=== PATIENT | female | born 1940 | race Caucasian/White ===

== ENCOUNTER 2023-06-25 13:30 | Inpatient (IN) | payer MEDICARE, OTHER, SELFPAY ==
[2023-06-25] VITALS (10 sets, daily range): BP systolic 109–207; BP diastolic 57–98
[2023-06-25 10:05] LABS: Glucose - Point of Care 98 mg/dl (70-99)
--- NOTE | 2023-06-25 10:08 | ED.CVA ---
History of Present Illness
General
Chief Complaint: CVA/TIA Symptoms
Source: patient and ambulance crew
Exam Limitations: dementia
Time Seen by Provider: 06/25/23 10:04
Nursing documentation reviewed up to this point in time: agreed with
Onset of Stroke Symptoms
Onset of symptoms known: No
Time pt last seen normal is known: Yes
Date last time pt seen normal: 06/24/23
Time last time pt seen normal: 20:00
Travel History
Have you had any contact with someone who has COVID-19?: No
Do you have any symptoms of coronavirus? Fever > 100 degrees, chills, cough, shortness of breath, sore throat, loss of taste or smell, muscle aches, or headache?: No
History of Present Illness
History of Present Illness:
83-year-old female presents emergency department due to difficulty speaking, and being unwilling to walk.
Past History
Past History
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
Negative Asthma or NIDDM
ED Past Surgical History: Appendectomy, and Other (Hernia repair)
Social History
Tobacco: Non-smoker
Alcohol: None
Drug: None
Personal:
Living: assisted living ([facility])
Employment: Not employed
Family History
Family History: Other and Unable to obtain
Review of Systems
Review of Systems
Allergies reviewed?: Yes
All Other Systems: Not applicable
Neurological: Reports other (nonsensical speech)
Phy Exam
Physical Exam
Physical Exam:
Physical Exam
General: no apparent distress, not acutely ill
Neck: supple. no meningeal signs. normal posterior pharynx
Heart: s1/s2 regular rate and rhythm, no murmur. equal radial
pulses.
HEENT: Pupils equal round reactive to light, EOMI
Lungs: no acute respiratory distress. clear bilaterally
Abdomen: normal bowel sounds. not tender. no CVAT
Neuro: alert but not oriented. no focal neurological deficits cranial nerves II through XII intact, no dysarthria, unclear if dementia versus aphasia
Skin: no rash
Psychiatric: well kept. interactive and cooperative
Extremities: no edema. no calf tenderness. negative homans. good distal pulses
Course
Orders/Labs/Results
Orders:
Orders
06/25/23 10:04
CT Head W/o Iv Contrast Urgent
Comment:
Reason For Exam: expressive aphasia
Cardiac Monitoring- Treatment ONCE
IV Insert/Care/Rem.- Treatment PRN
06/25/23 10:05
Electrocardiogram (*1) Stat
Reason for Study: Other
Other Reason for Exam: neuro symptoms
EKG- Treatment ONCE
06/25/23 10:26
Ondansetron Injectable [Zofran] 4 mg .ROUTE .STK-MED ONE
06/25/23 10:27
Ondansetron Injectable [Zofran] 4 mg IV NOW STA
06/25/23 10:34
Cardiovascular Evaluation Urgent
Complete Blood Count/With Diff Urgent
Comprehensive Metabolic Panel Urgent
Erythrocyte Sed Rate Urgent
Comment: ADD
Ferritin Urgent
Comment: ADD
Folate Urgent
Comment: ADD
Glycohemoglobin (HgbA1c) Urgent
TSH Reflex To Free T4 Urgent
Comment: ADD
Urinalysis Reflex To Culture Urgent
Date Specimen was Collected: 06/25/23
Time Specimen was Collected: 10:24
Vitamin B12 Urgent
Comment: ADD
06/25/23 10:57
Acetaminophen [Tylenol] 650 mg PO NOW STA
06/25/23 11:39
Ketorolac [Toradol] 15 mg IV NOW STA
Prochlorperazine [Compazine] 10 mg IV NOW STA
Rizatriptan Orally Disintegrat [[employer] (Orally Disintegrating)] 10 mg PO NOW STA
06/25/23 11:40
EEG Routine Routine
Reason for Exam: change in mental status, aphasia
06/25/23 13:11
HydrALAZINE [Apresoline] 10 mg IV NOW STA
06/25/23 13:14
Add On- LAB Routine
Tests Added?: folate, ferritin, TSH reflex, B12, hbA1c, lipid panel, ESR
06/25/23 13:17
Admit/Transfer Patient As Directed
Co-Sign Provider:
Level of Care: Inpatient admission
Assign to:: Telemetry
Physician / Group: Kezia Zelaya
Diagnosis: Expressive Aphasia, uncontrolled hypertension
Reason for Telemetry: Arrhythmia
Date to Stop Telemetry: 06/28/23
Time to Stop Telemetry: 11:00
Reason for Hospitalization: BP management, Neurology consult
Expected length of stay greater than two midnights?: Yes
ELOS- Estimated Length of Stay in days: 3
I certify the patient meets the requirements for IP care: Yes
06/25/23 13:22
Code Status As Directed
Resuscitation Status: Do not resuscitate
Reached after discussion with pt or family/Healthcare POA: Yes
06/25/23 13:23
DNR Bracelet Application ONCE
06/25/23 13:32
Arterial Blood Gas Urgent
%Oxygen/Room Air: 92% - RA
06/28/23 11:00
DC Protocol for Telemetry ONCE
Abnormal Lab Results
06/25/23
10:34
RBC 3.89 L 10^6/uL
(4.20-5.40)
MCH 31.6 H pg
(27.0-31.0)
MCHC 32.8 L g/dL
(33.0-37.0)
ESR 30 H mm/hour
(0-20)
Carbon Dioxide 34 H mmol/L
(22-30)
Total Protein 6.1 L g/dl
(6.3-8.2)
06/25/23 10:34
06/25/23 10:34
Vital Signs
Initial and Last Documented VS:
Initial Vital Signs
Temp Pulse Resp BP Pulse Ox
98.7 F 52 16 162/98 95
06/25/23 10:00 06/25/23 10:00 06/25/23 10:00 06/25/23 10:00 06/25/23 10:00
Last Documented Vital Signs
Temp Pulse Resp BP Pulse Ox
98.7 F 61 12 207/89 92
06/25/23 10:00 06/25/23 13:19 06/25/23 12:45 06/25/23 13:19 06/25/23 12:30
MDM/Problems Addressed
Differential Diagnosis Includes:
Intracranial hemorrhage, CVA, migraine
MDM/Problems Addressed:
83-year-old female with altered mental status, headache, unclear etiology. Possibly CVA versus migraine.
Chronic conditions affecting care: HTN and Neurological disorder (TGA, TIA)
Acute Exacerbation and/or Progression of Chronic Illness: HTN and Neurological disorder (TGA, TIA)
*Radiology
Radiology exam reviewed: radiology read reviewed (CT head no acute findings)
*Pulse Oximetry
Patient hypoxic: no
*EKG
Interpreted by ED Provider?: Yes
EKG Intrepretation Date: 06/25/23
EKG Intrepretation Time: 10:32
Interpretation: abnormal
Comparison EKG: no changes
Heart Rate: 55
Rate: bradycardiac
Rhythm: sinus
[place]: normal axis
Interval: normal interval
QRS Pattern: normal QRS
Ischemia: no ischemia
*Zipper Machine Operator Interpretation
Rate: bradycardiac
Interpretation: abnormal
Heart Rate: 55
Rhythm: sinus
*Critical Care Note
Total Time (30-74mins, 75-104mins- exclusive of procedures): Not Applicable
Data Reviewed
Review of Other/Old Records Reveals: Discharge Summary (Prior to discharge on 03/17/2022 for toxic metabolic encephalopathy)
Patient Management
Social determinants of health affecting care: Living situation
Discussion with other providers: Hospitalist and Hand Stapler (Neurology, Dr. Garcia)
Escalation/DeEscalation of care consider admission/obs:
Admit indicated
ED Attending Note
-
Portions of this chart may have been created with voice recognition software.� Occasional wrong word or��sound alike� substitutions may have occurred due to the inherent limitations of voice recognition software.
Discharge Plan
Departure
Patient Disposition: Admit
Date of Disposition: 06/25/23
Time of Disposition: 11:25
Admit to: Telemetry
Presentation/result/management discussed w/ accepting MD/DO: Hospitalist
Patient with high blood pressure during this ER visit?: Yes
Condition: Good
Discharge Problem:
Altered mental status
Interventions
Interventions:
*Risk Screen - Suicide Last Done: 06/25/23 10:00
*General Assessment Last Done: 06/25/23 10:00
*Neglect/Abuse Screening Last Done: 06/25/23 10:00
ED- Fall Risk Assessment Last Done: 06/25/23 10:23
*ED COVID-19 Vaccine History Last Done: 06/25/23 10:20
ED- Pulmonary Assessment Last Done: 06/25/23 10:20
ED- Neurological Assessment Last Done: 06/25/23 10:30
ED- Cardiac Assessment Last Done: 06/25/23 10:20
ED Swallowing Screen Last Done: 06/25/23 10:55
[2023-06-25] MEDS: ZOFRAN 4 MG IV (10:29)
[2023-06-25 10:49] LABS: Urine Albumin Negative (Neg - Trace); Urine Bilirubin Negative (Negative); Urine Character Clear (Clear); Urine Color Yellow; Urine Glucose Negative (Negative); Urine Ketone Negative (Negative); Urine Leukocyte Negative (Negative); Urine Nitrite Negative (Negative); Urine Occult Blood Negative (Negative); Urine Urobilinogen Negative (Neg - 1+)
[2023-06-25 10:52] LABS: % Basophils 1.3 % (0-2); % Eosinophils 2.4 % (0-6); % Immature Granulocytes 0.4 % (0-0.5); % Lymphocytes 21.8 % (20.5-51.1); % Monocytes 8.8 % (1.7-9.3); % Neutrophils 65.3 % (42.2-75.2); Absolute Basophils 0.1 10^3/uL (0-0.2); Absolute Eosinophils 0.1 10^3/uL (0-0.7); Absolute Lymphocytes 1.2 10^3/uL (1.2-3.4); Absolute Monocytes 0.5 10^3/uL (0.1-0.6); Absolute Neutrophils 3.5 10^3/uL (1.4-6.5); Hematocrit 37.5 % (37.0-47.0); Hemoglobin 12.3 g/dL (12.0-16.0); Mean Corp Hgb Conc. 32.8 g/dL (33.0-37.0); Mean Corpuscular Hgb 31.6 pg (27.0-31.0); Mean Corpuscular Volume 96.4 fL (81.0-99.0); Mean Platelet Volume 10.4 fL (7.4-10.4); Nucleated Red Blood Cells % 0 %; Platelet Count 167 10^3/uL (130-400); Red Blood Cell Count 3.89 10^6/uL (4.20-5.40); Red Cell Dist. Width 12.6 % (11.5-14.5); White Blood Cell Count 5.4 10^3/uL (4.8-10.8)
--- NOTE | 2023-06-25 11:00 | CON.NEURO4 ---
Addendum entered and electronically signed by Wagner Garcia MD 06/25/23 13:55:
I saw and evaluated the patient I reviewed the note by Belle Quinn agree with the findings the following comments:
83-year-old woman with a past medical history of macular degeneration and blindness, repeated episodes of aphasia and confusion with complete resolution each time presenting the hospital with symptoms of headache speech difficulty and confusion.
Last known normal to be last night no recent illnesses or changes in medications.
Patient had been seen by my fellow neurologist Dr. Ho as well as Dr. Jimenez in the past she has had episodes of confusion and aphasia and actually has received alteplase 2 times without any imaging evidence for stroke on brain MRI.
Currently the patient does endorse significant headache along with feeling of nausea.
Blood pressure elevated in the ED to the 180s and low 200s systolic.
I had seen the patient as an outpatient and had thought that her episodes may have represented confusion in part due to mild cognitive impairment in addition to blindness and Garett Bonnet syndrome. I felt they were unlikely to be seizure or TIA,
some possibility for a confusional migraine.
Neurologic examination shows in a patient who is awake and alert and obey some simple commands and consistently has nonfluent speech, resting gaze is midline no gaze preference seen smile symmetric and symmetric motor function bilaterally.
Assessment: Doubt that this is TIA/stroke or seizure. 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 Concern for baseline mild cognitive impairment versus mild dementia.
Recommendations
-Trial migraine cocktail with rizatriptan and IV prochlorperazine and IV Toradol
-Would aim for systolic blood pressure less than 180
-Neurologic checks
-Check EEG
-Continue her home gabapentin
-Would follow her mental status, if still persistently abnormal tomorrow then check brain MRI without contrast
-Continue aspirin alone
Will follow
Original Note:
Documented by User: Belle Swenson NP 06/25/23 13:14
Consultation - Neurology 4
-
CONSULTING PHYSICIAN: Shivani Garcia MD
REFERRING PHYSICIAN: ER/Dr. Walters
DICTATED BY: CYRIL Barreto
DATE/TIME OF REQUEST: 06/25/23
DATE/TIME OF CONSULTATION: 06/25/23
Reason for Consultation: Aphasia
History of Present Illness:
This is an 83-year-old right-handed female who has presented to the hospital from [facility] with report of aphasia, delirium, headache, and being unwilling to walk. Patient has been evaluated by our Neurology service several times in the past for
similar symptoms.
From previous evaluation by Dr. Valenzuela on 11/24/20:
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 Her
daughter states that she has received alteplase in the past (x2) with imaging showing no evidence of stroke. She is also had EEGs without any evidence of seizure. She has seen Dr. Sun (who she saw only once in our office), Dr. Jimenez, [facility] and [facility] without a clear etiology found for her symptoms. She was seen previously by me in the hospital on 12/29/2018 when she presented with headache with aphasia and confusion. At that time her family refused any imaging,
alteplase and EEG, saying that they felt her symptoms were related to UTI. At that time they stated that she had 'several different (similar) events in the past at least half of which is been associated with UTIs.'
She presents today for evaluation for confusion that began on associated with visual and auditory hallucinations. She resides with her daughter. She is generally able to carry out her activities of daily living with the assistance of a
nurse that helps her each morning. She needs assistance at times with taking her pills and with preparing food. Her daughter states that since last she has needed much more assistance with her ADLs and she has both visual and auditory
hallucinations. She has had visual hallucinations in the past per eCW with use of Seroquel and her daughter reports that she had visual hallucinations with a trial of Vimpat started by [facility]. She believes that she has never had
hallucinations outside the context of medication side effect or possible UTI. She is having a well-formed visual hallucinations consisting of 'seeing colorful wallpaper like she had at home.' She is also seen 'moms, a road with a levi and thought
she was in a children[facility] hospital.' Her auditory hallucinations have consisted of 'hearing someone sleeping in the room next to her and hearing someone screaming for her son-in-law.' In the past similar episodes have improved with antibiotics but
she was put on antibiotics by her primary care physician for this event with little improvement. She generally has these a few times a year. Her family has been attempt to manage these events at home during COVID to avoid bringing her to the
hospital She's had no clear focal neurological deficits are clear convulsive seizures with this current event.'
Patient is currently unable to provide answers to many questions so most of this information is obtained from her daughter at bedside. Her daughter reports that yesterday (06/24/23) she had breakfast with the patient and then the patient headed to
her exercise class in her usual state. This morning (06/25/23), DC staff noted that the patient seemed delirious with nonsensical speech, and was refusing to stand up to walk. They sent her to the ER for evaluation. CT head was obtained on arrival
and is negative for any acute abnormalities. Blood pressure was 162/98 on arrival but is now 199/84. Patient is reporting a 10/10 headache, she is unable to describe it or provide a location of the headache. She reports photophobia and nausea, she
has not vomited and denies phonophobia. 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 She denies any dizziness, swallowing difficulty, numbness, weakness, chest pain, palpitations, and shortness of breath. NIHSS is a 6 for incorrect orientation questions,
baseline bilateral hemianopia, and mild aphasia. She is not a candidate for TNK/IAT due to unclear diagnosis, no evidence of LVO, and unclear onset of symptoms. She is taking aspirin 81mg daily and has not missed any doses. Her daughter reports that
two years ago she moved to [facility] for increased assistance due to her blindness, but cognitively she is intact at baseline. Her last episode similar to this was 1-2 years ago.
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
HTN, HLD, [place], pneumonia, recurrent UTI, UTI associated encephalopathy, anxiety, depression, GERD, left ICA stenosis, JOSETTE, hypothyroidism, iron deficiency anemia, osteoporosis, pulmonary nodule, hallucinations in the past on Seroquel and lacosamide,
insomnia, Tracy-Agrawal tear.
Surgical History: Appendectomy, hernia repair, tonsillectomy, x3, right cataract removal
Family History: Father- dementia.
Social History: Denies tobacco, alcohol, and illicit drug use. . Moved to [facility] in 2021. 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
Allergies: Iodine, amlodipine.
Home Medications: See below.
Review of Symptoms:
Patient denies any fever, chest pain, shortness of breath, GI or symptoms.
�Per the HPI.�All systems are reviewed negative except above.
Physical Exam:
The patient is afebrile, abdomen is nondistended, breathing is unlabored, skin is warm and dry, no edema.
NIH Stroke Scale:
I performed the NIH stroke scale on the patient on 06/25/23 at 1100. The patient scored 6 points on the NIH stroke scale assessment, which were assigned as follows: See below.
Neurologic Examination:
The patient is awake, alert and oriented to name, place, not time/situation. She is moaning in pain, reports headache. She is able to follow all commands. She can answer some questions appropriately. There is mild expressive aphasia. No dysarthria.
On cranial nerve assessment, pupils are 3 mm bilateral, oval and minimally reactive to light and accommodation. Visual stern are absent at baseline. JJ EOMS. Facial sensations are intact and bilaterally symmetrical, there is no facial asymmetry.
Hearing is intact bilaterally to normal conversation volume. Tongue palate and uvula are midline. Sternocleidomastoid strengths are full bilaterally. Motor strengths are 5/5 bilateral upper and lower extremities on medical research [place] scale.
There is no drift or involuntary movement noted. Deep tendon reflexes are 1+ bilateral upper and lower extremities and Babinski is absent bilaterally. JJ DBS. Coordination is intact by finger to nose bilaterally.
Lab Results: See below.
Neuro Imaging:
1. CT Head 06/25/23: No acute intracranial abnormalities. Findings again seen compatible with diffuse cortical atrophy with nonspecific white matter changes as described above.
2. MRI brain 11/25/20: There is no acute intracranial process. There is moderate diffuse volume loss and chronic small vessel disease. 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 Chronic sinus disease.
Differentials for the patient's presentation include:
1. Complicated migraine causing aphasia.
2. Left hemisphere stroke possible but less likely given history of similar events with negative MRI brain imaging.
3. Hypertensive urgency.
4. Metabolic disturbance possibly causing encephalopathy but no clear clinical signs of infection.
Patient has the following risk factors for their symptoms: Hx similar events, blindness, headache, HTN, HLD
IV Tenecteplase/IAT candidacy: She is not a candidate for TNK/IAT due to unclear diagnosis, no evidence of LVO, and unclear onset of symptoms.
Recommendations:
-Provide rizatriptan 10mg, prochlorperazine 10mg IV, and Toradol 15mg IV x1 now for headache.
-Routine EEG ordered/pending.
-Continue aspirin 81mg daily.
-Goal normotension.
-Checking blood work for metabolic abnormalities, lipid panel, and hbA1c.
-NIHSS and neurological checks per unit guidelines.
-Provide patient's family with a stroke education packet.
-If no improvement in symptoms, will obtain MRI brain noncontrast.
-DVT prophylaxis.
-Will follow.
Discussed patient care with: Dr. Garcia, the patient
Vital Signs and Labs
-
Vital Signs and Labs:
Vital Signs
Temp Pulse Resp BP Pulse Ox
98.7 F 53 17 185/82 95
06/25/23 10:00 06/25/23 11:00 06/25/23 11:00 06/25/23 11:00 06/25/23 11:00
Lab Results
06/25/23 10:34
06/25/23 10:34
Sodium 136 mmol/L (135-145) 06/25/23 10:34
Potassium 3.9 mmol/L (3.5-5.1) 06/25/23 10:34
BUN 14 mg/dl (7-17) 06/25/23 10:34
Glucose 98 mg/dl (70-99) 06/25/23 10:34
Calcium 9.3 mg/dl (8.4-10.2) 06/25/23 10:34
Medications
-
Home Medications
�Medication �Instructions �Recorded
pantoprazole 40 mg tablet,delayed 40 mg PO DAILY Gastrointestinal 12/03/11
release issue
ramipril 5 mg capsule 5 mg PO BID Blood pressure 12/03/11
metoprolol succinate 25 mg 25 mg PO BID Blood pressure 04/26/17
tablet,extended release 24 hr
rosuvastatin 10 mg tablet 10 mg PO HS High cholesterol 05/25/18
fluoxetine 10 mg capsule 10 mg PO DAILY Depression 11/24/20
hydrochlorothiazide 25 mg tablet 25 mg PO DAILY Blood pressure 11/24/20
cholecalciferol (vitamin D3) 125 125 mcg PO DAILY Supplement 12/16/21
mcg (5,000 unit) tablet (Vitamin
D3)
cyanocobalamin (vitamin B-12) 1,000 mcg PO MOWEFR@0800 Supplement 12/16/21
1,000 mcg tablet (Vitamin B-12)
fluoxetine 20 mg capsule 20 mg PO DAILY Depression 12/16/21
acetaminophen 325 mg tablet 650 mg PO Q6H PRN mild pain 02/10/22
aspirin 81 mg chewable tablet 81 mg PO DAILY Blood clot 02/10/22
prevention/tx
calcium carbonate (Oyster Shell 500 mg PO DAILY Supplement 02/10/22
Calcium)
Culturelle 1 cap PO DAILY 06/25/23
ascorbic acid (vitamin C) 1,000 mg 1,000 mg PO DAILY 06/25/23
tablet
cephalexin 250 mg capsule 250 mg PO DAILY@0900 06/25/23
cranberry extract 500 mg capsule 500 mg PO DAILY 06/25/23
(Cranberry Concentrate)
gabapentin 300 mg capsule 300 mg PO TID@0900,1300,1700 06/25/23
hydrocortisone 1 % topical cream 1 applic topical TID PRN crease of 06/25/23
neck rash
NIH Stroke Score
Subsequent NIH Scale
Date of Subsequent NIH Scale: 06/25/23
Time of Subsequent NIH Scale: 11:00
NIH Stroke Score
Level of Consciousness: 0 - Alert
LOC Questions: 2-Neither correct
LOC Commands: 0-Performs both correctly
Best Horizontal Gaze: 0-Normal
Visual Stern: 3=Bilateral hemianopia (blind at baseline)
Facial Palsy: 0=Normal, symmetrical
Motor - Right Arm: 0=No drift 10 seconds
Motor - Left Arm: 0=No drift 10 seconds
Motor - Right Le-No drift 5 seconds
Motor - Left Le-No drift 5 seconds
Limb Ataxia: 0-Absent
Sensation: 0-Normal
Best Language: 1-Mild aphasia
Dysarthria: 0-Normal
Extinction and Inattention: 0-No abnormality
Total Score:: 6

Documented by User: Wagner Garcia MD 06/25/23 13:19
NIH Stroke Score
NIH Stroke Score
Total Score:: 6
[2023-06-25] MEDS: TYLENOL 650 MG PO (11:02)
[2023-06-25 11:03] LABS: ALT (SGPT) 14 U/L (0-35); AST (SGOT) 26 U/L (14-36); Albumin 3.5 g/dl (3.5-5.0); Alkaline Phosphatase 66 U/L (38-126); Blood Urea Nitrogen 14 mg/dl (7-17); Calcium 9.3 mg/dl (8.4-10.2); Carbon Dioxide 34 mmol/L (22-30); Chloride 101 mmol/L (98-107); Glucose 98 mg/dl (70-99); Potassium 3.9 mmol/L (3.5-5.1); Sodium 136 mmol/L (135-145); Total Bilirubin 0.7 mg/dl (0.2-1.3); Total Protein 6.1 g/dl (6.3-8.2); eGFR 55.55
[2023-06-25] MEDS: TORADOL 15 MG IV (11:58)
[2023-06-25] MEDS: TORADOL IV (11:59)
[2023-06-25] MEDS: MAXALT MLT (ORALLY DISINTEGRATING) 10 MG PO (12:00)
[2023-06-25] MEDS: COMPAZINE 10 MG IV (12:01)
--- NOTE | 2023-06-25 13:07 | HPS.HSE ---
Addendum entered and electronically signed by Dom Zelaya MD 06/25/23 13:43:
83-year-old female with a past medical history of legal blindness, Garett Bonnet syndrome, JOSETTE, HTN, Aguilar's esophagus, anxiety, and obesity presents with confusion, aphasia, headache, and fatigue. Patient resides at [facility] living.
Appreciate neurology input, patient has been evaluated by neurology on several occasions for similar symptoms, MRI is usually negative. Her blood pressure is extremely elevated in the ER, systolic blood pressure 190�200. Differential diagnosis
include hypertensive encephalopathy, complicated migraine, or dementia.
Currently, her headache is improved since receiving Maxalt, Toradol, and Compazine.
Current blood pressure is 207/89. Give hydralazine 10 mg IV stat.
Increase home ramipril to 10 mg twice a day, start hydralazine 25 mg 3 times a day, decrease metoprolol succinate from 25 mg twice a day to 12.5 mg twice a day secondary to bradycardia. Continue IV hydralazine as needed. Monitor mental status.
I have personally seen and examined the patient, and agree with the plan of care as documented by Tameka Dueñas PA-C.
Advance care planning discussed, patient is a DNR.
All other issues as outlined by the advanced care practitioner.
Total time spent to see the patient on the floor, examine the patient, review data and lab results, discuss treatment plan with patient, nursing staff around 75 minutes.
Original Note:
Family Physician
-
Family Physician: Jasmyn Corona
Chief Complaint
-
Change in Mental Status
History of Present Illness
Patient is an 83 y/o female with a past medical history of hypertension, hyperlipidemia, paroxysmal atrial fibrillation, Garett Bonnet syndrome, obstructive sleep apnea, Aguilar's esophagus, anxiety, and frequent urinary tract infections who
presents with her daughter and friend from [facility] for decreased speech, headache, and fatigue since this morning. Patient is a poor historian due to change in mental status. Patient is unable to answer questions related to name, time, and
location. Patient is sometimes able to answer yes or no questions during the history. At the beginning of the history, she spoke few complete sentences but was unable to do so later on. Her daughter states that her mother was found to be combative
with staff this morning and unable to speak full sentences. She reports decreased speech and garbled speech. She states that her mother normally talks frequently and without difficulty at baseline. She is unsure of her mother's last known normal.
Patient admits to current headache. There are no reports of focal weakness.
Medical History
Past Medical History
Past Medical History: Reports Other
Additional Past Medical History:
Paroxysmal Atrial Fibrillation
Essential Hypertension
Hyperlipidemia
Recurrent UTIs
Aguilar's Esophagus
Hallucinations secondary Garett Bonnet Syndrome
Anxiety/Depression
Past Surgical History: Reports Other
Additional Past Surgical History:
Appendectomy
Hernia Repair
Section
Social History
Tobacco: Non-smoker
Alcohol: None
Personal:
Living: Assisted Living (Lives at [facility])
Employment: Not Employed
Family History
Family History: Not pertinent
Allergies / Home Medications
Allergies reflects when Allergies were last updated in [facility].
Home Medications with original date entered in [facility]
Allergy/Medication List:
Allergies
Allergy/AdvReac Type Severity Reaction Status Date / Time
iodine Allergy Unknown Confusion,confusion/'like Verified 06/25/23 10:49
I had a
tia'
amlodipine besylate Allergy Rash Verified 06/25/23 10:49
[From [facility]]
Home Medications
pantoprazole 40 mg tablet,delayed release 40 mg PO DAILY Gastrointestinal issue 12/03/11
ramipril 5 mg capsule 5 mg PO BID Blood pressure 12/03/11
metoprolol succinate 25 mg tablet,extended release 24 hr 25 mg PO BID Blood pressure 04/26/17
rosuvastatin 10 mg tablet 10 mg PO HS High cholesterol 05/25/18
fluoxetine 10 mg capsule 10 mg PO DAILY Depression 11/24/20
hydrochlorothiazide 25 mg tablet 25 mg PO DAILY Blood pressure 11/24/20
cholecalciferol (vitamin D3) 125 mcg (5,000 unit) tablet (Vitamin D3) 125 mcg PO DAILY Supplement 12/16/21
cyanocobalamin (vitamin B-12) 1,000 mcg tablet (Vitamin B-12) 1,000 mcg PO MOWEFR@0800 Supplement 12/16/21
fluoxetine 20 mg capsule 20 mg PO DAILY Depression 12/16/21
acetaminophen 325 mg tablet 650 mg PO Q6H PRN mild pain 02/10/22
aspirin 81 mg chewable tablet 81 mg PO DAILY Blood clot prevention/tx 02/10/22
calcium carbonate (Oyster Shell Calcium) 500 mg PO DAILY Supplement 02/10/22
Culturelle 1 cap PO DAILY 06/25/23
ascorbic acid (vitamin C) 1,000 mg tablet 1,000 mg PO DAILY 06/25/23
cephalexin 250 mg capsule 250 mg PO DAILY@0900 06/25/23
cranberry extract 500 mg capsule (Cranberry Concentrate) 500 mg PO DAILY 06/25/23
gabapentin 300 mg capsule 300 mg PO TID@0900,1300,1700 06/25/23
hydrocortisone 1 % topical cream 1 applic topical TID PRN crease of neck rash 06/25/23
Review of Systems
-
Unable to obtain full review of systems at this time due to: Other (Speech Difficulty and Change in Mental Status)
Physical Exam
Vital Signs
Vital Signs
Temp Pulse Resp BP Pulse Ox
98.7 F 57 12 199/84 92
06/25/23 10:00 06/25/23 12:45 06/25/23 12:45 06/25/23 12:00 06/25/23 12:30
Physical Exam
General: Well Nourished, No Apparent Distress and Comfortable
HEENT: NormoCephalic, Anicteric and Moist mucous membranes
Respiratory: Clear and Non Labored Respirations
Cardiac: S1/S2 and Regular Rhythm
GI: Soft and Non Tender
Rectal: Deferred by Provider
Musculoskeletal: No Clubbing, No Cyanosis and No Edema
Skin: Warm and Dry
Neuro: Other (Patient follows commands and moves all four extremities appropriately. Speech is garbled, only occasionally answering with one word)
Laboratory Results
-
06/25/23 10:34
06/25/23 10:34
Laboratory Results
Total Bilirubin 0.7 mg/dl (0.2-1.3) 06/25/23 10:34
AST 26 U/L (14-36) 06/25/23 10:34
ALT 14 U/L (0-35) 06/25/23 10:34
Alkaline Phosphatase 66 U/L (38-126) 06/25/23 10:34
Data Reviewed
-
Diagnostic Radiology: Report Reviewed by me
Lab Data: Labs Reviewed by me
Old Records: Reviewed
Impression/Plan
-
Acute Change in Mental Status, differential includes: Hypertensive Encephalopathy, Hypercapnia, Migraine and Dementia
-Consult Neurology
-Treat hypertension
-Check ABG
-Hold on MRI pending eval tomorrow
Essential Hypertension, currently uncontrolled with possible hypertensive encephalopathy
-Hold HCTZ
-Continue Toprol at lower dose due to bradycardia
-Increase ramipril 10mg BID
-Add hydralazine 25mg TID with hold parameters
Paroxysmal Atrial Fibrillation
-Appears to have been a single episode during prior admission
-Monitor on Telemetry
-Patient is not on anticoagulation as outpatient
Hyperlipidemia
-Continue Rosuvastatin
Recurrent UTIs
-Continue cephalexin
GERD / Aguilar's Esophagus / Hx GI Bleed
-Continue Protonix
Hallucinations secondary Garett Bonnet Syndrome
-Continue gabapentin
Anxiety/Depression
-Continue fluoxetine
Obstructive Sleep Apnea
-Per daughter patient used to use CPAP at night, but has not in quite sometime. Patient has also gained weight recently due to inactivity with her worsening vision
-Consider sleep study as outpatient
DVT proph: SCDs
Code Status: DNR confirmed with daughter at the bedside at the time of admission
[2023-06-25] MEDS: APRESOLINE 10 MG IV (13:19)
[2023-06-25 13:40] LABS: HCO3 29.2 mmol/L (21-28); PCO2 45 mmHg (32-35); PO2 69 mmHg (83-108); pH 7.42 (7.35-7.45)
[2023-06-25 13:42] LABS: Erythrocyte Sed Rate 30 mm/hour (0-20)
--- NOTE | 2023-06-25 13:43 | W.PN.UPDATE ---
Update Note
Progress Note Update
For billing purposes
[2023-06-25 13:50] LABS: HDL Cholesterol 61 mg/dl; LDL Cholesterol, Calculated 69 mg/dl; Total Cholesterol 149 mg/dl (50-199); Triglyceride 98 mg/dl (10-149); Very Low Density Lipoprotein 19 mg/dl (0-30)
[2023-06-25 13:59] LABS: Glycohemoglobin (HgbA1c) 5.6 % (4.0-5.6)
[2023-06-25 14:59] LABS: TSH Reflex To Free T4 0.58 uIU/ml (0.47-4.68)
[2023-06-25 15:03] LABS: Ferritin 75.4 ng/ml (11.1-264.0)
[2023-06-25 15:34] LABS: Folate 15.3 ng/ml (2.76-20); Vitamin B12 872 pg/ml (239-931)
--- NOTE | 2023-06-25 15:39 | EEG.RPT ---
Electroencephalogram Report
Recording
Date of EE06/25/23
Length of EEG recordin minutes
Done with Video Recording: Yes
Patient Status: Inpatient
Recording Conditions: Awake and Drowsy
Hyperventilation Performed: No
Photic Stimulation Performed: Yes
Hand Dominance: Unknown
Report
LESS THAN 1 HOUR REPORT
LESS THAN 1 HOUR EEG INTERPRETATION:
Mildly abnormal EEG for age mild diffuse bihemispheric slowing and rare triphasic waves.
CLINICAL CORRELATION:
This study was suggestive of mild diffuse cortical dysfunction without focal abnormality. No seizures were recorded.
Clinical correlation is advised.
METHODS:
A 21 channel digitized electroencephalogram (EEG) was performed in the Clinical Neurophysiology Laboratory. The 10/20 international system of electrode placement was used with ECG and lateral/vertical eye movements recorded. Study lasted 25 minutes.
QUALITY OF STUDY:
Poor/Fair, significant motion and muscle artifact
ELECTROENCEPHALOGRAPHER IMPRESSION(S):
Background
Mixed medium amplitude predominantly theta and delta frequency background
No normal alpha rhythm posterior dominant rhythm seen
There were no significant asymmetries of background activity noted.
Sleep
Drowsiness present
Photic Stimulation
Failed to activate the record
ECG
Normal sinus rhythm
Abnormalities
Rare frontally predominant triphasic waves seen, no seizures or epileptiform discharges seen
--- NOTE | 2023-06-25 16:00 | PTCARENOTE ---
Addendum entered by Susan Davis RN 06/25/23 16:14:
06/24- Notified Neurology and Hospitalist of difference between NIH scores d/t Patient's Blindness and Cognitive deficits at this time. Current NIH score=18; ER score was 6. D/C NIH as per Neurology.
Original Note:
06/24- Patient transferred and oriented to unit without issue. AAOX1; Confused, agitated, speaking incomprehensible sounds to self, uncooperative and cannot follow directions to complete NIH assessment. Patient is also legally blind and cannot see
to assess visual finn or aphagia/dysarthria. BL hand offline cutter are weak but equal. Patient has aversion to physical touch, just yells 'ouch!' at slightest touch on arm. Telemetry #28- currently NSR.
--- NOTE | 2023-06-25 16:30 | PTCARENOTE ---
06/24- With patient's daughter in room, patient was better able to follow commands to complete Swallow Screening successfully. Changed NPO to 2GM Sodium Diet as ordered as per Swallow Screen Diet orders. Patient is now able to answer basic YES/NO
questions appropriately and knows person, time and place. Patient still has severe expressive aphagia and can be agitated at times but understands YES/NO questions.
[2023-06-25] MEDS: APRESOLINE 25 MG PO ×2 (16:50→21:07)
[2023-06-25] MEDS: NEURONTIN 300 MG PO (16:50)
[2023-06-25] MEDS: ALTACE 10 MG PO (21:06)
[2023-06-25] MEDS: TOPROL XL 12.5 MG PO (21:07)
[2023-06-25] MEDS: CRESTOR 10 MG PO (21:07)
[2023-06-26] VITALS (8 sets, daily range): BP systolic 94–141; BP diastolic 44–72; PULSE 63; BMI 42.4
[2023-06-26] MEDS: PROZAC 20 MG PO (07:33)
[2023-06-26] MEDS: TOPROL XL 12.5 MG PO ×2 (07:33→20:04)
[2023-06-26] MEDS: PROTONIX 40 MG PO (07:34)
[2023-06-26] MEDS: ALTACE 10 MG PO (07:34)
[2023-06-26] MEDS: LOW STRENGTH ASPIRIN 81 MG PO (07:34)
[2023-06-26] MEDS: OSCAL CAL 500 500 MG PO (07:34)
[2023-06-26] MEDS: VITAMIN C 1000 MG PO (07:35)
[2023-06-26] MEDS: APRESOLINE 25 MG PO (07:35)
[2023-06-26] MEDS: PROZAC 10 MG PO (07:35)
[2023-06-26] MEDS: VITAMIN D3 (cholecalciferol) 125 MCG PO (07:35)
[2023-06-26] MEDS: TYLENOL 1000 MG PO ×2 (07:42→20:11)
--- NOTE | 2023-06-26 07:54 | W.PN.HOSP.TC ---
Today's Communication/Plan
-
Decrease hydralazine to 10 mg 3 times daily with hold parameters
Monitor overnight per neurology
Assessment / Plan
Assessment / Plan
HPI: 83-year-old female with a past medical history of legal blindness, Garett Bonnet syndrome, JOSETTE, HTN, Aguilar's esophagus, anxiety, and obesity presents with confusion, aphasia, headache, and fatigue. Patient resides at [facility] assisted
living. Appreciate neurology input, patient has been evaluated by neurology on several occasions for similar symptoms, MRI is usually negative. Her blood pressure is extremely elevated in the ER, systolic blood pressure 190�200. Differential
diagnosis include hypertensive encephalopathy, complicated migraine, or dementia.
#Hypertensive encephalopathy
Aphasia resolved with treatment of hypertension
Appreciate neurology input, EEG negative, no MRI needed
Continue aspirin 81 mg daily, minimize sedating medications
Monitor today, probable discharge tomorrow
#Labile hypertension
Blood pressure upon admission was 207/89, blood pressure today 94/44
Continue ramipril 10 mg twice a day, decrease hydralazine to 10 mg 3 times a day, hold for SBP less than 150
Continue metoprolol at reduced dose secondary to bradycardia
#Legally blind
Needs help with activities of daily living
From [facility] assisted living
In the process of being transitioned to long-term care
#Migraine headache
Continue Maxalt as needed, Compazine as needed
#Paroxysmal Atrial Fibrillation
-Appears to have been a single episode during prior admission
-Continue metoprolol at reduced dose secondary to bradycardia
-Patient is not on anticoagulation as outpatient
Hyperlipidemia
-Continue Rosuvastatin
Recurrent UTIs
-Continue cephalexin
GERD / Aguilar's Esophagus / Hx GI Bleed
-Continue Protonix
Hallucinations secondary Garett Bonnet Syndrome
-Continue gabapentin
Anxiety/Depression
-Continue fluoxetine
Obstructive Sleep Apnea
-Per daughter patient used to use CPAP at night, but has not in quite sometime. Patient has also gained weight recently due to inactivity with her worsening vision
-Consider sleep study as outpatient
DVT proph: lovenox
Code Status: DNR confirmed with daughter at the bedside at the time of admission
Total time spent to see the patient on the floor, examine the patient, review data and lab results, discuss treatment plan with patient, nursing staff around 50 minutes.
Physical Exam
General: Obese, no acute distress
HEENT: Legally blind, normocephalic, Atraumatic, EOMI, MMM
Respiratory: Clear to Auscultation bilaterally
Cardiac: Normal S1/S2, Regular Rate and Rhythm
GI: Soft, Nontender, Nondistended, Normal Bowel Sounds
Extremities: No Clubbing, Cyanosis, or Edema
Neuro: Nonfocal/Grossly Intact
Psych: Calm, Cooperative
Derm: No Visible lesions
Anticipated Discharge: Within 24 hours
Subjective/Interval History
-
Date of Service: June 26, 2023
Aphasia resolved. Patient complains of headache. No fever, no vomiting.
Objective Data
-
Labs:
Laboratory Results
06/26/23
07:24
WBC Pending
Hgb Pending
Hct Pending
Plt Count Pending
Sodium Pending
Potassium Pending
Chloride Pending
Carbon Dioxide Pending
BUN Pending
Creatinine Pending
Glucose Pending
Calcium Pending
Vital Signs:
Vital Signs
Temp Pulse Resp BP Pulse Ox
98.4 F 78 20 141/66 93
06/26/23 03:49 06/26/23 03:49 06/26/23 03:49 06/26/23 03:49 06/26/23 03:49
I&O
06/25/23 06/26/23 06/27/23
06:59 06:59 06:59
Intake Total 60 / 60
Balance 60 / 60
[2023-06-26 08:08] LABS: Hematocrit 37.1 % (37.0-47.0); Hemoglobin 12.2 g/dL (12.0-16.0); Mean Corp Hgb Conc. 32.9 g/dL (33.0-37.0); Mean Corpuscular Hgb 31.2 pg (27.0-31.0); Mean Corpuscular Volume 94.9 fL (81.0-99.0); Mean Platelet Volume 10.3 fL (7.4-10.4); Platelet Count 166 10^3/uL (130-400); Red Blood Cell Count 3.91 10^6/uL (4.20-5.40); Red Cell Dist. Width 13.2 % (11.5-14.5); White Blood Cell Count 6.5 10^3/uL (4.8-10.8)
--- NOTE | 2023-06-26 08:13 | W.PN.NEURO.1 ---
Today's Communication / Plan
-
-Continue aspirin 81 mg daily
-Neurologic checks
-Follow BP's goal normotension
-Minimize sedating medications that are new
-Home gabapentin
-Holding off MRI brain given vast improvement
-PRN Rizatriptan for headache can receive 2 doses today but no further doses (maximum 2 days per week in general)
Will follow
Neuro Assessment/Plan
Assessment
Assessment: Doubt that this is TIA/stroke or seizure. 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 Concern for baseline mild cognitive impairment versus mild dementia.
Has had multiple similar episodes which make me think this is a more benign disorder like confusional migraine.
Subjective/Objective
Subjective Data
Date of Service: June 26, 2023
No acute events, much better speech, minor headache currently, took some Tylenol
Objective Data
Vital Signs
Temp Pulse Resp BP Pulse Ox
98.4 F 78 20 141/66 93
06/26/23 03:49 06/26/23 03:49 06/26/23 03:49 06/26/23 03:49 06/26/23 03:49
Sodium 136 mmol/L (135-145) 06/25/23 10:34
Potassium 3.9 mmol/L (3.5-5.1) 06/25/23 10:34
BUN 14 mg/dl (7-17) 06/25/23 10:34
Glucose 98 mg/dl (70-99) 06/25/23 10:34
Calcium 9.3 mg/dl (8.4-10.2) 06/25/23 10:34
LDL Cholesterol, Calc 69 mg/dl 06/25/23 10:34
Vitamin B12 872 pg/ml (239-931) 06/25/23 10:34
Patient Allergies
iodine Allergy (Unknown, Verified 06/25/23 10:49)
Confusion,confusion/'like I had a tia'
amlodipine besylate [From [facility]] Allergy (Verified 06/25/23 10:49)
Rash
Review of Systems
-
History Source: Patient
All other systems: Reviewed and negative
Constitutional: No Symptoms
EENT: No Symptoms Reported
Respiratory: No Symptoms
Cardiac: No Symptoms
Abdomen/GI: No Symptoms
Genitourinary: No Symptoms
Musculoskeletal: No Symptoms
Skin: No Symptoms
Neuro: Speech Problem
Endocrine: No Symptoms
Hematologic / Lymphatic: No Symptoms
Allergy / Immunology: No Symptoms
Physical Exam
-
General: Well Developed and Well Nourished
Eyes: No Ptosis
HEENT: Normocephalic
Neck: No Bruits Bilaterally
Respiratory: Clear to Auscultation
Cardiac: Regular Rhythm
GI: Normal Bowel Sounds
Skin: Unremarkable
Extremities: No Clubbing
Psych: Unremarkable
Extended Neurological Exam
Mood & Affect: Mood Unremarkable and Affect Unremarkable
Attention Span & Concentration: Awake, Alert, Interactive and No Difficulty with 2 Step Request
Memory: Reduced
Speech: Quality Unremarkable and Quantity Unremarkable; Negative Expressive Aphasia, Receptive Aphasia or Dysarthric
Cranial Nerve II: Left Eye: No Vision
Cranial Nerve II: Right Eye: No Vision
Cranial Nerves III, IV, : Extraocular Movement: Extraocular Movement Full in all Directions
Cranial Nerve VII: Facial Symmetry: Normal Facial Symmetry
Muscle Strength, Overall: Full Throughout
Pronator Drift: No Drift in Upper Extremities
Coordination: [id number] Testing Unremarkable
Data Reviewed
-
CT Head: Report Reviewed and Image Reviewed
EEG: Report Reviewed
Labs: Report Reviewed
[2023-06-26 08:39] LABS: Blood Urea Nitrogen 15 mg/dl (7-17); Calcium 9.2 mg/dl (8.4-10.2); Carbon Dioxide 28 mmol/L (22-30); Chloride 104 mmol/L (98-107); Estimated Creatinine Clearance 38 ml/min; Glucose 100 mg/dl (70-99); HDL Cholesterol 56 mg/dl; LDL Cholesterol, Calculated 57 mg/dl; Magnesium 1.6 mg/dl (1.6-2.3); Potassium 3.5 mmol/L (3.5-5.1); Sodium 135 mmol/L (135-145); Total Cholesterol 129 mg/dl (50-199); Triglyceride 83 mg/dl (10-149); Very Low Density Lipoprotein 16 mg/dl (0-30); eGFR 49.55
[2023-06-26] MEDS: NEURONTIN 300 MG PO ×3 (08:55→16:55)
[2023-06-26] MEDS: KEFLEX 250 MG PO (08:55)
[2023-06-26 09:10] LABS: TSH Reflex To Free T4 0.69 uIU/ml (0.47-4.68)
--- NOTE | 2023-06-26 09:38 | PTOTSP ---
ST Evaluation
Mild/functional oral dysphagia; limited dentition, dentures not at bedside.
Pt received awake/alert oriented to self/ and name of hospital. Reoriented to time/date and situation. HOB raised upright for PO trials of regular solids/thin liquids. Wears dentures normally but they are not currently at the bedside. She was
able to chew despite missing most of her dentition.
Demo adequate oral access/containment, mildly prolonged mastication and bolus was orally cleared. Thin liquids by straw sip swallow appears prompt. No overt s/sx of aspiration observed.
Recommend
1. Continue Regular Solids/Thin liquids
2. Standard aspiration precautions and meal set up assist 2' visual impairment
3. Meds oral per pt preference and RN discretion
4. No further tx indicated
--- NOTE | 2023-06-26 09:42 | CM ---
Patient seen bedside. IA completed.
Patient Lives in personal Care at [facility].
Patient ambulates with a rollator.
Patient requires assist for adls.
Patients daughter Robyn in the room with her, Judy is the primary contact, Robyn is the second contact.
Another sister Lillie Valladares can be contacted- P# [phone] (primary and secondary contact will be away starting Wednesday).
Per Robyn patient has been in the [facility] in the past.
Patient has had [facility] in the past.
Patient is moving into [facility] within the next month, so if skilled rehab is require they would prefer [facility].
Pharmacy: [facility].
Plan: await PT/OT re d/c plans, home with rehab vs skilled rehab.
[2023-06-26] MEDS: COMPAZINE 10 MG IV (10:34)
[2023-06-26] MEDS: MAXALT MLT (ORALLY DISINTEGRATING) 10 MG PO (10:34)
[2023-06-26] MEDS: APRESOLINE 10 MG PO (16:54)
[2023-06-26] MEDS: ALTACE PO (20:04)
[2023-06-26] MEDS: CRESTOR 10 MG PO (21:44)
[2023-06-26] MEDS: APRESOLINE PO (21:50)
[2023-06-27 03:28] VITALS: BP 96/50
[2023-06-27 05:09] VITALS: BMI 43.1
[2023-06-27 07:35] VITALS: BP 124/70
--- NOTE | 2023-06-27 08:13 | W.PN.HOSP.TC ---
Today's Communication/Plan
-
Discharge tomorrow blood pressure stable
Assessment / Plan
Assessment / Plan
HPI: 83-year-old female with a past medical history of legal blindness, Garett Bonnet syndrome, JOSETTE, HTN, Aguilar's esophagus, anxiety, and obesity presents with confusion, aphasia, headache, and fatigue. Patient resides at [facility] assisted
living. Appreciate neurology input, patient has been evaluated by neurology on several occasions for similar symptoms, MRI is usually negative. Her blood pressure is extremely elevated in the ER, systolic blood pressure 190�200. Differential
diagnosis include hypertensive encephalopathy, complicated migraine, or dementia.
#Hypertensive encephalopathy
Aphasia resolved with treatment of hypertension
Appreciate neurology input, EEG negative, no MRI needed
Continue aspirin 81 mg daily, minimize sedating medications
Monitor today, probable discharge tomorrow
#Labile hypertension
Blood pressure upon admission was 207/89, blood pressure today 112/64
Discussed with neurology, safest option is to change her ramipril from 5 mg twice a day what she was taking at home to ramipril 6.25 mg twice a day
Continue metoprolol at reduced dose secondary to bradycardia
#Legally blind
Needs help with activities of daily living
From [facility] assisted living
In the process of being transitioned to long-term care
#Migraine headache
Continue Maxalt as needed, Compazine as needed
#Paroxysmal Atrial Fibrillation
-Appears to have been a single episode during prior admission
-Continue metoprolol at reduced dose secondary to bradycardia
-Patient is not on anticoagulation as outpatient
Hyperlipidemia
-Continue Rosuvastatin
Recurrent UTIs
-Continue cephalexin
GERD / Aguilar's Esophagus / Hx GI Bleed
-Continue Protonix
Hallucinations secondary Garett Bonnet Syndrome
-Continue gabapentin
Anxiety/Depression
-Continue fluoxetine
Obstructive Sleep Apnea
-Per daughter patient used to use CPAP at night, but has not in quite sometime. Patient has also gained weight recently due to inactivity with her worsening vision
-Consider sleep study as outpatient
DVT proph: lovenox
Code Status: DNR confirmed with daughter at the bedside at the time of admission
Total time spent to see the patient on the floor, examine the patient, review data and lab results, discuss treatment plan with patient, nursing staff around 35 minutes.
Physical Exam
General: Obese, no acute distress
HEENT: Legally blind, normocephalic, Atraumatic, EOMI, MMM
Respiratory: Clear to Auscultation bilaterally
Cardiac: Normal S1/S2, Regular Rate and Rhythm
GI: Soft, Nontender, Nondistended, Normal Bowel Sounds
Extremities: No Clubbing, Cyanosis, or Edema
Neuro: Nonfocal/Grossly Intact
Psych: Calm, Cooperative
Derm: No Visible lesions
Anticipated Discharge: Within 24 hours
Subjective/Interval History
-
Date of Service: June 27, 2023
Aphasia resolved. Patient denies headache. She is back to baseline mentation. No fever, no vomiting. No chest pain, no shortness of breath.
Objective Data
-
Vital Signs:
Vital Signs
Temp Pulse Resp BP Pulse Ox
98.7 F 73 18 96/50 94
06/27/23 03:28 06/27/23 03:28 06/27/23 03:28 06/27/23 03:28 06/27/23 03:28
I&O
06/26/23 06/27/23 06/28/23
06:59 06:59 06:59
Intake Total 60 / 60 960 / 960
Balance 60 / 60 960 / 960
--- NOTE | 2023-06-27 08:30 | W.PN.NEURO.1 ---
Today's Communication / Plan
-
-Titrating BP medications
-Keep home dosing of Gabapentin
-Aspirin 81 mg daily
-Not seeing need for brain MRI
-Possibly home today or tomorrow
-Headache improved, has a PRN Rizatriptan if needed, otherwise PRN tylenol
Will sign off call with questions and concerns
Neuro Assessment/Plan
Assessment
Assessment: Doubt that this is TIA/stroke or seizure. 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 Concern for baseline mild cognitive impairment versus mild dementia. Chronic vision loss
may predispose to confusion.
Has had multiple similar episodes
EEG negative during the confusion making seizure very unlikely
Possibly a migraine headache with confusion/aphasia triggering high blood pressure
Could also have been a hypertensive encephalopathy, difficult to tell which
No UTI
Improved mental status
Is on Gabapentin which may help reduce frequency of migraine headaches
Subjective/Objective
Subjective Data
Date of Service: June 27, 2023
No acute events, denies headache, got up with assistance to use the bathroom without any lightheadedness or dizziness
Objective Data
Vital Signs
Temp Pulse Resp BP Pulse Ox
98.7 F 73 18 96/50 94
06/27/23 03:28 06/27/23 03:28 06/27/23 03:28 06/27/23 03:28 06/27/23 03:28
Lab Results
06/26/23 07:24
06/26/23 07:24
Sodium 135 mmol/L (135-145) 06/26/23 07:24
Potassium 3.5 mmol/L (3.5-5.1) 06/26/23 07:24
BUN 15 mg/dl (7-17) 06/26/23 07:24
Glucose 100 mg/dl (70-99) H 06/26/23 07:24
Calcium 9.2 mg/dl (8.4-10.2) 06/26/23 07:24
LDL Cholesterol, Calc 57 mg/dl 06/26/23 07:24
Vitamin B12 872 pg/ml (239-931) 06/25/23 10:34
Patient Allergies
iodine Allergy (Unknown, Verified 06/25/23 10:49)
Confusion,confusion/'like I had a tia'
amlodipine besylate [From [facility]] Allergy (Verified 06/25/23 10:49)
Rash
Review of Systems
-
History Source: Patient
All other systems: Reviewed and negative
Constitutional: No Symptoms
EENT: No Symptoms Reported
Respiratory: No Symptoms
Abdomen/GI: No Symptoms
Genitourinary: No Symptoms
Musculoskeletal: No Symptoms
Skin: No Symptoms
Neuro: See existing Neuro Note; Negative Headache
Endocrine: No Symptoms
Hematologic / Lymphatic: No Symptoms
Allergy / Immunology: No Symptoms
Physical Exam
-
General: Well Nourished and Appears Stated Age
Eyes: No Ptosis
HEENT: Normocephalic and Atraumatic
Neck: Full Range of Motion
Respiratory: Clear to Auscultation and No Dyspnea
Cardiac: No Murmur
GI: Soft and Non-tender
Skin: Unremarkable
Extremities: No Edema
Psych: Negative Agitated
Extended Neurological Exam
Attention Span & Concentration: Awake, Alert, Interactive and No Difficulty with 2 Step Request
Memory: Reduced
Tremor: Hand Tremor Absent
Involuntary Movement: None
Speech: Negative Expressive Aphasia or Receptive Aphasia
Cranial Nerve II: Left Eye: No Vision
Cranial Nerve II: Right Eye: No Vision
Cranial Nerves III, IV, : Extraocular Movement: Extraocular Movement Full in all Directions
Cranial Nerve VII: Facial Symmetry: Normal Facial Symmetry
Muscle Strength, Overall: Full Throughout
Pronator Drift: No Drift in Upper Extremities
Deep Tendon Reflexes: Absent Throughout
Vibration Sensation: Unremarkable
Touch Sensation: Unremarkable
Data Reviewed
-
CT Head: Report Reviewed and Image Reviewed
EEG: Report Reviewed
Labs: Report Reviewed
[2023-06-27] MEDS: PROZAC 20 MG PO (08:44)
[2023-06-27] MEDS: KEFLEX 250 MG PO (08:44)
[2023-06-27] MEDS: PROZAC 10 MG PO (08:44)
[2023-06-27] MEDS: APRESOLINE PO (08:45)
[2023-06-27] MEDS: TOPROL XL 12.5 MG PO ×2 (08:45→20:05)
[2023-06-27] MEDS: VITAMIN D3 (cholecalciferol) 125 MCG PO (08:45)
[2023-06-27] MEDS: PROTONIX 40 MG PO (08:45)
[2023-06-27] MEDS: ALTACE 10 MG PO (08:45)
[2023-06-27] MEDS: OSCAL CAL 500 500 MG PO (08:46)
[2023-06-27] MEDS: VITAMIN C 1000 MG PO (08:46)
[2023-06-27] MEDS: LOW STRENGTH ASPIRIN 81 MG PO (08:46)
[2023-06-27] MEDS: NEURONTIN 300 MG PO ×3 (08:46→16:44)
--- NOTE | 2023-06-27 09:59 | CM ---
Spoke with daughter Robyn.
PT recommending home with therapy.
Patient had [facility] in the past, will send referral.
Per daughter possible d/c tomorrow.
Daughter Lillie Valladares can be contacted- P# [phone] (primary and secondary contact will be away starting Wednesday).
Plan: back to Naomy CASTELLANOS with [facility] when medically stable.
[facility]
Fax# [phone]
[2023-06-27 11:37] VITALS: BP 112/64
[2023-06-27 15:37] VITALS: BP 132/64
[2023-06-27 19:03] VITALS: BP 137/60
[2023-06-27] MEDS: ALTACE 5 MG PO (20:04)
[2023-06-27] MEDS: ALTACE 1.25 MG PO (20:05)
[2023-06-27] MEDS: CRESTOR 10 MG PO (20:07)
[2023-06-27 23:23] VITALS: BP 129/76
[2023-06-28] VITALS (8 sets, daily range): BP systolic 98–148; BP diastolic 58–83; PULSE 68–74; O2SAT 93–94
--- NOTE | 2023-06-28 05:49 | W.PN.HOSP.TC ---
Today's Communication/Plan
-
blood pressure control
start ceftriaxone and hold cephalexin
follow urine culture
start bedtime Trazodone
cont PT/OT
Assessment / Plan
Assessment / Plan
HPI: 83-year-old female with a past medical history of legal blindness, Garett Bonnet syndrome, JOSETTE, HTN, Aguilar's esophagus, anxiety, and obesity presents with confusion, aphasia, headache, and fatigue. Patient resides at [facility] assisted
living. Appreciate neurology input, patient has been evaluated by neurology on several occasions for similar symptoms, MRI is usually negative. Her blood pressure is extremely elevated in the ER, systolic blood pressure 190�200. Differential
diagnosis include hypertensive encephalopathy, complicated migraine, or dementia.
#Hypertensive encephalopathy
Aphasia resolved with treatment of hypertension
Appreciate neurology input, EEG negative, no MRI needed
Continue aspirin 81 mg daily, minimize sedating medications
#Increased Confusion over past 24h 06/27
#Hx recurrent UTI on prophylactic Cephalexin
Daughter Lillie raises concern possible UTI
Urinalysis notes pyuria Leukocyte esterase positive +2 but Nitrite Neg
For now will hold home prophylactic cephalexin and start empiric Ceftriaxone
follow Urine Cx
#Increased confusion possibly d/t poor sleep Hospital associated delirium
Trazodone bedtime started
#Labile hypertension
Blood pressure upon admission was 207/89, blood pressure today 112/64
Per prior Hospitalist Discussion with neurology, safest option was to change her home ramipril from 5 mg twice a day to 6.25 mg twice a day
Continue metoprolol at reduced dose secondary to bradycardia
#Legally blind
Needs help with activities of daily living
From [facility] assisted living
In the process of being transitioned to long-term care
#Migraine headache
Continue Maxalt as needed, Compazine as needed
#Paroxysmal Atrial Fibrillation
-Appears to have been a single episode during prior admission
-Continue metoprolol at reduced dose secondary to bradycardia
-Patient is not on anticoagulation as outpatient
Hyperlipidemia
-Continue Rosuvastatin
GERD / Aguilar's Esophagus / Hx GI Bleed
-Continue Protonix
Hallucinations secondary Garett Bonnet Syndrome
-Continue gabapentin
Anxiety/Depression
-Continue fluoxetine
Obstructive Sleep Apnea
-Per daughter patient used to use CPAP at night, but has not in quite sometime. Patient has also gained weight recently due to inactivity with her worsening vision
-nocturnal oxygenation study 06/27-06/28, follow up results
-outpatient sleep study
DVT proph: lovenox
Code Status: DNR
PT/OT appreciated updated recommendations for SNF rehab d/t increased confusion (previous recommendation for Home Health)
discussed with patient and her daughter Lillie at bedside.
Total time spent to see the patient on the floor, examine the patient, review data and lab results, discuss treatment plan with patient, nursing staff around 50 minutes.
Physical Exam
General: Obese, no acute distress
HEENT: Legally blind, normocephalic, Atraumatic, EOMI, MMM
Respiratory: Clear to Auscultation bilaterally
Cardiac: Normal S1/S2, Regular Rate and Rhythm
GI: Soft, Nontender, Nondistended, Normal Bowel Sounds
Extremities: No Clubbing, Cyanosis, or Edema
Neuro: Lethargic but arousable oriented x3
Psych: Calm, Cooperative
Derm: No Visible lesions
Anticipated Discharge: 24 - 48 hours
Subjective/Interval History
-
Date of Service: June 28, 2023
no acute distress resting comfortably in bed. Lethargic but arousable oriented x 3. Daughter Lillie present during evaluation reports patient not at baseline more confused over night poor sleep with associate more frequent hallucinations.
Patient herself denies any acute issues at this time.
Objective Data
-
Vital Signs:
Vital Signs
Temp Pulse Resp BP Pulse Ox
97.7 F 72 16 105/70 93
06/28/23 03:18 06/28/23 03:18 06/28/23 03:18 06/28/23 03:18 06/28/23 03:18
I&O
06/26/23 06/27/23 06/28/23
06:59 06:59 06:59
Intake Total 60 / 60 960 / 960 1260 / 1260
Balance 60 / 60 960 / 960 1260 / 1260
[2023-06-28] MEDS: LOW STRENGTH ASPIRIN 81 MG PO (08:57)
[2023-06-28] MEDS: ALTACE 1.25 MG PO ×2 (08:57→20:21)
[2023-06-28] MEDS: ALTACE 5 MG PO ×2 (08:57→20:20)
[2023-06-28] MEDS: TOPROL XL 12.5 MG PO ×2 (08:58→20:22)
[2023-06-28] MEDS: PROZAC 10 MG PO (08:58)
[2023-06-28] MEDS: OSCAL CAL 500 500 MG PO (08:58)
[2023-06-28] MEDS: NEURONTIN 300 MG PO ×3 (08:58→16:56)
[2023-06-28] MEDS: VITAMIN B-12 1000 MCG PO (08:58)
[2023-06-28] MEDS: PROZAC 20 MG PO (08:59)
[2023-06-28] MEDS: VITAMIN C 1000 MG PO (08:59)
[2023-06-28] MEDS: VITAMIN D3 (cholecalciferol) 125 MCG PO (08:59)
[2023-06-28] MEDS: PROTONIX 40 MG PO (08:59)
[2023-06-28] MEDS: KEFLEX 250 MG PO (09:00)
--- NOTE | 2023-06-28 10:28 | CM ---
Patient seen bedside with daughter, Lillie. Patients nurse in room as well, discussed patient not for discharge today. Per daughter, patient is not at her baseline. CM will continue to follow for discharge planning needs.
Daughter Lillie Valladares can be contacted- P# [phone] (primary and secondary contact will be away starting Wednesday).
Plan: back to Naomy CASTELLANOS with [facility] when medically stable, will need Naomy report and fax when d/c.
[facility]
Fax#
[2023-06-28 16:53] LABS: Urine Albumin Trace (Neg - Trace); Urine Bilirubin Negative (Negative); Urine Character Clear (Clear); Urine Color Yellow; Urine Glucose Negative (Negative); Urine Ketone Trace (Negative); Urine Leukocyte 2+ (Negative); Urine Nitrite Negative (Negative); Urine Occult Blood Negative (Negative); Urine Urobilinogen Negative (Neg - 1+)
[2023-06-28 17:16] LABS: Urine Red Blood Cell None Seen /HPF (0-2); Urine White Cell >100 /HPF (0-5)
--- NOTE | 2023-06-28 18:00 | PTCARENOTE ---
Patient confused and hallucinating through the day, stating she 'sees children in her room'. Daughter at bedside. Bed and chair alarm in place for patient safety. MD notified of findings.
[2023-06-28] MEDS: STERILE WATER FOR INJECTION 10 ML IV (20:21)
[2023-06-28] MEDS: ROCEPHIN 1000 MG IV (20:21)
[2023-06-28] MEDS: CRESTOR 10 MG PO (21:30)
[2023-06-28] MEDS: DESYREL 25 MG PO (21:30)
[2023-06-29 03:00] VITALS: BP 96/62
[2023-06-29 06:00] VITALS: BMI 42.3
[2023-06-29 07:00] VITALS: BP 101/65
[2023-06-29 07:25] LABS: Hematocrit 35.4 % (37.0-47.0); Hemoglobin 11.7 g/dL (12.0-16.0); Mean Corp Hgb Conc. 33.1 g/dL (33.0-37.0); Mean Corpuscular Hgb 31.4 pg (27.0-31.0); Mean Corpuscular Volume 94.9 fL (81.0-99.0); Mean Platelet Volume 10.9 fL (7.4-10.4); Platelet Count 152 10^3/uL (130-400); Red Blood Cell Count 3.73 10^6/uL (4.20-5.40); Red Cell Dist. Width 13.1 % (11.5-14.5); White Blood Cell Count 5.6 10^3/uL (4.8-10.8)
--- NOTE | 2023-06-29 07:31 | W.PN.HOSP.TC ---
Today's Communication/Plan
-
blood pressure control
cont abx pending ID eval
Psych eval
Thiamine supplementation started as per Neuro
bedtime trazodone discontinued d/t concern oversedation
cont PT/OT
Assessment / Plan
Assessment / Plan
HPI: 83-year-old female with a past medical history of legal blindness, Garett Bonnet syndrome, JOSETTE, HTN, Aguilar's esophagus, anxiety, and obesity presents with confusion, aphasia, headache, and fatigue. Patient resides at [facility] assisted
living. Appreciate neurology input, patient has been evaluated by neurology on several occasions for similar symptoms, MRI is usually negative. Her blood pressure is extremely elevated in the ER, systolic blood pressure 190�200. Differential
diagnosis include hypertensive encephalopathy, complicated migraine, or dementia.
#Hypertensive encephalopathy
Aphasia resolved with treatment of hypertension
Appreciate neurology input, EEG negative, no MRI needed
Continue aspirin 81 mg daily, minimize sedating medications
#Increased Confusion over past 24h 06/27
#Hx recurrent UTI on prophylactic Cephalexin
Daughter Lillie raised concern possible UTI
Urinalysis noted pyuria Leukocyte esterase positive +2 but Nitrite Neg
For now will hold home prophylactic cephalexin and start empiric Ceftriaxone
follow Urine Cx returned no significant growth/contaminated
ID eval requested
#Increased confusion possibly d/t poor sleep Hospital associated delirium
Trazodone bedtime started later discontinued d/t concern oversedation
Psych eval requested
discussed with Neuro, started on daily Thiamine supplementation
#Labile hypertension
Blood pressure upon admission was 207/89, blood pressure today 112/64
Per prior Hospitalist Discussion with neurology, safest option was to change her home ramipril from 5 mg twice a day to 6.25 mg twice a day
Continue metoprolol at reduced dose secondary to bradycardia
#Legally blind
Needs help with activities of daily living
From [facility] assisted living
In the process of being transitioned to long-term care
#Migraine headache
Continue Maxalt as needed, Compazine as needed
#Paroxysmal Atrial Fibrillation
-Appears to have been a single episode during prior admission
-Continue metoprolol at reduced dose secondary to bradycardia
-Patient is not on anticoagulation as outpatient
Hyperlipidemia
-Continue Rosuvastatin
GERD / Aguilar's Esophagus / Hx GI Bleed
-Continue Protonix
Hallucinations secondary Garett Bonnet Syndrome
-Continue gabapentin
Anxiety/Depression
-Continue fluoxetine
Obstructive Sleep Apnea
-Per daughter patient used to use CPAP at night, but has not in quite sometime. Patient has also gained weight recently due to inactivity with her worsening vision
-nocturnal oxygenation study 06/27-06/28, follow up results
-outpatient sleep study
DVT proph: lovenox
Code Status: DNR
PT/OT appreciated updated recommendations for SNF rehab d/t increased confusion (previous recommendation for Home Health)
discussed with patient and her daughter Lillie at bedside.
Total time spent to see the patient on the floor, examine the patient, review data and lab results, discuss treatment plan with patient, nursing staff around 55 minutes.
Physical Exam
General: Obese, no acute distress
HEENT: Legally blind, normocephalic, Atraumatic, EOMI, MMM
Respiratory: Clear to Auscultation bilaterally
Cardiac: Normal S1/S2, Regular Rate and Rhythm
GI: Soft, Nontender, Nondistended, Normal Bowel Sounds
Extremities: No Clubbing, Cyanosis, or Edema
Neuro: Lethargic but arousable oriented x3
Psych: Calm, Cooperative, often tangential speech
Derm: No Visible lesions
Anticipated Discharge: 24 - 48 hours
Subjective/Interval History
-
Date of Service: June 29, 2023
following start of Trazadone las night Patient noted oversedated in morning as per daughter Lillie at bedside. Patient improved as day progressed but continued to exhibit confusion memory issues unable to remember her Daughter's name. Tangential
speech. Denies dysuria fever chills.
Objective Data
-
Labs:
Laboratory Results
06/29/23
06:45
WBC 5.6
Hgb 11.7 L
Hct 35.4 L
Plt Count 152
Sodium Pending
Potassium Pending
Chloride Pending
Carbon Dioxide Pending
BUN Pending
Creatinine Pending
Glucose Pending
Calcium Pending
Vital Signs:
Vital Signs
Temp Pulse Resp BP Pulse Ox
98.3 F 73 20 96/62 94
06/29/23 03:00 06/29/23 03:00 06/29/23 03:00 06/29/23 03:00 06/29/23 03:00
I&O
06/28/23 06/29/23 06/30/23
06:59 06:59 06:59
Intake Total 1260 / 1260 1440 / 1440
Balance 1260 / 1260 1440 / 1440
[2023-06-29] MEDS: VITAMIN C 1000 MG PO (08:15)
[2023-06-29] MEDS: VITAMIN D3 (cholecalciferol) 125 MCG PO (08:18)
[2023-06-29] MEDS: LOW STRENGTH ASPIRIN 81 MG PO (08:20)
[2023-06-29] MEDS: NEURONTIN 300 MG PO ×3 (08:20→16:23)
[2023-06-29] MEDS: PROZAC 20 MG PO (08:20)
[2023-06-29] MEDS: PROTONIX 40 MG PO (08:20)
[2023-06-29] MEDS: OSCAL CAL 500 500 MG PO (08:20)
[2023-06-29] MEDS: PROZAC 10 MG PO (08:20)
[2023-06-29] MEDS: TOPROL XL 12.5 MG PO ×2 (08:27→20:31)
[2023-06-29] MEDS: ALTACE PO ×2 (08:28→08:29)
[2023-06-29 10:23] LABS: Blood Urea Nitrogen 20 mg/dl (7-17); Calcium 9.2 mg/dl (8.4-10.2); Carbon Dioxide 29 mmol/L (22-30); Chloride 104 mmol/L (98-107); Estimated Creatinine Clearance 47 ml/min; Glucose 101 mg/dl (70-99); Magnesium 1.8 mg/dl (1.6-2.3); Phosphorus 3.2 mg/dl (2.5-4.5); Potassium 4.1 mmol/L (3.5-5.1); Sodium 135 mmol/L (135-145); eGFR > 60.00
[2023-06-29 11:00] VITALS: BP 121/81
[2023-06-29 15:00] VITALS: BP 117/70
--- NOTE | 2023-06-29 15:24 | CS.PSYCHR ---
Consult Summary - Psychiatry
-
Pt is 83 yo female, legally blind, with hx of macular degeneration, Garett Bonnet syndrome, JOSETTE, HTN, Aguilar's esophagus, anxiety, and obesity, who presented to ED 06/25/23 with confusion, aphasia, headache, and fatigue, very elevated BP. Dtr
present, reports pt had severe aphasia, could not speak coherent words despite trying to talk. Pt was eval'd by Neurology, ruled-out for stroke, impression of either confusional migraine, hypertensive encephalopathy, or metabolic encephalopathy,
concern for mild cognitive impairment versus mild dementia. Neurology has now signed off. Psychiatry asked to see pt for increased confusion over the past 1 to 2 days with increased visual hallucinations. Pt's dtr reports she is usually oriented,
takes part in activities despite blindness and need for assist. Speech has returned/aphasia has resolved, but pt remains disoriented per dtr, though better than yesterday. Pt tried Trazodone last night, but it was too strong/kept pt sedated until
noontime today per dtr. Pt denies feeling depressed or anxious. She is conversant, talking more about the past, still not clear on which facility she is in. There is no agitation or overt psychosis at present. Dtr reports pt has episodes like
this 3 or 4 times a year, usually with no clear etiology, treated as presumptive stroke a couple times before. Dtr notes pt appears to be improving this afternoon.
PMH- as above; hx of similar episodes, though not as disoriented, noted to have been treated with alteplase 2 times without any imaging evidence for stroke on brain MRI. Hx of confusion associated with UTI
Psych Hx: hx of anxiety/worry, takes Prozac 30 mg QD. Hx of visual hallucinations due to blindness (Garett Bonnet Synd)
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 Grew up and went to school in [place]. Has 2 other dtrs- both out of the country
presently- a source of worry for the pt.
MSE: obese female sitting up in chair, in no acute distress. Pt alert, calm, cooperative, answering questions with coherent speech. Pt disoriented to place. Thought clear, some rambling about her past. No signs of psychosis. Affect pleasant,
mood stable.
Imp: Delirium, etiology unclear, appears to be improving. No agitation. Insomnia noted
Rec: Could try prn antihistamine for insomnia, since Trazodone was felt to be too strong/lasted too long. Melatonin is another safer alternative
Would hold off any other psychotropic medications. Antipsychotics are not generally recommended for pt's syndrome of visual hallucinations
Psychiatry will follow
--- NOTE | 2023-06-29 16:06 | CON.ID ---
Consultation
-
Date/Time Consultation Requested: 06/29/2023 1229
Date/Time Consultation Performed: 06/29/2023 1445
Requesting Provider: Dr. Mary
Performing Provider: Dr. Jaramillo
Reason for Consultation: Encephalopathy
Chief Complaint / Past History
History of Present Illness
Ting Zarate is an 83-year-old female being evaluated at the request of Dr. Mary in regards to encephalopathy. History is obtained from chart review, along with patient interview. Additionally, history was obtained from patient's daughter who was
at the bedside.
The patient initially presented to the emergency room on 06/24 secondary to difficulty speaking, along with overall decreased ambulation. She was noted at that time to be markedly confused, and speaking 'gibberish'. She also complained of Jhonatan
and headache at the time. Workup in the ER did not reveal an infectious etiology, but she was found to be hypertensive.
Since admission, she has become less confused, but her daughter reports that she is having visual hallucinations (even though she suffers from blindness). She has not had any fevers. She denies any cough or congestion. She denies any abdominal
pain, nausea or vomiting. She denies any dysuria.
Per the patient's daughter, she has had prior episodes of confusion, at which time she has been previously diagnosed with a urinary tract infection.
Past History
Additional Past Medical History:
CVA
GERD
Dyslipidemia
CAD; Hx IA
Anxiety/depression
Hx UTI
Garett Bonnet syndrome
Aguilar's esophagus
Blindness
Additional Past Surgical History:
Appendectomy
Hernia repair
Allergy History:
iodine Allergy (Unknown, Verified 06/25/23 10:49)
Confusion,confusion/'like I had a tia'
amlodipine besylate [From [facility]] Allergy (Verified 06/25/23 10:49)
Rash
Medications Reviewed: Yes
Current Antibiotics:
Ceftriaxone
Social History
Tobacco: Non-Smoker
Alcohol: None
Drug: None
Personal:
Living: Assisted Living
Employment: Retired
Family History
Family History: Not Pertinent
Review of Systems
Vital Signs
Temp Pulse Resp BP Pulse Ox
98.1 F 77 20 121/81 94
06/29/23 11:00 06/29/23 11:00 06/29/23 11:00 06/29/23 11:00 06/29/23 11:00
Physical Exam
Physical Exam
Constitutional: No Acute Distress, Comfortable, Chronically Ill and Non-toxic
Head: Normocephalic
Eyes: No Conjunctival Hemorrhage and Sclera Anicteric
Oral: No Thrush and No Ulcers
Cardiovascular: S1/S2; Negative S3/S4 or Murmur
Pulmonary: Non Labored; Negative Wheezes or Rales
Gastrointestinal: Soft, Non Tender, Non Distended and Normal Bowel Sounds
Genito-Urinary: Negative Gaytan or CVA Tenderness
Extremities: Negative Edema, Cyanosis or Erythema
Musculoskeletal: Negative Joint Swelling or Joint Effusion
Skin: Warm and Dry; Negative Rash or Jaundice
Neurological: Awake, Alert and Oriented (intermittant; to person, place and year)
Psychological: Confused
Lab / Diagnostic Study Results
06/29/23 06:45
06/29/23 09:54
Abs Immat Gran (auto) 0.0 10^3/uL (0-0.05) 06/25/23 10:34
Absolute Neuts (auto) 3.5 10^3/uL (1.4-6.5) 06/25/23 10:34
Absolute Lymphs (auto) 1.2 10^3/uL (1.2-3.4) 06/25/23 10:34
Absolute Monos (auto) 0.5 10^3/uL (0.1-0.6) 06/25/23 10:34
Absolute Basos (auto) 0.1 10^3/uL (0-0.2) 06/25/23 10:34
Immature Gran % 0.4 % (0-0.5) 06/25/23 10:34
Neutrophils % 65.3 % (42.2-75.2) 06/25/23 10:34
Lymphocytes % 21.8 % (20.5-51.1) 06/25/23 10:34
Monocytes % 8.8 % (1.7-9.3) 06/25/23 10:34
Eosinophils % 2.4 % (0-6) 06/25/23 10:34
Basophils % 1.3 % (0-2) 06/25/23 10:34
ESR 30 mm/hour (0-20) H 06/25/23 10:34
Ur Squamous Epith Cells 11-15 /LPF (Few) 06/28/23 16:41
Microbiology Results
Micro:
06/28/23 16:41 Urine Culture - Final
Urine
06/25/23 18:33 MRSA Screen - Final
Nose No Methicillin Resistant Staphylococcus aureus isolated.
Assessment / Plan
Encephalopathy
- doubt infectious process at present given lack of signs/symptoms.
COHEN
Hx CVA
GERD
Dyslipidemia
CAD; Hx IA
Anxiety/depression
Hx UTI
Garett Bonnet syndrome
Aguilar's esophagus
Blindness
Recommendations:
Most recent UA reviewed, and although white cells noted, patient also with significant squamous cells indicating contamination.
Otherwise, no signs or symptoms of a urinary tract infection. Would discontinue further antibiotic therapy.
Monitor mental status.
Follow white count and temperature curve
[2023-06-29] MEDS: THIAMINE INJECTION 100 MG IV (16:23)
[2023-06-29 19:58] VITALS: BP 122/71
[2023-06-29] MEDS: ALTACE 5 MG PO (20:30)
[2023-06-29] MEDS: ALTACE 1.25 MG PO (20:31)
[2023-06-29] MEDS: CRESTOR 10 MG PO (21:21)
[2023-06-29 23:30] VITALS: BP 123/63
--- NOTE | 2023-06-30 07:02 | W.PN.HOSP.TC ---
Today's Communication/Plan
-
cont monitoring
likely discharge tomorrow [facility] Vs SNF rehab
Assessment / Plan
Assessment / Plan
HPI: 83-year-old female with a past medical history of legal blindness, Garett Bonnet syndrome, JOSETTE, HTN, Aguilar's esophagus, anxiety, and obesity presents with confusion, aphasia, headache, and fatigue. Patient resides at [facility] assisted
living. Appreciate neurology input, patient has been evaluated by neurology on several occasions for similar symptoms, MRI is usually negative. Her blood pressure is extremely elevated in the ER, systolic blood pressure 190�200. Differential
diagnosis include hypertensive encephalopathy, complicated migraine, or dementia.
#Hypertensive encephalopathy
Aphasia resolved with treatment of hypertension
Appreciate neurology input, EEG negative, no MRI needed
Continue aspirin 81 mg daily, minimize sedating medications
#Increased Confusion over past 24h 06/27
#Hx recurrent UTI on prophylactic Cephalexin
Daughter Lillie raised concern possible UTI
Urinalysis noted pyuria Leukocyte esterase positive +2 but Nitrite Neg
For now will hold home prophylactic cephalexin and start empiric Ceftriaxone
follow Urine Cx returned no significant growth/contaminated
ID eval appreciated UTI unlikely, ceftriaxone discontinued
home prophylactic cephalexin resumed.
#Increased confusion possibly d/t poor sleep Hospital associated delirium
Trazodone bedtime started later discontinued d/t concern oversedation
Psych eval appreciated
discussed with Neuro, started on daily Thiamine supplementation
Patient since improved, baseline as per daughter Lillie
#Labile hypertension
Blood pressure upon admission was 207/89, blood pressure today 112/64
Per prior Hospitalist Discussion with neurology, safest option was to change her home ramipril from 5 mg twice a day to 6.25 mg twice a day
Continue metoprolol at reduced dose secondary to bradycardia
#Legally blind
Needs help with activities of daily living
From [facility] assisted living
In the process of being transitioned to long-term care
#Migraine headache
Continue Maxalt as needed, Compazine as needed
#Paroxysmal Atrial Fibrillation
-Appears to have been a single episode during prior admission
-Continue metoprolol at reduced dose secondary to bradycardia
-Patient is not on anticoagulation as outpatient
Hyperlipidemia
-Continue Rosuvastatin
GERD / Aguilar's Esophagus / Hx GI Bleed
-Continue Protonix
Hallucinations secondary Garett Bonnet Syndrome
-Continue gabapentin
Anxiety/Depression
-Continue fluoxetine
Obstructive Sleep Apnea
-Per daughter patient used to use CPAP at night, but has not in quite sometime. Patient has also gained weight recently due to inactivity with her worsening vision
-nocturnal oxygenation study 06/27-06/28 notes desaturation qualifies for bedtime oxygen supplementation
-outpatient sleep study recommended
-2L at bedtime ordered
DVT proph: lovenox
Code Status: DNR
PT/OT appreciated updated recommendations for SNF rehab d/t increased confusion (previous recommendation for Home Health). Patient as since improved recc's equivocal at this time home health vs SNF rehab
discussed with patient and her daughter Lillie at bedside.
Total time spent to see the patient on the floor, examine the patient, review data and lab results, discuss treatment plan with patient, nursing staff around 55 minutes.
Physical Exam
General: Obese, no acute distress
HEENT: Legally blind, normocephalic, Atraumatic, EOMI, MMM
Respiratory: Clear to Auscultation bilaterally
Cardiac: Normal S1/S2, Regular Rate and Rhythm
GI: Soft, Nontender, Nondistended, Normal Bowel Sounds
Extremities: No Clubbing, Cyanosis, or Edema
Neuro: Lethargic but arousable oriented x3
Psych: Calm, Cooperative, often tangential speech
Derm: No Visible lesions
Anticipated Discharge: Within 24 hours
Subjective/Interval History
-
Date of Service: June 30, 2023
mental status improved. Back to baseline as per daughter Lillie present during evaluation. AOx3 speech fluent coherent much less tangential compared to yesterday. Reports overall feeling well.
Objective Data
-
Labs:
Laboratory Results
06/30/23
06:28
WBC Pending
Hgb Pending
Hct Pending
Plt Count Pending
Sodium Pending
Potassium Pending
Chloride Pending
Carbon Dioxide Pending
BUN Pending
Creatinine Pending
Glucose Pending
Calcium Pending
Vital Signs:
Vital Signs
Temp Pulse Resp BP Pulse Ox
98.3 F 66 20 123/63 95
06/29/23 23:30 06/29/23 23:30 06/29/23 23:30 06/29/23 23:30 06/29/23 23:30
I&O
06/29/23 06/30/23 07/01/23
06:59 06:59 06:59
Intake Total 1440 / 1440 780 / 780
Output Total 100 / 100
Balance 1440 / 1440 680 / 680
[2023-06-30 07:41] LABS: Hematocrit 35.6 % (37.0-47.0); Hemoglobin 11.9 g/dL (12.0-16.0); Mean Corp Hgb Conc. 33.4 g/dL (33.0-37.0); Mean Corpuscular Hgb 31.5 pg (27.0-31.0); Mean Corpuscular Volume 94.2 fL (81.0-99.0); Mean Platelet Volume 11.1 fL (7.4-10.4); Platelet Count 150 10^3/uL (130-400); Red Blood Cell Count 3.78 10^6/uL (4.20-5.40); Red Cell Dist. Width 13.1 % (11.5-14.5); White Blood Cell Count 4.7 10^3/uL (4.8-10.8)
[2023-06-30 07:45] LABS: Blood Urea Nitrogen 19 mg/dl (7-17); Calcium 9.2 mg/dl (8.4-10.2); Carbon Dioxide 28 mmol/L (22-30); Chloride 106 mmol/L (98-107); Estimated Creatinine Clearance 47 ml/min; Glucose 98 mg/dl (70-99); Magnesium 1.8 mg/dl (1.6-2.3); Phosphorus 3.6 mg/dl (2.5-4.5); Potassium 3.9 mmol/L (3.5-5.1); Sodium 139 mmol/L (135-145); eGFR > 60.00
[2023-06-30 08:04] VITALS: BP 155/77
[2023-06-30] MEDS: NEURONTIN 300 MG PO ×3 (08:29→16:57)
[2023-06-30] MEDS: TOPROL XL 12.5 MG PO ×2 (08:29→20:07)
[2023-06-30] MEDS: ALTACE 1.25 MG PO ×2 (08:30→20:07)
[2023-06-30] MEDS: PROZAC 20 MG PO (08:30)
[2023-06-30] MEDS: VITAMIN D3 (cholecalciferol) 125 MCG PO (08:30)
[2023-06-30] MEDS: PROTONIX 40 MG PO (08:30)
[2023-06-30] MEDS: VITAMIN C 1000 MG PO (08:30)
[2023-06-30] MEDS: LOW STRENGTH ASPIRIN 81 MG PO (08:30)
[2023-06-30] MEDS: OSCAL CAL 500 500 MG PO (08:31)
[2023-06-30] MEDS: THIAMINE INJECTION 100 MG IV (08:31)
[2023-06-30] MEDS: ALTACE 5 MG PO ×2 (08:31→20:06)
[2023-06-30] MEDS: VITAMIN B-12 1000 MCG PO (08:31)
[2023-06-30] MEDS: PROZAC 10 MG PO (08:31)
[2023-06-30] MEDS: KEFLEX 250 MG PO (09:30)
--- NOTE | 2023-06-30 11:07 | W.PN.ID1 ---
Date of Service
Date of Service: June 30, 2023
Today's Communication
Observe occ abx.
Assessment / Plan
Encephalopathy
- doubt infectious process at present given lack of signs/symptoms.
COHEN
Hx CVA
GERD
Dyslipidemia
CAD; Hx [place]
Anxiety/depression
Hx UTI
Garett Bonnet syndrome
Aguilar's esophagus
Blindness
Recommendations:
Most recent UA reviewed, and although white cells noted, patient also with significant squamous cells indicating contamination.
Otherwise, no signs or symptoms of a urinary tract infection. Observe off of antibiotic therapy.
Monitor mental status.
Follow white count and temperature curve.
����������������������������������������������������������
Chief Complaint
-: Other (Encephalipathy)
Subjective / Review of Systems
Review of Systems: No Fever, No Chills and No Dysuria
Vital Signs / Physical Exam
Vital Signs
Vital Signs
Temp Pulse Resp BP Pulse Ox
98.1 F 68 16 155/77 96
06/30/23 08:04 06/30/23 08:04 06/30/23 08:04 06/30/23 08:04 06/30/23 08:04
Physical Exam
Constitutional: No Acute Distress, Comfortable, Chronically Ill and Non-toxic
Cardiovascular: S1/S2; Negative S3/S4
Pulmonary: Non Labored
Gastrointestinal: Soft, Non Distended and Normal Bowel Sounds
Neurological: Awake
Psychological: Confused (intermittant)
Objective Data
Lab Data
Lab Results
06/30/23 06:28
06/30/23 06:28
ESR 30 mm/hour (0-20) H 06/25/23 10:34
Estimated Creat Clear 47 ml/min 06/30/23 06:28
Total Bilirubin 0.7 mg/dl (0.2-1.3) 06/25/23 10:34
AST 26 U/L (14-36) 06/25/23 10:34
ALT 14 U/L (0-35) 06/25/23 10:34
Alkaline Phosphatase 66 U/L (38-126) 06/25/23 10:34
Most recent labs reviewed.
Micro Results:
06/28/23 16:41 Urine Culture - Final
Urine
06/25/23 18:33 MRSA Screen - Final
Nose No Methicillin Resistant Staphylococcus aureus isolated.
Care Review
Plan reviewed with: Physician (Hospitalist)
[2023-06-30 11:50] VITALS: BP 130/68; PULSE 62; O2SAT 98
--- NOTE | 2023-06-30 12:08 | W.PN.UPDATE ---
Update Note
Progress Note Update
patient seen chart reviewed. spoke to d and nursing. the patient was sleeping when i first visited the bedside and d filled me in on her concerns. markie reports delirium . mother has hx of visual hallucinations. she has been almost completely blind for
some time secondary to macular degen. patient is otherwise quite pleasant and markie reports this delirium is completely out of character for her. told patient i would return later in the morning when patient is awake which i did. the patient was much
improved according to markie on awakening. she was completely appropriate when i spoke with her. she had eaten breakfast and remembered exactly what she ate. she was o x3. told me who was president and informed me of the man she hopes will not be
president who is running against him. patient taking prozac at this point. has an order for benadryl q hs which i am going to stop as that to could contribute to a delirium. if sleep meds needed consider melatonin. do not feel she needs any other
psychotropics at present.
[2023-06-30 12:10] VITALS: BP 130/68; PULSE 62; O2SAT 98
--- NOTE | 2023-06-30 14:32 | CM ---
Addendum entered by Libia Mendoza 06/30/23 15:39:
CM left voicemail for nurse Anastasia at [facility] requesting return call in regards to nocturnal oxygen.
Plan; return to [facility] with VN (clinicals faxed to nurse at [facility] for review) vs [facility] SNF (awaiting to hear from [facility] if they can accept patient for SNF)
Addendum entered by Libia Mendoza 06/30/23 15:02:
Patient seen asleep bedside, CM spoke with patients daughter Lillie. Lillie would prefer patient to return to [facility] and reports her mother is back to her baseline. Lillie reports if patient is unable to return she would prefer patient
discharge to [facility] SNF. CM discussed updated information sent to patients nurse at [facility] to review. Patients daughter requesting update when decision is made regarding if patient can return back to [facility].
Original Note:
CM spoke with Demario in admissions at [facility], will review clinicals to determine if they can accept patient for SNF. Per updated PT notes, now recommending return to [facility] with home health. CM spoke with patients nurse at [facility],
Anastasia. Anastasia requested PT/OT faxed to [phone] to review to ensure they can accept patient back. CM will fax clinicals to Anastasia. CM will continue to follow for discharge planning needs.
Plan; return to [facility] with VN (clinicals faxed to nurse at [facility] for review) vs [facility] SNF (awaiting to hear from [facility] if they can accept patient for SNF)
[2023-06-30 16:55] VITALS: BP 133/58
[2023-06-30] MEDS: CRESTOR 10 MG PO (20:06)
[2023-06-30 23:27] VITALS: BP 138/76
--- NOTE | 2023-07-01 06:50 | W.PN.HOSP.TC ---
Today's Communication/Plan
-
medically stable for discharge pending placement
Assessment / Plan
Assessment / Plan
HPI: 83-year-old female with a past medical history of legal blindness, Garett Bonnet syndrome, JOSETTE, HTN, Aguilar's esophagus, anxiety, and obesity presents with confusion, aphasia, headache, and fatigue. Patient resides at [facility] assisted
living. Appreciate neurology input, patient has been evaluated by neurology on several occasions for similar symptoms, MRI is usually negative. Her blood pressure is extremely elevated in the ER, systolic blood pressure 190�200. Differential
diagnosis include hypertensive encephalopathy, complicated migraine, or dementia.
#Hypertensive encephalopathy
Aphasia resolved with treatment of hypertension
Appreciate neurology input, EEG negative, no MRI needed
Continue aspirin 81 mg daily, minimize sedating medications
#Increased Confusion over past 24h 06/27
#Hx recurrent UTI on prophylactic Cephalexin
Daughter Lillie raised concern possible UTI
Urinalysis noted pyuria Leukocyte esterase positive +2 but Nitrite Neg
For now will hold home prophylactic cephalexin and start empiric Ceftriaxone
follow Urine Cx returned no significant growth/contaminated
ID eval appreciated UTI unlikely, ceftriaxone discontinued
home prophylactic cephalexin resumed, cont
#Increased confusion possibly d/t poor sleep Hospital associated delirium
Trazodone bedtime started later discontinued d/t concern oversedation
Psych eval appreciated
discussed with Neuro, started on daily IV Thiamine supplementation x3 days since completed
multivitamin supplementation started
Patient since improved, baseline as per daughter Lillie
#Labile hypertension
Blood pressure upon admission was 207/89, blood pressure today 112/64
Per prior Hospitalist Discussion with neurology, safest option was to change her home ramipril from 5 mg twice a day to 6.25 mg twice a day
Continue metoprolol at reduced dose secondary to bradycardia
#Legally blind
Needs help with activities of daily living
From [facility] assisted living
In the process of being transitioned to long-term care
#Migraine headache
Continue Maxalt as needed, Compazine as needed
#Paroxysmal Atrial Fibrillation
-Appears to have been a single episode during prior admission
-Continue metoprolol at reduced dose secondary to bradycardia
-Patient is not on anticoagulation as outpatient
Hyperlipidemia
-Continue Rosuvastatin
GERD / Aguilar's Esophagus / Hx GI Bleed
-Continue Protonix
Hallucinations secondary Garett Bonnet Syndrome
-Continue gabapentin
Anxiety/Depression
-Continue fluoxetine
Obstructive Sleep Apnea
-Per daughter patient used to use CPAP at night, but has not in quite sometime. Patient has also gained weight recently due to inactivity with her worsening vision
-nocturnal oxygenation study 06/27-06/28 notes desaturation qualifies for bedtime oxygen supplementation
-outpatient sleep study recommended
-2L at bedtime ordered
DVT proph: lovenox
Code Status: DNR
PT/OT appreciated updated recommendations for SNF rehab d/t increased confusion (previous recommendation for Home Health). Patient has since improved recc's equivocal at this time home health vs SNF rehab
discussed with patient and her daughter Lillie at bedside.
Total time spent to see the patient on the floor, examine the patient, review data and lab results, discuss treatment plan with patient, nursing staff around 50 minutes.
Physical Exam
General: Obese, no acute distress
HEENT: Legally blind, normocephalic, Atraumatic, EOMI, MMM
Respiratory: Clear to Auscultation bilaterally
Cardiac: Normal S1/S2, Regular Rate and Rhythm
GI: Soft, Nontender, Nondistended, Normal Bowel Sounds
Extremities: No Clubbing, Cyanosis, or Edema
Neuro:AOx3
Psych: Calm, Cooperative
Derm: No Visible lesions
Anticipated Discharge: Within 24 hours
Subjective/Interval History
-
Date of Service: July 01, 2023
no acute distress. Baseline mental status.
Objective Data
-
Vital Signs:
Vital Signs
Temp Pulse Resp BP Pulse Ox
98.3 F 54 20 138/76 96
06/30/23 23:27 06/30/23 23:27 06/30/23 23:27 06/30/23 23:27 06/30/23 23:27
I&O
06/29/23 06/30/23 07/01/23
06:59 06:59 06:59
Intake Total 1440 / 1440 780 / 780 120 / 120
Output Total 100 / 100
Balance 1440 / 1440 680 / 680 120 / 120
[2023-07-01 07:30] VITALS: BP 133/61
[2023-07-01] MEDS: THIAMINE INJECTION 100 MG IV (08:14)
[2023-07-01] MEDS: NEURONTIN 300 MG PO ×3 (08:14→17:32)
[2023-07-01] MEDS: TOPROL XL PO (08:15)
[2023-07-01] MEDS: VITAMIN C 1000 MG PO (08:15)
[2023-07-01] MEDS: KEFLEX 250 MG PO (08:15)
[2023-07-01] MEDS: PROTONIX 40 MG PO (08:15)
[2023-07-01] MEDS: ALTACE 5 MG PO ×2 (08:15→20:17)
[2023-07-01] MEDS: PROZAC 10 MG PO (08:16)
[2023-07-01] MEDS: LOW STRENGTH ASPIRIN 81 MG PO (08:16)
[2023-07-01] MEDS: OSCAL CAL 500 500 MG PO (08:16)
[2023-07-01] MEDS: ALTACE 1.25 MG PO ×2 (08:16→20:17)
[2023-07-01] MEDS: VITAMIN D3 (cholecalciferol) 125 MCG PO (08:16)
[2023-07-01] MEDS: PROZAC 20 MG PO (08:16)
--- NOTE | 2023-07-01 10:50 | CM ---
Call to Anastasia @ [facility] to discuss patient return. Anastasia is concerned about oxygenation over night, as they do not have an RN available in the event Ting should become short of breath, and would be sent to the ER for evaluation. Anastasia
advised that they have escalated the concern to their corporate office for guidance.
[facility] would be the back up plan if Ting is not able to return to [facility].
*Case discussed with Alka Navarrete who will continue with the discharge planning.
--- NOTE | 2023-07-01 13:23 | CM ---
Call received fromAnastasia at [facility] who advised that they are unable to accept Mrs. Zarate back to their facility. [facility] is reviewing their census to determine if/when they will have a female bed available. VM left for Demario at
[facility] requesting a call back. Will contact Ting's daughter to make her aware of currently situation.
--- NOTE | 2023-07-01 13:30 | W.PN.UPDATE ---
Update Note
Progress Note Update
patient seen chart reviewed. spoke with d at bedside as well. mrs matias continues to improve. she looked physically better today with hair neatly done and makeup. she spoke to me quite appropriately and with sarcastic humor. i told her she
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 she is hoping for dc today. at this point do not feel she needs psychiatric intervention. she does have
occasional visual hallucinations which she knows are likely secondary to visual disturbance. psych signing off
--- NOTE | 2023-07-01 14:39 | CM ---
I met with Ting and her daughter Lillie (visiting at bedside) to discuss discharge plans. At this time there is no female bed available at [facility]. Demario in admissions at [facility] will call me after their census meeting is
completed this afternoon if a female bed does become available. Unfortunately she does not anticipate a female bed being available for several days. Plan to return to pt's room to discuss alternate SNF options.
[2023-07-01 15:00] VITALS: BP 124/71
--- NOTE | 2023-07-01 15:47 | W.PN.ID1 ---
Date of Service
Date of Service: July 01, 2023
Today's Communication
Sign off.
Assessment / Plan
Encephalopathy
- doubt infectious process at present given lack of signs/symptoms.
COHEN
Hx CVA
GERD
Dyslipidemia
CAD; Hx [place]
Anxiety/depression
Hx UTI
Garett Bonnet syndrome
Aguilar's esophagus
Blindness
Recommendations:
Most recent UA reviewed, and although white cells noted, patient also with significant squamous cells indicating contamination.
Otherwise, no signs or symptoms of a urinary tract infection. Continue off antibiotic therapy.
No infectious process noted at the present time.
Little more to offer from a Infectious Diseases standpoint.
Will see again at your request.
����������������������������������������������������������
Chief Complaint
-: Other (Encephalipathy)
Subjective / Review of Systems
Review of Systems: No Fever
Vital Signs / Physical Exam
Vital Signs
Vital Signs
Temp Pulse Resp BP Pulse Ox
98.9 F 54 16 124/71 97
07/01/23 15:00 07/01/23 15:00 07/01/23 15:00 07/01/23 15:00 07/01/23 15:00
Physical Exam
Constitutional: No Acute Distress, Comfortable, Chronically Ill and Non-toxic
Cardiovascular: S1/S2; Negative S3/S4 or Murmur
Pulmonary: Non Labored
Psychological: Calm
Objective Data
Lab Data
Lab Results
06/30/23 06:28
06/30/23 06:28
ESR 30 mm/hour (0-20) H 06/25/23 10:34
Estimated Creat Clear 47 ml/min 06/30/23 06:28
Total Bilirubin 0.7 mg/dl (0.2-1.3) 06/25/23 10:34
AST 26 U/L (14-36) 06/25/23 10:34
ALT 14 U/L (0-35) 06/25/23 10:34
Alkaline Phosphatase 66 U/L (38-126) 06/25/23 10:34
Most recent labs reviewed.
Micro Results:
06/28/23 16:41 Urine Culture - Final
Urine
06/25/23 18:33 MRSA Screen - Final
Nose No Methicillin Resistant Staphylococcus aureus isolated.
[2023-07-01 16:36] VITALS: BP 150/66; PULSE 59; O2SAT 99
--- NOTE | 2023-07-01 18:28 | PTCARENOTE ---
Pt mentation noted to be much improved from the past 3 days. Pt is AOOx3, answering questions appropriately. No hallucinations noted today. Plan of care ongoing.
[2023-07-01] MEDS: CRESTOR 10 MG PO (20:17)
[2023-07-01] MEDS: TOPROL XL 12.5 MG PO (20:17)
[2023-07-01 23:39] VITALS: BP 165/99
--- NOTE | 2023-07-02 06:59 | W.PN.HOSP.TC ---
Today's Communication/Plan
-
discharge
Assessment / Plan
Assessment / Plan
HPI: 83-year-old female with a past medical history of legal blindness, Garett Bonnet syndrome, JOSETTE, HTN, Aguilar's esophagus, anxiety, and obesity presents with confusion, aphasia, headache, and fatigue. Patient resides at [facility] assisted
living. Appreciate neurology input, patient has been evaluated by neurology on several occasions for similar symptoms, MRI is usually negative. Her blood pressure is extremely elevated in the ER, systolic blood pressure 190�200. Differential
diagnosis include hypertensive encephalopathy, complicated migraine, or dementia.
#Hypertensive encephalopathy
Aphasia resolved with treatment of hypertension
Appreciate neurology input, EEG negative, no MRI needed
Continue aspirin 81 mg daily, minimize sedating medications
#Increased Confusion over past 24h 06/27
#Hx recurrent UTI on prophylactic Cephalexin
Daughter Lillie raised concern possible UTI
Urinalysis noted pyuria Leukocyte esterase positive +2 but Nitrite Neg
For now will hold home prophylactic cephalexin and start empiric Ceftriaxone
follow Urine Cx returned no significant growth/contaminated
ID eval appreciated UTI unlikely, ceftriaxone discontinued
home prophylactic cephalexin resumed, cont
#Increased confusion possibly d/t poor sleep Hospital associated delirium
Trazodone bedtime started later discontinued d/t concern oversedation
Psych eval appreciated
discussed with Neuro, started on daily IV Thiamine supplementation x3 days since completed
multivitamin supplementation started
Patient since improved, baseline as per daughter Lillie
#Labile hypertension
Blood pressure upon admission was 207/89, blood pressure today 112/64
Per prior Hospitalist Discussion with neurology, safest option was to change her home ramipril from 5 mg twice a day to 6.25 mg twice a day
Continue metoprolol at reduced dose secondary to bradycardia
#Legally blind
Needs help with activities of daily living
From [facility] assisted living
In the process of being transitioned to long-term care [facility]
#Migraine headache
Continue Maxalt as needed, Compazine as needed
#Paroxysmal Atrial Fibrillation
-Appears to have been a single episode during prior admission
-Continue metoprolol at reduced dose secondary to bradycardia
-Patient is not on anticoagulation as outpatient
Hyperlipidemia
-Continue Rosuvastatin
GERD / Aguilar's Esophagus / Hx GI Bleed
-Continue Protonix
Hallucinations secondary Garett Bonnet Syndrome
-Continue gabapentin
Anxiety/Depression
-Continue fluoxetine
Obstructive Sleep Apnea
-Per daughter patient used to use CPAP at night, but has not in quite sometime. Patient has also gained weight recently due to inactivity with her worsening vision
-nocturnal oxygenation study 06/27-06/28 notes desaturation qualifies for bedtime oxygen supplementation
-outpatient sleep study recommended
-2L at bedtime recommended
DVT proph: lovenox
Code Status: DNR
PT/OT appreciated updated recommendations for SNF rehab d/t increased confusion (previous recommendation for Home Health). Patient has since improved recc's remain equivocal at this time home health vs SNF rehab
Medically stable for discharge SNF rehab with outpatient follow up recommendations.
discussed with patient and her daughter Lillie
Total Time Preparing Discharge ___50____ minutes including examination of the patient, summary of the hospital stay, instructions for continuing care to all relevant caregivers; and preparation of discharge records, prescriptions, and referral
forms if necessary.
Physical Exam
General: Obese, no acute distress
HEENT: Legally blind, normocephalic, Atraumatic, EOMI, MMM
Respiratory: Clear to Auscultation bilaterally
Cardiac: Normal S1/S2, Regular Rate and Rhythm
GI: Soft, Nontender, Nondistended, Normal Bowel Sounds
Extremities: No Clubbing, Cyanosis, or Edema
Neuro:AOx3
Psych: Calm, Cooperative
Derm: No Visible lesions
Anticipated Discharge: Today
Subjective/Interval History
-
Date of Service: July 02, 2023
Seen and examined at bedside in no acute distress sitting up comfortably in chair. Reports overall feeling well. Denies new acute issues at this time. Looking forward to discharge to SNF rehab today.
Objective Data
-
Vital Signs:
Vital Signs
Temp Pulse Resp BP Pulse Ox
97.6 F 65 20 165/99 99
07/01/23 23:39 07/01/23 23:39 07/01/23 23:39 07/01/23 23:39 07/01/23 23:39
I&O
06/30/23 07/01/23 07/02/23
06:59 06:59 06:59
Intake Total 780 / 780 120 / 120 1480 / 1480
Output Total 100 / 100
Balance 680 / 680 120 / 120 1480 / 1480
[2023-07-02 07:30] VITALS: BP 160/67
[2023-07-02] MEDS: PROZAC 20 MG PO (08:15)
[2023-07-02] MEDS: TOPROL XL 12.5 MG PO (08:16)
[2023-07-02] MEDS: VITAMIN C 1000 MG PO (08:16)
[2023-07-02] MEDS: PROZAC 10 MG PO (08:16)
[2023-07-02] MEDS: VITAMIN B-12 1000 MCG PO (08:16)
[2023-07-02] MEDS: NEURONTIN 300 MG PO ×2 (08:16→13:11)
[2023-07-02] MEDS: ALTACE 1.25 MG PO (08:16)
[2023-07-02] MEDS: VITAMIN D3 (cholecalciferol) 125 MCG PO (08:16)
[2023-07-02] MEDS: OSCAL CAL 500 500 MG PO (08:16)
[2023-07-02] MEDS: PROTONIX 40 MG PO (08:16)
[2023-07-02] MEDS: KEFLEX 250 MG PO (08:16)
[2023-07-02] MEDS: THERAGRAN 1 TABLET PO (08:16)
[2023-07-02] MEDS: LOW STRENGTH ASPIRIN 81 MG PO (08:17)
[2023-07-02] MEDS: ALTACE 5 MG PO (08:17)
[2023-07-02 11:15] VITALS: BP 121/61
--- NOTE | 2023-07-02 11:16 | CM ---
Addendum entered by Libia Mendoza 07/02/23 12:04:
3:00 p.m. poultry picker time, [facility] and daughter made aware. Patient seen bedside with Hospitalist, discussed transport time with patient. CM will email IMM to patients daughter to [email or web address]
Plan; [facility] SNF, 3:00 p.m. ambulance transport
[facility]
Report: [phone]

Original Note:
Patient seen with daughter, Lillie. Demario from admissions at [facility] requested to FaceTime with patient and family, call conducted in room. Per daughter, her sister is POA but is out of the country, Demario requesting a letter or email sent
to Lillie stating she will be person to contact while daughter is out of country, email provided to daughter. Patient will be accepted for SNF with transition to LTC at [facility]. Per Hospitalist, patient clear for discharge. Patient will
require ambulance transport. Daughter will go to [facility] to sign paperwork before patient discharges to facility. CM will continue to follow for discharge planning needs.
Plan; [facility] SNF, awaiting ambulance transportation time.
[facility]
Report: [phone]
[2023-07-02 11:35] VITALS: BP 121/61; PULSE 55; O2SAT 97
[2023-07-02 11:39] VITALS: BP 121/61; PULSE 53; O2SAT 97
--- NOTE | 2023-07-02 13:15 | W.DCSUMMARY ---
Discharge Summary
Discharge Data
Date of Admission: 06/25/23
Date of Discharge: 07/02/23
-
Pending Results: No
Discharge Plan
-
Patient Disposition: [facility]
Discharge Diagnosis/Procedures: Legally Blind, Garett Bonnet Syndrome, Obstructive Sleep Apnea, Nocturnal Hypoxia 2L bedtime recommended, Hypertension, Aguilar's esophagus, anxiety/depression, obesity, Hypertensive Encephalopathy, Migraine,
Paroxysmal Atrial Fibrillation, Hyperlipidemia, GERD, possible mild cognitive impairment vs mild dementia
Condition: Fair
Diet: Low Cholesterol and 2 Gram Sodium
Activity: With assistance, As tolerated and With Walker
Driving Restrictions: No driving
Bathing Restrictions: None
Other Services: PT and OT
Activity Restrictions/Additional Instructions:
Please follow up with primary care provider in 1 week of discharge and Neurology in 1 month of discharge.
Metoprolol dose has been reduced to 12.5 mg twice a day due to bradycardia.
Hydrochlorothiazide has been discontinued in favor of increased Ramipril for better blood pressure control.
Please take medications as prescribed/recommended and follow up with primary care provider and/or other healthcare provider involved in your care for refills and/or further adjustment to your medication regimen as necessary.
Referrals:
Wagner Garcia MD [Active] - in one month
Jasmyn Corona MD [Family Provider] - in one week
Prescriptions:
New
metoprolol succinate 25 mg Tablet Extended Release 24 Hr
12.5 mg PO BID 30 Days Qty: 30 0RF
multivitamin with folic acid [Tab-A-Jesu] 400 mcg Tablet
1 tab PO DAILY 30 Days Qty: 30 0RF
ramipril 1.25 mg Capsule
1.25 mg PO BID 30 Days Qty: 60 0RF
Rx Instructions:
together with 5mg for total 6.25 mg BID
Continued
pantoprazole 40 MG tablet,delayed release (DR/EC)
40 mg PO DAILY
ramipril 5 MG capsule
5 mg PO BID
rosuvastatin 10 MG tablet
10 mg PO HS
fluoxetine 10 MG capsule
10 mg PO DAILY
Rx Instructions:
06/25/2023, take with 20 mg for a total of 30 mg.
cyanocobalamin (vitamin B-12) [Vitamin B-12] 1,000 mcg Tablet
1,000 mcg PO MOWEFR@0800
fluoxetine 20 mg capsule
20 mg PO DAILY
Rx Instructions:
06/25/2023, take with 10 mg for a total of 30 mg.
cholecalciferol (vitamin D3) [Vitamin D3] 125 mcg (5,000 unit) Tablet
125 mcg PO DAILY
acetaminophen 325 mg Tablet
650 mg PO Q6H PRN (Reason: mild pain)
calcium carbonate [Oyster Shell Calcium] 500 mg calcium (1,250 mg) Tablet
500 mg PO DAILY
aspirin 81 mg Tablet,Chewable
81 mg PO DAILY
ascorbic acid (vitamin C) 1,000 mg Tablet
1,000 mg PO DAILY
cephalexin 250 mg Capsule
250 mg PO DAILY@0900
gabapentin 300 mg Capsule
300 mg PO TID@0900,1300,1700
cranberry extract [Cranberry Concentrate] 500 mg Capsule
500 mg PO DAILY
Culturelle
1 cap PO DAILY
Discontinued
metoprolol succinate 25 MG tablet extended release 24 hr
25 mg PO BID
hydrochlorothiazide 25 MG tablet
25 mg PO DAILY
hydrocortisone 1 % Cream
1 applic TOPICAL TID PRN (Reason: crease of neck rash)
Discharge Orders:
Discharge Patient (As Directed); Ordered 07/02/23
Ordered By: Kevin Mary
Discharge Date and Time
Print Language: PALAUAN
[2023-07-02 15:02] VITALS: BP 98/72
== END 2023-07-02 15:31 | DRG 78 ==
LOC: 4 WEST ACU 13:30
PROVIDERS: Physician Assistant Medical; ADMITTING PHYSICIAN Family Medicine; ATTENDING PHYSICIAN Internal Medicine; CONSULT PHYSICIAN Psychiatry & Neurology Psychiatry; CONSULT PHYSICIAN Student in an Organized Health Care Education/Training Program; EMERGENCY PHYSICIAN Emergency Medicine; FAMILY PHYSICIAN Internal Medicine; OTHER PHYSICIAN Internal Medicine Infectious Disease
DX: I67.4 Hypertensive encephalopathy (principal); R47.01 Aphasia; Z68.41 Body mass index [BMI] 40.0-44.9, adult; E78.00 Pure hypercholesterolemia, unspecified; I48.0 Paroxysmal atrial fibrillation; I10 Essential (primary) hypertension; K21.9 Gastro-esophageal reflux disease without esophagitis; K22.70 Barrett's esophagus without dysplasia; H54.8 Legal blindness, as defined in USA; F32.A Depression, unspecified; G47.00 Insomnia, unspecified; E66.9 Obesity, unspecified; F03.A0 Unspecified dementia, mild, without behavioral disturbance, psychotic disturbance, mood disturbance, and anxiety; F41.9 Anxiety disorder, unspecified; G47.33 Obstructive sleep apnea (adult) (pediatric); G43.109 Migraine with aura, not intractable, without status migrainosus; H53.16 Psychophysical visual disturbances; H35.30 Unspecified macular degeneration; I25.10 Atherosclerotic heart disease of native coronary artery without angina pectoris; Z66 Do not resuscitate; I25.2 Old myocardial infarction; Z87.440 Personal history of urinary (tract) infections; Z79.82 Long term (current) use of aspirin; Z86.73 Personal history of transient ischemic attack (TIA), and cerebral infarction without residual deficits; Z91.041 Radiographic dye allergy status; Z88.8 Allergy status to other drugs, medicaments and biological substances
CPT/HCPCS: 70450; 80048; 80053; 80061; 81003; 81015; 82607; 82728; 82746; 82805; 82962; 83036; 83735; 84100; 84443; 85025; 85027; 85652; 87070; 87086; 92610; 93005; 95816; 96374; 97162; 97166; 97530; 97535; 99285

== ENCOUNTER → 2023-07-07 08:35 | Outpatient (REF) | payer MEDICARE, OTHER, SELFPAY ==
[2023-07-07 09:05] LABS: % Basophils 1.4 % (0-2); % Eosinophils 5.6 % (0-6); % Immature Granulocytes 0.4 % (0-0.5); % Lymphocytes 31.6 % (20.5-51.1); % Monocytes 9.5 % (1.7-9.3); % Neutrophils 51.5 % (42.2-75.2); Absolute Basophils 0.1 10^3/uL (0-0.2); Absolute Eosinophils 0.3 10^3/uL (0-0.7); Absolute Lymphocytes 1.6 10^3/uL (1.2-3.4); Absolute Monocytes 0.5 10^3/uL (0.1-0.6); Absolute Neutrophils 2.6 10^3/uL (1.4-6.5); Hematocrit 32.8 % (37.0-47.0); Hemoglobin 10.9 g/dL (12.0-16.0); Mean Corp Hgb Conc. 33.2 g/dL (33.0-37.0); Mean Corpuscular Hgb 31.9 pg (27.0-31.0); Mean Corpuscular Volume 95.9 fL (81.0-99.0); Mean Platelet Volume 10.9 fL (7.4-10.4); Nucleated Red Blood Cells % 0 %; Platelet Count 155 10^3/uL (130-400); Red Blood Cell Count 3.42 10^6/uL (4.20-5.40); Red Cell Dist. Width 12.6 % (11.5-14.5)
[2023-07-07 09:41] LABS: ALT (SGPT) 12 U/L (0-35); AST (SGOT) 24 U/L (14-36); Albumin 2.9 g/dl (3.5-5.0); Alkaline Phosphatase 56 U/L (38-126); Blood Urea Nitrogen 13 mg/dl (7-17); Calcium 9.1 mg/dl (8.4-10.2); Carbon Dioxide 30 mmol/L (22-30); Chloride 104 mmol/L (98-107); Glucose 87 mg/dl (70-99); HDL Cholesterol 46 mg/dl; LDL Cholesterol, Calculated 55 mg/dl; Magnesium 1.6 mg/dl (1.6-2.3); Potassium 3.9 mmol/L (3.5-5.1); Sodium 138 mmol/L (135-145); Total Bilirubin 0.5 mg/dl (0.2-1.3); Total Cholesterol 119 mg/dl (50-199); Total Protein 5.2 g/dl (6.3-8.2); Triglyceride 94 mg/dl (10-149); Very Low Density Lipoprotein 18 mg/dl (0-30); eGFR > 60.00
== END ==
LOC: OLABN 08:35
PROVIDERS: ATTENDING PHYSICIAN Student in an Organized Health Care Education/Training Program
DX: I10 Essential (primary) hypertension (principal); E78.5 Hyperlipidemia, unspecified; N17.9 Acute kidney failure, unspecified
CPT/HCPCS: 36415; 80053; 80061; 83735; 85025

== ENCOUNTER 2023-07-19 09:12 | Inpatient (IN) | payer MEDICARE, OTHER, SELFPAY ==
[2023-07-18 20:50] VITALS: BP 190/59
[2023-07-18 20:53] LABS: % Basophils 0.2 % (0-2); % Eosinophils 0.1 % (0-6); % Immature Granulocytes 0.4 % (0-0.5); % Lymphocytes 17.8 % (20.5-51.1); % Monocytes 9.2 % (1.7-9.3); % Neutrophils 72.3 % (42.2-75.2); Absolute Lymphocytes 1.5 10^3/uL (1.2-3.4); Absolute Monocytes 0.8 10^3/uL (0.1-0.6); Absolute Neutrophils 6.1 10^3/uL (1.4-6.5); Hematocrit 37.5 % (37.0-47.0); Hemoglobin 13.3 g/dL (12.0-16.0); Mean Corp Hgb Conc. 35.5 g/dL (33.0-37.0); Mean Corpuscular Hgb 31.7 pg (27.0-31.0); Mean Corpuscular Volume 89.5 fL (81.0-99.0); Nucleated Red Blood Cells % 0 %; Platelet Count 180 10^3/uL (130-400); Red Blood Cell Count 4.19 10^6/uL (4.20-5.40); Red Cell Dist. Width 12.7 % (11.5-14.5); White Blood Cell Count 8.5 10^3/uL (4.8-10.8)
[2023-07-18 20:56] LABS: Urine Albumin 3+ (Neg - Trace); Urine Bilirubin Negative (Negative); Urine Character Clear (Clear); Urine Color Yellow; Urine Glucose Negative (Negative); Urine Ketone 2+ (Negative); Urine Leukocyte Negative (Negative); Urine Nitrite Negative (Negative); Urine Occult Blood 1+ (Negative); Urine Specific Gravity 1.015 (<1.030); Urine Urobilinogen Negative (Neg - 1+)
--- NOTE | 2023-07-18 20:57 | ED.GENMED ---
History of Present Illness
General
Chief Complaint: Change in Mental Status
Source: family
Exam Limitations: clinical condition
Time Seen by Provider: 07/18/23 20:46
Travel History
Have you had any contact with someone who has COVID-19?: Unable to Answer
Do you have any symptoms of coronavirus? Fever > 100 degrees, chills, cough, shortness of breath, sore throat, loss of taste or smell, muscle aches, or headache?: Unable to Answer
History of Present Illness
History of Present Illness:
See MDM
Past History
Past History
ED Past Medical History: CVA, GERD, HTN, Hypercholesterolemia, VT, Psychiatric (Anxiety, Depression) and Other (Recurrent UTI, PNA, possible hemiplegia Migraines, Garett Bonnet Syndrome, TGA, Sleep apnea, Barrets esophagus, GI bleeding, BLind);
Negative Asthma or NIDDM
ED Past Surgical History: Appendectomy, and Other (Hernia repair)
Social History
Tobacco: Non-smoker
Alcohol: None
Drug: None
Personal:
Living: assisted living ([facility])
Employment: Not employed
Family History
Family History: Other and Unable to obtain
Phy Exam
Physical Exam
Physical Exam:
See MDM
Course
Orders/Labs/Results
Orders:
Orders
07/18/23 20:20
Electrocardiogram (*1) Urgent
Reason for Study: Other
Other Reason for Exam: Possible Sepsis
Cardiac Monitoring- Treatment ONCE
EKG- Treatment ONCE
IV Insert/Care/Rem.- Treatment PRN
Straight cath- Treatment ONCE
O2 Therapy [RESP] Urgent
Titrate/Wean O2 to maintain O2 sat greater than (%): 93
Special Instructions: TO MAINTAIN CONTINUOUS O2 SATS > OR = 93%
Pulse Ox/cont/shift [RESP] Urgent
Quantity: 1
Special Instructions: CONTINUOUS
07/18/23 20:25
COVID-19 Antigen Urgent
Source: Nasal Swab
Influenza A+B Rapid Molecular Urgent
LEIGH ANN Source: Nasal Swab
Specimen Description:
07/18/23 20:36
Complete Blood Count/With Diff Urgent
Comprehensive Metabolic Panel Urgent
Lactic Acid Q4H
Comment: ON ICE, CANCEL 2ND ORDER IF FIRST LACTIC ACID LEVEL <2
Blood Culture Q30M
LEIGH ANN Source: Blood/Venous
Specimen Description:
Comment: FROM 2 SEPARATE SITES
07/18/23 20:45
Urinalysis Reflex To Culture Urgent
Date Specimen was Collected: 07/18/23
Time Specimen was Collected: 20:20
Urine Microscopic Reflex Cult Urgent
07/18/23 20:55
0.9% Sodium Chloride 1000 ml [Nss] 1,000 ml IV BOLUS
Acetaminophen 1000MG/100Ml [Ofirmev] 1,000 mg in 100 ml IV ONCE
Acetaminophen IV Indication:: Targeted Temp Management
CR Chest Portable - 1 View Urgent
Comment:
Reason For Exam: Cough, fever
Reason Study Needs to be Portable: Unable to Transport
07/18/23 20:56
Ondansetron Injectable [Zofran] 4 mg IV NOW STA
07/18/23 21:00
Blood Culture Q30M
LEIGH ANN Source: Blood/Venous
Specimen Description:
Comment: FROM 2 SEPARATE SITES
07/18/23 21:03
0.9% Sodium Chloride 1000 ml [Nss] 1,000 ml IV BOLUS
07/18/23 21:59
Lorazepam [Ativan] 1 mg IV NOW STA
Piperacillin/Tazo 3.375 Gram [Zosyn] 3.375 gram in 50 ml IV NOW
Vancomycin [Vancocin] 2,000 mg 0.9% Sodium Chloride 500 ml [Nss] 500 ml IV NOW
07/19/23 00:30
Lactic Acid Q4H
Comment: ON ICE, CANCEL 2ND ORDER IF FIRST LACTIC ACID LEVEL <2
Abnormal Lab Results
07/18/23 07/18/23
20:36 20:45
RBC 4.19 L 10^6/uL
(4.20-5.40)
MCH 31.7 H pg
(27.0-31.0)
Absolute Monos (auto) 0.8 H 10^3/uL
(0.1-0.6)
Lymphocytes % 17.8 L %
(20.5-51.1)
Sodium 133 L mmol/L
(135-145)
Chloride 94 L mmol/L
(98-107)
Glucose 125 H mg/dl
(70-99)
AST 41 H U/L
(14-36)
Urine Ketones 2+ A
(Negative)
Ur Occult Blood Reflex 1+ A
(Negative)
Urine RBC 3-6 A /HPF
(0-2)
Urine Albumin (Reflex) 3+ A
(Neg - Trace)
07/18/23 20:36
07/18/23 20:36
Vital Signs
Initial and Last Documented VS:
Initial Vital Signs
Temp
100.7 F H
07/18/23 20:20
Last Documented Vital Signs
Temp Pulse Resp BP Pulse Ox
100.7 F H 80 20 190/59 94
07/18/23 20:20 07/18/23 21:35 07/18/23 21:35 07/18/23 20:50 07/18/23 21:35
MDM/Problems Addressed
Differential Diagnosis Includes:
HPI and MDM Narrative:
83-year-old female presenting with fever and altered mental status. Daughter at bedside states that this is not her normal behavior. Patient is intermittently yelling and coughing and appears confused. Daughter states she gets like this when she
has a urinary tract infection. Given the fever, will start Tylenol.
Patient was vomiting per family. Will give Zofran. Will obtain urinalysis and chest x-ray. Daughter states that there was a positive COVID exposure recently. Will obtain COVID test
Physical exam
General: Confused, combative
HEENT: protecting airway
Neck: No meningismus, supple
CV: No evidence of cyanosis. Regular rate and rhythm
Resp: No accessory muscle use. Lungs clear
Abd: Non-distended
Extremities: No deformities
Neuro: Awake and alert but disoriented
Psych: Agitated
Skin: Warm
Problems Addressed including Acute and Chronic Conditions affecting care:
1. Fever
Acuity: acute
Prognosis: stable
Details: Likely in setting of COVID versus pneumonia versus UTI. Patient given Tylenol
Updates
COVID testing negative. Urinalysis negative. Questionable right-sided pneumonia. Given the fever, cough and altered mental status, will start vancomycin and Zosyn. Will admit for further workup and monitoring
Differential Diagnosis (but not limited to): COVID, pneumonia, UTI
Testing considered: CT abdomen/pelvis but no abdominal tenderness noted
Drug therapy (if applicable): OTC meds, please see d/c instruction regarding Rx drugs
Amount and/or Complexity of Data Reviewed
Clinical info obtained from: Daughter
External data reviewed: Prior history of UTI
Labs I independently reviewed (but not limited to): Lactic acid normal
Radiology: X-ray independently reviewed: Chest x-ray with questionable right-sided pneumonia
Pulse Ox: not hypoxic
EKG independently reviewed: sinus rhythm, normal axis, no STEMI
Customs Collector: Sinus rhythm
Critical Care: N/A
Risk of Complication:
Social Determinants of health: Good social support
Discussed with other providers: Hospitalist
Escalation of Care includes Admit/Obs: Given the cough, fever and altered mental status, will admit for IV antibiotics
Occasional wrong word or 'sound a like' substitutions may have occurred due to the inherent limitations of voice recognition software. Read the chart carefully and recognize, using context, where substitutions have occurred.
*Critical Care Note
Total Time (30-74mins, 75-104mins- exclusive of procedures): Not Applicable
ED Attending Note
-
Portions of this chart may have been created with voice recognition software.� Occasional wrong word or��sound alike� substitutions may have occurred due to the inherent limitations of voice recognition software.
Discharge Plan
Departure
Patient Disposition: Admit
Date of Disposition: 07/18/23
Time of Disposition: 22:15
Admit to: Telemetry
Presentation/result/management discussed w/ accepting MD/DO: Hospitalist
Discharge Problem:
PNA (pneumonia), Altered mental status
Prescriptions:
No Action
pantoprazole 40 MG tablet,delayed release (DR/EC)
40 mg PO DAILY
ramipril 5 MG capsule
5 mg PO BID
Rx Instructions:
give with 1.25mg to equal 6.25mg BID
rosuvastatin 10 MG tablet
10 mg PO HS
fluoxetine 10 MG capsule
10 mg PO DAILY
Rx Instructions:
take with 20 mg for a total of 30 mg.
cyanocobalamin (vitamin B-12) [Vitamin B-12] 1,000 mcg Tablet
1,000 mcg PO MOWEFR
fluoxetine 20 mg capsule
20 mg PO DAILY
Rx Instructions:
take with 10 mg for a total of 30 mg.
cholecalciferol (vitamin D3) [Vitamin D3] 125 mcg (5,000 unit) Tablet
125 mcg PO DAILY
acetaminophen 325 mg Tablet
650 mg PO Q4H PRN (Reason: mild pain/fever>100.4)
aspirin 81 mg Tablet,Chewable
81 mg PO DAILY
ascorbic acid (vitamin C) 1,000 mg Tablet
1,000 mg PO DAILY
gabapentin 300 mg Capsule
300 mg PO TID
cranberry extract [Cranberry Concentrate] 500 mg Capsule
500 mg PO DAILY
metoprolol succinate 25 mg Tablet Extended Release 24 Hr
12.5 mg PO BID 30 Days Qty: 30 0RF
ramipril 1.25 mg Capsule
1.25 mg PO BID 30 Days Qty: 60 0RF
Rx Instructions:
together with 5mg for total 6.25 mg BID
multivitamin Tablet
1 tab PO DAILY
cephalexin 250 mg Capsule
250 mg PO DAILY
Rx Instructions:
first dose 07/03/23
calcium carbonate 500 mg calcium (1,250 mg) Tablet,Chewable
500 mg PO DAILY
dextromethorphan-guaifenesin 5-100 mg/5 mL Liquid
10 ml PO Q4H
Rx Instructions:
for 7 days starting 07/15/23
Chloraseptic (benzocaine) Lozenge
1 alisa PO Q4H
Rx Instructions:
for 7 days start 07/15/23
Culturelle
1 cap PO DAILY
Referrals:
UNKNOWN - PT DOES,NOT KNOW [Family Provider] -
Interventions
Interventions:
*Risk Screen - Suicide Last Done: 07/18/23 20:15
*General Assessment Last Done: 07/18/23 20:15
*Neglect/Abuse Screening Last Done: 07/18/23 20:15
ED- Fall Risk Assessment Last Done: 07/18/23 21:19
*ED COVID-19 Vaccine History Last Done: 07/18/23 20:15
ED- Pulmonary Assessment Last Done: 07/18/23 21:19
ED- Neurological Assessment Last Done: 07/18/23 21:19
ED- Cardiac Assessment Last Done: 07/18/23 21:19
Discharge Date and Time
Print Language: WELSH
[2023-07-18 21:03] LABS: ALT (SGPT) 18 U/L (0-35); AST (SGOT) 41 U/L (14-36); Albumin 4.1 g/dl (3.5-5.0); Alkaline Phosphatase 60 U/L (38-126); Blood Urea Nitrogen 12 mg/dl (7-17); Calcium 9.9 mg/dl (8.4-10.2); Carbon Dioxide 30 mmol/L (22-30); Chloride 94 mmol/L (98-107); Glucose 125 mg/dl (70-99); Potassium 3.6 mmol/L (3.5-5.1); Sodium 133 mmol/L (135-145); eGFR > 60.00
[2023-07-18] MEDS: NSS 1000 IV ×2 (21:03→21:07)
[2023-07-18] MEDS: ZOFRAN 4 MG IV (21:04)
[2023-07-18] MEDS: OFIRMEV 100 IV (21:07)
[2023-07-18 21:08] LABS: COVID-19 Antigen Negative (Negative)
[2023-07-18 21:10] LABS: Urine Squamous Cell 16-20 /LPF (Few)
[2023-07-18 21:11] LABS: Urine White Cell 0-2 /HPF (0-5)
[2023-07-18 21:14] LABS: Lactic Acid 1.7 mmol/L (0.7-2.0)
--- NOTE | 2023-07-18 21:20 | EDRN ---
Pt arrived incontinent of urine. Pt repeats 'Gurpreet Valeriano!' and 'Please!' When asked what pt needs, she does not reply and continues with same phrases. Pt unable to answer questions appropriately. Unable to provide HPI or pertinent negatives.
Perineal care provided. Pt with hacking non productive cough. Unable to obtain accurate BP because pt has multiple hacking coughing episodes whenever attempt made to obtain repeat.
[2023-07-18] MEDS: ATIVAN 1 MG IV (22:22)
[2023-07-18] MEDS: ZOSYN 50 IV (22:23)
[2023-07-18 22:34] VITALS: BP 185/86
--- NOTE | 2023-07-18 22:36 | EDRN ---
Called pharmacy for vancomycin 2g IV
--- NOTE | 2023-07-18 22:55 | HPS.HSE ---
Family Physician
-
Family Physician: NOT KNOW UNKNOWN - PT DOES
Chief Complaint
-
URI symptoms, weakness, malaise, AMS
History of Present Illness
The patient is an 83 yo woman with PMH significant for legal blindness, Garett Bonnet syndrome, JOSETTE, HTN, Aguilar's esophagus, anxiety, obesity, Nocturnal Hypoxia 2L bedtime, Paroxysmal Atrial Fibrillation, Hyperlipidemia, GERD, possible mild
cognitive impairment vs mild dementia, admitted here 06/24 to 07/01 due to hypertensive encephalopathy, seen by Neurology and Psychiatry at that time and given Thiamine IV x 3 doses, discharged to [facility], seen by Neurology on several
occasions for symptoms of AMS- MRI consistently negative, who presents to the ED from [facility] due to URI symptoms, malaise, weakness, poor appetite, decreased oral intake, and increased confusion. She is somnolent during this history and
information is taken from ED provider and transfer notes from [facility].
COVID negative, UA negative.
ED txt:
Vancomycin, Zosyn, IVF 1 liter, Ofirmev 1 gram IV, Ativan 1 mg IV
Medical History
Past Medical History
Past Medical History: Reports CVA, GERD, HTN, Hypercholesterolemia and Other
Additional Past Medical History:
Blindness
Paroxysmal Atrial Fibrillation
Essential Hypertension
Hyperlipidemia
Recurrent UTIs
Aguilar's Esophagus
Hallucinations secondary Garett Bonnet Syndrome
Anxiety/Depression
Recurrent UTI, PNA, possible hemiplegia Migraines
Past Surgical History: Reports Other
Additional Past Surgical History:
Appendectomy
Hernia Repair
Section
Social History
Tobacco: Non-smoker
Alcohol: None
Personal:
Living: Assisted Living (Lives at [facility])
Employment: Not Employed
Family History
Family History: Not pertinent
Allergies / Home Medications
Allergies reflects when Allergies were last updated in [facility].
Home Medications with original date entered in [facility]
Allergy/Medication List:
Allergies
Allergy/AdvReac Type Severity Reaction Status Date / Time
iodine Allergy Unknown Confusion,confusion/'like Verified 07/18/23 20:16
I had a
tia'
amlodipine besylate Allergy Rash Verified 07/18/23 20:16
[From [facility]]
Home Medications
pantoprazole 40 mg tablet,delayed release 40 mg PO DAILY Gastrointestinal issue 12/03/11
ramipril 5 mg capsule 5 mg PO BID Blood pressure 12/03/11
rosuvastatin 10 mg tablet 10 mg PO HS High cholesterol 05/25/18
fluoxetine 10 mg capsule 10 mg PO DAILY Depression 11/24/20
cholecalciferol (vitamin D3) 125 mcg (5,000 unit) tablet (Vitamin D3) 125 mcg PO DAILY Supplement 12/16/21
cyanocobalamin (vitamin B-12) 1,000 mcg tablet (Vitamin B-12) 1,000 mcg PO MOWEFR Supplement 12/16/21
fluoxetine 20 mg capsule 20 mg PO DAILY Depression 12/16/21
acetaminophen 325 mg tablet 650 mg PO Q4H PRN mild pain/fever>100.4 02/10/22
aspirin 81 mg chewable tablet 81 mg PO DAILY Blood clot prevention/tx 02/10/22
ascorbic acid (vitamin C) 1,000 mg tablet 1,000 mg PO DAILY Supplement 06/25/23
cranberry extract 500 mg capsule (Cranberry Concentrate) 500 mg PO DAILY Supplement 06/25/23
gabapentin 300 mg capsule 300 mg PO TID NERVE PAIN 06/25/23
metoprolol succinate 25 mg tablet,extended release 24 hr 12.5 mg (1/2 x 25 mg) PO BID 30 days #30 tabs 07/02/23
ramipril 1.25 mg capsule 1.25 mg PO BID 30 days #60 caps 07/02/23
Culturelle 1 cap PO DAILY 07/18/23
benzocaine-menthol lozenges 1 alisa PO Q4H 07/18/23
calcium carbonate 500 mg PO DAILY 07/18/23
cephalexin 250 mg capsule 250 mg PO DAILY 07/18/23
dextromethorphan-guaifenesin 5 mg-100 mg/5 mL oral liquid 10 ml PO Q4H 07/18/23
multivitamin 1 tab PO DAILY 07/18/23
Review of Systems
-
A 12 point ROS was completed and negative except as noted: Yes
Physical Exam
Vital Signs
Vital Signs
Temp Pulse Resp BP Pulse Ox
100.7 F H 74 24 185/86 95
07/18/23 20:20 07/18/23 22:34 07/18/23 22:34 07/18/23 22:34 07/18/23 22:34
Physical Exam
General: Appears Chronically Ill and Other (somnolent )
HEENT: NormoCephalic, Anicteric and Moist mucous membranes
Respiratory: Rales
Cardiac: S1/S2 and Regular Rhythm
GI: Soft, Non Tender, Non Distended and Normal Bowel Sounds
Musculoskeletal: No Clubbing, No Cyanosis and No Edema
Skin: Warm and Dry
Neuro: Other (altered, somnolent, responds to voice command then falls back to sleep)
Psych: Calm
Laboratory Results
-
07/18/23 20:36
07/18/23 20:36
Laboratory Results
Lactic Acid 1.7 mmol/L (0.7-2.0) 07/18/23 20:36
Total Bilirubin 1.0 mg/dl (0.2-1.3) 07/18/23 20:36
AST 41 U/L (14-36) H 07/18/23 20:36
ALT 18 U/L (0-35) 07/18/23 20:36
Alkaline Phosphatase 60 U/L (38-126) 07/18/23 20:36
Data Reviewed
-
Diagnostic Radiology: Report Reviewed by me (CXR chronic lung changes, moderately large hiatal hernia, retrocardiac. Increased stranding in the left base may represent early pneumonia.)
Impression/Plan
-
IMPRESSION:
The patient is an 83 yo woman with PMH significant for legal blindness, Garett Bonnet syndrome, JOSETTE, HTN, Aguilar's esophagus, anxiety, obesity, Nocturnal Hypoxia 2L bedtime, Paroxysmal Atrial Fibrillation, Hyperlipidemia, GERD, possible mild
cognitive impairment vs mild dementia, admitted here 06/24 to 07/01 due to hypertensive encephalopathy, seen by Neurology and Psychiatry at that time and given Thiamine IV x 3 doses, discharged to [facility], seen by Neurology on several
occasions for symptoms of AMS- MRI consistently negative, who presents to the ED from [facility] due to URI symptoms, malaise, weakness, poor appetite, decreased oral intake, and increased confusion. She is somnolent during this history and
information is taken from ED provider and transfer notes from [facility].
COVID negative, Flu negative, UA negative.
ED txt:
Vancomycin, Zosyn, IVF 1 liter, Ofirmev 1 gram IV, Ativan 1 mg IV
# Concern for developing Left base pneumonia, possible healthcare associated pneumonia due to recent hospitalization associated with Toxic metabolic encephalopathy, most likely due to acute infection
-continue IV Vancomycin, IV Zosyn
-blood and sputum cultures , JOE
-pulse oximetry monitoring, O2 per NC and wean per protocol
-continue home O2 at 2L
-supportive care
#Hypertension BP 185/86 , 165/83
-Continue metoprolol with hold parameters
-Continue Ramipril 5 mg BID
-echo 09/30/21 - EF 55%, normal LV systolic fxn
#Legally blind
-Needs help with activities of daily living
-From [facility] since most recent admission
#Migraine headache, history of
#Paroxysmal Atrial Fibrillation, currently in NSR
-tele monitoring
-Continue metoprolol , monitor on tele for bradycardia
-Patient is not on anticoagulation as outpatient
#Hyperlipidemia
-Continue Rosuvastatin
#GERD / Aguilar's Esophagus / Hx GI Bleed
-Continue Protonix
#History of Hallucinations secondary Garett Bonnet Syndrome
-Continue gabapentin
#Anxiety/Depression
-Continue fluoxetine
#Obstructive Sleep Apnea
-nocturnal oxygenation study 06/27-06/28 notes desaturation qualifies for bedtime oxygen supplementation
-outpatient sleep study recommended per previous admission
-Continue O2 2L and monitor pulse oximetry
DVT proph: Lovenox
Code Status: DNR confirmed - I spoke with patient's daughter as well and confirmed DNR status with family discussion
[2023-07-18] MEDS: VANCOCIN 540 MG IV (23:01)
[2023-07-18 23:06] VITALS: BP 165/83
[2023-07-19] VITALS (8 sets, daily range): BP systolic 108–165; BP diastolic 63–95; PULSE 63; O2SAT 99
--- NOTE | 2023-07-19 01:50 | PTCARENOTE ---
Pt arrived from ED via stretcher, Pt transferred to bed. Pt confused, mumbling to herself at times, cursing and does not answers questions appropriately. nsr on tele monitor. pox 98% on 3L. rectal temp 101.2, house MANAGEMENT SUPERVISOR made aware, IV ofirmev ordered.
purewick in place. ivf infusing.
[2023-07-19] MEDS: OFIRMEV 100 IV (03:47)
[2023-07-19] MEDS: NSS 1000 IV ×2 (03:51→15:08)
[2023-07-19] MEDS: ZOSYN 50 IV ×4 (04:46→22:14)
[2023-07-19 06:18] LABS: % Basophils 0.1 % (0-2); % Immature Granulocytes 0.1 % (0-0.5); % Lymphocytes 19.1 % (20.5-51.1); % Monocytes 9.2 % (1.7-9.3); % Neutrophils 71.5 % (42.2-75.2); Absolute Lymphocytes 1.3 10^3/uL (1.2-3.4); Absolute Monocytes 0.6 10^3/uL (0.1-0.6); Absolute Neutrophils 4.8 10^3/uL (1.4-6.5); Hematocrit 32.2 % (37.0-47.0); Hemoglobin 10.8 g/dL (12.0-16.0); Mean Corp Hgb Conc. 33.5 g/dL (33.0-37.0); Mean Corpuscular Hgb 31.1 pg (27.0-31.0); Mean Corpuscular Volume 92.8 fL (81.0-99.0); Mean Platelet Volume 10.3 fL (7.4-10.4); Nucleated Red Blood Cells % 0 %; Platelet Count 145 10^3/uL (130-400); Red Blood Cell Count 3.47 10^6/uL (4.20-5.40); Red Cell Dist. Width 12.7 % (11.5-14.5); White Blood Cell Count 6.8 10^3/uL (4.8-10.8)
[2023-07-19 07:01] LABS: Blood Urea Nitrogen 10 mg/dl (7-17); Calcium 8.4 mg/dl (8.4-10.2); Carbon Dioxide 26 mmol/L (22-30); Chloride 100 mmol/L (98-107); Estimated Creatinine Clearance 52 ml/min; Glucose 107 mg/dl (70-99); Potassium 3.1 mmol/L (3.5-5.1); Sodium 134 mmol/L (135-145); eGFR > 60.00
--- NOTE | 2023-07-19 08:37 | PHA.VAN.IN ---
Assessment
- Assessment
Renal Function: Appears similar to baseline
Concomitant Antimicrobials: piperacillin/tazobactam
AUC Dosing Plan
- Dosing Variables
Dosing Weight (kg): 94
Dosing CrCl (ml/min): 52
Vd coefficient (L/kg): 0.6
- Empiric Dosing
Initial / Loading Dose: 2000mg - 07/17 23:01
Maintenance Regimen: Vanc 1250mg Q24H starting 07/19 06
Estimated AUC (mcg*h/mL): 483
Estimated Peak (mcg*h/mL): 32.6
Estimated Trough (mcg/ml): 11.2
Estimated Half Life (H): 14.6
- Monitoring
No levels ordered at this time: consider levels in next few days
Pharmacokinetics Vancomycin I
- -
Patient Age: 83
Patient Sex: Female
Vancomycin Day #: 1
Indication: Pulmonary/Respiratory
Requesting Provider: Dr. Martinez
Pertinent Antimicrobial Allergies:
no pertinent antibiotic allergies
Height / Weight:
Height 4 ft 11 in
Actual Weight 93.894 kg
Pertinent Past Medical History: BMI ~42
- Vital Signs / Lab Results
Temp Pulse Resp BP Pulse Ox
101.2 F H 73 18 140/77 95
07/19/23 01:59 07/19/23 03:10 07/19/23 03:10 07/19/23 03:10 07/19/23 05:47
Lab Results - Hematology
07/18/23 07/19/23
20:36 05:19
WBC 8.5 6.8
Lab Results - Chemistry
07/18/23 07/19/23
20:36 05:19
BUN 12 10
Creatinine 0.7 0.8
Estimated Creat Clear 52
Albumin 4.1
07/18/23 07/19/23
20:36 00:30
Lactic Acid 1.7 Cancelled
Lab Results - Urine
07/18/23
20:45
Urine Nitrite (Reflex) Negative
Leukocyte Esterase Rfl Negative
Urine WBC (Reflex) 0-2
Ur Squamous Epith Cells 16-20
Microbiology Results
07/18/23 20:25 Influenza Types A & B (KIESHA) - Final
Nasal Swab Negative for Influenza A & B, NAAT
Negative results must be combined with clinical observations
and patient history.
Nucleic Acid Amplification test (NAAT)performed on the
[employer] platform.
--- NOTE | 2023-07-19 08:44 | W.PN.HOSP.TC ---
Today's Communication/Plan
-
Continue antibiotics, follow cultures
Spoke with patient's daughter today, inside patient's room
Assessment / Plan
Assessment / Plan
Physical Exam
General: Appears Chronically Ill and Other (somnolent )
HEENT: NormoCephalic, Anicteric and Moist mucous membranes
Respiratory: Rales
Cardiac: S1/S2 and Regular Rhythm
GI: Soft, Non Tender, Non Distended and Normal Bowel Sounds
Musculoskeletal: No Clubbing, No Cyanosis and No Edema
Skin: Warm and Dry
Neuro: AAOx3. somnolent, responds to voice command then falls back to sleep)
Psych: Calm

Assessment/Plan
IMPRESSION:
The patient is an 83 yo woman with PMH significant for legal blindness, Garett Bonnet syndrome, JOSETTE, HTN, Aguilar's esophagus, anxiety, obesity, Nocturnal Hypoxia 2L bedtime, Paroxysmal Atrial Fibrillation, Hyperlipidemia, GERD, possible mild
cognitive impairment vs mild dementia, admitted here 06/24 to 07/01 due to hypertensive encephalopathy, seen by Neurology and Psychiatry at that time and given Thiamine IV x 3 doses, discharged to [facility], seen by Neurology on several
occasions for symptoms of AMS- MRI consistently negative, who presents to the ED from [facility] due to URI symptoms, malaise, weakness, poor appetite, decreased oral intake, and increased confusion. She is somnolent during this history and
information is taken from ED provider and transfer notes from [facility].
COVID negative, Flu negative, UA negative.
ED treatment:
Vancomycin, Zosyn, IVF 1 liter, Ofirmev 1 gram IV, Ativan 1 mg IV
# Concern for developing Left base pneumonia, possible healthcare associated pneumonia due to recent hospitalization associated with Toxic metabolic encephalopathy, most likely due to acute infection
-continue IV Vancomycin, IV Zosyn
-blood and sputum cultures, JOE
-pulse oximetry monitoring, O2 per NC and wean per protocol
-continue home O2 at 2L (per patient's daughter, patient only wears oxygen at nighttime outpatient)
-supportive care
#Hypertension BP 185/86 , 165/83
-Continue metoprolol with hold parameters
-Continue Ramipril 5 mg BID
-echo 09/30/21 - EF 55%, normal LV systolic fxn
#Legally blind
-Needs help with activities of daily living
-From [facility] since most recent admission
#Migraine headache, history of
#Paroxysmal Atrial Fibrillation, currently in NSR
-tele monitoring
-Continue metoprolol , monitor on tele for bradycardia
-Patient is not on anticoagulation as outpatient
#Hyperlipidemia
-Continue Rosuvastatin
#GERD / Aguilar's Esophagus / Hx GI Bleed
-Continue Protonix
#History of Hallucinations secondary Garett Bonnet Syndrome
-Continue gabapentin
#Anxiety/Depression
-Continue fluoxetine
#Obstructive Sleep Apnea
-nocturnal oxygenation study 06/27-06/28 notes desaturation qualifies for bedtime oxygen supplementation
-outpatient sleep study recommended per previous admission
-Continue O2 2L and monitor pulse oximetry
DVT proph: Lovenox
Code Status: DNR confirmed - Dr. Martinez spoke with patient's daughter as well and confirmed DNR status with family discussion
Anticipated Discharge: > 48 hours
Subjective/Interval History
-
Date of Service: July 19, 2023
Patient was seen and examined. She was somewhat aphasic, patient's daughter was present in the room and mentioned patient has the aphasia at times.
Objective Data
-
Labs:
Laboratory Results
07/18/23 07/19/23
20:36 05:19
WBC 8.5 6.8
Hgb 13.3 10.8 L
Hct 37.5 32.2 L
Plt Count 180 145
Sodium 133 L 134 L
Potassium 3.6 3.1 L
Chloride 94 L 100
Carbon Dioxide 30 26
BUN 12 10
Creatinine 0.7 0.8
Glucose 125 H 107 H
Calcium 9.9 8.4 D
Total Bilirubin 1.0
AST 41 H
ALT 18
Alkaline Phosphatase 60
Vital Signs:
Vital Signs
Temp Pulse Resp BP Pulse Ox
101.2 F H 73 18 140/77 95
07/19/23 01:59 07/19/23 03:10 07/19/23 03:10 07/19/23 03:10 07/19/23 05:47
I&O
07/18/23 07/19/23 07/20/23
06:59 06:59 06:59
Output Total 400 / 400
Balance -400 / -400
[2023-07-19] MEDS: ALTACE 1.25 MG PO ×2 (09:50→22:13)
[2023-07-19] MEDS: NEURONTIN 300 MG PO ×3 (09:50→22:14)
[2023-07-19] MEDS: ALTACE 5 MG PO ×2 (09:50→22:12)
[2023-07-19] MEDS: LOW STRENGTH ASPIRIN 81 MG PO (09:50)
[2023-07-19] MEDS: PROTONIX 40 MG PO (09:51)
[2023-07-19] MEDS: PROZAC 10 MG PO (09:51)
[2023-07-19] MEDS: PROZAC 20 MG PO (09:51)
[2023-07-19] MEDS: TOPROL XL 12.5 MG PO ×2 (09:51→22:13)
[2023-07-19] MEDS: THERAGRAN 1 TABLET PO (09:51)
[2023-07-19] MEDS: KCL 40 MEQ PO (12:05)
--- NOTE | 2023-07-19 16:19 | CM ---
Patient seen bedside.
Spoke with daughter Judy via phone.
Patient is blind.
Per daughter patient is usually A+O x 3.
Patient is able to ambulate with a walker, chaitanya needs to be guided. Per daughter skilled facility has been putting her in a WC and pushing her which they are not happy with.
PT saw patient today and recommended skilled rehab.
Plan: back to [facility], will need skilled rehab.
PCP; Dr Carranza
Pharmacy: need to verify ([facility] said [facility] but not coming up)
Plan: Back to [facility] when stable.
[2023-07-19] MEDS: LOVENOX 40 MG SC (18:26)
[2023-07-19] MEDS: CRESTOR 10 MG PO (22:46)
[2023-07-20] VITALS (8 sets, daily range): BP systolic 137–174; BP diastolic 74–92; BMI 41.8
[2023-07-20] MEDS: ZOSYN 50 IV ×3 (03:58→16:24)
[2023-07-20] MEDS: NSS 1000 IV (04:36)
[2023-07-20] MEDS: VANCOCIN 275 MG IV (05:41)
[2023-07-20 06:36] LABS: % Eosinophils 4.6 % (0-6); % Immature Granulocytes 0.2 % (0-0.5); % Lymphocytes 33.1 % (20.5-51.1); % Monocytes 9.4 % (1.7-9.3); % Neutrophils 51.7 % (42.2-75.2); Absolute Basophils 0.1 10^3/uL (0-0.2); Absolute Eosinophils 0.2 10^3/uL (0-0.7); Absolute Lymphocytes 1.6 10^3/uL (1.2-3.4); Absolute Monocytes 0.5 10^3/uL (0.1-0.6); Absolute Neutrophils 2.5 10^3/uL (1.4-6.5); Hemoglobin 11.3 g/dL (12.0-16.0); Mean Corp Hgb Conc. 33.2 g/dL (33.0-37.0); Mean Corpuscular Hgb 31.3 pg (27.0-31.0); Mean Corpuscular Volume 94.2 fL (81.0-99.0); Mean Platelet Volume 10.3 fL (7.4-10.4); Nucleated Red Blood Cells % 0 %; Platelet Count 144 10^3/uL (130-400); Red Blood Cell Count 3.61 10^6/uL (4.20-5.40); White Blood Cell Count 4.8 10^3/uL (4.8-10.8)
[2023-07-20 07:16] LABS: ALT (SGPT) 15 U/L (0-35); AST (SGOT) 38 U/L (14-36); Albumin 2.8 g/dl (3.5-5.0); Alkaline Phosphatase 46 U/L (38-126); Blood Urea Nitrogen 10 mg/dl (7-17); Calcium 8.1 mg/dl (8.4-10.2); Carbon Dioxide 26 mmol/L (22-30); Chloride 107 mmol/L (98-107); Estimated Creatinine Clearance 47 ml/min; Glucose 84 mg/dl (70-99); Magnesium 1.5 mg/dl (1.6-2.3); Potassium 3.5 mmol/L (3.5-5.1); Sodium 138 mmol/L (135-145); Total Bilirubin 0.8 mg/dl (0.2-1.3); Total Protein 5.2 g/dl (6.3-8.2); eGFR > 60.00
[2023-07-20] MEDS: ALTACE 5 MG PO ×2 (09:49→19:55)
[2023-07-20] MEDS: LOW STRENGTH ASPIRIN 81 MG PO (09:49)
[2023-07-20] MEDS: PROTONIX 40 MG PO (09:49)
[2023-07-20] MEDS: PROZAC 10 MG PO (09:50)
[2023-07-20] MEDS: ALTACE 1.25 MG PO ×2 (09:50→19:56)
[2023-07-20] MEDS: PROZAC 20 MG PO (09:50)
[2023-07-20] MEDS: TOPROL XL 12.5 MG PO ×2 (09:50→19:56)
[2023-07-20] MEDS: NEURONTIN 300 MG PO ×3 (09:50→22:23)
[2023-07-20] MEDS: THERAGRAN 1 TABLET PO (09:51)
--- NOTE | 2023-07-20 13:12 | W.PN.HOSP.TC ---
Today's Communication/Plan
-
Doing better
Change to oral antibiotics
Appreciate cardiology -- no med changes needed at this time
Discharge planning
Assessment / Plan
Assessment / Plan
Physical Exam
General: Appears Chronically Ill and Other (somnolent )
HEENT: NormoCephalic, Anicteric and Moist mucous membranes
Respiratory: Rales
Cardiac: S1/S2 and Regular Rhythm
GI: Soft, Non Tender, Non Distended and Normal Bowel Sounds
Musculoskeletal: No Clubbing, No Cyanosis and No Edema
Skin: Warm and Dry
Neuro: AAOx3. somnolent, responds to voice command then falls back to sleep)
Psych: Calm

Assessment/Plan
IMPRESSION:
The patient is an 83 yo woman with PMH significant for legal blindness, Garett Bonnet syndrome, JOSETTE, HTN, Aguilar's esophagus, anxiety, obesity, Nocturnal Hypoxia 2L bedtime, Paroxysmal Atrial Fibrillation, Hyperlipidemia, GERD, possible mild
cognitive impairment vs mild dementia, admitted here 06/24 to 07/01 due to hypertensive encephalopathy, seen by Neurology and Psychiatry at that time and given Thiamine IV x 3 doses, discharged to [facility], seen by Neurology on several
occasions for symptoms of AMS- MRI consistently negative, who presents to the ED from [facility] due to URI symptoms, malaise, weakness, poor appetite, decreased oral intake, and increased confusion. She is somnolent during this history and
information is taken from ED provider and transfer notes from [facility].
COVID negative, Flu negative, UA negative.
ED treatment:
Vancomycin, Zosyn, IVF 1 liter, Ofirmev 1 gram IV, Ativan 1 mg IV
# Concern for developing Left base pneumonia, possible healthcare associated pneumonia due to recent hospitalization associated with Toxic metabolic encephalopathy, most likely due to acute infection
-Stopped IV Vancomycin as MRSA negative
-Stopped IV Zosyn
-Changed to PO Augmentin
-Doxycycline 100 mg PO BID
-blood and sputum cultures, JOE
-pulse oximetry monitoring, O2 per NC and wean per protocol
-continue home O2 at 2L (per patient's daughter, patient only wears oxygen at nighttime outpatient)
-supportive care
#Hypertension BP 185/86 , 165/83
-Continue metoprolol with hold parameters
-Continue Ramipril 5 mg BID
-echo 09/30/21 - EF 55%, normal LV systolic fxn
#Legally blind
-Needs help with activities of daily living
-From [facility] since most recent admission
#Migraine headache, history of
#Paroxysmal Atrial Fibrillation, currently in NSR
#Short runs of AT/SVT on telemetry
-tele monitoring
-Continue metoprolol , monitor on tele for bradycardia
-Patient is not on anticoagulation as outpatient
-Consulted cardiology, recommendations appreciated
#Hypomagnesemia
-Replaced on July 20, 2023
-Monitor levels
#Hyperlipidemia
-Continue Rosuvastatin
#GERD / Aguilar's Esophagus / Hx GI Bleed
-Continue Protonix
#History of Hallucinations secondary Garett Bonnet Syndrome
-Continue gabapentin
#Anxiety/Depression
-Continue fluoxetine
#Obstructive Sleep Apnea
-nocturnal oxygenation study 06/27-06/28 notes desaturation qualifies for bedtime oxygen supplementation
-outpatient sleep study recommended per previous admission
-Continue O2 2L and monitor pulse oximetry
Speech recommendations: Ting Zarate in - had no difficulty swallowing. Continue regular, thin textures, reflux precautions (given hiatal hernia, Aguilar's), assist as needed given she is legally blind. If concerned for silent aspiration (given
possible dementia), could consider video swallow study but low suspicion for this at this time.
DVT proph: Lovenox
Code Status: DNR confirmed - Dr. Martinez spoke with patient's daughter as well and confirmed DNR status with family discussion
Anticipated Discharge: 24 - 48 hours
Subjective/Interval History
-
Date of Service: July 20, 2023
Objective Data
-
Labs:
Laboratory Results
07/20/23
05:50
WBC 4.8
Hgb 11.3 L
Hct 34.0 L
Plt Count 144
Sodium 138
Potassium 3.5
Chloride 107
Carbon Dioxide 26
BUN 10
Creatinine 0.9
Glucose 84
Calcium 8.1 L
Total Bilirubin 0.8
AST 38 H
ALT 15
Alkaline Phosphatase 46
Vital Signs:
Vital Signs
Temp Pulse Resp BP Pulse Ox
97.7 F 57 16 137/86 97
07/20/23 11:00 07/20/23 11:00 07/20/23 11:00 07/20/23 11:00 07/20/23 11:00
I&O
07/19/23 07/20/23 07/21/23
06:59 06:59 06:59
Intake Total 450 / 450
Output Total 400 / 400 625 / 625
Balance -400 / -400 -175 / -175
--- NOTE | 2023-07-20 13:21 | PTOTSP ---
Dysphagia Evaluation
Oral and pharyngeal stages of swallowing suspected to be WFL. No overt s/s of aspiration observed. Patient has risk factors for top-down aspiration (mild CI vs mild dementia) and bottom-up aspiration (moderate large hiatal hernia, Aguilar's
esophagus).
Recommend:
1. Regular, Thin Liquids
2. Assist with meals given patient is legally blind
3. Medications - as best tolerated
4. General aspiration and reflux precautions (i.e., upright after meals for at least 30 minutes)
No further dysphagia therapy warranted. If concerned for silent aspiration (given PNA), consider video swallow study. Low suspicion at this time. Patient denied repeated PNAs and this matches with chart review (03/14/2021; 03/14/2022).
--- NOTE | 2023-07-20 13:34 | CON.CAR ---
Addendum entered and electronically signed by Caleb Christensen MD 07/20/23 16:23:
I saw and examined the patient.
The SUPERVISOR ENGINE ASSEMBLY's note was reviewed and I agree with the note.
Comment: Tele shows short runs of AT/SVT (3-5 seconds, not that fast). No associated symptoms. I do not favor altering meds or pursuing cardiac workup at this time.
Original Note:
Consultation
Consultation Request
Date/Time Consultation Requested: 07/20/2023 13:20
Date/Time Consultation Performed: 07/20/2023 13:35
Requesting Provider: Dr. Zepeda
Performing Provider: CYRIL Mann for Dr. Christensen
Reason for Consultation: Tachycardia on telemetry
Medical History
-
Chief Complaint: Change in mental status
History of Present Illness:
Ting Zarate is an 83-year-old male (known to Dr. Larry, last seen in the outpatient setting in 2014), with GERD, hypertension, dyslipidemia, subclinical hypothyroidism, anxiety, Garett Boni syndrome and multiple admissions with change in mental
status (MRI consistently negative), presented to [facility] with change in mental status. She was found to have upper respiratory symptoms in addition to malaise and decreased oral intake. She was diagnosed with HAP. She has been started
on antibiotics. The hospitalist consulted cardiology for concerns for atrial fibrillation on telemetry.
Past Medical History
Past Medical History: GERD, HTN, Hypercholesterolemia, Hypothyroidism (Subclinical) and Psychiatric (Anxiety)
Past Surgical History: Appendectomy, and Tonsilectomy
Social History
Tobacco: Non-Smoker
Drug: None
Living: Snf
Employment: Retired
Family History
Family History: Reviewed & Not Pertinent
Allergies / Home Medications
Allergy/AdvReac Type Severity Reaction Status Date / Time
iodine Allergy Unknown Confusion,confusion/'like Verified 07/18/23 20:16
I had a
tia'
amlodipine besylate Allergy Rash Verified 07/18/23 20:16
[From [facility]]
�Medication �Instructions �Recorded �Confirmed �Type
pantoprazole 40 mg tablet,delayed 40 mg PO DAILY Gastrointestinal 12/03/11 07/18/23 History
release issue
ramipril 5 mg capsule 5 mg PO BID Blood pressure 12/03/11 07/18/23 History
rosuvastatin 10 mg tablet 10 mg PO HS High cholesterol 05/25/18 07/18/23 History
fluoxetine 10 mg capsule 10 mg PO DAILY Depression 11/24/20 07/18/23 History
cholecalciferol (vitamin D3) 125 125 mcg PO DAILY Supplement 12/16/21 07/18/23 History
mcg (5,000 unit) tablet (Vitamin
D3)
cyanocobalamin (vitamin B-12) 1,000 mcg PO MOWEFR Supplement 12/16/21 07/18/23 History
1,000 mcg tablet (Vitamin B-12)
fluoxetine 20 mg capsule 20 mg PO DAILY Depression 12/16/21 07/18/23 History
acetaminophen 325 mg tablet 650 mg PO Q4H PRN mild 02/10/22 07/18/23 History
pain/fever>100.4
aspirin 81 mg chewable tablet 81 mg PO DAILY Blood clot 02/10/22 07/18/23 History
prevention/tx
ascorbic acid (vitamin C) 1,000 mg 1,000 mg PO DAILY Supplement 06/25/23 07/18/23 History
tablet
cranberry extract 500 mg capsule 500 mg PO DAILY Supplement 06/25/23 07/18/23 History
(Cranberry Concentrate)
gabapentin 300 mg capsule 300 mg PO TID NERVE PAIN 06/25/23 07/18/23 History
metoprolol succinate 25 mg 12.5 mg (1/2 x 25 mg) PO BID 30 07/02/23 07/18/23 Rx
tablet,extended release 24 hr days #30 tabs
ramipril 1.25 mg capsule 1.25 mg PO BID 30 days #60 caps 07/02/23 07/18/23 Rx
Culturelle 1 cap PO DAILY Supplement 07/18/23 07/18/23 History
benzocaine-menthol lozenges 1 alisa PO Q4H Sore throat 07/18/23 07/18/23 History
calcium carbonate 500 mg PO DAILY Supplement 07/18/23 07/18/23 History
cephalexin 250 mg capsule 250 mg PO DAILY Infection 07/18/23 07/18/23 History
dextromethorphan-guaifenesin 5 10 ml PO Q4H Cough 07/18/23 07/18/23 History
mg-100 mg/5 mL oral liquid
multivitamin 1 tab PO DAILY Supplement 07/18/23 07/18/23 History
Review of Systems
-
History Source: Patient
All other systems: Negative unless noted
Respiratory: Cough
Cardiac: No Symptoms
: No Symptoms
Physical Exam
Vital Signs
Temp Pulse Resp BP Pulse Ox
97.7 F 57 16 137/86 97
07/20/23 11:00 07/20/23 11:00 07/20/23 11:00 07/20/23 11:00 07/20/23 11:00
Lab Results
07/20/23 05:50
07/20/23 05:50
Physical Exam
General: Well Developed, Well Nourished, No Apparent Distress and Comfortable
HEENT: Normocephalic, Anicteric and Moist Mucous Membranes
Respiratory: Other (Coarse)
Cardiac: S1/S2
Breast: Deferred by me
GI: Soft, Non Tender, Non Distended and Normal Bowel Sounds
Rectal: Deferred by Provider
Genito-urinary: No Costovertebral Tender
Musculoskeletal: No Clubbing, No Cyanosis and No Edema
Skin: Warm and Dry
Neuro: AO x 3
Hematologic/Lymphatic: No Lymphadenopathy
Psych: Calm
Impression / Plan
-
Pneumonia, HAP, antibiotics per primary service
SVT, uncertain mechanism
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
-This is not paroxysmal atrial fibrillation nor atrial flutter, oral anticoagulation is not recommended
-She is having no symptoms of palpitations, continue current beta-kiki dose given acute illness
Atherosclerosis of aorta, on aspirin and rosuvastatin
Garett Boni syndrome
Legally blind
JOSETTE, she did not tolerate CPAP
Data Reviewed
-
EKG: Report Reviewed by me (Sinus rhythm with sinus arrhythmia, rate 82)
Radiology: Report Reviewed by me (CXR: Chronic lung changes, moderately large hiatal hernia, retrocardiac. Increased stranding in the left base may represent early pneumonia.)
Medical Tests (Nuc Med, Echo etc): Report Reviewed by me (Echo 03/2022: Aortic sclerosis without stenosis)
Labs: Labs Reviewed by me
Old Records: Reviewed (Outpatient PCP note)
--- NOTE | 2023-07-20 15:06 | CM ---
Pharmacy verified- [facility] [address].
PT recommening skilled rehab.
Plan: [facility] skilled rehab when stable, no auth needed.
[2023-07-20] MEDS: MAGNESIUM SULFATE 50 IV (17:36)
[2023-07-20] MEDS: LOVENOX 40 MG SC (17:37)
[2023-07-20] MEDS: AUGMENTIN 875 MG/125 MG 1 TABLET PO (19:54)
[2023-07-20] MEDS: CRESTOR 10 MG PO (19:56)
[2023-07-20] MEDS: VIBRAMYCIN 100 MG PO (19:56)
[2023-07-20] MEDS: TYLENOL 650 MG PO (19:57)
[2023-07-21] VITALS (8 sets, daily range): BP systolic 119–174; BP diastolic 67–97
[2023-07-21 08:03] LABS: % Basophils 1.2 % (0-2); % Eosinophils 6.7 % (0-6); % Immature Granulocytes 0.4 % (0-0.5); % Lymphocytes 24.1 % (20.5-51.1); % Monocytes 6.9 % (1.7-9.3); % Neutrophils 60.7 % (42.2-75.2); Absolute Basophils 0.1 10^3/uL (0-0.2); Absolute Eosinophils 0.3 10^3/uL (0-0.7); Absolute Lymphocytes 1.2 10^3/uL (1.2-3.4); Absolute Monocytes 0.3 10^3/uL (0.1-0.6); Absolute Neutrophils 2.9 10^3/uL (1.4-6.5); Hematocrit 32.9 % (37.0-47.0); Hemoglobin 11.1 g/dL (12.0-16.0); Mean Corp Hgb Conc. 33.7 g/dL (33.0-37.0); Mean Corpuscular Hgb 31.4 pg (27.0-31.0); Mean Corpuscular Volume 93.2 fL (81.0-99.0); Mean Platelet Volume 10.3 fL (7.4-10.4); Nucleated Red Blood Cells % 0 %; Platelet Count 139 10^3/uL (130-400); Red Blood Cell Count 3.53 10^6/uL (4.20-5.40); Red Cell Dist. Width 13.1 % (11.5-14.5); White Blood Cell Count 4.8 10^3/uL (4.8-10.8)
--- NOTE | 2023-07-21 08:38 | W.PN.CD ---
Addendum entered and electronically signed by Zak Lopez MD 07/21/23 09:41:
I saw and examined the patient.
The THREAD WEAVER's note was reviewed and I agree with the note.
Comment: 83F with short PAT in setting of illness.
- continue BB
- No further cardiac workup anticipated and I will sign off
- Follow up with us prn (as she has been doing)
Original Note:
Today's Communication / Plan
-
-continue BB and monitor tele
-electrolytes replaced, monitor
-treat underlying acute illness per internal medicine
Impression / Plan
-
Assessment/Plan: 83-year-old male (known to Dr. Larry, last seen in the outpatient setting in 2014) with GERD, hypertension, dyslipidemia, subclinical hypothyroidism, anxiety, Garett Boni syndrome, and multiple admissions with change in mental
status (MRI consistently negative), presented to [facility] with change in mental status. She was found to have upper respiratory symptoms in addition to malaise and decreased oral intake. She was diagnosed with HAP. She has been started
on antibiotics. Cardiology consulted for arrhythmia on monitor.
Pneumonia, HAP, antibiotics per primary service
Arrhythmia:
-tele has revealed short runs AT/SVT (3-5 seconds, not that fast). Not symptomatic. Occasional PVC's. This is all in setting of acute illness as above. Mag and k+ low and have been replaced.
-continue BB and monitor telemetry
Atherosclerosis of aorta, on aspirin and rosuvastatin
Garett Boni syndrome
Legally blind
JOSETTE, she did not tolerate CPAP
Physical Exam
Vital Signs/Labs
Vital Signs
Temp Pulse Resp BP Pulse Ox
97.4 F 57 18 165/80 97
07/21/23 03:23 07/21/23 04:49 07/21/23 03:23 07/21/23 04:49 07/21/23 03:23
07/21/23 07:19
Magnesium 1.5 mg/dl (1.6-2.3) L 07/20/23 05:50
Physical Exam
Constitutional: No acute distress
EENT: Anicteric
Cardiovascular: Rhythm & rate is regular
Respiratory: Respiratory effort normal, Wheeze Present and Other (on O2 by NC, coarse lung sounds)
Neuro/Psych: Alert and Oriented
Other: Skin (warm and dry)
Data Reviewed
-
Date of Service: July 21, 2023
EKG: Tracing Personally Visualized and interpreted (NSR) and Other (tele SR, short SVT, occ PVC's)
Labs: Labs Reviewed by me
[2023-07-21 08:52] LABS: ALT (SGPT) 12 U/L (0-35); AST (SGOT) 30 U/L (14-36); Albumin 2.8 g/dl (3.5-5.0); Alkaline Phosphatase 52 U/L (38-126); Blood Urea Nitrogen 9 mg/dl (7-17); Calcium 8.3 mg/dl (8.4-10.2); Carbon Dioxide 26 mmol/L (22-30); Chloride 107 mmol/L (98-107); Estimated Creatinine Clearance 52 ml/min; Glucose 91 mg/dl (70-99); Magnesium 1.9 mg/dl (1.6-2.3); Potassium 3.1 mmol/L (3.5-5.1); Sodium 140 mmol/L (135-145); Total Bilirubin 0.5 mg/dl (0.2-1.3); Total Protein 5.2 g/dl (6.3-8.2); eGFR > 60.00
[2023-07-21] MEDS: NEURONTIN 300 MG PO ×3 (09:27→21:19)
[2023-07-21] MEDS: AUGMENTIN 875 MG/125 MG 1 TABLET PO ×2 (09:27→21:21)
[2023-07-21] MEDS: VIBRAMYCIN 100 MG PO ×2 (09:27→21:19)
[2023-07-21] MEDS: PROTONIX 40 MG PO (09:27)
[2023-07-21] MEDS: ALTACE 5 MG PO ×2 (09:27→21:19)
[2023-07-21] MEDS: LOW STRENGTH ASPIRIN 81 MG PO (09:28)
[2023-07-21] MEDS: PROZAC 20 MG PO (09:28)
[2023-07-21] MEDS: TOPROL XL 12.5 MG PO ×2 (09:28→21:22)
[2023-07-21] MEDS: ALTACE 1.25 MG PO ×2 (09:28→21:20)
[2023-07-21] MEDS: THERAGRAN 1 TABLET PO (09:28)
[2023-07-21] MEDS: PROZAC 10 MG PO (09:28)
--- NOTE | 2023-07-21 14:05 | CM ---
Addendum entered by Talia Grande 07/21/23 15:10:
Plan: will return to [facility] bed when medically stable
Report #[phone]

Addendum entered by Talia Grande 07/21/23 14:32:
Per Attending discharge cancelled
Original Note:
Notified daughter, Judy, via phone #[phone] to discuss discharge plan; return to [facility]
Daughter requested to speak with Attending; family does not think mother is medically stable to return to facility
Attending notified via [place] Text
--- NOTE | 2023-07-21 14:32 | W.PN.HOSP.TC ---
Today's Communication/Plan
-
Diarrhea -- stool studies
Continue antibiotics
PT/OT
Assessment / Plan
Assessment / Plan
Physical Exam
General: Not in acute distress
HEENT: Normocephalic, Moist mucous membranes
Respiratory: Decreased breath sounds bilaterally
Cardiac: S1/S2 and Regular Rhythm
GI: Soft, Non Tender, Non Distended and Normal Bowel Sounds
Musculoskeletal: No Clubbing, No Cyanosis and No Edema
Skin: Warm and Dry
Neuro: AAOx3. Able to articulate her speech clearly.
Psych: Calm

Assessment/Plan
IMPRESSION:
The patient is an 83 yo woman with PMH significant for legal blindness, Garett Bonnet syndrome, JOSETTE, HTN, Aguilar's esophagus, anxiety, obesity, Nocturnal Hypoxia 2L bedtime, Paroxysmal Atrial Fibrillation, Hyperlipidemia, GERD, possible mild
cognitive impairment vs mild dementia, admitted here 06/24 to 07/01 due to hypertensive encephalopathy, seen by Neurology and Psychiatry at that time and given Thiamine IV x 3 doses, discharged to [facility], seen by Neurology on several
occasions for symptoms of AMS- MRI consistently negative, who presents to the ED from [facility] due to URI symptoms, malaise, weakness, poor appetite, decreased oral intake, and increased confusion. She is somnolent during this history and
information is taken from ED provider and transfer notes from [facility].
COVID negative, Flu negative, UA negative.
ED treatment:
Vancomycin, Zosyn, IVF 1 liter, Ofirmev 1 gram IV, Ativan 1 mg IV
# Concern for developing Left base pneumonia, possible healthcare associated pneumonia due to recent hospitalization associated with Toxic metabolic encephalopathy, most likely due to acute infection
-Stopped IV Vancomycin as MRSA negative
-Stopped IV Zosyn
-Continue PO Augmentin
-Doxycycline 100 mg PO BID
-blood and sputum cultures, JOE
-pulse oximetry monitoring, O2 per NC and wean per protocol
-continue home O2 at 2L (per patient's daughter, patient only wears oxygen at nighttime outpatient)
-supportive care
#Diarrhea
-Possibly antibiotics side effect
-Stool studies ordered -- follow-up on results
#Hypertension BP 185/86 , 165/83
-Continue metoprolol with hold parameters
-Continue Ramipril 5 mg BID
-echo 09/30/21 - EF 55%, normal LV systolic fxn
#Legally blind
-Needs help with activities of daily living
-From [facility] since most recent admission
#Migraine headache, history of
#Paroxysmal Atrial Fibrillation, currently in NSR
#Short runs of AT/SVT on telemetry
-tele monitoring
-Continue metoprolol , monitor on tele for bradycardia
-Patient is not on anticoagulation as outpatient
-Consulted cardiology, recommendations appreciated
#Hypomagnesemia
-Replaced on July 20, 2023
-Monitor levels
#Hypokalemia
-Replaced on July 21, 2023
-Check AM labs
#Hyperlipidemia
-Continue Rosuvastatin
#GERD / Aguilar's Esophagus / Hx GI Bleed
-Continue Protonix
#History of Hallucinations secondary Garett Bonnet Syndrome
-Continue gabapentin
#Anxiety/Depression
-Continue fluoxetine
#Obstructive Sleep Apnea
-nocturnal oxygenation study 06/27-06/28 notes desaturation qualifies for bedtime oxygen supplementation
-outpatient sleep study recommended per previous admission
-Continue O2 2L and monitor pulse oximetry
DVT prophylaxis: Lovenox
Code Status: DNR confirmed - Dr. Martinez spoke with patient's daughter as well and confirmed DNR status with family discussion
On July 21, 2023, I spoke with patient's daughter Judy (over the phone) and patient's other daughter, inside patient's room. Judy mentioned that at baseline, patient is able to ambulate with a rollator and can talk clearly. Judy requested
holding off on discharge until patient's functioning and diarrhea improved.
Total time spent today on caring for the patient, including reviewing patient's chart, seeing and examining patient, speaking with patient's daughters, documentation was 60 minutes.
Anticipated Discharge: > 48 hours
Subjective/Interval History
-
Date of Service: July 21, 2023
Patient was seen and examined. She was reported to have diarrhea, and per her daughter Judy, patient has not returned to her baseline level of functioning.
Objective Data
-
Labs:
Laboratory Results
07/21/23
07:19
WBC 4.8
Hgb 11.1 L
Hct 32.9 L
Plt Count 139
Sodium 140
Potassium 3.1 L
Chloride 107
Carbon Dioxide 26
BUN 9
Creatinine 0.8
Glucose 91
Calcium 8.3 L
Total Bilirubin 0.5
AST 30
ALT 12
Alkaline Phosphatase 52
Vital Signs:
Vital Signs
Temp Pulse Resp BP Pulse Ox
98.7 F 74 20 119/67 100
07/21/23 11:20 07/21/23 11:20 07/21/23 11:20 07/21/23 11:20 07/21/23 11:20
I&O
07/20/23 07/21/23 07/22/23
06:59 06:59 06:59
Intake Total 450 / 450 1909 / 1909
Output Total 625 / 625 550 / 550
Balance -175 / -175 1360 / 1360
[2023-07-21] MEDS: KCL 40 MEQ PO (15:13)
[2023-07-21] MEDS: VISBIOME 1 CAP PO (15:13)
[2023-07-21] MEDS: LOVENOX 40 MG SC (16:55)
[2023-07-21] MEDS: CRESTOR 10 MG PO (21:19)
[2023-07-21] MEDS: TYLENOL 650 MG PO (21:23)
[2023-07-21] MEDS: VITAMIN B-12 1000 MCG PO (21:26)
[2023-07-22] VITALS (8 sets, daily range): BP systolic 117–179; BP diastolic 79–96; BMI 41.9
--- NOTE | 2023-07-22 01:13 | W.PN.UPDATE ---
Update Note
Progress Note Update
Patient`s hr 120s- 130s. EKG with a-fib with RVR. BP 174/91, temp 98.0, SPo2 96% on 2 L of O2. Patient denies chest pain or SOB. One time order of IV Lopressor 5mg, and stat lab CBC, BMP and mag ordered.
K level is 3.3 repleted as needed.
[2023-07-22] MEDS: LOPRESSOR 5 MG IV (01:21)
[2023-07-22 01:38] LABS: % Basophils 0.9 % (0-2); % Eosinophils 4.7 % (0-6); % Immature Granulocytes 0.2 % (0-0.5); % Monocytes 7.2 % (1.7-9.3); Absolute Basophils 0.1 10^3/uL (0-0.2); Absolute Eosinophils 0.3 10^3/uL (0-0.7); Absolute Monocytes 0.4 10^3/uL (0.1-0.6); Hematocrit 35.1 % (37.0-47.0); Hemoglobin 12.4 g/dL (12.0-16.0); Mean Corp Hgb Conc. 35.3 g/dL (33.0-37.0); Mean Corpuscular Hgb 31.5 pg (27.0-31.0); Mean Corpuscular Volume 89.1 fL (81.0-99.0); Mean Platelet Volume 9.8 fL (7.4-10.4); Nucleated Red Blood Cells % 0 %; Platelet Count 146 10^3/uL (130-400); Red Blood Cell Count 3.94 10^6/uL (4.20-5.40); Red Cell Dist. Width 12.8 % (11.5-14.5); White Blood Cell Count 5.7 10^3/uL (4.8-10.8)
--- NOTE | 2023-07-22 01:58 | PTCARENOTE ---
Patient converted from NSR to afib on telemetry, HR sustaining 120s-140s. BP 174/91, 98.0 temp, pulse ox 96 on 2L and 22 RR. Patient is asymptomatic. EKG showing afib with RVR. SHEARER HELPER made aware, 5mg of IV lopressor ordered and given. Stat CBC, BMP
and mag ordered. Patient now back in NSR in the 60s. Plan of care ongoing.
[2023-07-22 02:33] LABS: Blood Urea Nitrogen 5 mg/dl (7-17); Calcium 8.9 mg/dl (8.4-10.2); Carbon Dioxide 26 mmol/L (22-30); Chloride 106 mmol/L (98-107); Estimated Creatinine Clearance 60 ml/min; Glucose 100 mg/dl (70-99); Magnesium 1.7 mg/dl (1.6-2.3); Potassium 3.3 mmol/L (3.5-5.1); Sodium 140 mmol/L (135-145); eGFR > 60.00
[2023-07-22] MEDS: KCL 40 MEQ PO (02:57)
[2023-07-22 08:02] LABS: % Basophils 1.3 % (0-2); % Eosinophils 3.9 % (0-6); % Immature Granulocytes 0.2 % (0-0.5); % Lymphocytes 24.7 % (20.5-51.1); % Monocytes 7.4 % (1.7-9.3); % Neutrophils 62.5 % (42.2-75.2); Absolute Basophils 0.1 10^3/uL (0-0.2); Absolute Eosinophils 0.2 10^3/uL (0-0.7); Absolute Lymphocytes 1.1 10^3/uL (1.2-3.4); Absolute Monocytes 0.3 10^3/uL (0.1-0.6); Absolute Neutrophils 2.9 10^3/uL (1.4-6.5); Hematocrit 35.6 % (37.0-47.0); Hemoglobin 11.9 g/dL (12.0-16.0); Mean Corp Hgb Conc. 33.4 g/dL (33.0-37.0); Mean Corpuscular Hgb 30.7 pg (27.0-31.0); Mean Corpuscular Volume 91.8 fL (81.0-99.0); Mean Platelet Volume 10.3 fL (7.4-10.4); Nucleated Red Blood Cells % 0 %; Platelet Count 161 10^3/uL (130-400); Red Blood Cell Count 3.88 10^6/uL (4.20-5.40); White Blood Cell Count 4.6 10^3/uL (4.8-10.8)
[2023-07-22 08:24] LABS: ALT (SGPT) 13 U/L (0-35); AST (SGOT) 30 U/L (14-36); Albumin 3.2 g/dl (3.5-5.0); Alkaline Phosphatase 58 U/L (38-126); Blood Urea Nitrogen 5 mg/dl (7-17); Calcium 8.9 mg/dl (8.4-10.2); Carbon Dioxide 30 mmol/L (22-30); Chloride 103 mmol/L (98-107); Estimated Creatinine Clearance 60 ml/min; Glucose 97 mg/dl (70-99); Magnesium 1.7 mg/dl (1.6-2.3); Potassium 3.6 mmol/L (3.5-5.1); Sodium 139 mmol/L (135-145); Total Bilirubin 0.7 mg/dl (0.2-1.3); Total Protein 5.6 g/dl (6.3-8.2); eGFR > 60.00
[2023-07-22] MEDS: PROTONIX 40 MG PO (09:34)
[2023-07-22] MEDS: ALTACE 5 MG PO ×2 (09:34→20:18)
[2023-07-22] MEDS: NEURONTIN 300 MG PO ×3 (09:34→22:34)
[2023-07-22] MEDS: ALTACE 1.25 MG PO ×2 (09:34→20:18)
[2023-07-22] MEDS: VIBRAMYCIN 100 MG PO ×2 (09:35→20:18)
[2023-07-22] MEDS: TOPROL XL 12.5 MG PO (09:35)
[2023-07-22] MEDS: THERAGRAN 1 TABLET PO (09:35)
[2023-07-22] MEDS: PROZAC 10 MG PO (09:36)
[2023-07-22] MEDS: TUMS 1 TABLET PO (09:36)
[2023-07-22] MEDS: LOW STRENGTH ASPIRIN 81 MG PO (09:36)
[2023-07-22] MEDS: VISBIOME 1 CAP PO (09:37)
[2023-07-22] MEDS: VITAMIN D3 (cholecalciferol) 125 MCG PO (09:37)
[2023-07-22] MEDS: AUGMENTIN 875 MG/125 MG 1 TABLET PO (09:37)
[2023-07-22] MEDS: PROZAC 20 MG PO (09:38)
--- NOTE | 2023-07-22 10:58 | CM ---
Patient seen bedside with daughter Judy.
Per daughter patient is hallucinating today.
Patient having a conversation with with someone next to her bed( no one there).
Stool CX (P).
Plan: back to [facility] when stable. CM will follow for d/c date and update [facility] accordingly.
Report #[id number]
--- NOTE | 2023-07-22 11:23 | W.PN.CD ---
Addendum entered and electronically signed by Zak Lopez MD 07/22/23 13:34:
I saw and examined the patient.
The REGULATORY AND COMPLIANCE TECHNICIAN's note was reviewed and I agree with the note.
Comment: 83F with change in MS. Now seen to have paroxysmal AF.
- substitute apixaban for ASA
- update echo
Original Note:
Today's Communication / Plan
-
-increase BB
-check TSH and echo
-stop ASA, start Eliquis
-follow telemetry
Impression / Plan
-
Assessment/Plan: 83-year-old male (known to Dr. Larry, last seen in the outpatient setting in 2014) with GERD, hypertension, dyslipidemia, subclinical hypothyroidism, anxiety, Garett Boni syndrome, and multiple admissions with change in mental
status (MRI consistently negative), presented to [facility] with change in mental status. She was found to have upper respiratory symptoms in addition to malaise and decreased oral intake. She was diagnosed with HAP. She has been started
on antibiotics. Cardiology consulted for arrhythmia on monitor.
Pneumonia, HAP, antibiotics per primary service
Atrial fibrillation, paroxysmal:
-earlier this admit, patient had short runs AT/SVT, however, overnight she had an episode of AFIB with RVR (about 1 hour). No symptoms. Given IV metoprolol. Back in SR.
-will increase metoprolol. Monitor telemetry.
-[id number] score is 4 for age, female, and HTN- stop aspirin, start Eliquis. Patient/family denies falls or significant bleeding issues. Of note, patient is blind, but uses walker and lives in [place] [facility] [place] and has help/monitoring during
ambulation.
-check TSH, check echo
Atherosclerosis of aorta, on aspirin and rosuvastatin as OP
Garett Boni syndrome
Legally blind
JOSETTE, she did not tolerate CPAP
Physical Exam
Vital Signs/Labs
Vital Signs
Temp Pulse Resp BP Pulse Ox
99.2 F 66 16 157/96 100
07/22/23 11:15 07/22/23 11:15 07/22/23 11:15 07/22/23 11:15 07/22/23 11:15
07/22/23 07:12
07/22/23 07:12
Magnesium 1.7 mg/dl (1.6-2.3) 07/22/23 07:12
Physical Exam
Constitutional: No acute distress
EENT: Anicteric
Cardiovascular: Rhythm & rate is regular
Respiratory: Respiratory effort normal and Lungs clear to auscul.
GI: Soft, Non tender and Normal bowel sounds
Neuro/Psych: Alert
Other: Skin (warm and dry)
Data Reviewed
-
Date of Service: July 22, 2023
EKG: Tracing Personally Visualized and interpreted (AFIB with RVR) and Other (tele with SR. Brief AFIB with RVR noted. )
Labs: Labs Reviewed by me
--- NOTE | 2023-07-22 11:44 | CON.NEURO4 ---
Consultation - Neurology 4
-
CONSULTING PHYSICIAN: Shivani Garcia
REFERRING PHYSICIAN: Hospitalist
DICTATED BY: Shivani Garcia
DATE/TIME OF REQUEST: 07/22/23
DATE/TIME OF CONSULTATION: 07/22/23
Reason for Consultation: Confusion, hallucinations
History of Present Illness:
Patient is an 83 year old woman with history of blindness, hypertension, atrial fibrillation presenting to hospital with symptoms of generalized weakness poor intake decreased p.o. intake and confusion along with hallucinations. She was started
on IV antibiotics and then transition to p.o. antibiotics and has had chest x-ray evidence concerning for possible pneumonia. Her daughter relates that she has had an increase in visual hallucinations which are pleasant to the patient she has not
had any agitation or violence and climbing out of bed. It is very common for the patient to develop delirium and hallucinations with infections. Patient has developed some new diarrhea after starting antibiotics.
Patient at this time denies any pain does relate some degree of cough and that she is seeing children around the room. She has had numerous MRI brain scans in the past.
Past Medical History: Migraine headaches, blindness associated with Garett Bonnet syndrome, JOSETTE, hypertension, Atrial fibrillation, hyperlipidemia
Surgical History: Appendectomy, hernia repair, C section
Family History: Non-contributory
Social History: Lives at assisted living [facility], has supportive daughters, no tobacco or alcohol
Review of Symptoms:
Patient denies any fever, headache, chest pain, shortness of breath, GI or symptoms.
Physical Exam:
Elderly woman no acute distress no signs of head or neck trauma oropharynx is clear eyes are clear neck with no masses no meningismus heart rate regular breathing unlabored abdomen is obese soft nontender no lower extremity edema
Neurologic Examination:
Patient is awake and alert she does answer simple questions and obeys simple commands consistently her spontaneous speech is fluent. She does show active responding to internal stimuli appearing to be visual hallucinations. On cranial nerve
assessment, pupils are unreactive, greater than 20/200 bilaterally, no vision of movement or light. Extraocular movements are intact. Facial sensations are intact and bilaterally symmetrical, there is no facial asymmetry. Hearing is intact
bilaterally to normal conversation volume. Tongue palate and uvula are midline. Sternocleidomastoid strengths are full bilaterally. Motor strengths are 5/5 bilateral upper and lower extremities on medical research [place] scale. There is no drift
or involuntary movement noted. Deep tendon reflexes are 2+ bilateral upper and lower extremities and Babinski is absent bilaterally.
Impressions
1. Delirium/Toxic metabolic encephalopathy in addition to Garett' Bonnet syndrome (tendency towards visual hallucinations due to the effects of chronic blindness) most likely due to underlying metabolic abnormality, suspected infection
2. Suspected pneumonia based on presentation, cough, chest X-ray
3.
4.
Recommendations:
For now would monitor
1. For now would be conservative about treatments for hallucinations and focus on treating infection and metabolic derangements. Set expectation with the patient and her family that it will probably take a few days for delirium and hallucinations
to resolve but expect improvement on the whole with treatment of an underlying suspected infection.
2. Has had numerous similar episodes in the past with negative brain MRI and EEG studies which I do not feel are necessary at this point
3. If patient develops disturbing hallucinations or agitation would start 12.5 qhs mg Seroquel
Discussed patient care with: Patient and her daughter, hospitalist
--- NOTE | 2023-07-22 12:38 | PTCARENOTE ---
C.diff toxin negative, antigen positive. Active diarrhea. Contact precautions, private room pending.
[2023-07-22 13:45] LABS: TSH Reflex To Free T4 0.61 uIU/ml (0.47-4.68)
--- NOTE | 2023-07-22 14:46 | W.PN.HOSP.TC ---
Today's Communication/Plan
-
Toprol XL increased due to A-Fib with RVR
Can do 12.5 QHS mg Seroquel if patient develops disturbing hallucinations or agitation
Appreciate ID, cardio and neurology
Assessment / Plan
Assessment / Plan
Physical Exam
General: Not in acute distress
HEENT: Normocephalic, Moist mucous membranes
Respiratory: Decreased breath sounds bilaterally
Cardiac: S1/S2 and Regular Rhythm
GI: Soft, Non Tender, Non Distended and Normal Bowel Sounds
Musculoskeletal: No Clubbing, No Cyanosis and No Edema
Skin: Warm and Dry
Neuro: AAOx3. Able to articulate her speech clearly.
Psych: Calm

Assessment/Plan
IMPRESSION:
The patient is an 83 yo woman with PMH significant for legal blindness, Garett Bonnet syndrome, JOSETTE, HTN, Aguilar's esophagus, anxiety, obesity, Nocturnal Hypoxia 2L bedtime, Paroxysmal Atrial Fibrillation, Hyperlipidemia, GERD, possible mild
cognitive impairment vs mild dementia, admitted here 06/24 to 07/01 due to hypertensive encephalopathy, seen by Neurology and Psychiatry at that time and given Thiamine IV x 3 doses, discharged to [facility], seen by Neurology on several
occasions for symptoms of AMS- MRI consistently negative, who presents to the ED from [facility] due to URI symptoms, malaise, weakness, poor appetite, decreased oral intake, and increased confusion. She is somnolent during this history and
information is taken from ED provider and transfer notes from [facility].
COVID negative, Flu negative, UA negative.
ED treatment:
Vancomycin, Zosyn, IVF 1 liter, Ofirmev 1 gram IV, Ativan 1 mg IV
#Suspected Pneumonia
-Stopped IV Vancomycin as MRSA negative
-Stopped IV Zosyn
-Continue PO Augmentin
-Doxycycline 100 mg PO BID
-Consulted ID, recommendations appreciated
-blood and sputum cultures, JOE
-pulse oximetry monitoring, O2 per NC and wean per protocol
-continue home O2 at 2L (per patient's daughter, patient only wears oxygen at nighttime outpatient)
-supportive care
#Hallucinations, Delirium
#Garett' Bonnet syndrome
-Suspected secondary to pneumonia however patient's family mentioned it's worse than before
-Continue antibiotics for now -- consulted ID for additional recommendations on antibiotics
-Consulted neurology, recommendations appreciated
-Patient is noted to have had numerous similar episodes in the past with negative brain MRI and EEG studies which neurology does not feel are necessary at this point
-Can start 12.5 qhs mg Seroquel if patient develops disturbing hallucinations or agitation
#Diarrhea
-Possibly antibiotics side effect
-C. diff antigen positive but toxin negative
-Stool studies ordered -- follow-up on remaining results
#Hypertension
-Toprol XL dose was increased to 25 mg BID on July 22, 2023 (due to A-Fib with RVR)
-Continue Ramipril 6.25 mg BID
-echo 09/30/21 - EF 55%, normal LV systolic fxn
#Legally blind
-Needs help with activities of daily living
-From [facility] since most recent admission
#Migraine headache, history of
#Paroxysmal Atrial Fibrillation
#Short runs of AT/SVT on telemetry
#A-Fib with RVR on July 21, 2023 to July 22, 2023
-tele monitoring
-Consulted cardiology, recommendations appreciated
-Toprol XL dose was increased to 25 mg BID on July 22, 2023
-Patient is not on anticoagulation as outpatient
-Consulted cardiology, recommendations appreciated
-Echo
-TSH
#Hypomagnesemia - RESOLVED
-Replaced on July 20, 2023
-Monitor levels
#Hypokalemia - RESOLVED
-Replaced on July 21, 2023
-Check AM labs
#Hyperlipidemia
-Continue Rosuvastatin
#GERD / Aguilar's Esophagus / Hx GI Bleed
-Continue Protonix
#History of Hallucinations secondary Garett Bonnet Syndrome
-Continue gabapentin
#Anxiety/Depression
-Continue fluoxetine
#Obstructive Sleep Apnea
-nocturnal oxygenation study 06/27-06/28 notes desaturation qualifies for bedtime oxygen supplementation
-outpatient sleep study recommended per previous admission
-Continue O2 2L and monitor pulse oximetry
DVT prophylaxis: Lovenox
Code Status: DNR confirmed - Dr. Martinez spoke with patient's daughter as well and confirmed DNR status with family discussion
On July 21, 2023, I spoke with patient's daughter Judy (over the phone) and patient's other daughter, inside patient's room. Judy mentioned that at baseline, patient is able to ambulate with a rollator and can talk clearly. Judy requested
holding off on discharge until patient's functioning and diarrhea improved.
On July 22, 2023, I spoke with patient's daughter Judy (over the phone) and also spoke with patient's daughter Robyn in person. All questions and concerns were answered to satisfaction.
Total time spent today on caring for the patient, including reviewing patient's chart, seeing and examining patient, speaking with patient's daughters, documentation was 55 minutes.
Anticipated Discharge: > 48 hours
Subjective/Interval History
-
Date of Service: July 22, 2023
Patient was seen and examined. Her daughter Robyn was at bedside and she mentioned that patient has been having more hallucinations. Patient is still having loose stools.
Objective Data
-
Labs:
Laboratory Results
07/22/23
07:12
WBC 4.6 L
Hgb 11.9 L
Hct 35.6 L
Plt Count 161
Sodium 139
Potassium 3.6
Chloride 103
Carbon Dioxide 30
BUN 5 L
Creatinine 0.7
Glucose 97
Calcium 8.9
Total Bilirubin 0.7
AST 30
ALT 13
Alkaline Phosphatase 58
Vital Signs:
Vital Signs
Temp Pulse Resp BP Pulse Ox
98.1 F 70 20 170/86 97
07/22/23 14:33 07/22/23 14:33 07/22/23 14:33 07/22/23 14:33 07/22/23 14:33
I&O
07/21/23 07/22/23 07/23/23
06:59 06:59 06:59
Intake Total 0 / 1910 660 / 660 480 / 480
Output Total 550 / 550 150 / 150
Balance 1360 / 1360 510 / 510 480 / 480
--- NOTE | 2023-07-22 15:06 | CON.ID ---
Consultation
-
Date/Time Consultation Requested: 07/22/2023 1153
Date/Time Consultation Performed: 07/22/2023 1500
Requesting Provider: Dr. Zepeda
Performing Provider: Dr. Jaramillo
Reason for Consultation: Pneumonia
Chief Complaint / Past History
History of Present Illness
Ting Zarate is an 83-year-old female being evaluated at the request of Dr. Zepeda in regards to encephalopathy and pneumonia. History is obtained from chart review, along with patient interview.
The patient is known to the Infectious Diseases service, having been seen during her last admission (06/25/2023 - 07/02/2023). During that admission she was evaluated for encephalopathy. No infectious etiology was found, and she was taken off of
antibiotics.
She presents back to the hospital on 07/18/2023 secondary to generalized malaise, weakness and decreased appetite. She was found to be febrile in the emergency room, and she was started on empiric antibiotics (Zosyn), with a switch to Augmentin and
doxycycline 3 days ago.
Patient's daughters were present has had some cough although sputum has been noted to be white when infrequently produced. Patient currently denies any shortness of breath. She denies any fevers since admission. She denies any dysuria.
Past History
Additional Past Medical History:
CVA
GERD
Dyslipidemia
CAD; Hx [place]
Anxiety/depression
Hx UTI
Garett Bonnet syndrome
Aguilar's esophagus
Blindness
Additional Past Surgical History:
Appendectomy
Hernia repair
Allergy History:
amlodipine besylate [From [facility]] Allergy (Verified 07/20/23 16:35)
Rash/CONFUSION
iodine Allergy (Verified 07/20/23 16:35)
Confusion,confusion/'like I had a tia'
Medications Reviewed: Yes
Current Antibiotics:
Augmentin 875 mg p.o. twice daily (day #3)
Doxycycline 100 mg p.o. twice daily (day #3)
Social History
Tobacco: Non-Smoker
Alcohol: None
Drug: None
Personal:
Living: Assisted Living
Employment: Retired
Family History
Family History: Not Pertinent
Review of Systems
Vital Signs
Temp Pulse Resp BP Pulse Ox
98.1 F 70 20 170/86 97
07/22/23 14:33 07/22/23 14:33 07/22/23 14:33 07/22/23 14:33 07/22/23 14:33
Physical Exam
Physical Exam
Constitutional: No Acute Distress, Comfortable, Chronically Ill and Non-toxic
Head: Normocephalic
Oral: No Thrush and No Ulcers
Cardiovascular: S1/S2; Negative S3/S4
Pulmonary: Non Labored; Negative Wheezes or Rales
Gastrointestinal: Soft, Non Tender and Non Distended
Genito-Urinary: Negative Gaytan
Extremities: Edema; Negative Cyanosis, Erythema or Splinter Hemorrhage
Musculoskeletal: Negative Joint Swelling or Joint Effusion
Skin: Warm and Dry; Negative Rash or Jaundice
Neurological: Awake, Alert and Oriented
Lab / Diagnostic Study Results
07/22/23 07:12
07/22/23 07:12
Abs Immat Gran (auto) 0.0 10^3/uL (0-0.05) 07/22/23 07:12
Absolute Neuts (auto) 2.9 10^3/uL (1.4-6.5) 07/22/23 07:12
Absolute Lymphs (auto) 1.1 10^3/uL (1.2-3.4) L 07/22/23 07:12
Absolute Monos (auto) 0.3 10^3/uL (0.1-0.6) 07/22/23 07:12
Absolute Basos (auto) 0.1 10^3/uL (0-0.2) 07/22/23 07:12
Immature Gran % 0.2 % (0-0.5) 07/22/23 07:12
Neutrophils % 62.5 % (42.2-75.2) 07/22/23 07:12
Lymphocytes % 24.7 % (20.5-51.1) 07/22/23 07:12
Monocytes % 7.4 % (1.7-9.3) 07/22/23 07:12
Eosinophils % 3.9 % (0-6) 07/22/23 07:12
Basophils % 1.3 % (0-2) 07/22/23 07:12
Lactic Acid Cancelled 07/19/23 00:30
Ur Squamous Epith Cells 16-20 /LPF (Few) 07/18/23 20:45
Microbiology Results
Micro:
07/22/23 02:06 Stool Leukocytes - Final
Feces/Stool
07/22/23 02:06 C. difficile GDH Antigen & Toxins - Final
Feces/Stool C. difficile antigen positive, toxin negative.
Clostridium difficile present, but toxin not detected.
Patient may be a carrier, colonized with nontoxinogenic
strain or the level of toxin in sample is below detection
limits. This information should be used in conjunction with
the patient's clinical history.
07/22/23 02:06 Salmonella/Shigella Culture - Pending
Feces/Stool Campylobacter Culture - Pending
Shiga Toxin Test - Pending
07/18/23 21:00 Blood Culture - Preliminary
Blood/Venous No Growth in 72 hours- Final report to follow
07/18/23 20:36 Blood Culture - Preliminary
Blood/Venous No Growth in 72 hours- Final report to follow
07/19/23 02:22 MRSA Screen - Final
Nose No Methicillin Resistant Staphylococcus aureus isolated.
07/20/23 06:37 Legionella Urinary Antigen - Final
Urine Negative for Legionella pneumophila Serogroup 1 antigen.
A negative result does not rule out the possiblity of
Legionella infection due to other serogroups or species of
Legionella. Clinical correlation is recommended.
07/18/23 20:25 Influenza Types A & B (KIESHA) - Final
Nasal Swab Negative for Influenza A & B, NAAT
Negative results must be combined with clinical observations
and patient history.
Nucleic Acid Amplification test (NAAT)performed on the
[employer] platform.
Imaging:
07/22/2023 CXR (portable): Somewhat low lung volumes are noted. No focal parenchymal opacifications noted. No pleural effusion or pneumothorax. No findings to suggest pneumonia.
Assessment / Plan
Fever; resolved
Encephalopathy; etiology unclear
Hx CVA
GERD
Dyslipidemia
CAD; Hx [place]
Anxiety/depression
Hx UTI
Hx Garett Bonnet syndrome
Aguilar's esophagus
Blindness
Recommendations:
I suspect diarrhea is secondary to Augmentin.
Transition to cefdinir for an additional 2 days of therapy. Continue with doxycycline.
Monitor white count and temperature curve.
--- NOTE | 2023-07-22 16:43 | PTCARENOTE ---
Pt transferred to this afternoon and placed on contact precaution per infection control. pt is c. diff toxin (-) but antigen (+). nurse TT to clarify order. pt is legally blind and COUNCIL. daughters at bedside state this is not at all their mothers
normal mentation and that she is seeing, birds, kittens and small children within the room. she also thinks that her wallet and talon pieces are hidden in the ceiling tiles. is aware of hallucinations. pt went down for echo this afternoon.
currently waiting on impression. amoxicillin d/c and cefdinir orderd to start tonight
[2023-07-22] MEDS: OMNICEF 300 MG PO (20:18)
[2023-07-22] MEDS: ELIQUIS 5 MG PO (20:18)
[2023-07-22] MEDS: TOPROL XL 25 MG PO (20:19)
[2023-07-22] MEDS: CRESTOR 10 MG PO (22:34)
[2023-07-23] VITALS (12 sets, daily range): BP systolic 145–191; BP diastolic 76–97
[2023-07-23 06:51] LABS: % Basophils 1.1 % (0-2); % Eosinophils 3.3 % (0-6); % Immature Granulocytes 0.4 % (0-0.5); % Lymphocytes 25.1 % (20.5-51.1); % Neutrophils 62.1 % (42.2-75.2); Absolute Basophils 0.1 10^3/uL (0-0.2); Absolute Eosinophils 0.2 10^3/uL (0-0.7); Absolute Lymphocytes 1.4 10^3/uL (1.2-3.4); Absolute Monocytes 0.4 10^3/uL (0.1-0.6); Absolute Neutrophils 3.4 10^3/uL (1.4-6.5); Hematocrit 34.4 % (37.0-47.0); Hemoglobin 11.8 g/dL (12.0-16.0); Mean Corp Hgb Conc. 34.3 g/dL (33.0-37.0); Mean Corpuscular Volume 90.3 fL (81.0-99.0); Mean Platelet Volume 10.1 fL (7.4-10.4); Nucleated Red Blood Cells % 0 %; Platelet Count 156 10^3/uL (130-400); Red Blood Cell Count 3.81 10^6/uL (4.20-5.40); White Blood Cell Count 5.5 10^3/uL (4.8-10.8)
[2023-07-23 07:15] LABS: ALT (SGPT) 15 U/L (0-35); AST (SGOT) 32 U/L (14-36); Albumin 3.2 g/dl (3.5-5.0); Alkaline Phosphatase 52 U/L (38-126); Blood Urea Nitrogen 6 mg/dl (7-17); Calcium 9.2 mg/dl (8.4-10.2); Carbon Dioxide 31 mmol/L (22-30); Chloride 103 mmol/L (98-107); Estimated Creatinine Clearance 70 ml/min; Glucose 97 mg/dl (70-99); Magnesium 1.6 mg/dl (1.6-2.3); Potassium 3.8 mmol/L (3.5-5.1); Sodium 140 mmol/L (135-145); Total Bilirubin 0.6 mg/dl (0.2-1.3); Total Protein 5.8 g/dl (6.3-8.2); eGFR > 60.00
[2023-07-23] MEDS: PROZAC 10 MG PO (09:03)
[2023-07-23] MEDS: PROTONIX 40 MG PO (09:03)
[2023-07-23] MEDS: ALTACE 1.25 MG PO ×2 (09:03→11:47)
[2023-07-23] MEDS: NEURONTIN 300 MG PO ×3 (09:03→21:18)
[2023-07-23] MEDS: ELIQUIS 5 MG PO ×2 (09:04→21:18)
[2023-07-23] MEDS: PROZAC 20 MG PO (09:04)
[2023-07-23] MEDS: VITAMIN D3 (cholecalciferol) 125 MCG PO (09:04)
[2023-07-23] MEDS: VISBIOME 1 CAP PO (09:04)
[2023-07-23] MEDS: THERAGRAN 1 TABLET PO (09:04)
[2023-07-23] MEDS: TOPROL XL 25 MG PO ×2 (09:04→21:18)
[2023-07-23] MEDS: OMNICEF 300 MG PO ×2 (09:04→21:17)
[2023-07-23] MEDS: VIBRAMYCIN 100 MG PO ×2 (09:04→21:17)
[2023-07-23] MEDS: TUMS 1 TABLET PO (09:04)
[2023-07-23] MEDS: ALTACE 5 MG PO ×2 (09:05→21:17)
--- NOTE | 2023-07-23 09:29 | W.PN.CD ---
Addendum entered and electronically signed by Zak Lopez MD 07/23/23 16:33:
I saw and examined the patient.
The TAR BOILER's note was reviewed and I agree with the note.
Comment: 83F with new AF
- BB/AC
- Echo OK
- f/u with us as below
- I will sign off
- Med changes: Stop ASA and start Eliquis
Original Note:
Today's Communication / Plan
-
continue Eliquis and Toprol.
follow up cardiology OV with CYRIL Purcell 08/12/23 2:20p [place] office.
Impression / Plan
-
Assessment/Plan: 83-year-old male (known to Dr. Larry, last seen in the outpatient setting in 2014) with GERD, hypertension, dyslipidemia, subclinical hypothyroidism, anxiety, Garett Boni syndrome, and multiple admissions with change in mental
status (MRI consistently negative), presented to [facility] with change in mental status. She was found to have upper respiratory symptoms in addition to malaise and decreased oral intake. She was diagnosed with HAP. She has been started
on antibiotics. Cardiology consulted for arrhythmia on monitor.
Pneumonia, HAP, antibiotics per primary service.
-patient's daughter is at the bedside and states every time she has an infection, she has aphasia and hallucinations.
Atrial fibrillation, paroxysmal:
-earlier this admit, patient had short runs AT/SVT, then had an episode of AFIB with RVR (about 1 hour). No symptoms. Given IV metoprolol. Back in SR.
-will increase metoprolol. Monitor telemetry.
-[id number] score is 4 for age, female, and HTN. now on Eliquis and ASA stopped.
-Patient/family denies falls or significant bleeding issues. Of note, patient is blind, but uses walker and lives in a care home and has help/monitoring during ambulation.
-TSH normal.
-echo with EF 60% and no valve disease.
Atherosclerosis of aorta - stable.
-on rosuvastatin, now Eliquis.
HTN - stable on ramipril, toprol.
-monitor.
Garett Boni syndrome
Legally blind
JOSETTE, she did not tolerate CPAP
Physical Exam
Vital Signs/Labs
Vital Signs
Temp Pulse Resp BP Pulse Ox
97.6 F 121 20 176/90 93
07/23/23 07:25 07/23/23 09:03 07/23/23 07:25 07/23/23 09:27 07/23/23 07:25
07/22/23 07/23/23 07/24/23
06:59 06:59 06:59
Actual Weight 94.035 kg
07/23/23 06:31
07/23/23 06:31
Magnesium 1.6 mg/dl (1.6-2.3) 07/23/23 06:31
Physical Exam
Constitutional: No acute distress
EENT: Anicteric and Moist mucous membranes
Cardiovascular: Rhythm & rate is regular
Respiratory: Respiratory effort normal and Rhonchi Present (diffuse)
GI: Soft, Non tender and Normal bowel sounds
Neuro/Psych: Alert and Oriented
Other: Skin (warm, dry)
Data Reviewed
-
Date of Service: July 23, 2023
Medical Decision Making: Reviewed Test Results
EKG: Tracing Personally Visualized and interpreted
Echo: Report Reviewed by me
Labs: Labs Reviewed by me
--- NOTE | 2023-07-23 11:16 | W.PN.ID1 ---
Date of Service
Date of Service: July 23, 2023
Today's Communication
Continue with cefdinir and doxycycline through 07/24/2023 then discontinue antibiotics.
Assessment / Plan
Fever; resolved
Encephalopathy
- recurrent
- etiology unclear
Hx CVA
GERD
Dyslipidemia
CAD; Hx VT
Anxiety/depression
Hx UTI
Hx Garett Bonnet syndrome
Aguilar's esophagus
Blindness
Recommendations:
Continue cefdinir for one additional day of therapy. Continue with doxycycline.
Monitor white count and temperature curve.
Chief Complaint
-: Other (Encephalopathy)
Subjective / Review of Systems
Review of Systems: No Fever and No Chills
Vital Signs / Physical Exam
Vital Signs
Vital Signs
Temp Pulse Resp BP Pulse Ox
97.6 F 60 20 176/90 93
07/23/23 07:25 07/23/23 09:27 07/23/23 07:25 07/23/23 09:27 07/23/23 07:25
Physical Exam
Constitutional: No Acute Distress, Comfortable, Chronically Ill, Non-toxic and Obese
Cardiovascular: S1/S2; Negative S3/S4
Pulmonary: Clear and Non Labored; Negative Wheezes or Rales
Gastrointestinal: Soft, Non Tender and Non Distended
Skin: Negative Rash or Jaundice
Psychological: Calm
Objective Data
Lab Data
Lab Results
07/23/23 06:31
07/23/23 06:31
Estimated Creat Clear 70 ml/min 07/23/23 06:31
Lactic Acid Cancelled 07/19/23 00:30
Total Bilirubin 0.6 mg/dl (0.2-1.3) 07/23/23 06:31
AST 32 U/L (14-36) 05/24/24 06:31
ALT 15 U/L (0-35) 07/23/23 06:31
Alkaline Phosphatase 52 U/L (38-126) 07/23/23 06:31
Most recent labs reviewed.
Micro Results:
07/22/23 02:06 Salmonella/Shigella Culture - Preliminary
Feces/Stool Culture in Progress
Campylobacter Culture - Preliminary
Culture in Progress
Shiga Toxin Test - Pending
07/18/23 21:00 Blood Culture - Preliminary
Blood/Venous No Growth in 4 days- Final report to follow
07/18/23 20:36 Blood Culture - Preliminary
Blood/Venous No Growth in 4 days- Final report to follow
07/22/23 02:06 Stool Leukocytes - Final
Feces/Stool
07/22/23 02:06 C. difficile GDH Antigen & Toxins - Final
Feces/Stool C. difficile antigen positive, toxin negative.
Clostridium difficile present, but toxin not detected.
Patient may be a carrier, colonized with nontoxinogenic
strain or the level of toxin in sample is below detection
limits. This information should be used in conjunction with
the patient's clinical history.
07/19/23 02:22 MRSA Screen - Final
Nose No Methicillin Resistant Staphylococcus aureus isolated.
07/20/23 06:37 Legionella Urinary Antigen - Final
Urine Negative for Legionella pneumophila Serogroup 1 antigen.
A negative result does not rule out the possiblity of
Legionella infection due to other serogroups or species of
Legionella. Clinical correlation is recommended.
07/18/23 20:25 Influenza Types A & B (KIESHA) - Final
Nasal Swab Negative for Influenza A & B, NAAT
Negative results must be combined with clinical observations
and patient history.
Nucleic Acid Amplification test (NAAT)performed on the
[employer] platform.
Imaging:
07/22/2023 CXR (portable): Somewhat low lung volumes are noted. No focal parenchymal opacifications noted. No pleural effusion or pneumothorax. No findings to suggest pneumonia.
--- NOTE | 2023-07-23 12:47 | W.PN.HOSP.TC ---
Today's Communication/Plan
-
Continue antibiotics
Increased Ramipril to help with blood pressure
Assessment / Plan
Assessment / Plan
Physical Exam
General: Not in acute distress
HEENT: Normocephalic, Moist mucous membranes
Respiratory: Decreased breath sounds bilaterally
Cardiac: S1/S2 and Regular Rhythm
GI: Soft, Non Tender, Non Distended and Normal Bowel Sounds
Musculoskeletal: No Clubbing, No Cyanosis and No Edema
Skin: Warm and Dry
Neuro: Sleeping.
Psych: Calm

Assessment/Plan
IMPRESSION:
The patient is an 83 yo woman with PMH significant for legal blindness, Garett Bonnet syndrome, JOSETTE, HTN, Aguilar's esophagus, anxiety, obesity, Nocturnal Hypoxia 2L bedtime, Paroxysmal Atrial Fibrillation, Hyperlipidemia, GERD, possible mild
cognitive impairment vs mild dementia, admitted here 06/24 to 07/01 due to hypertensive encephalopathy, seen by Neurology and Psychiatry at that time and given Thiamine IV x 3 doses, discharged to [facility], seen by Neurology on several
occasions for symptoms of AMS- MRI consistently negative, who presents to the ED from [facility][1] due to URI symptoms, malaise, weakness, poor appetite, decreased oral intake, and increased confusion. She is somnolent during this history and
information is taken from ED provider and transfer notes from [facility].
COVID negative, Flu negative, UA negative.
ED treatment:
Vancomycin, Zosyn, IVF 1 liter, Ofirmev 1 gram IV, Ativan 1 mg IV
#Suspected Pneumonia
-Stopped IV Vancomycin as MRSA negative
-Stopped IV Zosyn
-Continue with cefdinir and doxycycline through 07/24/2023 then discontinue antibiotics.
-Consulted ID, recommendations appreciated
-blood and sputum cultures, JOE
-pulse oximetry monitoring, O2 per NC and wean per protocol
-continue home O2 at 2L (per patient's daughter, patient only wears oxygen at nighttime outpatient)
-supportive care
#Hallucinations, Delirium
#Garett' Bonnet syndrome
-Suspected secondary to pneumonia however patient's family mentioned it's worse than before
-Continue antibiotics for now -- consulted ID for additional recommendations on antibiotics
-Consulted neurology, recommendations appreciated
-Patient is noted to have had numerous similar episodes in the past with negative brain MRI and EEG studies which neurology does not feel are necessary at this point
-Can start 12.5 qhs mg Seroquel if patient develops disturbing hallucinations or agitation
#Diarrhea
-Possibly antibiotics side effect
-C. diff antigen positive but toxin negative
-Stool studies ordered -- follow-up on remaining results
#Hypertension
-Toprol XL dose was increased to 25 mg BID on July 22, 2023 (due to A-Fib with RVR)
-Ramipril dose increased (on July 23, 2023) from 6.25 mg BID to 7.5 mg BID to help control blood pressure better
-echo 09/30/21 - EF 55%, normal LV systolic fxn
#Legally blind
-Needs help with activities of daily living
-From [facility] since most recent admission
#Migraine headache, history of
#Paroxysmal Atrial Fibrillation
#Short runs of AT/SVT on telemetry
#A-Fib with RVR on July 21, 2023 to July 22, 2023
-tele monitoring
-Consulted cardiology, recommendations appreciated
-Toprol XL dose was increased to 25 mg BID on July 22, 2023
-Continue Eliquis
-Stop Aspirin
-Consulted cardiology, recommendations appreciated
-Echo okay
-TSH
#Hypomagnesemia - RESOLVED
-Replaced on July 20, 2023
-Monitor levels
#Hypokalemia - RESOLVED
-Replaced on July 21, 2023
-Check AM labs
#Hyperlipidemia
-Continue Rosuvastatin
#GERD / Aguilar's Esophagus / Hx GI Bleed
-Continue Protonix
#History of Hallucinations secondary Garett Bonnet Syndrome
-Continue gabapentin
#Anxiety/Depression
-Continue fluoxetine
#Obstructive Sleep Apnea
-nocturnal oxygenation study 06/27-06/28 notes desaturation qualifies for bedtime oxygen supplementation
-outpatient sleep study recommended per previous admission
-Continue O2 2L and monitor pulse oximetry
DVT prophylaxis: Lovenox
Code Status: DNR confirmed - Dr. Martinez spoke with patient's daughter as well and confirmed DNR status with family discussion
On July 21, 2023, I spoke with patient's daughter Judy (over the phone) and patient's other daughter, inside patient's room. Judy mentioned that at baseline, patient is able to ambulate with a rollator and can talk clearly. Judy requested
holding off on discharge until patient's functioning and diarrhea improved.
On July 22, 2023, I spoke with patient's daughter Judy (over the phone) and also spoke with patient's daughter Robyn in person. All questions and concerns were answered to satisfaction.
Anticipated Discharge: 24 - 48 hours
Subjective/Interval History
-
Date of Service: July 23, 2023
Patient was seen and examined. She was sleepy at the time she was seen.
Objective Data
-
Labs:
Laboratory Results
07/23/23
06:31
WBC 5.5
Hgb 11.8 L
Hct 34.4 L
Plt Count 156
Sodium 140
Potassium 3.8
Chloride 103
Carbon Dioxide 31 H
BUN 6 L
Creatinine 0.6
Glucose 97
Calcium 9.2
Total Bilirubin 0.6
AST 32
ALT 15
Alkaline Phosphatase 52
Vital Signs:
Vital Signs
Temp Pulse Resp BP Pulse Ox
97.7 F 62 18 145/82 95
07/23/23 11:15 07/23/23 12:15 07/23/23 11:15 07/23/23 12:15 07/23/23 11:15
I&O
07/22/23 07/23/23 07/24/23
06:59 06:59 06:59
Intake Total 660 / 660 960 / 960
Output Total 150 / 150
Balance 510 / 510 960 / 960
--- NOTE | 2023-07-23 13:15 | PTCARENOTE ---
Pt. has difference in bp in R arm vs. L arm. BP in L manually is 185/92 HR 62 and BP in R is 145/82 HR 62. Pt asymptomatic. No c/o of CP, Back pain or SOB. Other VSS. MD made aware. Q4 neurovascular checks ordered for all extremities. All patients
extremities WNL. also ordered for every blood pressure check to do manuals in both arms to compare and will notify MD of next pressure checks. Will pass along to nightshift RN.
--- NOTE | 2023-07-23 14:54 | CM ---
Reviewed the chart notes. CM continues to be available to patient/family and is monitoring medical plan for needs at discharge.
Plan: Discharge back to [facility] for rehab.
Call report to: [phone]
Fax report to: [phone]
[2023-07-23 17:52] LABS: COVID-19 Antigen Negative (Negative)
[2023-07-23] MEDS: ALTACE 2.5 MG PO (21:16)
[2023-07-23] MEDS: CRESTOR 10 MG PO (21:18)
[2023-07-23] MEDS: VITAMIN B-12 1000 MCG PO (21:23)
[2023-07-24] VITALS (9 sets, daily range): BP systolic 111–173; BP diastolic 72–98; PULSE 61; O2SAT 98
[2023-07-24 06:46] LABS: % Eosinophils 5.1 % (0-6); % Immature Granulocytes 0.3 % (0-0.5); % Lymphocytes 25.3 % (20.5-51.1); % Monocytes 8.5 % (1.7-9.3); % Neutrophils 59.8 % (42.2-75.2); Absolute Basophils 0.1 10^3/uL (0-0.2); Absolute Eosinophils 0.3 10^3/uL (0-0.7); Absolute Lymphocytes 1.5 10^3/uL (1.2-3.4); Absolute Monocytes 0.5 10^3/uL (0.1-0.6); Absolute Neutrophils 3.5 10^3/uL (1.4-6.5); Hematocrit 37.7 % (37.0-47.0); Hemoglobin 12.4 g/dL (12.0-16.0); Mean Corp Hgb Conc. 32.9 g/dL (33.0-37.0); Mean Corpuscular Hgb 31.2 pg (27.0-31.0); Mean Corpuscular Volume 94.7 fL (81.0-99.0); Mean Platelet Volume 10.4 fL (7.4-10.4); Nucleated Red Blood Cells % 0 %; Platelet Count 176 10^3/uL (130-400); Red Blood Cell Count 3.98 10^6/uL (4.20-5.40); Red Cell Dist. Width 12.9 % (11.5-14.5); White Blood Cell Count 5.9 10^3/uL (4.8-10.8)
[2023-07-24 07:00] LABS: ALT (SGPT) 15 U/L (0-35); AST (SGOT) 35 U/L (14-36); Albumin 3.2 g/dl (3.5-5.0); Alkaline Phosphatase 56 U/L (38-126); Blood Urea Nitrogen 7 mg/dl (7-17); Calcium 9.5 mg/dl (8.4-10.2); Carbon Dioxide 32 mmol/L (22-30); Chloride 99 mmol/L (98-107); Estimated Creatinine Clearance 60 ml/min; Glucose 103 mg/dl (70-99); Potassium 3.5 mmol/L (3.5-5.1); Sodium 138 mmol/L (135-145); Total Bilirubin 0.6 mg/dl (0.2-1.3); Total Protein 5.8 g/dl (6.3-8.2); eGFR > 60.00
[2023-07-24] MEDS: TUMS 1 TABLET PO (09:23)
[2023-07-24] MEDS: THERAGRAN 1 TABLET PO (09:23)
[2023-07-24] MEDS: ELIQUIS 5 MG PO ×2 (09:23→21:23)
[2023-07-24] MEDS: VIBRAMYCIN 100 MG PO ×2 (09:24→21:24)
[2023-07-24] MEDS: TYLENOL 650 MG PO ×2 (09:24→21:32)
[2023-07-24] MEDS: PROZAC 20 MG PO (09:24)
[2023-07-24] MEDS: ALTACE 5 MG PO ×2 (09:24→21:24)
[2023-07-24] MEDS: PROTONIX 40 MG PO (09:24)
[2023-07-24] MEDS: ALTACE 2.5 MG PO ×2 (09:24→21:25)
[2023-07-24] MEDS: NEURONTIN 300 MG PO ×3 (09:24→21:24)
[2023-07-24] MEDS: VISBIOME 1 CAP PO (09:24)
[2023-07-24] MEDS: OMNICEF 300 MG PO ×2 (09:25→21:24)
[2023-07-24] MEDS: TOPROL XL 25 MG PO ×2 (09:25→21:25)
[2023-07-24] MEDS: VITAMIN D3 (cholecalciferol) 125 MCG PO (09:25)
[2023-07-24] MEDS: PROZAC 10 MG PO (09:25)
--- NOTE | 2023-07-24 11:00 | CM ---
attending aked me to call daughter flash about her mother going to acute rehab.i did reach out to flash to explain that patient does not have a qualifying dx for acute rehab.daughter okay with explanation.daughter is asking if therapy can see
patient again to make sure she is able to walk.plan is to dc back to [facility] for [facility].
--- NOTE | 2023-07-24 11:27 | RESPNOTE ---
attempted home 02 assessment as order. with my conversation with daughters at bedside and nurse, pt. is not going to be discharged till Wednesday.
recommended to Dr. Zepeda to do home02 assessment on Wednesday or Wednesday closer to her discharge day.
physician agreed for Wednesday. asked for new home 02 assessment order for Wednesday07/26/23
--- NOTE | 2023-07-24 12:06 | W.PN.HOSP.TC ---
Today's Communication/Plan
-
PT/OT
Morning labs
Spoke with patient's daughters today
Last day of antibiotics today
Assessment / Plan
Assessment / Plan
Physical Exam
General: Not in acute distress
HEENT: Normocephalic, Moist mucous membranes
Respiratory: Decreased breath sounds bilaterally
Cardiac: S1/S2 and Regular Rhythm
GI: Soft, Non Tender, Non Distended and Normal Bowel Sounds
Musculoskeletal: No Clubbing, No Cyanosis and No Edema
Skin: Warm and Dry
Neuro: Drowsy, able to answer questions.
Psych: Calm

Assessment/Plan
IMPRESSION:
The patient is an 83 yo woman with PMH significant for legal blindness, Garett Bonnet syndrome, JOSETTE, HTN, Aguilar's esophagus, anxiety, obesity, Nocturnal Hypoxia 2L bedtime, Paroxysmal Atrial Fibrillation, Hyperlipidemia, GERD, possible mild
cognitive impairment vs mild dementia, admitted here 06/24 to 07/01 due to hypertensive encephalopathy, seen by Neurology and Psychiatry at that time and given Thiamine IV x 3 doses, discharged to [facility], seen by Neurology on several
occasions for symptoms of AMS- MRI consistently negative, who presents to the ED from [facility] due to URI symptoms, malaise, weakness, poor appetite, decreased oral intake, and increased confusion. She is somnolent during this history and
information is taken from ED provider and transfer notes from [facility].
COVID negative, Flu negative, UA negative.
ED treatment:
Vancomycin, Zosyn, IVF 1 liter, Ofirmev 1 gram IV, Ativan 1 mg IV
#Suspected Pneumonia
-Stopped IV Vancomycin as MRSA negative
-Stopped IV Zosyn
-Continue with cefdinir and doxycycline through 07/24/2023 then discontinue antibiotics.
-Consulted ID, recommendations appreciated
-blood and sputum cultures, JOE
-pulse oximetry monitoring, O2 per NC and wean per protocol
-continue home O2 at 2L (per patient's daughter, patient only wears oxygen at nighttime outpatient)
-supportive care
#Hallucinations, Delirium
#Garett' Bonnet syndrome
-Suspected secondary to pneumonia however patient's family mentioned it's worse than before
-Continue antibiotics for now -- consulted ID for additional recommendations on antibiotics
-Consulted neurology, recommendations appreciated
-Patient is noted to have had numerous similar episodes in the past with negative brain MRI and EEG studies which neurology does not feel are necessary at this point
-Thiamine ordered
-Can start 12.5 qhs mg Seroquel if patient develops disturbing hallucinations or agitation
#Diarrhea
-Possibly antibiotics side effect
-C. diff antigen positive but toxin negative
-Stool studies ordered -- follow-up on remaining results
#Hypertension
-Toprol XL dose was increased to 25 mg BID on July 22, 2023 (due to A-Fib with RVR)
-Ramipril dose increased (on July 23, 2023) from 6.25 mg BID to 7.5 mg BID to help control blood pressure better
-echo 09/30/21 - EF 55%, normal LV systolic fxn
#Legally blind
-Needs help with activities of daily living
-From [facility] since most recent admission
#Migraine headache, history of
#Paroxysmal Atrial Fibrillation
#Short runs of AT/SVT on telemetry
#A-Fib with RVR on July 21, 2023 to July 22, 2023
-tele monitoring
-Consulted cardiology, recommendations appreciated
-Toprol XL dose was increased to 25 mg BID on July 22, 2023
-Continue Eliquis
-Stop Aspirin
-Consulted cardiology, recommendations appreciated
-Echo okay
-TSH
#Hypomagnesemia - RESOLVED
-Replaced on July 20, 2023
-Monitor levels
#Hypokalemia - RESOLVED
-Replaced on July 21, 2023
-Check AM labs
#Hyperlipidemia
-Continue Rosuvastatin
#GERD / Aguilar's Esophagus / Hx GI Bleed
-Continue Protonix
#History of Hallucinations secondary Garett Bonnet Syndrome
-Continue gabapentin
#Anxiety/Depression
-Continue fluoxetine
#Obstructive Sleep Apnea
-nocturnal oxygenation study 06/27-06/28 notes desaturation qualifies for bedtime oxygen supplementation
-outpatient sleep study recommended per previous admission
-Continue O2 2L and monitor pulse oximetry
DVT prophylaxis: Lovenox
Code Status: DNR confirmed - Dr. Martinez spoke with patient's daughter as well and confirmed DNR status with family discussion
On July 21, 2023, I spoke with patient's daughter Judy (over the phone) and patient's other daughter, inside patient's room. Judy mentioned that at baseline, patient is able to ambulate with a rollator and can talk clearly. Judy requested
holding off on discharge until patient's functioning and diarrhea improved.
On July 22, 2023, I spoke with patient's daughter Judy (over the phone) and also spoke with patient's daughter Robyn in person. All questions and concerns were answered to satisfaction.
On July 24, 2023, I spoke with patient's daughter Judy (over the phone) and patient's other daughter Lillie, in person. Judy would like patient to get more physical activity here before considering discharge. All questions and concerns were
answered to satisfaction.
Anticipated Discharge: > 48 hours
Subjective/Interval History
-
Date of Service: July 24, 2023
Patient was seen and examined. She was still drowsy and confused and below baseline, but no hallucinations, as per patient's family.
Objective Data
-
Labs:
Laboratory Results
07/24/23
06:07
WBC 5.9
Hgb 12.4
Hct 37.7
Plt Count 176
Sodium 138
Potassium 3.5
Chloride 99
Carbon Dioxide 32 H
BUN 7
Creatinine 0.7
Glucose 103 H
Calcium 9.5
Total Bilirubin 0.6
AST 35
ALT 15
Alkaline Phosphatase 56
Vital Signs:
Vital Signs
Temp Pulse Resp BP Pulse Ox
98.8 F 62 20 148/76 99
07/24/23 07:20 07/24/23 07:20 07/24/23 07:20 07/24/23 09:34 07/24/23 11:38
I&O
07/23/23 07/24/23 07/25/23
06:59 06:59 06:59
Intake Total 960 / 960 140 / 140
Balance 960 / 960 140 / 140
[2023-07-24 14:01] LABS: B.E. 6.6 mmol/L; HCO3 31.3 mmol/L (21-28); O2 Saturation % 99.1 % (94-98); PCO2 44 mmHg (32-35); PO2 124 mmHg (83-108); pH 7.46 (7.35-7.45)
[2023-07-24] MEDS: VITAMIN B1 100 MG PO (15:31)
[2023-07-24] MEDS: CRESTOR 10 MG PO (21:24)
[2023-07-25 07:34] LABS: % Basophils 1.4 % (0-2); % Immature Granulocytes 0.2 % (0-0.5); % Lymphocytes 29.4 % (20.5-51.1); % Monocytes 9.3 % (1.7-9.3); % Neutrophils 53.7 % (42.2-75.2); Absolute Basophils 0.1 10^3/uL (0-0.2); Absolute Eosinophils 0.3 10^3/uL (0-0.7); Absolute Lymphocytes 1.5 10^3/uL (1.2-3.4); Absolute Monocytes 0.5 10^3/uL (0.1-0.6); Absolute Neutrophils 2.7 10^3/uL (1.4-6.5); Hematocrit 36.8 % (37.0-47.0); Hemoglobin 12.2 g/dL (12.0-16.0); Mean Corp Hgb Conc. 33.2 g/dL (33.0-37.0); Mean Corpuscular Hgb 31.4 pg (27.0-31.0); Mean Corpuscular Volume 94.6 fL (81.0-99.0); Mean Platelet Volume 10.3 fL (7.4-10.4); Nucleated Red Blood Cells % 0 %; Platelet Count 187 10^3/uL (130-400); Red Blood Cell Count 3.89 10^6/uL (4.20-5.40); Red Cell Dist. Width 13.2 % (11.5-14.5)
[2023-07-25 07:35] VITALS: BP 126/93
[2023-07-25 07:44] LABS: INR 1.35; PT 16.5 Sec (11.4-14.6)
[2023-07-25 07:45] LABS: APTT 28.9 Sec (23.4-35.0)
[2023-07-25 07:51] LABS: Ammonia < 9 umol/L (9-30)
[2023-07-25 08:02] LABS: Magnesium 1.4 mg/dl (1.6-2.3); Phosphorus 3.9 mg/dl (2.5-4.5)
[2023-07-25] MEDS: MAGNESIUM SULFATE 50 IV (08:48)
[2023-07-25] MEDS: ALTACE 2.5 MG PO (08:49)
[2023-07-25] MEDS: PROZAC 10 MG PO (08:49)
[2023-07-25] MEDS: TUMS 1 TABLET PO (08:49)
[2023-07-25] MEDS: ALTACE 5 MG PO (08:49)
[2023-07-25] MEDS: VISBIOME 1 CAP PO (08:50)
[2023-07-25] MEDS: PROTONIX 40 MG PO (08:50)
[2023-07-25] MEDS: ELIQUIS 5 MG PO (08:50)
[2023-07-25] MEDS: VITAMIN B1 100 MG PO (08:50)
[2023-07-25] MEDS: THERAGRAN 1 TABLET PO (08:50)
[2023-07-25] MEDS: VITAMIN D3 (cholecalciferol) 125 MCG PO (08:50)
[2023-07-25] MEDS: PROZAC 20 MG PO (08:50)
[2023-07-25] MEDS: NEURONTIN PO (08:50)
[2023-07-25] MEDS: TOPROL XL 25 MG PO (08:50)
[2023-07-25] MEDS: NEURONTIN 200 MG PO ×2 (08:51→15:08)
[2023-07-25 08:52] LABS: Vitamin B12 > 1000 pg/ml (239-931)
[2023-07-25 15:03] VITALS: BP 146/65
[2023-07-25 15:04] VITALS: BP 150/65; BP 150/80
[2023-07-25 15:07] VITALS: BP 124/90
--- NOTE | 2023-07-25 15:07 | W.PN.HOSP.TC ---
Today's Communication/Plan
-
Discharge today
Assessment / Plan
Assessment / Plan
Physical Exam
General: Not in acute distress
HEENT: Normocephalic, Moist mucous membranes
Respiratory: Decreased breath sounds bilaterally. ON ROOM AIR SATURATING OXYGEN WELL.
Cardiac: S1/S2 and Regular Rhythm
GI: Soft, Non Tender, Non Distended and Normal Bowel Sounds
Musculoskeletal: No Clubbing, No Cyanosis and No Edema
Skin: Warm and Dry
Neuro: Drowsy, able to answer questions.
Psych: Calm

Assessment/Plan
IMPRESSION:
The patient is an 83 yo woman with PMH significant for legal blindness, Garett Bonnet syndrome, JOSETTE, HTN, Aguilar's esophagus, anxiety, obesity, Nocturnal Hypoxia 2L bedtime, Paroxysmal Atrial Fibrillation, Hyperlipidemia, GERD, possible mild
cognitive impairment vs mild dementia, admitted here 06/24 to 07/01 due to hypertensive encephalopathy, seen by Neurology and Psychiatry at that time and given Thiamine IV x 3 doses, discharged to [facility], seen by Neurology on several
occasions for symptoms of AMS- MRI consistently negative, who presents to the ED from [facility] due to URI symptoms, malaise, weakness, poor appetite, decreased oral intake, and increased confusion. She is somnolent during this history and
information is taken from ED provider and transfer notes from [facility].
COVID negative, Flu negative, UA negative.
ED treatment:
Vancomycin, Zosyn, IVF 1 liter, Ofirmev 1 gram IV, Ativan 1 mg IV
#Suspected Pneumonia
-Stopped IV Vancomycin as MRSA negative
-Stopped IV Zosyn
-Continue with cefdinir and doxycycline through 07/24/2023 then discontinue antibiotics.
-Consulted ID, recommendations appreciated
-blood and sputum cultures, JOE
-pulse oximetry monitoring, O2 per NC and wean per protocol
-continue home O2 at 2L (per patient's daughter, patient only wears oxygen at nighttime outpatient)
-supportive care
#Hallucinations, Delirium
#Garett' Bonnet syndrome
-Suspected secondary to pneumonia however patient's family mentioned it's worse than before
-Completed course of antibiotics.
-Consulted neurology, recommendations appreciated
-Patient is noted to have had numerous similar episodes in the past with negative brain MRI and EEG studies which neurology does not feel are necessary at this point
-Thiamine ordered
-Can start 12.5 qhs mg Seroquel if patient develops disturbing hallucinations or agitation
#Diarrhea
-Possibly antibiotics side effect
-C. diff antigen positive but toxin negative
-Stool studies ordered -- follow-up on remaining results
#Hypertension
-Toprol XL dose was increased to 25 mg BID on July 22, 2023 (due to A-Fib with RVR)
-Ramipril dose increased (on July 23, 2023) from 6.25 mg BID to 7.5 mg BID to help control blood pressure better
-echo 09/30/21 - EF 55%, normal LV systolic fxn
#Legally blind
-Needs help with activities of daily living
-From [facility] since most recent admission
#Migraine headache, history of
#Paroxysmal Atrial Fibrillation
#Short runs of AT/SVT on telemetry
#A-Fib with RVR on July 21, 2023 to July 22, 2023
-tele monitoring
-Consulted cardiology, recommendations appreciated
-Toprol XL dose was increased to 25 mg BID on July 22, 2023
-Continue Eliquis
-Stop Aspirin
-Consulted cardiology, recommendations appreciated
-Echo okay
-TSH
#Hypomagnesemia
-Replaced on July 20, 2023
-Monitor levels
-Magnesium supplementation on discharge
#Hypokalemia - RESOLVED
-Replaced on July 21, 2023
-Check CBC, BMP and Magnesium in 2 to 3 days
#Hyperlipidemia
-Continue Rosuvastatin
#GERD / Aguilar's Esophagus / Hx GI Bleed
-Continue Protonix
#History of Hallucinations secondary Garett Bonnet Syndrome
-Continue gabapentin
#Anxiety/Depression
-Continue fluoxetine
#Obstructive Sleep Apnea
-nocturnal oxygenation study 06/27-06/28 notes desaturation qualifies for bedtime oxygen supplementation
-outpatient sleep study recommended per previous admission
-Continue O2 2L and monitor pulse oximetry
DVT prophylaxis: Lovenox
Code Status: DNR confirmed - Dr. Martinez spoke with patient's daughter as well and confirmed DNR status with family discussion
On July 21, 2023, I spoke with patient's daughter Judy (over the phone) and patient's other daughter, inside patient's room. Judy mentioned that at baseline, patient is able to ambulate with a rollator and can talk clearly. Judy requested
holding off on discharge until patient's functioning and diarrhea improved.
On July 22, 2023, I spoke with patient's daughter Judy (over the phone) and also spoke with patient's daughter Robyn in person. All questions and concerns were answered to satisfaction.
On July 24, 2023, I spoke with patient's daughter Judy (over the phone) and patient's other daughter Lillie, in person. Judy would like patient to get more physical activity here before considering discharge. All questions and concerns were
answered to satisfaction.
Per case management, patient's daughter Judy is okay with discharge today, July 25, 2023.
More than 30 minutes spent in discharge including
Final examination of the patient
Summarizing hospital stay
Instructions for continuing care to all relevant caregivers
Preparation of discharge records, prescriptions, and referral forms
Total time spent (in minutes): 37
Anticipated Discharge: Today
Subjective/Interval History
-
Date of Service: July 25, 2023
Patient was seen and examined. No new symptoms or complaints reported overnight.
Objective Data
-
Labs:
Laboratory Results
07/25/23
07:18
WBC 5.0
Hgb 12.2
Hct 36.8 L
Plt Count 187
PT 16.5 H
INR 1.35
APTT 28.9
Vital Signs:
Vital Signs
Temp Pulse Resp BP Pulse Ox
97.7 F 60 14 126/93 96
07/25/23 07:35 07/25/23 08:50 07/25/23 07:35 07/25/23 08:50 07/25/23 10:38
I&O
07/24/23 07/25/23 07/26/23
06:59 06:59 06:59
Intake Total 140 / 140 1080 / 1080
Balance 140 / 140 1080 / 1080
--- NOTE | 2023-07-25 15:17 | CM ---
met with patient at bedside and spoke with daughter flash.explained that silvino called to confirm bed available today at [facility].daughter asking about patient having pt today .i explained that patient had pt yesterday and therapist not
available to eval patient again today.flash was comfotable with patient being discharged.TT sent to attending re above.patient is stable for dc tody.
phone number to call report is [phone] and fax number is [phone].
--- NOTE | 2023-07-25 15:36 | W.DS.TRANS ---
DC Summary - Throw Out Clerk
-
Discharge Instructions:
Discharge Diagnosis/Procedures #Suspected Pneumonia
#Hallucinations, Delirium
#Garett' Bonnet syndrome
#Diarrhea
#Hypertension
#Legally blind
#Migraine headache
#Paroxysmal Atrial Fibrillation
#Short runs of AT/SVT on telemetry
#A-Fib with RVR on July 21, 2023 to July 22, 2023
#Hypomagnesemia
#Hypokalemia - RESOLVED
#Hyperlipidemia
#GERD / Aguilar's Esophagus / History of
Gastrointestinal Bleeding
#History of Hallucinations secondary Garett
Bonnet Syndrome
#Anxiety/Depression
#Obstructive Sleep Apnea
Diet Low Sodium,Other diet,Low Fat,Low Cholesterol
Additional Diets Liquids should be thin (thin liquids)
Activity With assistance
Blood Work CBC, BMP and Magnesium need to be checked in 2
to 3 days
Other Services PT,OT
Instructions:
Stand-Alone Forms:
Changes to Home Medications: Yes
Discharge Medications:
DC Medications w/original date entered in [facility]
pantoprazole 40 mg tablet,delayed release 40 mg PO DAILY Gastrointestinal issue 12/03/11
ramipril 5 mg capsule 5 mg PO BID Blood pressure 12/03/11
rosuvastatin 10 mg tablet 10 mg PO HS High cholesterol 05/25/18
fluoxetine 10 mg capsule 10 mg PO DAILY Depression 11/24/20
cholecalciferol (vitamin D3) 125 mcg (5,000 unit) tablet (Vitamin D3) 125 mcg PO DAILY Supplement 12/16/21
cyanocobalamin (vitamin B-12) 1,000 mcg tablet (Vitamin B-12) 1,000 mcg PO MOWEFR Supplement 12/16/21
fluoxetine 20 mg capsule 20 mg PO DAILY Depression 12/16/21
acetaminophen 325 mg tablet 650 mg PO Q4H PRN mild pain/fever>100.4 02/10/22
ascorbic acid (vitamin C) 1,000 mg tablet 1,000 mg PO DAILY Supplement 06/25/23
cranberry extract 500 mg capsule (Cranberry Concentrate) 500 mg PO DAILY Supplement 06/25/23
gabapentin 300 mg capsule 300 mg PO TID NERVE PAIN 06/25/23
Culturelle 1 cap PO DAILY Supplement 07/18/23
benzocaine-menthol lozenges 1 alisa PO Q4H Sore throat 07/18/23
calcium carbonate 500 mg PO DAILY Supplement 07/18/23
dextromethorphan-guaifenesin 5 mg-100 mg/5 mL oral liquid 10 ml PO Q4H Cough 07/18/23
multivitamin 1 tab PO DAILY Supplement 07/18/23
apixaban 5 mg tablet (Eliquis) 5 mg PO BID #60 tabs 07/25/23
magnesium oxide 400 mg (241.3 mg magnesium) tablet 400 mg PO DAILY #30 tabs 07/25/23
metoprolol succinate 25 mg tablet,extended release 24 hr 25 mg PO BID #60 tabs 07/25/23
ramipril 2.5 mg capsule 2.5 mg PO BID #60 caps 07/25/23
thiamine HCl (vitamin B1) 100 mg tablet 100 mg PO DAILY #14 tabs 07/25/23
Home Medication Changes
Total Ramipril dose increased from 6.25 mg BID to 7.5 mg BID
Eliquis 5 mg BID is new medication.
Aspirin stopped.
Metoprolol Succinate increased from 12.5 mg BID to 25 mg BID.
Thiamine is a new medication.
Magnesium oxide is a new medication.
Cephalexin stopped.
Pending Results: Yes
Additional Pending Results:
Microbiology lab studies pending.
Total time spent discharging patient (in min): 37
--- NOTE | 2023-07-25 16:36 | PTCARENOTE ---
Patient with discharge order to [facility]. This RN clarified with - stated patient okay to be discharged without home O2 assessment; most recent POX 95% on RA, patient states no concerns at this time.
--- NOTE | 2023-07-25 18:06 | PTCARENOTE ---
Patient being discharged to [facility] at scheduled time of 1929, transported by EMS. This RN called report to facility, patient's R wrist IV removed by IV nurse. Patient dressed and changed prior to shift change, majority of belongings
gathered and taken home by daughter.
[2023-07-25 19:00] VITALS: BP 166/81
--- NOTE | 2023-07-28 11:03 | W.DCSUMMARY ---
Discharge Summary
Discharge Data
Date of Admission: 07/19/23
Date of Discharge: 07/25/23
Total time spent discharging patient (in min): 37
-
Pending Results: Yes
Additional Pending Results:
Microbiology lab studies
Hospital Course
83 y/o female with past medical history significant for legal blindness, Garett Bonnet syndrome, JOSETTE, HTN, Aguilar's esophagus, anxiety, obesity, Nocturnal Hypoxia 2L bedtime, Paroxysmal Atrial Fibrillation, Hyperlipidemia, GERD, possible mild
cognitive impairment vs mild dementia, admitted at [facility] from 06/24 to 07/01 due to hypertensive encephalopathy, seen by Neurology and Psychiatry at that time and given Thiamine IV x 3 doses, discharged to [facility], seen by
Neurology on several occasions for symptoms of altered mental status, presented to the ED from [facility] due to upper respiratory infection symptoms, malaise, weakness, poor appetite, decreased oral intake, and increased confusion. Patient was
suspected of having pneumonia and started on antibiotics. Although patient's on and off aphasia (which was noted by family to present/become worse during previous infection) improved, she was still weak. Patient was noted to have paroxysmal atrial
fibrillation with rapid ventricular response, cardiology was consulted, and she was started on Eliquis anticoagulation and her beta kiki medication was increased. Despite the increase in her beta kiki, patient's blood pressure still remained
high, therefore, patient's Ramipril was increased. Echocardiogram was performed -- showing EF of 60% and no significant valvular disease -- please see separate echo report for full details. Neurology was consulted for patient's confusion and
weakness, and the impression was Delirium/Toxic metabolic encephalopathy in addition to Garett' Bonnet syndrome (tendency towards visual hallucinations due to the effects of chronic blindness) most likely due to underlying metabolic abnormality,
suspected infection with pneumonia and cough. Patient did experience hallucinations which later improved. It was determined that further Brain MRI and EEG studies were note necessary at the time. Seroquel 12.5 mg QHS could be used if patient
developed disturbing hallucinations or agitation. Patient was experiencing diarrhea with the switch to oral antibiotics, therefore ID was consulted and one of patient's oral antibiotics was changed from Augmentin to Cefdinir.
Discharge Plan
-
Patient Disposition: [facility]NF
Discharge Diagnosis/Procedures: #Suspected Pneumonia
#Hallucinations, Delirium
#Garett' Bonnet syndrome
#Diarrhea
#Hypertension
#Legally blind
#Migraine headache
#Paroxysmal Atrial Fibrillation
#Short runs of AT/SVT on telemetry
#A-Fib with RVR on July 21, 2023 to July 22, 2023
#Hypomagnesemia
#Hypokalemia - RESOLVED
#Hyperlipidemia
#GERD / Aguilar's Esophagus / History of Gastrointestinal Bleeding
#History of Hallucinations secondary Garett Bonnet Syndrome
#Anxiety/Depression
#Obstructive Sleep Apnea
Condition: Fair
Diet: Low Fat, Low Cholesterol, Low Sodium and Other diet
Additional Diets: Liquids should be thin (thin liquids)
Activity: With assistance
Blood Work: CBC, BMP and Magnesium need to be checked in 2 to 3 days
Other Services: PT and OT
Activity Restrictions/Additional Instructions:
Patient's blood pressure should be measure in both upper arms, preferably manually, everyday.
Monitor patient's oxygen when patient is at rest, sitting up, standing up and on ambulation.
For oral intake, general aspiration and reflux precautions (i.e., upright after meals for at least 30 minutes).
Can administer 12.5 qhs mg Seroquel if patient develops disturbing hallucinations or agitation (after checking an electrocardiogram to make sure the QTc interval on the electrocardiogram is okay)
Referrals:
Kourtney Steve CRNP [Specified Professional Personl] - 08/12/23 2:20 pm
UNKNOWN - PT DOES,NOT KNOW [Family Provider] -
Additional Discharge Medication Instructions: Total Ramipril dose increased from 6.25 mg BID to 7.5 mg BID
Eliquis 5 mg BID is new medication.
Aspirin stopped.
Metoprolol Succinate increased from 12.5 mg BID to 25 mg BID.
Thiamine is a new medication.
Magnesium oxide is a new medication.
Cephalexin stopped.
Prescriptions:
New
ramipril 2.5 mg Capsule
2.5 mg PO BID Qty: 60 1RF
Eliquis 5 mg Tablet
5 mg PO BID Qty: 60 1RF
metoprolol succinate 25 mg Tablet Extended Release 24 Hr
25 mg PO BID Qty: 60 1RF
thiamine HCl (vitamin B1) 100 mg Tablet
100 mg PO DAILY Qty: 14 0RF
magnesium oxide 400 mg (241.3 mg magnesium) tablet
400 mg PO DAILY Qty: 30 0RF
Continued
pantoprazole 40 MG tablet,delayed release (DR/EC)
40 mg PO DAILY
ramipril 5 MG capsule
5 mg PO BID
Rx Instructions:
give with 1.25mg to equal 6.25mg BID
rosuvastatin 10 MG tablet
10 mg PO HS
fluoxetine 10 MG capsule
10 mg PO DAILY
Rx Instructions:
take with 20 mg for a total of 30 mg.
cyanocobalamin (vitamin B-12) [Vitamin B-12] 1,000 mcg Tablet
1,000 mcg PO MOWEFR
fluoxetine 20 mg capsule
20 mg PO DAILY
Rx Instructions:
take with 10 mg for a total of 30 mg.
cholecalciferol (vitamin D3) [Vitamin D3] 125 mcg (5,000 unit) Tablet
125 mcg PO DAILY
acetaminophen 325 mg Tablet
650 mg PO Q4H PRN (Reason: mild pain/fever>100.4)
ascorbic acid (vitamin C) 1,000 mg Tablet
1,000 mg PO DAILY
gabapentin 300 mg Capsule
300 mg PO TID
cranberry extract [Cranberry Concentrate] 500 mg Capsule
500 mg PO DAILY
multivitamin Tablet
1 tab PO DAILY
calcium carbonate 500 mg calcium (1,250 mg) Tablet,Chewable
500 mg PO DAILY
dextromethorphan-guaifenesin 5-100 mg/5 mL Liquid
10 ml PO Q4H
Rx Instructions:
for 7 days starting 07/15/23
benzocaine-menthol Lozenge
1 alisa PO Q4H
Rx Instructions:
for 7 days start 07/15/23
Culturelle
1 cap PO DAILY
Discontinued
aspirin 81 mg Tablet,Chewable
81 mg PO DAILY
metoprolol succinate 25 mg Tablet Extended Release 24 Hr
12.5 mg PO BID 30 Days Qty: 30 0RF
ramipril 1.25 mg Capsule
1.25 mg PO BID 30 Days Qty: 60 0RF
Rx Instructions:
together with 5mg for total 6.25 mg BID
cephalexin 250 mg Capsule
250 mg PO DAILY
Rx Instructions:
first dose 07/03/23
Discharge Orders:
Discharge Patient (As Directed); Ordered 07/25/23
Ordered By: Ted Zepeda
Discharge Date and Time
Discharge Date/Time: 07/25/23 20:18
Print Language: MACEDONIAN
== END 2023-07-25 20:18 | DRG 193 ==
LOC: 2 NORTH 09:12
PROVIDERS: Nurse Practitioner Family; ADMITTING PHYSICIAN Internal Medicine; ATTENDING PHYSICIAN Hospitalist; CONSULT PHYSICIAN Internal Medicine Cardiovascular Disease; CONSULT PHYSICIAN Internal Medicine Infectious Disease; CONSULT PHYSICIAN Student in an Organized Health Care Education/Training Program; EMERGENCY PHYSICIAN Student in an Organized Health Care Education/Training Program
DX: J18.9 Pneumonia, unspecified organism (principal); G92.8 Other toxic encephalopathy; I47.10 Supraventricular tachycardia, unspecified; Z68.41 Body mass index [BMI] 40.0-44.9, adult; R47.01 Aphasia; F05 Delirium due to known physiological condition; E78.00 Pure hypercholesterolemia, unspecified; F32.A Depression, unspecified; F41.9 Anxiety disorder, unspecified; G43.909 Migraine, unspecified, not intractable, without status migrainosus; I48.0 Paroxysmal atrial fibrillation; H54.8 Legal blindness, as defined in USA; H53.16 Psychophysical visual disturbances; G47.33 Obstructive sleep apnea (adult) (pediatric); K22.70 Barrett's esophagus without dysplasia; I10 Essential (primary) hypertension; E66.9 Obesity, unspecified; K21.9 Gastro-esophageal reflux disease without esophagitis; E87.6 Hypokalemia; E83.42 Hypomagnesemia; K44.9 Diaphragmatic hernia without obstruction or gangrene; Y95 Nosocomial condition; E03.9 Hypothyroidism, unspecified; I70.0 Atherosclerosis of aorta; Z66 Do not resuscitate; Z87.440 Personal history of urinary (tract) infections; I25.2 Old myocardial infarction; Z87.01 Personal history of pneumonia (recurrent); Z87.19 Personal history of other diseases of the digestive system; Z79.82 Long term (current) use of aspirin; Z11.52 Encounter for screening for COVID-19; Z99.81 Dependence on supplemental oxygen; Z86.73 Personal history of transient ischemic attack (TIA), and cerebral infarction without residual deficits; Z88.8 Allergy status to other drugs, medicaments and biological substances; Z91.041 Radiographic dye allergy status
CPT/HCPCS: 36600; 51701; 71045; 80048; 80053; 81003; 81015; 82140; 82607; 82805; 83605; 83735; 84100; 84443; 85025; 85610; 85730; 87040; 87045; 87046; 87070; 87324; 87427; 87449; 87502; 87811; 89055; 92610; 93005; 93306; 96361; 96365; 96375; 97110; 97116; 97163; 97167; 97530; 99285

== ENCOUNTER 2023-07-28 19:25 | Inpatient (IN) | payer MEDICARE, OTHER, SELFPAY ==
[2023-07-28 16:30] VITALS: BP 137/82
[2023-07-28 16:39] VITALS: BMI 41.5
--- NOTE | 2023-07-28 16:43 | ED.GENMED ---
History of Present Illness
General
Chief Complaint: Urinary Symptoms
Time Seen by Provider: 07/28/23 16:33
History of Present Illness
History of Present Illness:
83-year-old female with history of hypertension, hyperlipidemia, Garett Bonnet syndrome, sleep apnea, legal blindness, and chronic oxygen dependence presents to the emergency department for evaluation of altered mental status. According to her
daughter she has frequent bouts of agitation and incoherence occurring at her nursing facility. Episodes to be worse at night. She was just discharged from this hospital after 1 week stay on 526 due to similar mental status changes. At that time
she was treated empirically for pneumonia with Augmentin. It was felt that her encephalopathy was related to her underlying Garett Bonnet syndrome. Of note her antibiotic was switched from Augmentin to cefdinir due to diarrhea. Patient is also
complaining of intermittent abdominal pain and genitourinary irritation/discomfort for the past 2 to 3 days. Patient denies these complaints currently.
Past History
Past History
ED Past Medical History: CVA, GERD, HTN, Hypercholesterolemia, [place], Psychiatric (Anxiety, Depression) and Other (Recurrent UTI, PNA, possible hemiplegia Migraines, Garett Bonnet Syndrome, TGA, Sleep apnea, Barrets esophagus, GI bleeding, BLind);
Negative Asthma or NIDDM
ED Past Surgical History: Appendectomy, and Other (Hernia repair)
Social History
Tobacco: Non-smoker
Alcohol: None
Drug: None
Personal:
Living: assisted living ([facility])
Employment: Not employed
Family History
Family History: Other and Unable to obtain
Review of Systems
Review of Systems
Allergies reviewed?: Yes
All Other Systems: ROS reviewed and negative except as documented in HPI and ROS
Phy Exam
Physical Exam
Physical Exam:
GEN: Well appearing, NAD, WDWN
HEENT: Oral mucosa moist, no scleral icterus
Cardiac: Regular rate
Lung: No respiratory distress, no tachypnea
MSK: No gross deformity or injuries
Skin: Good color, no pallor or jaundice, no rashes
Neuro: Alert and oriented to baseline, moves all extremities freely
Psych: Calm, cooperative
Course
Orders/Labs/Results
Orders:
Orders
07/28/23 Breakfast
Sodium, 2 Gram
At Your Request: Full Participation
07/28/23 16:33
IV Insert/Care/Rem.- Treatment PRN
Straight cath- Treatment ONCE
07/28/23 16:35
Complete Blood Count/With Diff Urgent
Comprehensive Metabolic Panel Urgent
Lactic Acid Q4H
Comment: ON ICE, CANCEL 2ND ORDER IF FIRST LACTIC ACID LEVEL <2
Urinalysis Reflex To Culture Urgent
Date Specimen was Collected: 07/28/23
Time Specimen was Collected: 16:33
Urine Microscopic Reflex Cult Urgent
Blood Culture Q30M
LEIGH ANN Source: Blood/Venous
Specimen Description:
Comment: FROM 2 SEPARATE SITES
Urine Culture Urgent
LEIGH ANN Source: U
Specimen Description:
Date Specimen was Collected: 07/28/23
Time Specimen was Collected: 16:33
07/28/23 16:59
Blood Culture Q30M
LEIGH ANN Source: Blood/Venous
Specimen Description:
Comment: FROM 2 SEPARATE SITES
07/28/23 17:10
LevoFLOXacin 750 MG/150 ML [Levaquin] 750 mg in 150 ml IV NOW
07/28/23 18:40
Admit/Transfer Patient As Directed
Co-Sign Provider:
Level of Care: Inpatient admission
Assign to:: Medical/Surgical
Physician / Group: Wilda
Diagnosis: TME/UTI
Reason for Hospitalization: IV abx
Expected length of stay greater than two midnights?: Yes
ELOS- Estimated Length of Stay in days: 3
I certify the patient meets the requirements for IP care: Yes
07/28/23 18:48
Code Status As Directed
Resuscitation Status: Do not resuscitate
Reached after discussion with pt or family/Healthcare POA: Yes
DNR Bracelet Application ONCE
07/28/23 20:20
0.9% Sodium Chloride 1000 ml [Nss] 1,000 ml IV 80 mls/hr
Acetaminophen [Tylenol] 650 mg PO Q4HPRN PRN
Apixaban [Eliquis] 5 mg PO BID
Metoprolol Xl [Toprol Xl] 25 mg PO BID
07/28/23 20:20
INFECTIOUS DISEASE CONSULT Routine
Consulting Provider: Ran Jaramillo
Was physician already notified: Yes
Activity As Directed
Activity Level: Out of Bed- Chair
With Assistance
I&O [Intake/ Output] As Directed
Frequency: q12h
Vital Signs As Directed
Frequency: Per unit guidelines
Weight As Directed
Frequency: Daily
Ot Eval And Treat Routine
Pt Eval And Treat Routine
Activity Level: Out of Bed-Early Mobility
With Assistance
07/28/23 22:00
Gabapentin [Neurontin] 300 mg PO TID
Rosuvastatin Calcium [Crestor] 10 mg PO HS
07/29/23 06:00
Basic Metabolic Panel IN AM
Complete Blood Count/No Diff IN AM
07/29/23 08:00
Ascorbic Acid [Vitamin C] 1,000 mg PO DAILY
Calcium Carbonate Chewable [Tums] 1 tablet PO DAILY
Cholecalciferol (Vitamin D3) [VITAMIN D3 (cholecalciferol)] 125 mcg PO DAILY
Fluoxetine HCl [Prozac] 10 mg PO DAILY
Fluoxetine HCl [Prozac] 20 mg PO DAILY
Lactobac/Bifidobac [Visbiome] 1 cap PO DAILY
Magnesium l-Lactate [Mag-Tab Sr] 84 mg PO DAILY
Pantoprazole [Protonix] 40 mg PO DAILY
Thiamine HCl [Vitamin B1] 100 mg PO DAILY
07/30/23 08:00
Cyanocobalamin [Vitamin B-12] 1,000 mcg PO MoWeFr@0800
Abnormal Lab Results
07/28/23
16:35
RBC 3.69 L 10^6/uL
(4.20-5.40)
Hgb 11.6 L g/dL
(12.0-16.0)
Hct 35.2 L %
(37.0-47.0)
MCH 31.4 H pg
(27.0-31.0)
MPV 10.8 H fL
(7.4-10.4)
Monocytes % 10.0 H %
(1.7-9.3)
Carbon Dioxide 32 H mmol/L
(22-30)
Glucose 107 H mg/dl
(70-99)
Total Protein 5.5 L g/dl
(6.3-8.2)
Albumin 3.1 L g/dl
(3.5-5.0)
Ur Occult Blood Reflex Trace A
(Negative)
Urine Nitrite (Reflex) Positive A
(Negative)
Leukocyte Esterase Rfl 2+ A
(Negative)
Urine WBC (Reflex) >100 A /HPF
(0-5)
07/28/23 16:35
07/28/23 16:35
Vital Signs
Initial and Last Documented VS:
Initial Vital Signs
Pulse Resp BP Pulse Ox
83 15 137/82 90
07/28/23 16:30 07/28/23 16:30 07/28/23 16:30 07/28/23 16:30
Last Documented Vital Signs
Temp Pulse Resp BP Pulse Ox
98.8 F 68 16 123/76 92
07/28/23 20:32 07/28/23 20:32 07/28/23 20:32 07/28/23 20:32 07/28/23 20:32
MDM/Problems Addressed
MDM/Problems Addressed:
Due to acute encephalopathy will admit for IV abx
*Critical Care Note
Total Time (30-74mins, 75-104mins- exclusive of procedures): Not Applicable
ED Attending Note
-
Portions of this chart may have been created with voice recognition software.� Occasional wrong word or��sound alike� substitutions may have occurred due to the inherent limitations of voice recognition software.
Discharge Plan
Departure
Patient Disposition: Admit
Date of Disposition: 07/28/23
Time of Disposition: 17:46
Presentation/result/management discussed w/ accepting MD/DO: Hospitalist
Discharge Problem:
Toxic metabolic encephalopathy, Acute UTI
Interventions
Interventions:
*Risk Screen - Suicide Last Done: 07/28/23 16:47
*General Assessment Last Done: 07/28/23 16:47
*Neglect/Abuse Screening Last Done: 07/28/23 16:47
ED- Fall Risk Assessment Last Done: 07/28/23 19:00
*ED COVID-19 Vaccine History Last Done: 07/28/23 19:00
*Nursing Disposition Last Done: 07/28/23 20:20
ED-Female Genitourinary Assessment Last Done: 07/28/23 16:52
Discharge Date and Time
Discharge Date/Time: 07/28/23 20:21
[2023-07-28 16:47] VITALS: BP 137/82
[2023-07-28 16:49] LABS: Urine Albumin Trace (Neg - Trace); Urine Bilirubin Negative (Negative); Urine Character Slightly Cloudy (Clear); Urine Color Yellow; Urine Glucose Negative (Negative); Urine Ketone Negative (Negative); Urine Leukocyte 2+ (Negative); Urine Nitrite Positive (Negative); Urine Occult Blood Trace (Negative); Urine Specific Gravity 1.015 (<1.030); Urine Urobilinogen Negative (Neg - 1+)
[2023-07-28 16:58] LABS: % Immature Granulocytes 0.2 % (0-0.5); % Lymphocytes 26.7 % (20.5-51.1); % Neutrophils 60.1 % (42.2-75.2); Absolute Basophils 0.1 10^3/uL (0-0.2); Absolute Eosinophils 0.1 10^3/uL (0-0.7); Absolute Lymphocytes 1.6 10^3/uL (1.2-3.4); Absolute Monocytes 0.6 10^3/uL (0.1-0.6); Absolute Neutrophils 3.6 10^3/uL (1.4-6.5); Hematocrit 35.2 % (37.0-47.0); Hemoglobin 11.6 g/dL (12.0-16.0); Mean Corpuscular Hgb 31.4 pg (27.0-31.0); Mean Corpuscular Volume 95.4 fL (81.0-99.0); Mean Platelet Volume 10.8 fL (7.4-10.4); Nucleated Red Blood Cells % 0 %; Platelet Count 194 10^3/uL (130-400); Red Blood Cell Count 3.69 10^6/uL (4.20-5.40); Red Cell Dist. Width 13.2 % (11.5-14.5)
[2023-07-28 17:00] VITALS: BP 146/59
[2023-07-28 17:00] LABS: Urine White Cell >100 /HPF (0-5)
[2023-07-28 17:03] LABS: Lactic Acid 0.8 mmol/L (0.7-2.0)
[2023-07-28 17:06] LABS: ALT (SGPT) 13 U/L (0-35); AST (SGOT) 25 U/L (14-36); Albumin 3.1 g/dl (3.5-5.0); Alkaline Phosphatase 56 U/L (38-126); Blood Urea Nitrogen 10 mg/dl (7-17); Calcium 9.5 mg/dl (8.4-10.2); Carbon Dioxide 32 mmol/L (22-30); Chloride 101 mmol/L (98-107); Estimated Creatinine Clearance 48 ml/min; Glucose 107 mg/dl (70-99); Potassium 3.5 mmol/L (3.5-5.1); Sodium 137 mmol/L (135-145); Total Bilirubin 0.7 mg/dl (0.2-1.3); Total Protein 5.5 g/dl (6.3-8.2); eGFR > 60.00
[2023-07-28 18:00] VITALS: BP 96/76
[2023-07-28] MEDS: LEVAQUIN 150 IV (18:17)
--- NOTE | 2023-07-28 18:21 | HPS.HSE ---
Addendum entered and electronically signed by Raiza Astudillo MD 07/29/23 06:18:
I saw and examined the patient.
The JUICE SCALEMAN or PA's note was reviewed and I agree with the note.
Comment:
83 year old female with past medical history of recurrent UTIs, Garett Bonnet Syndrome, hypertension, and atrial fibrillation who presents to the emergency department for urinary symptoms. Patient is unable to give history due to hallucinations at
this time. Additional history provided by daughter. The patient's daughter reports the patient complained of lower abdominal pain and vaginal discomfort as well as increased confusion, prompting her to present to the emergency department today. The
daughter states that the patient has a long standing history of UTIs, but has never complained of pain or discomfort like this episode.
Physical Exam
General: Well Developed and Well Nourished
HEENT: Anicteric and Moist mucous membranes
Respiratory: Clear and Non Labored Respirations
Cardiac: S1/S2 and Regular Rhythm
GI: Soft and Non Tender
Musculoskeletal: No Clubbing, No Cyanosis and No Edema
Skin: Warm and Dry
Neuro: Awake, Alert and Other (Appears to move all four extremities appropriate, but unable to participate in full neurologic exam as she does not follow all commands appropriately)
Psych: Calm and Confused (Patient with apparent hallucinations)
ME secondary to Urinary Tract Infection
-Reviewed prior culture data - Transition to Meropenem
-Await urine and blood cultures
-Consult Infectious Disease
Paroxysmal Atrial Fibrillation
-Continue Eliquis for anticoagulation
-Continue metoprolol for rate control with hold parameters
Essential Hypertension
-Hold ramipril as BP running low
Hyperlipidemia
-Continue rosuvastatin
Hallucinations secondary Garett Bonnet Syndrome
-Continue gabapentin
Anxiety/Depression
-Continue fluoxetine
GERD/Aguilar's Esophagus
-Continue Protonix
DVT proph: Eliquis
Code Status: DNR
Total time spent to see the patient, examine the patient on the floor, review data and lab results, discuss treatment plan with patient, ER doctor, family, nursing staff around 75 minutes
Original Note:
Family Physician
-
Family Physician: Tereso Carranza DO
Chief Complaint
-
Hallucinations and Lower Abdominal Pain
History of Present Illness
This is an 83 year old female with past medical history of recurrent UTIs, Garett Bonnet Syndrome, hypertension, and atrial fibrillation who presents to the emergency department for urinary symptoms. Patient is unable to give history due to
hallucinations at this time. Additional history provided by daughter. The patient's daughter reports the patient complained of lower abdominal pain and vaginal discomfort as well as increased confusion, prompting her to present to the emergency
department today. The daughter states that the patient has a long standing history of UTIs, but has never complained of pain or discomfort like this episode. The daughter reports the patient was previously on Keflex for UTI prophylaxis. It appears
it was stopped during most recent hospitalization though reasoning is unclear.
Medical History
Past Medical History
Past Medical History: Reports CVA, GERD, HTN, Hypercholesterolemia and Other
Additional Past Medical History:
Blindness
Paroxysmal Atrial Fibrillation
Essential Hypertension
Hyperlipidemia
Recurrent UTIs
Aguilar's Esophagus
Hallucinations secondary Garett Bonnet Syndrome
Anxiety/Depression
Past Surgical History: Reports Other
Additional Past Surgical History:
Appendectomy
Hernia Repair
Section
Social History
Tobacco: Non-smoker
Alcohol: None
Personal:
Living: Assisted Living (Lives at [facility])
Employment: Not Employed
Family History
Family History: Not pertinent
Allergies / Home Medications
Allergies reflects when Allergies were last updated in [facility].
Home Medications with original date entered in [facility]
Allergy/Medication List:
Allergies
Allergy/AdvReac Type Severity Reaction Status Date / Time
amlodipine besylate Allergy Rash/CONFUS Verified 07/28/23 16:47
[From [facility]] ION
iodine Allergy Confusion,confusion/'like Verified 07/28/23 16:47
I had a
tia'
Home Medications
pantoprazole 40 mg tablet,delayed release 40 mg PO DAILY Gastrointestinal issue 12/03/11
ramipril 5 mg capsule 5 mg PO BID Blood pressure 12/03/11
rosuvastatin 10 mg tablet 10 mg PO HS High cholesterol 05/25/18
fluoxetine 10 mg capsule 10 mg PO DAILY Depression 11/24/20
cholecalciferol (vitamin D3) 125 mcg (5,000 unit) tablet (Vitamin D3) 125 mcg PO DAILY Supplement 12/16/21
cyanocobalamin (vitamin B-12) 1,000 mcg tablet (Vitamin B-12) 1,000 mcg PO MOWEFR Supplement 12/16/21
fluoxetine 20 mg capsule 20 mg PO DAILY Depression 12/16/21
acetaminophen 325 mg tablet 650 mg PO Q4H PRN mild pain/fever>100.4 02/10/22
ascorbic acid (vitamin C) 1,000 mg tablet 1,000 mg PO DAILY Supplement 06/25/23
cranberry extract 500 mg capsule (Cranberry Concentrate) 500 mg PO DAILY Supplement 06/25/23
gabapentin 300 mg capsule 300 mg PO TID NERVE PAIN 06/25/23
Culturelle 1 cap PO DAILY Supplement 07/18/23
calcium carbonate 500 mg PO DAILY Supplement 07/18/23
multivitamin 1 tab PO DAILY Supplement 07/18/23
apixaban 5 mg tablet (Eliquis) 5 mg PO BID #60 tabs 07/25/23
magnesium oxide 400 mg (241.3 mg magnesium) tablet 400 mg PO DAILY #30 tabs 07/25/23
metoprolol succinate 25 mg tablet,extended release 24 hr 25 mg PO BID #60 tabs 07/25/23
ramipril 2.5 mg capsule 2.5 mg PO BID #60 caps 07/25/23
thiamine HCl (vitamin B1) 100 mg tablet 100 mg PO DAILY #14 tabs 07/25/23
bisacodyl 10 mg rectal suppository (Dulcolax (bisacodyl)) 10 mg OH DAILY PRN if mom is ineffective 07/28/23
magnesium hydroxide 400 mg/5 mL oral suspension (Milk of Magnesia) 30 ml PO HS PRN constipation 07/28/23
ondansetron HCl 4 mg tablet 4 mg PO Q6H PRN nausea/vomiting 07/28/23
Review of Systems
-
A 12 point ROS was completed and negative except as noted: Yes
Constitutional: Denies Fever or Chills
Respiratory: Denies Cough or Trouble Breathing
Cardiac: Denies Chest Pain or Palpitations
Abdomen/GI: Reports Abdominal Pain
: Reports Dysuria
Physical Exam
Vital Signs
Vital Signs
Temp Pulse Resp BP Pulse Ox
98.4 F 68 18 96/76 94
07/28/23 16:47 07/28/23 18:00 07/28/23 18:00 07/28/23 18:00 07/28/23 18:00
Physical Exam
General: Well Developed and Well Nourished
HEENT: Anicteric and Moist mucous membranes
Respiratory: Clear and Non Labored Respirations
Cardiac: S1/S2 and Regular Rhythm
GI: Soft and Non Tender
Musculoskeletal: No Clubbing, No Cyanosis and No Edema
Skin: Warm and Dry
Neuro: Awake, Alert and Other (Appears to move all four extermities appropraite, but unable to participate in full neurologic exam as she does not follow all commands appropriately)
Psych: Calm and Confused (Patient with apparent hallucinations)
Laboratory Results
-
07/28/23 16:35
07/28/23 16:35
Laboratory Results
Lactic Acid 0.8 mmol/L (0.7-2.0) 07/28/23 16:35
Total Bilirubin 0.7 mg/dl (0.2-1.3) 07/28/23 16:35
AST 25 U/L (14-36) 07/28/23 16:35
ALT 13 U/L (0-35) 07/28/23 16:35
Alkaline Phosphatase 56 U/L (38-126) 07/28/23 16:35
Data Reviewed
-
Lab Data: Labs Reviewed by me
Old Records: Reviewed
Impression/Plan
-
TME secondary to Urinary Tract Infection
-Reviewed prior culture data - Transition to Meropenem
-Await urine and blood cultures
-Consult Infectious Disease
Paroxysmal Atrial Fibrillation
-Continue Eliquis for anticoagulation
-Continue metoprolol for rate control with hold parameters
Essential Hypertension
-Hold ramipril as BP running low
Hyperlipidemia
-Continue rosuvastatin
Hallucinations secondary Garett Bonnet Syndrome
-Continue gabapentin
Anxiety/Depression
-Continue fluoxetine
GERD/Aguilar's Esophagus
-Continue Protonix
DVT proph: Eliquis
Code Status: DNR
[2023-07-28 19:00] VITALS: BP 133/73
[2023-07-28 20:32] VITALS: BP 123/76; BMI 39.9
--- NOTE | 2023-07-28 20:57 | PTCARENOTE ---
Patient arrived from ED on stretcher. able to participate in admission, good historian but easily distracted and with hallucination. HOB elevated, O2 2L via NC continued. Patient incontinent of urine, able to turn in bed with assist x 2. Tolerating
PO fluid, difficulty with hand eye coordination, patient is legally blind and [employer] [place].
[2023-07-28] MEDS: NEURONTIN 300 MG PO (21:19)
[2023-07-28] MEDS: MERREM 500 MG IV (21:19)
[2023-07-28] MEDS: CRESTOR 10 MG PO (21:19)
[2023-07-28] MEDS: STERILE WATER FOR INJECTION 10 ML IV (21:19)
[2023-07-28] MEDS: NSS 1000 IV (21:20)
[2023-07-28] MEDS: ELIQUIS 5 MG PO (21:20)
[2023-07-28] MEDS: TOPROL XL 25 MG PO (21:20)
[2023-07-29 00:11] VITALS: BP 159/85
[2023-07-29] MEDS: STERILE WATER FOR INJECTION 10 ML IV (05:16)
[2023-07-29 05:17] VITALS: BMI 40.2
[2023-07-29] MEDS: MERREM 500 MG IV (05:17)
[2023-07-29 07:55] VITALS: BP 169/78
[2023-07-29] MEDS: NEURONTIN 300 MG PO ×3 (08:15→21:50)
[2023-07-29] MEDS: PROTONIX 40 MG PO (08:15)
[2023-07-29] MEDS: PROZAC 20 MG PO (08:15)
[2023-07-29] MEDS: ELIQUIS 5 MG PO ×2 (08:15→21:51)
[2023-07-29] MEDS: VISBIOME 1 CAP PO (08:15)
[2023-07-29] MEDS: TOPROL XL 25 MG PO ×2 (08:15→21:51)
[2023-07-29] MEDS: PROZAC 10 MG PO (08:15)
--- NOTE | 2023-07-29 09:14 | W.PN.HOSP.TC ---
Today's Communication/Plan
-
.
Assessment / Plan
Assessment / Plan
Physical Exam
General: Well Developed and Well Nourished
HEENT: Anicteric and Moist mucous membranes
Respiratory: Clear and Non Labored Respirations
Cardiac: S1/S2 and Regular Rhythm
GI: Soft and Non Tender
Musculoskeletal: No Clubbing, No Cyanosis and No Edema
Skin: Warm and Dry
Neuro: Awake, Alert and Other (Appears to move all four extremities appropriate, but unable to participate in full neurologic exam as she does not follow all commands appropriately)
Psych: Calm and Confused (Patient with apparent hallucinations)
# TME secondary to Urinary Tract Infection
- started on IV Meropenem
-Await urine and blood cultures
-Consult Infectious Disease, input appreciated.
Paroxysmal Atrial Fibrillation
-Continue Eliquis for anticoagulation
-Continue metoprolol for rate control with hold parameters
Essential Hypertension
-Hold ramipril as BP running low
Hyperlipidemia
-Continue rosuvastatin
Hallucinations secondary Gaertt Bonnet Syndrome
-Continue gabapentin
Anxiety/Depression
-Continue fluoxetine
GERD/Aguilar's Esophagus
-Continue Protonix
DVT proph: Eliquis
Code Status: DNR
Total time spent to see the patient, examine the patient on the floor, review data and lab results, discuss treatment plan with patient, family, nursing staff around 59 minutes
Anticipated Discharge: > 48 hours
Subjective/Interval History
-
Date of Service: July 29, 2023
Looks better, less hallucinations
Objective Data
-
Labs:
Laboratory Results
07/29/23
07:24
WBC Pending
Hgb Pending
Hct Pending
Plt Count Pending
Sodium Pending
Potassium Pending
Chloride Pending
Carbon Dioxide Pending
BUN Pending
Creatinine Pending
Glucose Pending
Calcium Pending
Vital Signs:
Vital Signs
Temp Pulse Resp BP Pulse Ox
98.2 F 64 20 169/78 99
07/29/23 07:55 07/29/23 07:55 07/29/23 07:55 07/29/23 07:55 07/29/23 07:55
I&O
07/28/23 07/29/23 07/30/23
06:59 06:59 06:59
Intake Total 480 / 480
Balance 480 / 480
[2023-07-29 09:24] LABS: Hematocrit 33.4 % (37.0-47.0); Hemoglobin 10.8 g/dL (12.0-16.0); Mean Corp Hgb Conc. 32.3 g/dL (33.0-37.0); Mean Corpuscular Hgb 31.2 pg (27.0-31.0); Mean Corpuscular Volume 96.5 fL (81.0-99.0); Mean Platelet Volume 10.8 fL (7.4-10.4); Platelet Count 168 10^3/uL (130-400); Red Blood Cell Count 3.46 10^6/uL (4.20-5.40); White Blood Cell Count 4.7 10^3/uL (4.8-10.8)
[2023-07-29 10:41] LABS: Blood Urea Nitrogen 11 mg/dl (7-17); Calcium 9.1 mg/dl (8.4-10.2); Carbon Dioxide 30 mmol/L (22-30); Chloride 101 mmol/L (98-107); Estimated Creatinine Clearance 53 ml/min; Glucose 90 mg/dl (70-99); Potassium 3.5 mmol/L (3.5-5.1); Sodium 137 mmol/L (135-145); eGFR > 60.00
--- NOTE | 2023-07-29 13:07 | CON.ID ---
Consultation
-
Date/Time Consultation Requested: 07/28/20232019
Date/Time Consultation Performed: 07/29/2023 1300
Requesting Provider: Tameka Dueñas
Performing Provider: Dr. Jaramillo
Reason for Consultation: Suspected complicated urinary tract infection
Chief Complaint / Past History
History of Present Illness
Ting Zarate is an 83-year-old female being evaluated by Infectious Diseases in regards to reported complicated urinary tract infection. History is obtained from chart review, along with patient interview.
The patient is well-known to the Infectious Diseases service, having been seen during admissions in March, May and again in early June for hallucinations and reported urinary tract infection. During her most recent admission from 07/17 through
07/21 she was felt to have a urinary tract infection, although cultures were negative. She ultimately was discharged on 07/24, to continue with a course of cefdinir and doxycycline for suspected bronchitis.
Per her daughter who is present at the bedside, she was there for 2 days and then began to have reported hallucinations (similar to prior episodes) and complained of lower abdominal and vaginal discomfort. She was sent back to the emergency room
from [facility]. Here, a white count was not found to be elevated, but urinalysis was found to be nitrate positive and with significant pyuria. Of note, though, she had significant squamous epithelial cells in the sample. Infectious Diseases
is asked to comment upon further antimicrobial therapy. She has been empirically started on meropenem.
Per the patient's daughter, she overall appears markedly improved this a.m. The patient reports complete resolution of her vaginal, abdominal and urinary symptomatology at this time. There have been no reported fevers. She denies any cough.
Past History
Additional Past Medical History:
CVA
GERD
Dyslipidemia
CAD; Hx OR
Anxiety/depression
Hx UTI
Garett Bonnet syndrome
Aguilar's esophagus
Blindness
Additional Past Surgical History:
Appendectomy
Hernia repair
Allergy History:
amlodipine besylate [From [facility]] Allergy (Verified 07/28/23 16:47)
Rash/CONFUSION
iodine Allergy (Verified 07/28/23 16:47)
Confusion,confusion/'like I had a tia'
Medications Reviewed: Yes
Current Antibiotics:
Meropenem (d#1)
Social History
Tobacco: Non-Smoker
Alcohol: None
Drug: None
Personal:
Living: Assisted Living
Employment: Retired
Family History
Family History: Not Pertinent
Review of Systems
Vital Signs
Temp Pulse Resp BP Pulse Ox
98.2 F 64 20 169/78 99
07/29/23 07:55 07/29/23 07:55 07/29/23 07:55 07/29/23 07:55 07/29/23 08:30
Physical Exam
Physical Exam
Constitutional: Comfortable, Chronically Ill and Non-toxic
Head: Normocephalic
Eyes: Pupils Equal, Pupils Round, No Conjunctival Hemorrhage and Sclera Anicteric
Oral: No Thrush and No Ulcers
Cardiovascular: S1/S2; Negative S3/S4 or Murmur
Pulmonary: Clear and Non Labored
Gastrointestinal: Soft, Non Tender, Non Distended, Normal Bowel Sounds, No Rebound and No Guarding
Extremities: Edema (2+); Negative Cyanosis or Erythema
Skin: Warm and Dry; Negative Rash or Jaundice
Neurological: Awake and Alert
Psychological: Calm
Lab / Diagnostic Study Results
07/29/23 07:24
07/29/23 07:24
Abs Immat Gran (auto) 0.0 10^3/uL (0-0.05) 07/28/23 16:35
Absolute Neuts (auto) 3.6 10^3/uL (1.4-6.5) 07/28/23 16:35
Absolute Lymphs (auto) 1.6 10^3/uL (1.2-3.4) 07/28/23 16:35
Absolute Monos (auto) 0.6 10^3/uL (0.1-0.6) 07/28/23 16:35
Absolute Basos (auto) 0.1 10^3/uL (0-0.2) 07/28/23 16:35
Immature Gran % 0.2 % (0-0.5) 07/28/23 16:35
Neutrophils % 60.1 % (42.2-75.2) 07/28/23 16:35
Lymphocytes % 26.7 % (20.5-51.1) 07/28/23 16:35
Monocytes % 10.0 % (1.7-9.3) H 07/28/23 16:35
Eosinophils % 2.0 % (0-6) 07/28/23 16:35
Basophils % 1.0 % (0-2) 07/28/23 16:35
Lactic Acid Cancelled 07/28/23 20:45
Microbiology Results
Micro:
07/28/23 16:35 Urine Culture - Preliminary
Urine Escherichia coli
07/28/23 22:37 MRSA Screen - Pending
Nose
07/28/23 16:59 Blood Culture - Pending
Blood/Venous
07/28/23 16:35 Blood Culture - Pending
Blood/Venous
Imaging:
07/22/2023 CXR (portable): Low lung volumes noted. No focal parenchymal opacification or vascular congestion. No pleural effusion or pneumothorax.
Assessment / Plan
Abdominal pain
Reported dysuria
- patient reports resolution of symptoms <24h after initiation of abx
Recurrent hallucinations
CVA
GERD
Dyslipidemia
CAD; Hx OR
Anxiety/depression
Hx UTI
Garett Bonnet syndrome
Aguilar's esophagus
Blindness
Recommendations:
Discontinue further meropenem.
Continue levofloxacin 500 mg p.o. daily
Await Final Culture Data to Guide Antimicrobial Susceptibility.
If hallucinations do not improve, may consider Psychiatry, or Neurology input.
--- NOTE | 2023-07-29 13:57 | CM ---
I met with Ting and her daughter this afternoon. Ting is a usp resident at [facility] and will return there at discharge. I spoke with Kim Villanueva who confirmed Ting has a bed hold and will be able to return when medically ready.
I had met Ting previously and she was experiencing hallucinations and confusion, however today she was able to converse and was aware that she was in the hospital and had come from a [facility].
CM will follow to coordinate return to [facility] when discharged.
[2023-07-29 15:55] VITALS: BP 141/63
[2023-07-29] MEDS: CRESTOR 10 MG PO (21:51)
[2023-07-29 23:55] VITALS: BP 168/93
[2023-07-30 06:00] VITALS: BMI 40.4
[2023-07-30] MEDS: NEURONTIN 300 MG PO ×3 (09:12→21:47)
[2023-07-30] MEDS: TOPROL XL 25 MG PO ×2 (09:13→20:32)
[2023-07-30] MEDS: PROZAC 20 MG PO (09:14)
[2023-07-30] MEDS: PROZAC 10 MG PO (09:14)
[2023-07-30] MEDS: LEVAQUIN 500 MG PO (09:14)
[2023-07-30] MEDS: PROTONIX 40 MG PO (09:14)
[2023-07-30] MEDS: ELIQUIS 5 MG PO ×2 (09:14→20:32)
[2023-07-30] MEDS: VISBIOME 1 CAP PO (09:15)
[2023-07-30 09:16] VITALS: BP 160/73
--- NOTE | 2023-07-30 10:24 | W.PN.HOSP.TC ---
Today's Communication/Plan
-
.
Assessment / Plan
Assessment / Plan
Physical Exam
General: Well Developed and Well Nourished
HEENT: Anicteric and Moist mucous membranes
Respiratory: Clear and Non Labored Respirations
Cardiac: S1/S2 and Regular Rhythm
GI: Soft and Non Tender
Musculoskeletal: No Clubbing, No Cyanosis and No Edema
Skin: Warm and Dry
Neuro: Awake, Alert and Other (Appears to move all four extremities appropriate, but unable to participate in full neurologic exam as she does not follow all commands appropriately)
Psych: Calm and Confused (Patient with apparent hallucinations)
# E Coli UTI
Finalized culture. Hx of UTI in past
Bladder scan to detect incomplete emptying.
Blood cultures no growth.
Afebrile
Less confused per family
meropenem was stopped, now on oral Levaquin. Patient was taking prophylactic Keflex at home which might impact results of testing.
Appreciate ID help.
# TME secondary to Urinary Tract Infection
- Less confused,
on Neurontin.
-Patient was seen by neurology and psychiatry last admission in May and June 2023. 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
blindness) most likely due to underlying metabolic abnormality, suspected infection.
#Paroxysmal Atrial Fibrillation
-Continue Eliquis for anticoagulation
-Continue metoprolol for rate control with hold parameters
Essential Hypertension
-Hold ramipril as BP running low
Hyperlipidemia
-Continue rosuvastatin
Anxiety/Depression
-Continue fluoxetine
GERD/Aguilar's Esophagus
-Continue Protonix
DVT proph: Eliquis
Code Status: DNR
Total time spent to see the patient, examine the patient on the floor, review data and lab results, discuss treatment plan with patient, family, nursing staff around 59 minutes
Anticipated Discharge: 24 - 48 hours
Subjective/Interval History
-
Date of Service: July 30, 2023
Less confusion
No fevers
Objective Data
-
Vital Signs:
Vital Signs
Temp Pulse Resp BP Pulse Ox
97.6 F 64 18 160/73 99
07/30/23 09:16 07/30/23 09:16 07/30/23 09:16 07/30/23 09:16 07/30/23 09:16
I&O
07/29/23 07/30/23 07/31/23
06:59 06:59 06:59
Intake Total 480 / 480 840 / 840
Balance 480 / 480 840 / 840
--- NOTE | 2023-07-30 11:26 | CM ---
[facility] has been updated regarding possible discharge in 24-28 hours.
CM will continue to follow to facilitate return to SNF.
--- NOTE | 2023-07-30 13:45 | PN.CDI ---
Addendum entered and electronically signed by Raiza Astudillo MD 07/30/23 15:42:
Morbid Obesity
Original Note:
CDI
- -
CDI:
Physician Documentation Request
Admit Date: 07/28/23 19:25
Dear Doctor Wilda,
Clinical Indicators:
Patient admitted with acute TME due to UTI.
07/28 note/assessment: 'BMI 40.2 morbidly obese range'
Height: 5 ft
Weight: 207 lbs 1 0z
BMI:
07/28/23
16:39 07/28/23
20:32 07/29/23
05:17
Body Mass Index (BMI) 41.5 39.9 40.2
07/30/23
06:00
Body Mass Index (BMI) 40.4
If possible, please provide an associated diagnosis related to the abnormal BMI (BMI > or = to 40), such as:
Morbid Obesity
Overweight
Other, please specify
Use of terms such as suspected, likely, concern for, or probable (associated with a specific diagnosis that is being evaluated, monitored, or treated as if it exists) are acceptable and can be coded in the inpatient setting, when documented at the
time of discharge.
Thank you,
FENG Kc RN
CDI Specialist
available via [employer]
Please use your independent medical judgment in providing your response.
--- NOTE | 2023-07-30 15:30 | PTCARENOTE ---
Patient with bladder scan of 138 mls. MD aware. IVF will be started as per order.
[2023-07-30] MEDS: NSS 1000 IV (15:49)
--- NOTE | 2023-07-30 15:53 | W.PN.ID1 ---
Date of Service
Date of Service: July 30, 2023
Today's Communication
Continue antibiotics.
Assessment / Plan
Abdominal pain
Reported dysuria
- patient reports resolution of symptoms <24h after initiation of abx
Recurrent hallucinations
CVA
GERD
Dyslipidemia
CAD; Hx AR
Anxiety/depression
Hx UTI
Garett Bonnet syndrome
Aguilar's esophagus
Blindness
Recommendations:
Continue levofloxacin 500 mg p.o. daily
Await Final Culture Data to Guide Antimicrobial Susceptibility.
Of note, urinalysis was reported to be 'straight cath', but the significant amount of squamous cells indicate that this is a contaminated specimen, and culture results need to be interpreted in that context.
If hallucinations / encephalopathy does not improve, may consider Psychiatry, or Neurology input.
����������������������������������������������������������
Chief Complaint
-: UTI
Subjective / Review of Systems
Patient seen and examined. Daughter reports patient continues to be quite lethargic. No current urinary complaints.
Review of Systems: No Fever
Vital Signs / Physical Exam
Vital Signs
Vital Signs
Temp Pulse Resp BP Pulse Ox
97.6 F 64 18 160/73 99
07/30/23 09:16 07/30/23 09:16 07/30/23 09:16 07/30/23 09:16 07/30/23 09:16
Physical Exam
Constitutional: No Acute Distress, Comfortable, Chronically Ill and Non-toxic
Head: Normocephalic
Pulmonary: Non Labored
Gastrointestinal: Non Distended
Neurological: Awake and Alert
Psychological: Confused (Intermittently)
Objective Data
Lab Data
Lab Results
07/29/23 07:24
07/29/23 07:24
Estimated Creat Clear 53 ml/min 07/29/23 07:24
Lactic Acid Cancelled 07/28/23 20:45
Total Bilirubin 0.7 mg/dl (0.2-1.3) 07/28/23 16:35
AST 25 U/L (14-36) 07/28/23 16:35
ALT 13 U/L (0-35) 07/28/23 16:35
Alkaline Phosphatase 56 U/L (38-126) 07/28/23 16:35
Most recent labs reviewed.
Micro Results:
07/28/23 16:35 Urine Culture - Final
Urine Escherichia coli
07/28/23 22:37 MRSA Screen - Final
Nose No Methicillin Resistant Staphylococcus aureus isolated.
07/28/23 16:59 Blood Culture - Preliminary
Blood/Venous No Growth in 24 hours- Final report to follow
07/28/23 16:35 Blood Culture - Preliminary
Blood/Venous No Growth in 24 hours- Final report to follow
Imaging:
07/22/2023 CXR (portable): Low lung volumes noted. No focal parenchymal opacification or vascular congestion. No pleural effusion or pneumothorax.
--- NOTE | 2023-07-30 16:23 | PTCARENOTE ---
Post void residual 5 mls. IVF started - NSS at 125 mls/hour as ordered.
[2023-07-30 16:47] VITALS: BP 137/59
--- NOTE | 2023-07-30 20:14 | VATNOTE ---
unsuccessful IV restart x2; another VAT RN to attempt.
[2023-07-30 20:31] VITALS: BP 153/67
[2023-07-30] MEDS: CRESTOR 10 MG PO (21:47)
[2023-07-30 23:00] VITALS: BP 144/79
[2023-07-31] MEDS: NSS 1000 IV (01:13)
[2023-07-31 06:00] VITALS: BMI 41.1
[2023-07-31 07:24] VITALS: BP 170/75
[2023-07-31] MEDS: PROTONIX 40 MG PO (09:43)
[2023-07-31] MEDS: LEVAQUIN 500 MG PO (09:43)
[2023-07-31] MEDS: PROZAC 10 MG PO (09:44)
[2023-07-31] MEDS: NEURONTIN 300 MG PO ×3 (09:44→21:33)
[2023-07-31] MEDS: TOPROL XL 25 MG PO (09:44)
[2023-07-31] MEDS: PROZAC 20 MG PO (09:44)
[2023-07-31] MEDS: VISBIOME 1 CAP PO (09:44)
[2023-07-31] MEDS: ELIQUIS 5 MG PO ×2 (09:45→19:41)
[2023-07-31] MEDS: NSS IV (10:07)
--- NOTE | 2023-07-31 10:36 | W.PN.ID1 ---
Date of Service
Date of Service: July 31, 2023
Today's Communication
Continue abx. See below..
Assessment / Plan
Abdominal pain
- resolved
Reported dysuria
- patient reports resolution of symptoms <24h after initiation of abx
Recurrent hallucinations
CVA
GERD
Dyslipidemia
CAD; Hx MD
Anxiety/depression
Hx UTI
Garett Bonnet syndrome
Aguilar's esophagus
Blindness
Recommendations:
Continue levofloxacin 500 mg p.o. daily to complete a 7 day course overall.
Of note, urinalysis was reported to be 'straight cath', but the significant amount of squamous cells indicate that this is a contaminated specimen, and culture results need to be interpreted in that context.
If hallucinations / encephalopathy does not improve, may consider Psychiatry, or Neurology input.
����������������������������������������������������������
Chief Complaint
-: UTI
Subjective / Review of Systems
Review of Systems: No Fever, No Chills, No Nausea and No Dysuria
Vital Signs / Physical Exam
Vital Signs
Vital Signs
Temp Pulse Resp BP Pulse Ox
97.6 F 60 18 170/75 95
07/31/23 07:24 07/31/23 09:44 07/31/23 07:24 07/31/23 09:44 07/31/23 07:24
Physical Exam
Constitutional: No Acute Distress, Chronically Ill and Non-toxic
Eyes: Sclera Anicteric
Pulmonary: Non Labored
Gastrointestinal: Non Distended
Skin: Negative Rash or Jaundice
Neurological: Awake and Alert
Psychological: Calm
Objective Data
Lab Data
Lab Results
07/29/23 07:24
07/29/23 07:24
Estimated Creat Clear 53 ml/min 07/29/23 07:24
Lactic Acid Cancelled 07/28/23 20:45
Total Bilirubin 0.7 mg/dl (0.2-1.3) 07/28/23 16:35
AST 25 U/L (14-36) 07/28/23 16:35
ALT 13 U/L (0-35) 07/28/23 16:35
Alkaline Phosphatase 56 U/L (38-126) 07/28/23 16:35
Most recent labs reviewed.
Micro Results:
07/28/23 16:59 Blood Culture - Preliminary
Blood/Venous No Growth in 48 hours- Final report to follow
07/28/23 16:35 Blood Culture - Preliminary
Blood/Venous No Growth in 48 hours- Final report to follow
07/28/23 16:35 Urine Culture - Final
Urine Escherichia coli
07/28/23 22:37 MRSA Screen - Final
Nose No Methicillin Resistant Staphylococcus aureus isolated.
Urine Culture Final 07/28/23
CC: Greater than 100,000 CFU/ML Escherichia coli
Organism 1 Escherichia coli
1. Escherichia coli
M.I.C. RX
--------- ---
Amoxicillin/Potas. Clavulanate >16/8 R
Ampicillin >16 R
Ampicillin/Sulbactam >16/8 R
Cefazolin >16 R
Cefepime <=2 S
Ceftazidime 4 S
Ceftriaxone <=1 S
Ertapenem <=0.5 S
Ciprofloxacin <=0.25 S
Gentamicin <=4 S
Levofloxacin <=0.5 S
Meropenem <=1 S
Nitrofurantoin-Urine Only <=32 S
Piperacillin/Tazobactam <=16 S
Tobramycin <=4 S
Trimethoprim/Sulfamethoxazole <=2/38 S
Imaging:
07/22/2023 CXR (portable): Low lung volumes noted. No focal parenchymal opacification or vascular congestion. No pleural effusion or pneumothorax.
--- NOTE | 2023-07-31 12:23 | W.PN.HOSP.TC ---
Today's Communication/Plan
-
Stat ABG to know PCO 2 level
Assessment / Plan
Assessment / Plan
Physical Exam
General: Well Developed and Well Nourished
HEENT: Anicteric and Moist mucous membranes
Respiratory: Clear and Non Labored Respirations
Cardiac: S1/S2 and Regular Rhythm
GI: Soft and Non Tender
Musculoskeletal: No Clubbing, No Cyanosis and No Edema
Skin: Warm and Dry
Neuro: Awake, Alert and Other (Appears to move all four extremities appropriate, but unable to participate in full neurologic exam as she does not follow all commands appropriately)
Psych: Calm and Confused (Patient with apparent hallucinations)
# E Coli UTI
Finalized culture. Hx of UTI in past
Bladder scan did not show retention or incomplete emptying.
Blood cultures no growth.
Afebrile
Less confused per family
meropenem was stopped, now on oral Levaquin. Patient was taking prophylactic Keflex at home which might impact results of testing.
Appreciate ID help.
# JOSETTE
Patient has significant apneic episodes while sleeping
She had C-pap in past but not using it anymore. Will do ABG to detect CO2 retention
Order C pap for the night time
will follow
and
# TME secondary to Urinary Tract Infection, possible CO2 retention?
- Less confused,
on Neurontin.
daughter calculated ( anti-cholinergic load from her medications today) for possible side effects. patient does not have S& S of anti-cholinergic overdose.
- Possible underlying senile dementia that is starting to manifest and worsened in hospital/ [facility] settings and infection.
-Patient was seen by neurology and psychiatry last admissions in May and June 2023. 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
blindness) most likely due to underlying metabolic abnormality, suspected infection.
#Paroxysmal Atrial Fibrillation
-Continue Eliquis for anticoagulation
-Continue metoprolol for rate control with hold parameters
Essential Hypertension
-Hold ramipril as BP running low
Hyperlipidemia
-Continue rosuvastatin
Anxiety/Depression
-Continue fluoxetine ( chronic medicine)
GERD/Aguilar's Esophagus
-Continue Protonix
DVT proph: Eliquis
Code Status: DNR
Total time spent to see the patient, examine the patient on the floor, review data and lab results, discuss treatment plan with patient, family, nursing staff around 59 minutes
Anticipated Discharge: 24 - 48 hours
Subjective/Interval History
-
Date of Service: July 31, 2023
Sleepy
No pain issues
No fevers
Objective Data
-
Vital Signs:
Vital Signs
Temp Pulse Resp BP Pulse Ox
97.6 F 60 18 170/75 95
07/31/23 07:24 07/31/23 09:44 07/31/23 07:24 07/31/23 09:44 07/31/23 08:00
I&O
07/30/23 07/31/23 08/01/23
06:59 06:59 06:59
Intake Total 840 / 840 1610 / 1610
Output Total 240 / 240
Balance 840 / 840 1370 / 1370
[2023-07-31 13:32] LABS: B.E. 2.3 mmol/L; HCO3 28.3 mmol/L (21-28); O2 Saturation % 99.6 % (94-98); PCO2 49 mmHg (32-35); PO2 112 mmHg (83-108); pH 7.37 (7.35-7.45)
[2023-07-31 15:58] VITALS: BP 122/94
[2023-07-31] MEDS: TOPROL XL PO (19:41)
[2023-07-31] MEDS: CRESTOR 10 MG PO (21:33)
[2023-07-31 23:45] VITALS: BP 151/76
[2023-08-01 06:00] VITALS: BMI 41.4
[2023-08-01 07:43] VITALS: BP 175/93
[2023-08-01] MEDS: PROZAC 10 MG PO (08:15)
[2023-08-01] MEDS: PROZAC 20 MG PO (08:15)
[2023-08-01] MEDS: ELIQUIS 5 MG PO ×2 (08:15→20:56)
[2023-08-01] MEDS: NEURONTIN 300 MG PO ×3 (08:15→22:01)
[2023-08-01] MEDS: VISBIOME 1 CAP PO (08:15)
[2023-08-01] MEDS: LEVAQUIN 500 MG PO (08:15)
[2023-08-01] MEDS: PROTONIX 40 MG PO (08:15)
[2023-08-01] MEDS: TOPROL XL 25 MG PO ×2 (08:16→20:56)
[2023-08-01] MEDS: DESENEX/MITRAZOL/ZEASORB 1 APPLIC TOPICAL ×2 (09:10→21:01)
[2023-08-01 11:09] VITALS: BP 165/71
--- NOTE | 2023-08-01 11:23 | W.PN.HOSP.TC ---
Today's Communication/Plan
-
dc planning
Assessment / Plan
Assessment / Plan
Physical Exam
General: Well Developed and Well Nourished
HEENT: Anicteric and Moist mucous membranes. Blind
Respiratory: Clear and Non Labored Respirations
Cardiac: S1/S2 and Regular Rhythm
GI: Soft and Non Tender
Musculoskeletal: No Clubbing, No Cyanosis and No Edema
Skin: Warm and Dry
Neuro: Awake, more alert, she followed commands.
Psych: Calm and Confused (Patient with apparent hallucinations)
# E Coli UTI
Finalized culture. Hx of UTI in past
Bladder scan did not show retention or incomplete emptying.
Blood cultures no growth.
Afebrile
meropenem was stopped, now on oral Levaquin ( total 7 days course). Patient was taking prophylactic Keflex at home which might impact results of testing, stopped it.
Appreciate ID help.
# JOSETTE
Patient has significant apneic episodes while sleeping. She was placed on nasal O2 and stopped using C pap. ABG reviewed
She is more alert and doing better. She reports good night sleep after using it.
Will check home O2 need.
# TME secondary to Urinary Tract Infection, sleep disturbance due to untreated sleep apnea
More alert, and seems to improve after using C papa and treating UTI.
c/w Neurontin. She was on 600 mg TID in 2022 but decreased after dc from in 03/2022.
Daughter calculated ( anti-cholinergic load from her medications through an reggie on her phone on Wednesday) for possible side effects. Patient does not have S& S of anti-cholinergic overdose.
- Can not rule out underlying senile dementia that is starting to manifest and worsened in hospital/ correction settings and infection.
-Patient was seen by neurology and psychiatry last admissions in May and June 2023. 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
blindness) most likely due to underlying metabolic abnormality, suspected infection.
#Paroxysmal Atrial Fibrillation
-Continue Eliquis for anticoagulation
-Continue metoprolol for rate control with hold parameters
#Essential Hypertension
Poorly controlled. Bp starting to go up. Resume Ramipril.
#Hyperlipidemia
-Continue rosuvastatin
#Anxiety/Depression
-Continue fluoxetine ( chronic medicine)
#GERD/Aguilar's Esophagus
-Continue Protonix
DVT proph: Eliquis
Code Status: DNR
Total time spent to see the patient, examine the patient on the floor, review data and lab results, discuss treatment plan with patient, family, nursing staff around 59 minutes
Anticipated Discharge: Today
Subjective/Interval History
-
Date of Service: August 01, 2023
She is more alert this morning, slept well
Objective Data
-
Vital Signs:
Vital Signs
Temp Pulse Resp BP Pulse Ox
98.6 F 62 20 170/72 97
08/01/23 07:43 08/01/23 08:16 08/01/23 07:43 08/01/23 08:16 08/01/23 08:00
I&O
07/31/23 08/01/23 08/02/23
06:59 06:59 06:59
Intake Total 1610 / 1610 550 / 550
Output Total 240 / 240 200 / 200
Balance 1370 / 1370 350 / 350
--- NOTE | 2023-08-01 12:47 | W.PN.ID1 ---
Date of Service
Date of Service: August 01, 2023
Today's Communication
Continue antibiotics.
Assessment / Plan
Abdominal pain
- resolved
Reported dysuria
- patient reports resolution of symptoms <24h after initiation of abx
Recurrent hallucinations
CVA
GERD
Dyslipidemia
CAD; Hx [place]
Anxiety/depression
Hx UTI
Garett Bonnet syndrome
Aguilar's esophagus
Blindness
Recommendations:
Continue levofloxacin 500 mg p.o. daily (d#5) to complete a 7 day course overall.
Of note, urinalysis was reported to be 'straight cath', but the significant amount of squamous cells indicate that this is a contaminated specimen, and culture results need to be interpreted in that context.
May need OP Urology eval to assess possible etiologies of recurrent urinary tract infections.
����������������������������������������������������������
Chief Complaint
-: UTI
Subjective / Review of Systems
Review of Systems: No Fever
Vital Signs / Physical Exam
Vital Signs
Vital Signs
Temp Pulse Resp BP Pulse Ox
98.6 F 62 20 170/72 97
08/01/23 07:43 08/01/23 08:16 08/01/23 07:43 08/01/23 08:16 08/01/23 08:00
Physical Exam
Constitutional: No Acute Distress, Chronically Ill and Non-toxic
Eyes: Sclera Anicteric
Pulmonary: Non Labored
Gastrointestinal: Non Distended
Skin: Negative Rash or Jaundice
Neurological: Awake
Psychological: Calm
Objective Data
Lab Data
Lab Results
07/29/23 07:24
07/29/23 07:24
Estimated Creat Clear 53 ml/min 07/29/23 07:24
Lactic Acid Cancelled 07/28/23 20:45
Total Bilirubin 0.7 mg/dl (0.2-1.3) 07/28/23 16:35
AST 25 U/L (14-36) 07/28/23 16:35
ALT 13 U/L (0-35) 07/28/23 16:35
Alkaline Phosphatase 56 U/L (38-126) 07/28/23 16:35
Most recent labs reviewed.
Micro Results:
07/28/23 16:59 Blood Culture - Preliminary
Blood/Venous No Growth in 72 hours- Final report to follow
07/28/23 16:35 Blood Culture - Preliminary
Blood/Venous No Growth in 72 hours- Final report to follow
07/28/23 16:35 Urine Culture - Final
Urine Escherichia coli
07/28/23 22:37 MRSA Screen - Final
Nose No Methicillin Resistant Staphylococcus aureus isolated.
Urine Culture Final 07/28/23
CC: Greater than 100,000 CFU/ML Escherichia coli
Organism 1 Escherichia coli
1. Escherichia coli
M.I.C. RX
--------- ---
Amoxicillin/Potas. Clavulanate >16/8 R
Ampicillin >16 R
Ampicillin/Sulbactam >16/8 R
Cefazolin >16 R
Cefepime <=2 S
Ceftazidime 4 S
Ceftriaxone <=1 S
Ertapenem <=0.5 S
Ciprofloxacin <=0.25 S
Gentamicin <=4 S
Levofloxacin <=0.5 S
Meropenem <=1 S
Nitrofurantoin-Urine Only <=32 S
Piperacillin/Tazobactam <=16 S
Tobramycin <=4 S
Trimethoprim/Sulfamethoxazole <=2/38 S
Imaging:
07/22/2023 CXR (portable): Low lung volumes noted. No focal parenchymal opacification or vascular congestion. No pleural effusion or pneumothorax.
[2023-08-01 15:58] VITALS: BP 137/90
[2023-08-01] MEDS: CRESTOR 10 MG PO (22:00)
[2023-08-01] MEDS: TYLENOL 650 MG PO (22:00)
[2023-08-01 23:00] VITALS: BP 139/72
[2023-08-02 06:00] VITALS: BMI 41.1
[2023-08-02 07:15] VITALS: BP 167/60
[2023-08-02 07:25] LABS: Hematocrit 35.3 % (37.0-47.0); Hemoglobin 11.7 g/dL (12.0-16.0); Mean Corp Hgb Conc. 33.1 g/dL (33.0-37.0); Mean Corpuscular Hgb 31.5 pg (27.0-31.0); Mean Corpuscular Volume 95.1 fL (81.0-99.0); Mean Platelet Volume 10.9 fL (7.4-10.4); Platelet Count 162 10^3/uL (130-400); Red Blood Cell Count 3.71 10^6/uL (4.20-5.40); Red Cell Dist. Width 13.1 % (11.5-14.5); White Blood Cell Count 4.4 10^3/uL (4.8-10.8)
[2023-08-02 07:37] LABS: Blood Urea Nitrogen 9 mg/dl (7-17); Calcium 9.3 mg/dl (8.4-10.2); Carbon Dioxide 31 mmol/L (22-30); Chloride 104 mmol/L (98-107); Estimated Creatinine Clearance 62 ml/min; Glucose 99 mg/dl (70-99); Potassium 3.7 mmol/L (3.5-5.1); Sodium 138 mmol/L (135-145); eGFR > 60.00
[2023-08-02 09:00] VITALS: BP 167/60
[2023-08-02] MEDS: PROTONIX 40 MG PO (09:44)
[2023-08-02] MEDS: NEURONTIN 300 MG PO ×2 (09:44→15:31)
[2023-08-02] MEDS: TOPROL XL 25 MG PO (09:44)
[2023-08-02] MEDS: LEVAQUIN 500 MG PO (09:44)
[2023-08-02] MEDS: PROZAC 20 MG PO (09:44)
[2023-08-02] MEDS: PROZAC 10 MG PO (09:44)
[2023-08-02] MEDS: ELIQUIS 5 MG PO (09:44)
[2023-08-02] MEDS: FLUSH (NSS) 1 FLUSH IV (09:45)
[2023-08-02] MEDS: VISBIOME 1 CAP PO (09:45)
[2023-08-02] MEDS: DESENEX/MITRAZOL/ZEASORB 1 APPLIC TOPICAL (09:45)
--- NOTE | 2023-08-02 10:20 | W.PN.HOSP.TC ---
Today's Communication/Plan
-
Discharge to [facility] today
Assessment / Plan
Assessment / Plan
# E Coli UTI
Finalized culture. Hx of UTI in past
Bladder scan did not show retention or incomplete emptying.
Blood cultures no growth.
Afebrile
meropenem was stopped, now on oral Levaquin ( total 7 days course). Patient was taking prophylactic Keflex at home which might impact results of testing, stopped it.
Appreciate ID help. Medically stable for discharge back to [facility]
# JOSETTE
Patient has significant apneic episodes while sleeping. She was placed on nasal O2 and stopped using C pap. ABG reviewed
She is more alert and doing better. She reports good night sleep after using it.
Continue CPAP at [place]
# TME secondary to Urinary Tract Infection, sleep disturbance due to untreated sleep apnea
More alert, and seems to improve after using C papa and treating UTI.
c/w Neurontin. She was on 600 mg TID in 2022 but decreased after dc from in 03/2022.
Daughter calculated ( anti-cholinergic load from her medications through an reggie on her phone on Wednesday) for possible side effects. Patient does not have S& S of anti-cholinergic overdose.
- Can not rule out underlying senile dementia that is starting to manifest and worsened in hospital/ shelter settings and infection.
-Patient was seen by neurology and psychiatry last admissions in May and June 2023. 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
blindness) most likely due to underlying metabolic abnormality, suspected infection.
#Paroxysmal Atrial Fibrillation
-Continue Eliquis for anticoagulation
-Continue metoprolol for rate control with hold parameters
#Essential Hypertension
Poorly controlled. Bp starting to go up. Resume Ramipril.
#Hyperlipidemia
-Continue rosuvastatin
#Anxiety/Depression
-Continue fluoxetine ( chronic medicine)
#GERD/Aguilar's Esophagus
-Continue Protonix
DVT proph: Eliquis
Code Status: DNR
Updated daughter at bedside 08/01
Physical Exam
General: Obese, no acute distress
HEENT: Anicteric and Moist mucous membranes. Blind
Respiratory: Clear and Non Labored Respirations
Cardiac: S1/S2 and Regular Rhythm
GI: Soft and Non Tender
Musculoskeletal: No Clubbing, No Cyanosis and No Edema
Skin: Warm and Dry
Neuro: Awake, more alert, she followed commands.
Psych: Calm and AAOx3 (Patient with apparent hallucinations)
Anticipated Discharge: Today
Subjective/Interval History
-
Date of Service: August 02, 2023
Confusion resolved. Still having hallucinations. No fever, no vomiting.
Objective Data
-
Labs:
Laboratory Results
08/02/23
06:44
WBC 4.4 L
Hgb 11.7 L
Hct 35.3 L
Plt Count 162
Sodium 138
Potassium 3.7
Chloride 104
Carbon Dioxide 31 H
BUN 9
Creatinine 0.7
Glucose 99
Calcium 9.3
Vital Signs:
Vital Signs
Temp Pulse Resp BP Pulse Ox
98.3 F 114 18 16/6 95
08/02/23 07:15 08/02/23 09:44 08/02/23 07:15 08/02/23 09:44 08/02/23 07:15
I&O
08/01/23 08/02/23 08/03/23
06:59 06:59 06:59
Intake Total 550 / 550 500 / 500
Output Total 200 / 200 600 / 600
Balance 350 / 350 -100 / -100
[2023-08-02 10:47] VITALS: BP 134/71; PULSE 61; O2SAT 94
--- NOTE | 2023-08-02 12:31 | CM ---
Ting is ready for discharge back to [facility] today. Demario in admissions advised of same.
I met with Ting and her daughter who are agreeable to return and happy that she is being discharged.
Ambulance transport being arranged.
No further CM services needed at this time.

Report: [phone]
--- NOTE | 2023-08-02 13:52 | W.PN.ID1 ---
Date of Service
Date of Service: August 02, 2023
Today's Communication
Continue antibiotics
Assessment / Plan
Abdominal pain
- resolved
Reported dysuria
- patient reports resolution of symptoms <24h after initiation of abx
Recurrent hallucinations
CVA
GERD
Dyslipidemia
CAD; Hx [place]
Anxiety/depression
Hx UTI
Garett Bonnet syndrome
Aguilar's esophagus
Blindness
Recommendations:
Continue levofloxacin 500 mg p.o. daily (d#6) to complete a 7 day course overall.
Of note, urinalysis was reported to be 'straight cath', but the significant amount of squamous cells indicate that this is a contaminated specimen, and culture results need to be interpreted in that context.
Recommend OP Urology eval to assess possible etiologies of recurrent urinary tract infections.
����������������������������������������������������������
Chief Complaint
-: UTI
Subjective / Review of Systems
Patient seen and examined. Family reports patient back to baseline.
Review of Systems: No Fever and No Chills
Vital Signs / Physical Exam
Vital Signs
Vital Signs
Temp Pulse Resp BP Pulse Ox
98.3 F 114 18 16/6 95
08/02/23 07:15 08/02/23 09:44 08/02/23 07:15 08/02/23 09:44 08/02/23 07:15
Physical Exam
Constitutional: No Acute Distress, Chronically Ill and Non-toxic
Eyes: Sclera Anicteric
Pulmonary: Non Labored
Gastrointestinal: Non Distended
Skin: Negative Rash or Jaundice
Neurological: Awake
Psychological: Calm; Negative Confused
Objective Data
Lab Data
Lab Results
08/02/23 06:44
08/02/23 06:44
Estimated Creat Clear 62 ml/min 08/02/23 06:44
Lactic Acid Cancelled 07/28/23 20:45
Total Bilirubin 0.7 mg/dl (0.2-1.3) 07/28/23 16:35
AST 25 U/L (14-36) 07/28/23 16:35
ALT 13 U/L (0-35) 07/28/23 16:35
Alkaline Phosphatase 56 U/L (38-126) 07/28/23 16:35
Most recent labs reviewed.
Micro Results:
07/28/23 16:59 Blood Culture - Preliminary
Blood/Venous No Growth in 4 days- Final report to follow
07/28/23 16:35 Blood Culture - Preliminary
Blood/Venous No Growth in 4 days- Final report to follow
07/28/23 16:35 Urine Culture - Final
Urine Escherichia coli
07/28/23 22:37 MRSA Screen - Final
Nose No Methicillin Resistant Staphylococcus aureus isolated.
Urine Culture Final 07/28/23
CC: Greater than 100,000 CFU/ML Escherichia coli
Organism 1 Escherichia coli
1. Escherichia coli
M.I.C. RX
--------- ---
Amoxicillin/Potas. Clavulanate >16/8 R
Ampicillin >16 R
Ampicillin/Sulbactam >16/8 R
Cefazolin >16 R
Cefepime <=2 S
Ceftazidime 4 S
Ceftriaxone <=1 S
Ertapenem <=0.5 S
Ciprofloxacin <=0.25 S
Gentamicin <=4 S
Levofloxacin <=0.5 S
Meropenem <=1 S
Nitrofurantoin-Urine Only <=32 S
Piperacillin/Tazobactam <=16 S
Tobramycin <=4 S
Trimethoprim/Sulfamethoxazole <=2/38 S
Imaging:
07/22/2023 CXR (portable): Low lung volumes noted. No focal parenchymal opacification or vascular congestion. No pleural effusion or pneumothorax.
--- NOTE | 2023-08-02 14:18 | W.DCSUMMARY ---
Discharge Summary
Discharge Data
Date of Admission: 07/28/23
Date of Discharge: 08/02/23
-
Pending Results: No
Hospital Course
Discharge diagnosis:
Acute urinary tract infection
Legal blindness
Obstructive sleep apnea
Acute toxic metabolic encephalopathy
Paroxysmal atrial fibrillation
Labile hypertension
Garett Bonnet syndrome
Consults: ID
Hospital course:
83-year-old female with a past medical history of legal blindness, Garett Bonnet syndrome, labile hypertension, and paroxysmal atrial fibrillation on eliquis was admitted for acute toxic metabolic encephalopathy secondary to an acute urinary tract
infection. Patient was initially treated with Merrem. She was seen in conjunction with ID. Urine cultures grew E. coli, sensitive to Rocephin, fluoroquinolones. ID transitioned her to Levaquin.
Patient's confusion resolved. She continued to have visual hallucinations. Suspect this is from her Garett Bonnet syndrome.
Patient has obstructive sleep apnea, but stopped using her CPAP. She was counseled to resume using her CPAP. [facility]
Patient is medically stable and cleared by ID for discharge on Levaquin to complete a 7-day course.
Disposition: [facility]
Discharge planning: Required 38 minutes
Discharge Plan
-
Patient Disposition: Shelter/SNF
Discharge Diagnosis/Procedures: Acute urinary tract infection, obstructive sleep apnea with hypercapnia, confusion, hallucinations,
Condition: Fair
Diet: 2 Gram Sodium
Activity: As tolerated
Activity Restrictions/Additional Instructions:
Please use your CPAP when you sleep at night, and during nap time.
Please take your antibiotics levofloxacin 500 mg, last dose is 08/03/2023.
Follow-up with your primary care doctor in 1 week.
Referrals:
Tereso Carranza DO [Family Provider] - in one week
Prescriptions:
New
miconazole nitrate [Miconazorb AF] 2 % Powder
1 applic topical BID Qty: 85 0RF
levofloxacin 500 mg Tablet
500 mg PO DAILY 1 Days Qty: 1 0RF
Continued
pantoprazole 40 MG tablet,delayed release (DR/EC)
40 mg PO DAILY
ramipril 5 MG capsule
5 mg PO BID
Rx Instructions:
give with 1.25mg to equal 6.25mg BID
rosuvastatin 10 MG tablet
10 mg PO HS
fluoxetine 10 MG capsule
10 mg PO DAILY
Rx Instructions:
take with 20 mg for a total of 30 mg.
cyanocobalamin (vitamin B-12) [Vitamin B-12] 1,000 mcg Tablet
1,000 mcg PO MOWEFR
fluoxetine 20 mg capsule
20 mg PO DAILY
Rx Instructions:
take with 10 mg for a total of 30 mg.
cholecalciferol (vitamin D3) [Vitamin D3] 125 mcg (5,000 unit) Tablet
125 mcg PO DAILY
acetaminophen 325 mg Tablet
650 mg PO Q4H PRN (Reason: mild pain/fever>100.4)
ascorbic acid (vitamin C) 1,000 mg Tablet
1,000 mg PO DAILY
gabapentin 300 mg Capsule
300 mg PO TID
cranberry extract [Cranberry Concentrate] 500 mg Capsule
500 mg PO DAILY
multivitamin Tablet
1 tab PO DAILY
calcium carbonate 500 mg calcium (1,250 mg) Tablet,Chewable
500 mg PO DAILY
Culturelle
1 cap PO DAILY
Eliquis 5 mg Tablet
5 mg PO BID Qty: 60 1RF
metoprolol succinate 25 mg Tablet Extended Release 24 Hr
25 mg PO BID Qty: 60 1RF
thiamine HCl (vitamin B1) 100 mg Tablet
100 mg PO DAILY Qty: 14 0RF
magnesium oxide 400 mg (241.3 mg magnesium) tablet
400 mg PO DAILY Qty: 30 0RF
ondansetron HCl 4 mg Tablet
4 mg PO Q6H PRN (Reason: nausea/vomiting)
magnesium hydroxide [Milk of Magnesia] 400 mg/5 mL Suspension
30 ml PO HS PRN (Reason: constipation)
bisacodyl [Dulcolax (bisacodyl)] 10 mg Suppository
10 mg WI DAILY PRN (Reason: if mom is ineffective)
ramipril 2.5 mg capsule
2.5 mg PO BID
Discharge Orders:
Discharge Patient (As Directed); Ordered 08/02/23
Ordered By: Dom Zelaya
Discharge Date and Time
Discharge Date/Time: 08/02/23 17:29
Print Language: MALTESE
[2023-08-02 16:02] VITALS: BP 133/57
== END 2023-08-02 17:29 | DRG 689 ==
LOC: 4 EAST ACU 19:25
PROVIDERS: Physician Assistant Medical; ADMITTING PHYSICIAN Internal Medicine; ATTENDING PHYSICIAN Family Medicine; CONSULT PHYSICIAN Internal Medicine Infectious Disease; EMERGENCY PHYSICIAN Student in an Organized Health Care Education/Training Program; FAMILY PHYSICIAN Student in an Organized Health Care Education/Training Program
PROC: 5A09357 Assistance with Respiratory Ventilation, Less than 24 Consecutive Hours, Continuous Positive Airway Pressure (ICD-10-PCS; 2023-08-01)
DX: N39.0 Urinary tract infection, site not specified (principal); G92.8 Other toxic encephalopathy; J18.9 Pneumonia, unspecified organism; Z68.41 Body mass index [BMI] 40.0-44.9, adult; I10 Essential (primary) hypertension; H54.8 Legal blindness, as defined in USA; F32.A Depression, unspecified; I25.10 Atherosclerotic heart disease of native coronary artery without angina pectoris; F41.9 Anxiety disorder, unspecified; G47.33 Obstructive sleep apnea (adult) (pediatric); B96.20 Unspecified Escherichia coli [E. coli] as the cause of diseases classified elsewhere; I48.0 Paroxysmal atrial fibrillation; K22.70 Barrett's esophagus without dysplasia; H53.16 Psychophysical visual disturbances; E66.01 Morbid (severe) obesity due to excess calories; K21.9 Gastro-esophageal reflux disease without esophagitis; E78.00 Pure hypercholesterolemia, unspecified; G47.30 Sleep apnea, unspecified; Z66 Do not resuscitate; Z99.81 Dependence on supplemental oxygen; I25.2 Old myocardial infarction; Z87.440 Personal history of urinary (tract) infections; Z79.01 Long term (current) use of anticoagulants; Z88.8 Allergy status to other drugs, medicaments and biological substances; Z91.041 Radiographic dye allergy status
CPT/HCPCS: 36415; 36600; 51701; 80048; 80053; 81003; 81015; 82306; 82607; 82746; 82805; 83605; 83735; 85025; 85027; 87040; 87070; 87086; 87088; 87186; 96365; 96366; 97110; 97116; 97163; 97167; 99285

== ENCOUNTER 2023-10-18 16:46 | Inpatient (IN) | payer MEDICARE, OTHER, SELFPAY ==
[2023-10-18] VITALS (8 sets, daily range): BP systolic 146–179; BP diastolic 67–94; PULSE 60; BMI 37.7
--- NOTE | 2023-10-18 13:14 | ED.GENMED ---
History of Present Illness
General
Chief Complaint: Abdominal Pain
Source: shelter records
Exam Limitations: clinical condition
Time Seen by Provider: 10/18/23 13:08
History of Present Illness
History of Present Illness:
83-year-old female who presents with fever and change in mental status. Also reportedly had nausea and vomiting and was given Zofran prior to the hospital transfer. Patient is unable to contribute to her own history but reportedly was complaining
of lower abdominal pain. Does have a history of UTIs.
Past History
Past History
ED Past Medical History: CVA, GERD, HTN, Hypercholesterolemia, AR, Psychiatric (Anxiety, Depression) and Other (Recurrent UTI, PNA, possible hemiplegia Migraines, Garett Bonnet Syndrome, TGA, Sleep apnea, Barrets esophagus, GI bleeding, BLind);
Negative Asthma or NIDDM
ED Past Surgical History: Appendectomy, and Other (Hernia repair)
Social History
Tobacco: Non-smoker
Alcohol: None
Drug: None
Personal:
Living: assisted living ([facility])
Employment: Not employed
Family History
Family History: Other and Unable to obtain
Phy Exam
Physical Exam
Physical Exam:
CONSTITUTIONAL Patient alert and oriented to person. Vital signs reviewed. Febrile
HEAD atraumatic, normocephalic.
EYES eyelids normal to inspection, Extraocular muscles intact, Conjunctiva normal, Sclera normal.
NECK normal range of motion, Trachea midline, no jugular venous distention.
RESPIRATORY CHEST No respiratory distress noted, Chest expansion equal
ABDOMEN No distention. Noted suprapubic and left and right lower quadrant tenderness on exam
BACK normal inspection, no obvious deformities
UPPER EXTREMITY range of motion normal, Motor strength normal, no cyanosis, no edema.
LOWER EXTREMITY range of motion normal, Motor strength normal, no cyanosis, no edema.
NEURO Speech normal, No focal motor deficits, Cranial Nerves intact to screening exam. Slightly confused
SKIN skin warm, dry, and normal in color.
Course
Orders/Labs/Results
Orders:
Orders
10/18/23 13:09
Electrocardiogram (*1) Urgent
Reason for Study: Other
Other Reason for Exam: Possible Sepsis
Cardiac Monitoring- Treatment ONCE
EKG- Treatment ONCE
IV Insert/Care/Rem.- Treatment PRN
Straight cath- Treatment ONCE
O2 Therapy [RESP] Urgent
Titrate/Wean O2 to maintain O2 sat greater than (%): 93
Special Instructions: TO MAINTAIN CONTINUOUS O2 SATS > OR = 93%
Pulse Ox/cont/shift [RESP] Urgent
Quantity: 1
Special Instructions: CONTINUOUS
10/18/23 13:10
Complete Blood Count/With Diff Urgent
Comprehensive Metabolic Panel Urgent
Lipase Urgent
Urinalysis Reflex To Culture Urgent
Date Specimen was Collected: 10/18/23
Time Specimen was Collected: 13:09
Urine Microscopic Reflex Cult Urgent
Urine Culture Urgent
LEIGH ANN Source: U
Specimen Description:
Date Specimen was Collected: 10/18/23
Time Specimen was Collected: 13:09
10/18/23 13:15
0.9% Sodium Chloride 500 ml [Nss] 500 ml IV BOLUS
Acetaminophen [Tylenol/Feverall] 650 mg RECTAL NOW STA
10/18/23 13:18
Lactic Acid Urgent
Blood Culture Urgent
LEIGH ANN Source: Blood/Venous
Specimen Description:
10/18/23 14:40
Cefepime HCl [Maxipime] 1,000 mg IV NOW STA
Vancomycin 1 Gram/200 ml [Vancocin] 1 gram in 200 ml IV NOW
10/18/23 15:11
Sterile Water [Sterile Water For Injection] 10 ml .ROUTE .STK-MED ONE
10/18/23 15:25
CT Abd/pelvis W Iv Cont Urgent
Comment:
Reason For Exam: lower abd pain, fever
10/18/23 15:30
COVID-19 Antigen Urgent
Source: Nasal Swab
Abnormal Lab Results
10/18/23
13:10
RBC 4.01 L 10^6/uL
(4.20-5.40)
MCH 31.4 H pg
(27.0-31.0)
Absolute Lymphs (auto) 0.9 L 10^3/uL
(1.2-3.4)
Neutrophils % 82.4 H %
(42.2-75.2)
Lymphocytes % 13.1 L %
(20.5-51.1)
Glucose 132 H mg/dl
(70-99)
Ur Occult Blood Reflex 1+ A
(Negative)
Leukocyte Esterase Rfl 2+ A
(Negative)
Urine RBC 3-6 A /HPF
(0-2)
Urine WBC (Reflex) 26-30 A /HPF
(0-5)
Urine Bacteria (Reflex) Many A
(Negative)
Urine Albumin (Reflex) 1+ A
(Neg - Trace)
10/18/23 13:10
10/18/23 13:10
Vital Signs
Initial and Last Documented VS:
Initial Vital Signs
Temp Pulse Resp BP Pulse Ox
101.4 F H 71 20 163/94 91
10/18/23 13:04 10/18/23 13:04 10/18/23 13:04 10/18/23 13:04 10/18/23 13:04
Last Documented Vital Signs
Temp Pulse Resp BP Pulse Ox
101.4 F H 71 14 163/94 93
10/18/23 13:04 10/18/23 13:36 10/18/23 13:36 10/18/23 13:04 10/18/23 13:36
*Pulse Oximetry
Patient hypoxic: no
*Top Waddy Interpretation
Rate: normal
Interpretation: normal
Rhythm: sinus
*Critical Care Note
Total Time (30-74mins, 75-104mins- exclusive of procedures): 30 minutes
Data Reviewed
Review of Other/Old Records Reveals: Labs (Prior urine microbiology from June reviewed showing E. coli, sensitivities reviewed)
Source: patient and family
Patient Management
Discussion with other providers: Hospitalist
Escalation/DeEscalation of care consider admission/obs:
83-year-old female presents with fever and change in mental status. Family states she is behaving just like she did not pass with a urine infection. Urinalysis abnormal. Previous cultures reviewed revealing previous E. coli as well as
Enterococcus. Broad-spectrum antibiotics. Admit
ED Attending Note
-
Portions of this chart may have been created with voice recognition software.� Occasional wrong word or��sound alike� substitutions may have occurred due to the inherent limitations of voice recognition software.
Discharge Plan
Departure
Patient Disposition: Admit
Date of Disposition: 10/18/23
Time of Disposition: 15:31
Admit to: Med/Surg
Presentation/result/management discussed w/ accepting MD/DO: Hospitalist
Discharge Problem:
Sepsis, Urinary tract infection
Prescriptions:
No Action
pantoprazole 40 MG tablet,delayed release (DR/EC)
40 mg PO HS
ramipril 5 MG capsule
5 mg PO BID
Rx Instructions:
give with 1.25mg to equal 6.25mg BID
rosuvastatin 10 MG tablet
10 mg PO HS
fluoxetine 10 MG capsule
10 mg PO DAILY
Rx Instructions:
take with 20 mg for a total of 30 mg.
fluoxetine 20 mg capsule
20 mg PO DAILY
Rx Instructions:
take with 10 mg for a total of 30 mg.
cholecalciferol (vitamin D3) [Vitamin D3] 125 mcg (5,000 unit) Tablet
125 mcg PO DAILY
acetaminophen 325 mg Tablet
650 mg PO Q4HPRN PRN (Reason: mild pain/fever>100.4)
ascorbic acid (vitamin C) 1,000 mg Tablet
1,000 mg PO DAILY
gabapentin 300 mg Capsule
300 mg PO TID
calcium carbonate 500 mg calcium (1,250 mg) Tablet,Chewable
500 mg PO DAILY
Eliquis 5 mg Tablet
5 mg PO BID Qty: 60 1RF
thiamine HCl (vitamin B1) 100 mg Tablet
100 mg PO DAILY Qty: 14 0RF
magnesium oxide 400 mg (241.3 mg magnesium) tablet
400 mg PO DAILY Qty: 30 0RF
ondansetron HCl 4 mg Tablet
4 mg PO Q6HPRN PRN (Reason: nausea/vomiting)
magnesium hydroxide [Milk of Magnesia] 400 mg/5 mL Suspension
30 ml PO HSPRN PRN (Reason: constipation)
bisacodyl [Dulcolax (bisacodyl)] 10 mg Suppository
10 mg [place] DAILYPRN PRN (Reason: 3 days no bm, mom is ineffective)
metoprolol succinate 50 mg Tablet Extended Release 24 Hr
50 mg PO DAILY
sulfamethoxazole-trimethoprim [Bactrim] 400-80 mg Tablet
0.5 tab PO DAILY
Theragen Tablet
1 tab PO DAILY
ramipril 1.25 mg Capsule
1.25 mg PO BID
Rx Instructions:
give with 5mg to equal 6.25mg BID
Visbiome 112.5 billion cell Capsule
1 cap PO DAILY
cranberry 450 mg Tablet
450 mg PO QPM
Referrals:
Tereso Carranza DO [Family Provider] -
Interventions
Interventions:
*Risk Screen - Suicide Last Done: 10/18/23 13:04
*General Assessment Last Done: 10/18/23 13:04
*Neglect/Abuse Screening Last Done: 10/18/23 13:04
Discharge Date and Time
Print Language: BELARUSIAN
[2023-10-18] MEDS: NSS 500 IV (13:29)
[2023-10-18] MEDS: TYLENOL/FEVERALL 650 MG RECTAL (13:29)
[2023-10-18 13:31] LABS: ALT (SGPT) 11 U/L (0-35); AST (SGOT) 26 U/L (14-36); Alkaline Phosphatase 68 U/L (38-126); Blood Urea Nitrogen 17 mg/dl (7-17); Calcium 9.5 mg/dl (8.4-10.2); Carbon Dioxide 28 mmol/L (22-30); Chloride 101 mmol/L (98-107); Estimated Creatinine Clearance 45 ml/min; Glucose 132 mg/dl (70-99); Lipase 177 U/L (23-300); Potassium 4.4 mmol/L (3.5-5.1); Sodium 136 mmol/L (135-145); Total Bilirubin 0.6 mg/dl (0.2-1.3); Total Protein 6.5 g/dl (6.3-8.2); eGFR 55.55
[2023-10-18 13:32] LABS: % Basophils 0.6 % (0-2); % Immature Granulocytes 0.1 % (0-0.5); % Lymphocytes 13.1 % (20.5-51.1); % Monocytes 3.8 % (1.7-9.3); % Neutrophils 82.4 % (42.2-75.2); Absolute Lymphocytes 0.9 10^3/uL (1.2-3.4); Absolute Monocytes 0.3 10^3/uL (0.1-0.6); Absolute Neutrophils 5.7 10^3/uL (1.4-6.5); Hemoglobin 12.6 g/dL (12.0-16.0); Mean Corp Hgb Conc. 33.2 g/dL (33.0-37.0); Mean Corpuscular Hgb 31.4 pg (27.0-31.0); Mean Corpuscular Volume 94.8 fL (81.0-99.0); Mean Platelet Volume 10.1 fL (7.4-10.4); Nucleated Red Blood Cells % 0 %; Platelet Count 179 10^3/uL (130-400); Red Blood Cell Count 4.01 10^6/uL (4.20-5.40); Red Cell Dist. Width 13.3 % (11.5-14.5); White Blood Cell Count 6.9 10^3/uL (4.8-10.8)
[2023-10-18 13:42] LABS: Lactic Acid 1.1 mmol/L (0.7-2.0)
[2023-10-18 13:45] LABS: Urine Albumin 1+ (Neg - Trace); Urine Bilirubin Negative (Negative); Urine Character Very Cloudy (Clear); Urine Color Yellow; Urine Glucose Negative (Negative); Urine Ketone Negative (Negative); Urine Leukocyte 2+ (Negative); Urine Nitrite Negative (Negative); Urine Occult Blood 1+ (Negative); Urine Specific Gravity 1.015 (<1.030); Urine Urobilinogen Negative (Neg - 1+)
[2023-10-18 14:05] LABS: Urine Squamous Cell 0-2 /LPF (Few)
[2023-10-18 14:06] LABS: Urine Bacteria Many (Negative); Urine White Cell 26-30 /HPF (0-5)
[2023-10-18] MEDS: MAXIPIME 1000 MG IV (15:18)
[2023-10-18] MEDS: VANCOCIN 200 IV (15:27)
[2023-10-18 16:04] LABS: COVID-19 Antigen Negative (Negative)
--- NOTE | 2023-10-18 16:21 | HPS.HSE ---
Family Physician
-
Family Physician: Tereso Carranza DO
Chief Complaint
-
change in MS
History of Present Illness
Patient is an 83-year-old female who is blind with Garett Bonnet syndrome and recurrent urinary tract infections and paroxysmal atrial fibrillation who presented to the ED with a change in mental status. She is accompanied by her daughter who
states that this is a classic presentation for her. Patient was out to dinner yesterday and was dropped off at [facility] and was completely normal. This morning she has been incoherent, complaining of urinary frequency, having
fevers and vomiting. She is not at her baseline. Her daughter states that she is always worked up for a stroke when she has these infections and that she is always negative for stroke. She cannot understand however why her mom keeps coming down
with urinary tract infections. Workup in the emergency department finds her to be febrile with a positive urinalysis. Patient will be admitted.
Medical History
Past Medical History
Past Medical History: Reports Other
Additional Past Medical History:
Recurrent urinary tract infections
Paroxysmal atrial fibrillation
History of stroke
B12 deficiency
Osteoporosis
Blindness with Garett Bonnet syndrome
Coronary artery disease status post myocardial infarction in the past
Essential hypertension
Sleep apnea
Aguilar's esophagus
Gastroesophageal reflux
Macular degeneration
Hyperlipidemia
Past Surgical History: Reports Other
Additional Past Surgical History:
Appendectomy
Hernia repair
Social History
Tobacco: Non-smoker
Alcohol: None
Drug: None
Personal:
Living: [facility]
Family History
Family History: Not pertinent
Allergies / Home Medications
Allergies reflects when Allergies were last updated in [facility].
Home Medications with original date entered in [facility]
Allergy/Medication List:
Allergies
Allergy/AdvReac Type Severity Reaction Status Date / Time
amlodipine besylate Allergy Rash/CONFUS Verified 10/18/23 13:04
[facility] ION
iodine Allergy Confusion,confusion/'like Verified 10/18/23 13:04
I had a
tia'
Home Medications
pantoprazole 40 mg tablet,delayed release 40 mg PO HS Gastrointestinal issue 12/03/11
ramipril 5 mg capsule 5 mg PO BID Blood pressure 12/03/11
rosuvastatin 10 mg tablet 10 mg PO HS High cholesterol 05/25/18
fluoxetine 10 mg capsule 10 mg PO DAILY Depression 11/24/20
cholecalciferol (vitamin D3) 125 mcg (5,000 unit) tablet (Vitamin D3) 125 mcg PO DAILY Supplement 12/16/21
fluoxetine 20 mg capsule 20 mg PO DAILY Depression 12/16/21
acetaminophen 325 mg tablet 650 mg PO Q4HPRN PRN mild pain/fever>100.4 02/10/22
ascorbic acid (vitamin C) 1,000 mg tablet 1,000 mg PO DAILY Supplement 06/25/23
gabapentin 300 mg capsule 300 mg PO TID NERVE PAIN 06/25/23
calcium carbonate 500 mg PO DAILY Supplement 07/18/23
apixaban 5 mg tablet (Eliquis) 5 mg PO BID #60 tabs 07/25/23
magnesium oxide 400 mg (241.3 mg magnesium) tablet 400 mg PO DAILY #30 tabs 07/25/23
thiamine HCl (vitamin B1) 100 mg tablet 100 mg PO DAILY #14 tabs 07/25/23
bisacodyl 10 mg rectal suppository (Dulcolax (bisacodyl)) 10 mg [place] DAILYPRN PRN 3 days no bm, mom is ineffective 07/28/23
magnesium hydroxide 400 mg/5 mL oral suspension (Milk of Magnesia) 30 ml PO HSPRN PRN constipation 07/28/23
ondansetron HCl 4 mg tablet 4 mg PO Q6HPRN PRN nausea/vomiting 07/28/23
Lactobac no.2-Bifidobac no.1-S. thermo 112.5 billion cell capsule (Visbiome) 1 cap PO DAILY 10/18/23
cranberry fruit 450 mg tablet (cranberry) 450 mg PO QPM 10/18/23
metoprolol succinate 50 mg tablet,extended release 24 hr 50 mg PO DAILY 10/18/23
ramipril 1.25 mg capsule 1.25 mg PO BID 10/18/23
sulfamethoxazole 400 mg-trimethoprim 80 mg tablet (Bactrim) 0.5 tab PO DAILY 10/18/23
therapeutic multivitamin 1 tab PO DAILY 10/18/23
Review of Systems
-
Unable to obtain full review of systems at this time due to: Acuity
Physical Exam
Vital Signs
Vital Signs
Temp Pulse Resp BP Pulse Ox
99.7 F 74 18 157/72 94
10/18/23 15:41 10/18/23 16:01 10/18/23 16:01 10/18/23 16:01 10/18/23 16:01
Physical Exam
General: Well Developed and Well Nourished; No No Apparent Distress
HEENT: NormoCephalic and Atraumatic; No Oxygen
Respiratory: Clear; No Wheezes, Rales or Rhonchi
Cardiac: S1/S2 and Regular Rhythm; No Murmur
GI: Soft, Non Distended, Normal Bowel Sounds and Tender (Diffusely no guarding or rebound)
Musculoskeletal: No Clubbing, No Cyanosis and No Edema
Skin: Warm
Neuro: Awake; No Alert
Psych: Calm
Laboratory Results
-
10/18/23 13:10
10/18/23 13:10
Laboratory Results
Lactic Acid 1.1 mmol/L (0.7-2.0) 10/18/23 13:18
Total Bilirubin 0.6 mg/dl (0.2-1.3) 10/18/23 13:10
AST 26 U/L (14-36) 10/18/23 13:10
ALT 11 U/L (0-35) 10/18/23 13:10
Alkaline Phosphatase 68 U/L (38-126) 10/18/23 13:10
Lipase 177 U/L (23-300) 10/18/23 13:10
Impression/Plan
-
Patient is an 83-year-old female
Change in mental status--likely toxic metabolic encephalopathy from urinary tract infection (patient has a fever but meets no other criteria for SIRS/sepsis)--ADMIT--patient has positive urinalysis, await blood and urine cultures--continue
vancomycin and cefepime (patient has a history of Enterococcus and Escherichia coli)--would also check CAT scan of the abdomen pelvis without contrast to evaluate for the possibility of renal stones--consider ID consult as patient is on prophylactic
Bactrim half tablet daily and has urinary tract infection through this--if stones are discovered, consult urology--n.p.o./IV fluids--PT/OT/speech-- advance diet as tolerated
Paroxysmal atrial fibrillation--cont Eliquis, metoprolol
History of stroke--noted--gabapentin for nerve pain
B12 deficiency--no meds, check B12 level
Osteoporosis
Blindness with Garett Bonnet syndrome/Macular degeneration -- noted
Coronary artery disease status post myocardial infarction in the past
Essential hypertension -- cont metoprolol, ramipril
Sleep apnea
Aguilar's esophagus/Gastroesophageal reflux--PPI
Hyperlipidemia -- rosuvastatin
depression--fluoxetine
DVT proph
code status --DNR
[2023-10-18] MEDS: NSS 1000 IV (18:13)
[2023-10-18] MEDS: VANCOCIN HCL 500 MG 100 IV (18:14)
--- NOTE | 2023-10-18 19:05 | PHA.VAN.IN ---
Assessment
- Assessment
Renal Function: Appears elevated from baseline (08/02/23 SCR = 0.7)
Concomitant Antimicrobials: CEFEPIME
- Previous Dosing Experience
Previous Regimen: 1250MG IV Q24H
Date of Regimen: 07/20/23
Provided Trough of: 11.2 PREDICTED
Provided AUC of: 483 PREDICTED
Patient's SCR is: Elevated compared to previous dosing experience (07/20/23 SCR = 0.8)
Patient's weight is: Decreased compared to previous dosing experience (07/20/23 WT = 93.8 KG)
Plan
- Plan
Initial / Loading Dose: 1500MG TOTAL
Maintenance Regimen: DOSING BY RANDOM LEVEL
Monitoring: RANDOM VANCOMYCIN LEVEL 10/19/23 AM
Pharmacokinetics Vancomycin I
- -
Patient Age: 83
Patient Sex: Female
Vancomycin Day #: 1
Indication: Genito-Urinary Tract (TME)
Requesting Provider: BEN
Height / Weight:
Height 5 ft 2 in
Actual Weight 93.3 kg
Pertinent Past Medical History: RECURRENT UTI'S ON BACTRIM
- Vital Signs / Lab Results
Temp Pulse Resp BP Pulse Ox
98.3 F 65 20 174/70 98
10/18/23 18:12 10/18/23 18:12 10/18/23 18:12 10/18/23 18:12 10/18/23 18:12
Lab Results - Hematology
10/18/23
13:10
WBC 6.9
Lab Results - Chemistry
10/18/23
13:10
BUN 17
Creatinine 1.0
Estimated Creat Clear 45
Albumin 4.0
10/18/23
13:18
Lactic Acid 1.1
Lab Results - Urine
10/18/23
13:10
Urine Nitrite (Reflex) Negative
Leukocyte Esterase Rfl 2+ A
Urine WBC (Reflex) 26-30 A
Ur Squamous Epith Cells 0-2
Urine Bacteria (Reflex) Many A
[2023-10-18] MEDS: ELIQUIS 5 MG PO (20:30)
[2023-10-18] MEDS: SENOKOT 8.6 MG PO (20:30)
[2023-10-18] MEDS: COLACE 100 MG PO (20:30)
[2023-10-18] MEDS: TYLENOL 650 MG PO (20:31)
[2023-10-18] MEDS: PROTONIX 40 MG PO (21:14)
[2023-10-18] MEDS: ALTACE 5 MG PO (21:14)
[2023-10-18] MEDS: CRESTOR 10 MG PO (21:14)
[2023-10-18] MEDS: NEURONTIN 300 MG PO (21:14)
[2023-10-18] MEDS: ALTACE 1.25 MG PO (21:14)
[2023-10-19] VITALS (7 sets, daily range): BP systolic 112–153; BP diastolic 66–85; PULSE 59–70; O2SAT 97
[2023-10-19] MEDS: MAXIPIME 1000 MG IV (03:57)
[2023-10-19] MEDS: STERILE WATER FOR INJECTION 10 ML IV ×2 (03:57→16:27)
[2023-10-19] MEDS: TYLENOL 650 MG PO ×2 (06:03→21:19)
[2023-10-19 08:39] LABS: Hematocrit 32.3 % (37.0-47.0); Hemoglobin 10.8 g/dL (12.0-16.0); Mean Corp Hgb Conc. 33.4 g/dL (33.0-37.0); Mean Corpuscular Volume 92.8 fL (81.0-99.0); Mean Platelet Volume 10.4 fL (7.4-10.4); Platelet Count 159 10^3/uL (130-400); Red Blood Cell Count 3.48 10^6/uL (4.20-5.40); Red Cell Dist. Width 13.6 % (11.5-14.5); White Blood Cell Count 6.4 10^3/uL (4.8-10.8)
[2023-10-19] MEDS: NSS 1000 IV (09:08)
[2023-10-19] MEDS: ALTACE 5 MG PO ×2 (09:11→21:20)
[2023-10-19 09:12] LABS: Blood Urea Nitrogen 12 mg/dl (7-17); Calcium 8.7 mg/dl (8.4-10.2); Carbon Dioxide 26 mmol/L (22-30); Chloride 106 mmol/L (98-107); Estimated Creatinine Clearance 49 ml/min; Glucose 97 mg/dl (70-99); Magnesium 1.7 mg/dl (1.6-2.3); Sodium 137 mmol/L (135-145); eGFR > 60.00
[2023-10-19] MEDS: COLACE 100 MG PO (09:12)
[2023-10-19] MEDS: ALTACE 1.25 MG PO ×2 (09:12→21:20)
[2023-10-19] MEDS: OSCAL CAL 500 500 MG PO (09:12)
[2023-10-19] MEDS: THERAGRAN 1 TABLET PO (09:13)
[2023-10-19] MEDS: TOPROL XL 50 MG PO (09:13)
[2023-10-19] MEDS: MAG-TAB SR 84 MG PO (09:13)
[2023-10-19] MEDS: VISBIOME 1 CAP PO (09:13)
[2023-10-19] MEDS: PROZAC 10 MG PO (09:13)
[2023-10-19] MEDS: VITAMIN B1 100 MG PO (09:13)
[2023-10-19] MEDS: NEURONTIN 300 MG PO ×3 (09:14→21:19)
[2023-10-19] MEDS: SENOKOT 8.6 MG PO (09:14)
[2023-10-19] MEDS: PROZAC 20 MG PO (09:15)
[2023-10-19] MEDS: VITAMIN D3 (cholecalciferol) 125 MCG PO (09:15)
[2023-10-19] MEDS: ELIQUIS 5 MG PO ×2 (09:15→21:19)
[2023-10-19] MEDS: VITAMIN C 1000 MG PO (09:15)
[2023-10-19 09:27] LABS: Potassium 3.8 mmol/L (3.5-5.1)
[2023-10-19 10:08] LABS: Vancomycin Random 8.8 ug/ml
--- NOTE | 2023-10-19 10:31 | CM ---
Patient seen in chair, daughter Germania present. Patient known to CM from previous admissions. Patient LTC at [facility], daughter reports patient is transitioning to Medicaid. Patient reports she uses a rollator for ambulation. PCP Dr. Carranza,
pharmacy [facility] in [place]. Referral sent to [facility] for patient to return to [facility] when stable. CM will watch for PT/OT evaluations. CM will continue to follow for all discharge planning needs.
Plan; return to [facility] when stable, watch PT/OT evals.
--- NOTE | 2023-10-19 11:32 | PHA.VAN.FU ---
Addendum entered and electronically signed by Manju Seay RPH 10/19/23 12:00:
Reviewed consult with director pharmacy services and agree with assessment and plan
Original Note:
Vancomycin Assessment / Plan
- Assessment
Renal Function: Stable
WBC's are: WNL
Concomitant Antimicrobials: Cefepime
- Assessment - Therapeutic Drug Monitoring
Random Level: 8.8 ~13hr after 1.5G loading dose
- Dosing Plan
Adjust Regimen to: 1250mg Q24H - Give first dose now then 10/20/23 0600
New Regimen Predicts: AUC (512), Peak (33.8), Trough (12.3)
- Monitoring Plan
No level(s) ordered at this time: consider in the next few days
- Follow Up
Pharmacy will continue to follow.
Vancomycin Follow UP
- -
Patient Age: 83
Patient Sex: Female
Vancomycin Day #: 2
Indication: Genito-Urinary Tract
Requesting Provider: Davion
Pertinent Antimicrobial Allergies:
No abx allergies
Height / Weight:
Height 5 ft 2 in
Actual Weight 93.3 kg
Pertinent Past Medical History: BMI ~38
- Vital Signs / Lab Results
Temp Pulse Resp BP Pulse Ox
97.8 F 60 18 154/68 97
10/19/23 07:00 10/19/23 09:13 10/19/23 07:00 10/19/23 09:13 10/19/23 09:01
Lab Results - Hematology
10/18/23 10/19/23
13:10 07:40
WBC 6.9 6.4
Lab Results - Chemistry
10/18/23 10/19/23
13:10 07:40
BUN 17 12
Creatinine 1.0 0.9
Estimated Creat Clear 45 49
Albumin 4.0
10/18/23
13:18
Lactic Acid 1.1
Lab Results - Urine
10/18/23
13:10
Urine Nitrite (Reflex) Negative
Leukocyte Esterase Rfl 2+ A
Ur Squamous Epith Cells 0-2
Microbiology Results
10/18/23 13:10 Urine Culture - Preliminary
Urine Escherichia coli
Therapeutic Drug Monitoring
Random Vancomycin 8.8 ug/ml 10/19/23 07:40
--- NOTE | 2023-10-19 12:13 | PTOTSP ---
Speech Therapy Swallowing Assessment
Oral/pharyngeal swallow deemed within functional limits without overt signs of aspiration.
Recommend
1. Regular solids and thin liquids.
2. Meds as tolerated.
3. Set up and assist as needed given visual deficits.
No skilled ST indicated at this time.
[2023-10-19] MEDS: VANCOCIN 275 MG IV (12:29)
[2023-10-19] MEDS: FLUSH (NSS) 1 FLUSH IV ×2 (12:29→16:28)
--- NOTE | 2023-10-19 15:39 | W.PN.HOSP.TC ---
Today's Communication/Plan
-
Switch to CTX
DC vancomycin
Assessment / Plan
Assessment / Plan
Patient is an 83-year-old female
Change in mental status--likely toxic metabolic encephalopathy from urinary tract infection . Improved with antibiotics.
Recurrent UTI-patient on chronic Bactrim prophylaxis. Urine analysis positive and urine culture positive for E. coli. CT of the abdomen pelvis without contrast shows Mild perivesical and bilateral perinephric inflammatory change, nonspecific and
limited on this unenhanced exam but could reflect cystitis and ascending urinary tract infection in the appropriate clinical context.
Clinically patient without any flank pain or abdominal pain. She had some nausea vomit yesterday but none today.
Will treat as possible pyelonephritis. Follow sensitivities of E. coli. switch to Ceftriaxone. DC vancomycin.
This is a second breakthrough UTI and she has active follow-up with [facility]. Will treat this with the antibiotics and reassume her Bactrim prophylaxis and advised her to continue to follow-up with her u[facility]. No evidence of stones.
Paroxysmal atrial fibrillation--cont Eliquis, metoprolol
History of stroke--noted--gabapentin for nerve pain
B12 deficiency--no meds, check B12 level
Osteoporosis
Blindness with Garett Bonnet syndrome/Macular degeneration -- noted
Coronary artery disease status post myocardial infarction in the past
Essential hypertension -- cont metoprolol, ramipril
Sleep apnea
Aguilar's esophagus/Gastroesophageal reflux--PPI
Hyperlipidemia -- rosuvastatin
depression--fluoxetine
DVT proph
code status --DNR
Anticipated Discharge: 24 - 48 hours
Subjective/Interval History
-
Date of Service: October 19, 2023
No further fever.
Patient feels better. Confusion is resolved-corroborated by daughter who is at the bedside.
This morning nausea which she thinks is because of not eating. Resolved nausea. No vomiting. No abdominal pain or flank pain.
Denies any dysuria frequency but the daughter thinks she has some nocturia, urgency and incontinence issues chronically.
Patient with history of recurrent UTIs and this would be the second 1 for this year. 2022 went without any infections. She is on chronic Bactrim prophylaxis with seems to be working. She also sees local uro [facility] doctor.
Objective Data
-
Labs:
Laboratory Results
10/19/23
07:40
WBC 6.4
Hgb 10.8 L
Hct 32.3 L
Plt Count 159
Sodium 137
Potassium 3.8
Chloride 106
Carbon Dioxide 26
BUN 12
Creatinine 0.9
Glucose 97
Calcium 8.7
Vital Signs:
Vital Signs
Temp Pulse Resp BP Pulse Ox
97.8 F 60 18 154/68 97
10/19/23 07:00 10/19/23 09:13 10/19/23 07:00 10/19/23 09:13 10/19/23 09:01
I&O
10/18/23 10/19/23 10/20/23
06:59 06:59 06:59
Intake Total 0 / 0
Balance 0 / 0
Review of Systems
-
Constitutional: Denies Fever or Chills
Respiratory: Denies Trouble Breathing
Cardiac: Denies Chest Pain
Neuro: Denies Dizzy
Physical Exam
-
General: No Apparent Distress
HEENT: Moist Mucous Membranes
Respiratory: Clear to Auscultation
Cardiac: Regular Rhythm and S1/S2
GI: Soft
Genito-urinary: No Costovertebral Tender
Neuro: AO x 3
Psych: Calm
Data Reviewed
-
Labs: Labs Reviewed by me
--- NOTE | 2023-10-19 16:19 | PTCARENOTE ---
Pt AAO x3, forgetful, anxious at times. GIPSON; OOB to chair/BSC with assist/walker, marian well. VSS. Telemetry:NSR. On room air- pulseox 97%, no SOB noted. Abd obese, soft, marian reg diet well. Incont urine/voids at times on BSC. Resting in chair
at present, no c/o; family at bedside. IV NSS @ 80 ml/hr infusing via Lt arm site without sx of infiltration. Will continue to monitor.
[2023-10-19] MEDS: ROCEPHIN 1000 MG IV (16:27)
[2023-10-19] MEDS: ORAJEL 10% GEL 1 APPLIC TOPICAL ×2 (16:51→21:21)
[2023-10-19] MEDS: COLACE PO (21:19)
[2023-10-19] MEDS: PROTONIX 40 MG PO (21:19)
[2023-10-19] MEDS: CRESTOR 10 MG PO (21:19)
[2023-10-19] MEDS: SENOKOT PO (21:19)
--- NOTE | 2023-10-20 03:30 | DOWNTIME ---
There was a [employer] Downtime on 10/20/2023 from 0100 to 10/20/2023 at 0252. Downtime documentation of patient's care, including medication administrations, has been reconciled in the electronic record per guidelines. Refer to the
patient's paper chart under the miscellaneous tab to see printed paper medication records and downtime forms.
[2023-10-20] MEDS: NSS IV (05:20)
[2023-10-20 07:35] VITALS: BP 142/72
[2023-10-20] MEDS: COLACE PO ×2 (09:46→21:10)
[2023-10-20] MEDS: SENOKOT PO ×2 (09:47→21:10)
[2023-10-20] MEDS: PROZAC 20 MG PO (10:01)
[2023-10-20] MEDS: ALTACE 1.25 MG PO ×2 (10:01→21:10)
[2023-10-20] MEDS: VITAMIN D3 (cholecalciferol) 125 MCG PO (10:01)
[2023-10-20] MEDS: VITAMIN C 1000 MG PO (10:01)
[2023-10-20] MEDS: ELIQUIS 5 MG PO ×2 (10:01→21:10)
[2023-10-20] MEDS: THERAGRAN 1 TABLET PO (10:01)
[2023-10-20] MEDS: OSCAL CAL 500 500 MG PO (10:01)
[2023-10-20] MEDS: MAG-TAB SR 84 MG PO (10:01)
[2023-10-20] MEDS: NEURONTIN 300 MG PO ×3 (10:02→21:10)
[2023-10-20] MEDS: VITAMIN B1 100 MG PO (10:02)
[2023-10-20] MEDS: TOPROL XL 50 MG PO (10:02)
[2023-10-20] MEDS: ALTACE 5 MG PO ×2 (10:02→21:09)
[2023-10-20] MEDS: PROZAC 10 MG PO (10:02)
[2023-10-20] MEDS: VISBIOME 1 CAP PO (10:02)
[2023-10-20] MEDS: ORAJEL 10% GEL TOPICAL (10:22)
--- NOTE | 2023-10-20 12:36 | W.PN.HOSP.TC ---
Today's Communication/Plan
-
DC
Assessment / Plan
Assessment / Plan
Patient is an 83-year-old female
Change in mental status--likely toxic metabolic encephalopathy from urinary tract infection . Improved with antibiotics.
Recurrent UTI-patient on chronic Bactrim prophylaxis. Urine analysis positive and urine culture positive for E. coli. CT of the abdomen pelvis without contrast shows Mild perivesical and bilateral perinephric inflammatory change, nonspecific and
limited on this unenhanced exam but could reflect cystitis and ascending urinary tract infection in the appropriate clinical context.
Clinically patient without any flank pain or abdominal pain. No GI symptoms.
Will treat as possible pyelonephritis. sensitivities of E. coli noted . switch to oral Cipro on dc for another 7 days .
This is a second breakthrough UTI and she has active follow-up with uro-LUGGAGE LINER. Will treat this with the antibiotics and reassume her Bactrim prophylaxis and advised her to continue to follow-up with her uro-LUGGAGE LINER. No evidence of stones.
Paroxysmal atrial fibrillation--cont Eliquis, metoprolol
History of stroke--noted--gabapentin for nerve pain
B12 deficiency--no meds, check B12 level
Osteoporosis
Blindness with Garett Bonnet syndrome/Macular degeneration -- noted
Coronary artery disease status post myocardial infarction in the past
Essential hypertension -- cont metoprolol, ramipril
Sleep apnea
Aguilar's esophagus/Gastroesophageal reflux--PPI
Hyperlipidemia -- rosuvastatin
depression--fluoxetine
DVT proph
code status --DNR
Medically stable for DC
Anticipated Discharge: Today
Subjective/Interval History
-
Date of Service: October 20, 2023
Patient voices no specific complaints.
Denies any fever chills.
Denies any dysuria frequency of urine.
Denies any nausea vomiting. Tolerating diet.
Objective Data
-
Vital Signs:
Vital Signs
Temp Pulse Resp BP Pulse Ox
98.4 F 62 20 142/72 95
10/20/23 07:35 10/20/23 07:35 10/20/23 07:35 10/20/23 07:35 10/20/23 07:35
I&O
10/19/23 10/20/23 10/21/23
06:59 06:59 06:59
Intake Total 0 / 0 2094
Balance 0 / 0 2094
Review of Systems
-
Respiratory: Denies Trouble Breathing
Cardiac: Denies Chest Pain
Abdomen/GI: Denies Abdominal Pain
Neuro: Denies Dizzy
Physical Exam
-
General: No Apparent Distress
HEENT: Moist Mucous Membranes
Respiratory: Non Labored Respirations; Negative Accessory Resp Muscle Use
Cardiac: Regular Rhythm and S1/S2
GI: Soft
Neuro: AO x 3 and Other (pt with blindness - can only perceive light.)
Psych: Calm
Data Reviewed
-
Labs: Labs Reviewed by me
--- NOTE | 2023-10-20 12:43 | W.DS.TRANS ---
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
-
Discharge Instructions:
Discharge Diagnosis/Procedures E. coli UTI
Diet Regular
Activity As tolerated
Driving Restrictions No driving
Bathing Restrictions None
Instructions:
Stand-Alone Forms:
Changes to Home Medications: Yes
Discharge Medications:
DC Medications w/original date entered in [employer]
pantoprazole 40 mg tablet,delayed release 40 mg PO HS Gastrointestinal issue 12/03/11
ramipril 5 mg capsule 5 mg PO BID Blood pressure 12/03/11
rosuvastatin 10 mg tablet 10 mg PO HS High cholesterol 05/25/18
fluoxetine 10 mg capsule 10 mg PO DAILY Depression 11/24/20
cholecalciferol (vitamin D3) 125 mcg (5,000 unit) tablet (Vitamin D3) 125 mcg PO DAILY Supplement 12/16/21
fluoxetine 20 mg capsule 20 mg PO DAILY Depression 12/16/21
acetaminophen 325 mg tablet 650 mg PO Q4HPRN PRN mild pain/fever>100.4 02/10/22
ascorbic acid (vitamin C) 1,000 mg tablet 1,000 mg PO DAILY Supplement 06/25/23
gabapentin 300 mg capsule 300 mg PO TID NERVE PAIN 06/25/23
calcium carbonate 500 mg PO DAILY Supplement 07/18/23
apixaban 5 mg tablet (Eliquis) 5 mg PO BID #60 tabs 07/25/23
magnesium oxide 400 mg (241.3 mg magnesium) tablet 400 mg PO DAILY #30 tabs 07/25/23
thiamine HCl (vitamin B1) 100 mg tablet 100 mg PO DAILY #14 tabs 07/25/23
bisacodyl 10 mg rectal suppository (Dulcolax (bisacodyl)) 10 mg RI DAILYPRN PRN 3 days no bm, mom is ineffective 07/28/23
magnesium hydroxide 400 mg/5 mL oral suspension (Milk of Magnesia) 30 ml PO HSPRN PRN constipation 07/28/23
ondansetron HCl 4 mg tablet 4 mg PO Q6HPRN PRN nausea/vomiting 07/28/23
Lactobac no.2-Bifidobac no.1-S. thermo 112.5 billion cell capsule (Visbiome) 1 cap PO DAILY Gastrointestinal Issue 10/18/23
cranberry fruit 450 mg tablet (cranberry) 450 mg PO QPM Supplement 10/18/23
metoprolol succinate 50 mg tablet,extended release 24 hr 50 mg PO DAILY Heart Failure 10/18/23
ramipril 1.25 mg capsule 1.25 mg PO BID Blood Pressure 10/18/23
sulfamethoxazole 400 mg-trimethoprim 80 mg tablet (Bactrim) 0.5 tab PO DAILY Infection 10/18/23
therapeutic multivitamin 1 tab PO DAILY Supplement 10/18/23
ciprofloxacin HCl 500 mg tablet 500 mg PO BID #14 tabs 10/20/23
docusate sodium 100 mg capsule 100 mg PO BID #1 cap 10/20/23
polyethylene glycol 3350 17 gram oral powder packet (HealthyLax) 17 g PO DAILY #14 ea 10/20/23
Home Medication Changes
New medication-ciprofloxacin, Colace, MiraLAX
Pending Results: No
--- NOTE | 2023-10-20 14:54 | CM ---
CM spoke with patients son in law, Brock, discussed plan for discharge tomorrow to [facility]. CM discussed PT recommendations of SNF prior to returning to LTC, Brock in agreement. Brock reports himself and his will be home tomorrow and will
be able to provide transportation to facility. CAMPBELL spoke with Kim from [facility], aware patient plan for discharge tomorrow. CM will continue to follow for all discharge planning needs.
Plan; return to [facility] SNF/LTC tomorrow- family will transport.
Report: [phone]
[2023-10-20 15:16] VITALS: BP 131/81
[2023-10-20] MEDS: STERILE WATER FOR INJECTION 10 ML IV (15:47)
[2023-10-20] MEDS: ROCEPHIN 1000 MG IV (15:47)
[2023-10-20] MEDS: ORAJEL 10% GEL 1 APPLIC TOPICAL ×2 (15:49→21:10)
[2023-10-20 16:05] VITALS: BP 167/97; PULSE 57
--- NOTE | 2023-10-20 18:40 | PTCARENOTE ---
Patient with hallucinations. Patient does have history of hallucinations and follows with neurology OP. Dr. Domínguez aware. Plan of care ongoing.
[2023-10-20] MEDS: ZOFRAN 4 MG IV (20:28)
[2023-10-20] MEDS: SEROQUEL 12.5 MG PO (21:08)
[2023-10-20] MEDS: TYLENOL 650 MG PO (21:09)
[2023-10-20] MEDS: PROTONIX 40 MG PO (21:09)
[2023-10-20] MEDS: CRESTOR 10 MG PO (21:10)
[2023-10-20 21:59] VITALS: PULSE 64
[2023-10-20 23:35] VITALS: BP 136/73
--- NOTE | 2023-10-21 01:11 | W.PN.UPDATE ---
Update Note
Progress Note Update
2100 rn reports pt agitated and hallucinating frequently calling family members. Family members state this isn't unusual while she has been hospitalized before. They would like medication to relax/calm her.
Previous admits seroquel was recommended for severe hallucinatios/agitation.
will trial low dose seroquel
[2023-10-21 06:57] VITALS: BP 181/103
[2023-10-21] MEDS: ALTACE 1.25 MG PO (10:04)
[2023-10-21] MEDS: ALTACE 5 MG PO (10:04)
--- NOTE | 2023-10-21 10:04 | CM ---
Bed available at [facility] for skilled rehab.
Family will transport.
[facility]
Unit [address]
Report: [phone]
[2023-10-21] MEDS: PROZAC 20 MG PO (10:05)
[2023-10-21] MEDS: NEURONTIN 300 MG PO (10:05)
[2023-10-21] MEDS: ELIQUIS 5 MG PO (10:06)
[2023-10-21] MEDS: TOPROL XL 50 MG PO (10:06)
[2023-10-21] MEDS: PROZAC 10 MG PO (10:06)
[2023-10-21] MEDS: COLACE 100 MG PO (10:07)
[2023-10-21] MEDS: VITAMIN C 1000 MG PO (10:08)
[2023-10-21] MEDS: VISBIOME 1 CAP PO (10:09)
[2023-10-21] MEDS: VITAMIN D3 (cholecalciferol) 125 MCG PO (10:09)
[2023-10-21] MEDS: THERAGRAN PO (10:17)
[2023-10-21] MEDS: SENOKOT PO (10:17)
[2023-10-21] MEDS: OSCAL CAL 500 PO (10:18)
[2023-10-21] MEDS: ORAJEL 10% GEL TOPICAL (10:18)
[2023-10-21] MEDS: MAG-TAB SR PO (10:20)
[2023-10-21] MEDS: VITAMIN B1 PO (10:20)
[2023-10-21 11:41] VITALS: BP 128/60
--- NOTE | 2023-10-21 12:48 | W.PN.HOSP.TC ---
Today's Communication/Plan
-
DC
Assessment / Plan
Assessment / Plan
Patient is an 83-year-old female
Change in mental status--likely toxic metabolic encephalopathy from urinary tract infection . Improved with antibiotics.
Recurrent UTI-patient on chronic Bactrim prophylaxis. Urine analysis positive and urine culture positive for E. coli. CT of the abdomen pelvis without contrast shows Mild perivesical and bilateral perinephric inflammatory change, nonspecific and
limited on this unenhanced exam but could reflect cystitis and ascending urinary tract infection in the appropriate clinical context.
Clinically patient without any flank pain or abdominal pain. No GI symptoms.
Will treat as possible pyelonephritis. sensitivities of E. coli noted . switch to oral Cipro on dc for another 7 days .
This is a second breakthrough UTI and she has active follow-up with uro-MICROFABRICATION ENGINEER MANAGER. Will treat this with the antibiotics and reassume her Bactrim prophylaxis and advised her to continue to follow-up with her uro-MICROFABRICATION ENGINEER MANAGER. No evidence of stones.
Visual halluicination with agitation last night - suspect sec to Garett Bonnet syndrome.
Paroxysmal atrial fibrillation--cont Eliquis, metoprolol
History of stroke--noted--gabapentin for nerve pain
B12 deficiency--no meds, check B12 level
Osteoporosis
Blindness with Garett Bonnet syndrome/Macular degeneration -- noted
Coronary artery disease status post myocardial infarction in the past
Essential hypertension -- cont metoprolol, ramipril
Sleep apnea
Aguilar's esophagus/Gastroesophageal reflux--PPI
Hyperlipidemia -- rosuvastatin
depression--fluoxetine
DVT proph
code status --DNR
Medically stable for DC
DC to rehab
DW CM and daughter about the plan
Total time of dc 35 min
Anticipated Discharge: Today
Subjective/Interval History
-
Date of Service: October 21, 2023
Pt had to stay as she was seen by PT and recs was for rehab placement.
Also she had visual hallucination last night with some agitation requiring risperidal . She today is back to herself without any visual hallucination or confusion. Daughter at bedside who confirms that.
Patient had intermittent issues of visual hallucination both in the hospital or out of the hospital. 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
Objective Data
-
Vital Signs:
Vital Signs
Temp Pulse Resp BP Pulse Ox
98 F 66 18 128/60 96
10/21/23 11:41 10/21/23 11:41 10/21/23 11:41 10/21/23 11:41 10/21/23 11:41
I&O
10/20/23 10/21/23 10/22/23
06:59 06:59 06:59
Intake Total 2094 600 / 600
Balance 2094 600 / 600
Review of Systems
-
Respiratory: Denies Trouble Breathing
Cardiac: Denies Chest Pain
Abdomen/GI: Denies Abdominal Pain, Nausea or Vomiting
Genitourinary: Denies Dysuria or Frequency
Neuro: Denies Dizzy
Physical Exam
-
General: No Apparent Distress
HEENT: Moist Mucous Membranes
Respiratory: Non Labored Respirations; Negative Accessory Resp Muscle Use
Cardiac: Regular Rhythm and S1/S2
Neuro: AO x 3; Negative Tremors
Psych: Calm; Negative Confused or Agitated
--- NOTE | 2023-10-21 15:21 | W.DCSUMMARY ---
Discharge Summary
Discharge Data
Date of Admission: 10/18/23
Date of Discharge: 10/21/23
-
Pending Results: No
Hospital Course
Primary diagnosis:
Escherichia coli urinary tract infection
Recurrent urinary tract infections on Bactrim prophylaxis
Secondary diagnosis:
Blindness with intermittent visual hallucination
Garett Boni syndrome
Paroxysmal atrial fibrillation
History of stroke
Coronary disease with prior myocardial infarction
Essential hypertension
Hospital course:
Patient with history of recurrent UTI presented with confusion. She normally gets confused when she gets a UTI. She is on Bactrim prophylaxis. On this occasion she was febrile and had a E. coli in the urine with pyuria. Treatments of UTI with
ceftriaxone resolved fevers and the confusion. She was switched to oral ciprofloxacin and discharged home. She was advised to resume her Bactrim prophylaxis after finishing antibiotics. This will be her second episode of UTI this year.
During the stay here she had visual hallucination especially in the night when the light is out. She has severe blindness can only see the light, no shapes and forms. She has a diagnosis Garett Boni syndrome which I suspect may be causing the
visual hallucinations. During the daytime she has no major cognitive impairments.
Discharge Plan
-
Patient Disposition: [facility]/SNF
Discharge Diagnosis/Procedures: E. coli UTI
Diet: Regular
Activity: As tolerated
Driving Restrictions: No driving
Bathing Restrictions: None
Referrals:
Tereso Carranza DO [Family Provider] - in less than 1 week
Prescriptions:
New
docusate sodium 100 mg Capsule
100 mg PO BID Qty: 1 0RF
polyethylene glycol 3350 [HealthyLax] 17 gram Powder In Packet
17 g PO DAILY Qty: 14 0RF
ciprofloxacin HCl 500 mg tablet
500 mg PO BID Qty: 14 0RF
Rx Instructions:
for 7 days
Continued
pantoprazole 40 MG tablet,delayed release (DR/EC)
40 mg PO HS
ramipril 5 MG capsule
5 mg PO BID
Rx Instructions:
give with 1.25mg to equal 6.25mg BID
rosuvastatin 10 MG tablet
10 mg PO HS
fluoxetine 10 MG capsule
10 mg PO DAILY
Rx Instructions:
take with 20 mg for a total of 30 mg.
fluoxetine 20 mg capsule
20 mg PO DAILY
Rx Instructions:
take with 10 mg for a total of 30 mg.
cholecalciferol (vitamin D3) [Vitamin D3] 125 mcg (5,000 unit) Tablet
125 mcg PO DAILY
acetaminophen 325 mg Tablet
650 mg PO Q4HPRN PRN (Reason: mild pain/fever>100.4)
ascorbic acid (vitamin C) 1,000 mg Tablet
1,000 mg PO DAILY
gabapentin 300 mg Capsule
300 mg PO TID
calcium carbonate 500 mg calcium (1,250 mg) Tablet,Chewable
500 mg PO DAILY
Eliquis 5 mg Tablet
5 mg PO BID Qty: 60 1RF
thiamine HCl (vitamin B1) 100 mg Tablet
100 mg PO DAILY Qty: 14 0RF
magnesium oxide 400 mg (241.3 mg magnesium) tablet
400 mg PO DAILY Qty: 30 0RF
ondansetron HCl 4 mg Tablet
4 mg PO Q6HPRN PRN (Reason: nausea/vomiting)
magnesium hydroxide [Milk of Magnesia] 400 mg/5 mL Suspension
30 ml PO HSPRN PRN (Reason: constipation)
bisacodyl [Dulcolax (bisacodyl)] 10 mg Suppository
10 mg ND DAILYPRN PRN (Reason: 3 days no bm, mom is ineffective)
metoprolol succinate 50 mg Tablet Extended Release 24 Hr
50 mg PO DAILY
therapeutic multivitamin Tablet
1 tab PO DAILY
ramipril 1.25 mg Capsule
1.25 mg PO BID
Rx Instructions:
give with 5mg to equal 6.25mg BID
Visbiome 112.5 billion cell Capsule
1 cap PO DAILY
cranberry 450 mg Tablet
450 mg PO QPM
Held
sulfamethoxazole-trimethoprim [Bactrim] 400-80 mg Tablet
0.5 tab PO DAILY
Hold Instructions: Resume on 10/27/23. restart after finishing antibiotic treatments for UTI
Discharge Orders:
Discharge Patient (As Directed); Ordered 10/21/23
Ordered By: Pepe Domínguez
Discharge Date and Time
Discharge Date/Time: 10/21/23 11:47
Print Language: DJIBOUTIAN
== END 2023-10-21 11:47 | DRG 689 ==
LOC: 4 EAST ACU 16:46
PROVIDERS: Emergency Medicine; ADMITTING PHYSICIAN Internal Medicine; ATTENDING PHYSICIAN Internal Medicine; EMERGENCY PHYSICIAN Emergency Medicine; FAMILY PHYSICIAN Student in an Organized Health Care Education/Training Program
PROC: 5A09357 Assistance with Respiratory Ventilation, Less than 24 Consecutive Hours, Continuous Positive Airway Pressure (ICD-10-PCS; 2023-10-18)
DX: N39.0 Urinary tract infection, site not specified (principal); G92.8 Other toxic encephalopathy; E78.00 Pure hypercholesterolemia, unspecified; F32.A Depression, unspecified; F41.9 Anxiety disorder, unspecified; H35.30 Unspecified macular degeneration; I48.0 Paroxysmal atrial fibrillation; I10 Essential (primary) hypertension; E53.8 Deficiency of other specified B group vitamins; M81.0 Age-related osteoporosis without current pathological fracture; K22.70 Barrett's esophagus without dysplasia; H53.16 Psychophysical visual disturbances; G47.30 Sleep apnea, unspecified; I25.10 Atherosclerotic heart disease of native coronary artery without angina pectoris; K21.9 Gastro-esophageal reflux disease without esophagitis; B96.20 Unspecified Escherichia coli [E. coli] as the cause of diseases classified elsewhere; Z66 Do not resuscitate; I25.2 Old myocardial infarction; Z87.01 Personal history of pneumonia (recurrent); Z86.73 Personal history of transient ischemic attack (TIA), and cerebral infarction without residual deficits; Z87.440 Personal history of urinary (tract) infections; Z87.19 Personal history of other diseases of the digestive system; Z79.01 Long term (current) use of anticoagulants; Z88.8 Allergy status to other drugs, medicaments and biological substances; Z91.041 Radiographic dye allergy status; Z11.52 Encounter for screening for COVID-19
CPT/HCPCS: 51701; 74176; 80048; 80053; 80202; 81003; 81015; 83605; 83690; 83735; 85025; 85027; 87040; 87070; 87086; 87088; 87186; 87811; 92610; 93005; 94660; 96365; 96375; 97116; 97163; 97167; 99291

== ENCOUNTER → 2023-10-27 12:56 | Outpatient (REF) | payer OTHER, MEDICARE, SELFPAY ==
[2023-10-27 13:42] LABS: % Basophils 1.3 % (0-2); % Eosinophils 4.7 % (0-6); % Immature Granulocytes 0.3 % (0-0.5); % Lymphocytes 36.2 % (20.5-51.1); % Monocytes 12.4 % (1.7-9.3); % Neutrophils 45.1 % (42.2-75.2); Absolute Basophils 0.1 10^3/uL (0-0.2); Absolute Eosinophils 0.2 10^3/uL (0-0.7); Absolute Lymphocytes 1.4 10^3/uL (1.2-3.4); Absolute Monocytes 0.5 10^3/uL (0.1-0.6); Absolute Neutrophils 1.8 10^3/uL (1.4-6.5); Hematocrit 31.3 % (37.0-47.0); Hemoglobin 10.2 g/dL (12.0-16.0); Mean Corp Hgb Conc. 32.6 g/dL (33.0-37.0); Mean Corpuscular Hgb 31.1 pg (27.0-31.0); Mean Corpuscular Volume 95.4 fL (81.0-99.0); Nucleated Red Blood Cells % 0 %; Platelet Count 154 10^3/uL (130-400); Red Blood Cell Count 3.28 10^6/uL (4.20-5.40); Red Cell Dist. Width 14.1 % (11.5-14.5); White Blood Cell Count 3.9 10^3/uL (4.8-10.8)
[2023-10-27 13:43] LABS: ALT (SGPT) < 10 U/L (0-35); AST (SGOT) 22 U/L (14-36); Albumin 3.1 g/dl (3.5-5.0); Alkaline Phosphatase 55 U/L (38-126); Blood Urea Nitrogen 9 mg/dl (7-17); Calcium 9.1 mg/dl (8.4-10.2); Carbon Dioxide 34 mmol/L (22-30); Chloride 104 mmol/L (98-107); Glucose 91 mg/dl (70-99); HDL Cholesterol 42 mg/dl; LDL Cholesterol, Calculated 65 mg/dl; Magnesium 1.7 mg/dl (1.6-2.3); Potassium 3.8 mmol/L (3.5-5.1); Sodium 141 mmol/L (135-145); Total Bilirubin 0.4 mg/dl (0.2-1.3); Total Cholesterol 124 mg/dl (50-199); Total Protein 5.3 g/dl (6.3-8.2); Triglyceride 89 mg/dl (10-149); Very Low Density Lipoprotein 17 mg/dl (0-30); eGFR > 60.00
[2023-10-27 13:59] LABS: Vitamin D, 25-OH*** 58.6 ng/mL (30-80)
[2023-10-27 14:13] LABS: TSH 0.48 uIU/ml (0.47-4.68)
[2023-10-27 14:32] LABS: Vitamin B12 447 pg/ml (239-931)
[2023-10-31 16:39] LABS: Vitamin B6 Results 11.4 nmol/L (20.0-125.0)
== END ==
LOC: OLABN 12:56
PROVIDERS: ATTENDING PHYSICIAN Student in an Organized Health Care Education/Training Program
DX: E53.8 Deficiency of other specified B group vitamins (principal); E83.42 Hypomagnesemia; E55.9 Vitamin D deficiency, unspecified; E53.9 Vitamin B deficiency, unspecified; E78.5 Hyperlipidemia, unspecified
CPT/HCPCS: 36415; 80053; 80061; 82306; 82607; 83735; 84207; 84443; 85025

== ENCOUNTER → 2024-03-01 08:59 | Outpatient (REF) | payer OTHER, MEDICARE, SELFPAY ==
[2024-03-01 09:47] LABS: Urine Albumin Trace (Neg - Trace); Urine Bilirubin Negative (Negative); Urine Character Slightly Cloudy (Clear); Urine Color Yellow; Urine Glucose Negative (Negative); Urine Ketone Negative (Negative); Urine Leukocyte 2+ (Negative); Urine Nitrite Positive (Negative); Urine Occult Blood Trace (Negative); Urine Specific Gravity 1.015 (<1.030); Urine Urobilinogen Negative (Neg - 1+)
[2024-03-01 10:43] LABS: Urine Urothelial Cell 0-2 /LPF (FEW)
[2024-03-01 10:44] LABS: Urine Bacteria Moderate (Negative); Urine Red Blood Cell 16-20 /HPF (0-2); Urine White Cell 50-60 /HPF (0-5)
== END ==
LOC: CLAB 08:59
PROVIDERS: ATTENDING PHYSICIAN Student in an Organized Health Care Education/Training Program
DX: R35.0 Frequency of micturition (principal)
CPT/HCPCS: 36415; 81003; 81015; 87077; 87086

== ENCOUNTER 2024-03-04 07:08 | Inpatient (IN) | payer MEDICARE, OTHER, SELFPAY ==
[2024-03-04] VITALS (11 sets, daily range): BP systolic 136–189; BP diastolic 66–147; BMI 40.7
[2024-03-04 02:13] LABS: % Basophils 0.2 % (0-2); % Immature Granulocytes 0.5 % (0-0.5); % Lymphocytes 10.1 % (20.5-51.1); % Monocytes 2.2 % (1.7-9.3); Absolute Lymphocytes 0.8 10^3/uL (1.2-3.4); Absolute Monocytes 0.2 10^3/uL (0.1-0.6); Absolute Neutrophils 7.1 10^3/uL (1.4-6.5); Hematocrit 38.3 % (37.0-47.0); Mean Corp Hgb Conc. 33.9 g/dL (33.0-37.0); Mean Corpuscular Hgb 31.8 pg (27.0-31.0); Mean Corpuscular Volume 93.6 fL (81.0-99.0); Mean Platelet Volume 9.9 fL (7.4-10.4); Nucleated Red Blood Cells % 0 %; Platelet Count 198 10^3/uL (130-400); Red Blood Cell Count 4.09 10^6/uL (4.20-5.40); Red Cell Dist. Width 12.8 % (11.5-14.5); White Blood Cell Count 8.1 10^3/uL (4.8-10.8)
[2024-03-04 02:36] LABS: ALT (SGPT) 13 U/L (0-35); AST (SGOT) 25 U/L (14-36); Albumin 4.2 g/dl (3.5-5.0); Alkaline Phosphatase 84 U/L (38-126); Blood Urea Nitrogen 12 mg/dl (7-17); Calcium 8.9 mg/dl (8.4-10.2); Carbon Dioxide 27 mmol/L (22-30); Chloride 100 mmol/L (98-107); Glucose 183 mg/dl (70-99); Lipase 239 U/L (23-300); Potassium 3.7 mmol/L (3.5-5.1); Sodium 137 mmol/L (135-145); Total Bilirubin 0.6 mg/dl (0.2-1.3); Total Protein 6.7 g/dl (6.3-8.2); eGFR > 60.00
--- NOTE | 2024-03-04 03:12 | ED.GENMED ---
History of Present Illness
General
Chief Complaint: Abdominal Symptoms
Time Seen by Provider: 03/04/24 03:12
History of Present Illness
History of Present Illness:
TIME OF INITIAL ENCOUNTER: 3:15 AM
HPI:
Patient came in by ambulance from [facility] related to nausea and vomiting. She was started on ertapenem due to UTI. She is a very poor historian. She does indicate that she does not feel well.
EXAM:
GENERAL: Appears generally weak and debilitated, febrile, but bilious vomitus noted in the emesis basin
HEENT: Dry oral mucosa
CARDIOVASCULAR: No murmurs, normal heart rate, regular rhythm, No chest wall tenderness
PULMONARY: No respiratory distress, breath sounds are clear and equal
ABDOMEN: Soft with no peritoneal signs, no tenderness
NEUROLOGIC: Fair strength all extremities, no coordination deficits
PSYCHIATRIC: Very limited historian, not oriented to time, limited insight and judgment
EXTREMITIES: Nontender, no edema, moves all extremities equally
SKIN: No rash, no lesions
NUMBER AND COMPLEXITY OF PROBLEMS ADDRESSED AT THE ENCOUNTER
� Chronic conditions affecting care: High blood pressure, hyperlipidemia, GERD, Garett Bonnet syndrome
� Acute Exacerbation and/or Progression of Chronic Illness: This is an acute problem
� Differential Diagnosis includes: Viral syndrome, LISSETTE, acute febrile illness, dehydration, bowel obstruction
AMOUNT AND/OR COMPLEXITY OF DATA TO BE REVIEWED AND ANALYZED
� I performed an independent evaluation of and my interpretation is:
EKG:
CT: CT imaging of the abdomen pelvis shows no acute abnormality
X-rays:
Laboratory Studies: White count 8.1, hemoglobin 13.0, chemistries unremarkable, lipase and LFTs normal
Other:
� Review of other/old records: I reviewed records, the patient was treated for an E. coli UTI as admission 4 months ago
� Clinical information was obtained by an independent historian: Notes from [facility]
� Prescriptions/Medications Considered but not given:
� Further testing considered but not performed:
RISK OF COMPLICATIONS AND/OR MORBIDITY OR MORTALITY OF PATIENT MANAGEMENT
� Social determinants of health affecting care: Lives at [facility]
� Discussion with other providers: Hospitalist, Dr. Carrillo for admission at 5:28 AM
� Escalation of care including admission/observation vs risk of discharge considered: The patient is overall chronically ill in appearance. She has urinary incontinence. She is currently on ertapenem for UTI. She has recurrent
nausea and vomiting. I am giving IV fluids. Will be febrile here we will also check blood cultures and lactic.
ANY OTHER UPDATES:
5:15 AM: I discussed case with daughter. Daughter states that she does frequently have episodes of delirium in the setting of UTIs. Daughter does not feel that she should be discharged back to [facility] at this time. Given her overall ill
appearance along with fever and poor mental status, will plan admission to the hospital.
Past History
Past History
ED Past Medical History: CVA, GERD, HTN, Hypercholesterolemia, GA, Psychiatric (Anxiety, Depression) and Other (Recurrent UTI, PNA, possible hemiplegia Migraines, Garett Bonnet Syndrome, TGA, Sleep apnea, Barrets esophagus, GI bleeding, BLind);
Negative Asthma or NIDDM
ED Past Surgical History: Appendectomy, and Other (Hernia repair)
Social History
Tobacco: Non-smoker
Alcohol: None
Drug: None
Personal:
Living: assisted living ([facility])
Employment: Not employed
Family History
Family History: Other and Unable to obtain
Phy Exam
Physical Exam
Physical Exam:
See HPI
Course
Orders/Labs/Results
Orders:
Orders
03/04/24 01:46
IV Insert/Care/Rem.- Treatment PRN
03/04/24 02:06
Complete Blood Count/With Diff Urgent
Comprehensive Metabolic Panel Urgent
Lipase Urgent
03/04/24 03:22
Acetaminophen [Tylenol/Feverall] 650 mg RECTAL NOW STA
03/04/24 03:25
Acetaminophen [Tylenol/Feverall] 650 mg .ROUTE .STK-MED ONE
03/04/24 03:27
CT Abd/pel Without Iv Or Oral Urgent
Comment:
Reason For Exam: cannot marian po; iodine allergy; N/V recurrent
0.9% Sodium Chloride 500 ml [Nss] 500 ml IV BOLUS
03/04/24 03:35
Acetaminophen Urgent
Lactic Acid Q4H
Comment: CANCEL 2nd LACTIC ACID IF 1st LACTIC ACID IS LESS THAN 2
Blood Culture Q30M
LEIGH ANN Source: Blood/Venous
Specimen Description:
03/04/24 03:42
Promethazine [Phenergan] 25 mg 0.9% Sodium Chloride 50 ml [Nss] 50 ml IV NOW
03/04/24 04:01
Blood Culture Q30M
LEIGH ANN Source: Blood/Venous
Specimen Description:
Abnormal Lab Results
03/04/24 03/04/24
02:06 03:35
RBC 4.09 L 10^6/uL
(4.20-5.40)
MCH 31.8 H pg
(27.0-31.0)
Absolute Neuts (auto) 7.1 H 10^3/uL
(1.4-6.5)
Absolute Lymphs (auto) 0.8 L 10^3/uL
(1.2-3.4)
Neutrophils % 87.0 H %
(42.2-75.2)
Lymphocytes % 10.1 L %
(20.5-51.1)
Glucose 183 H mg/dl
(70-99)
Acetaminophen < 10 L ug/ml
(10-30)
03/04/24 02:06
03/04/24 02:06
Vital Signs
Initial and Last Documented VS:
Initial Vital Signs
Temp Pulse Resp Pulse Ox
37.1 C 83 19 96
03/04/24 01:47 03/04/24 01:47 03/04/24 01:47 03/04/24 01:47
Last Documented Vital Signs
Temp Pulse Resp BP Pulse Ox
38.6 C H 74 17 189/72 99
03/04/24 03:00 03/04/24 04:00 03/04/24 04:00 03/04/24 04:00 03/04/24 03:15
*Critical Care Note
Total Time (30-74mins, 75-104mins- exclusive of procedures): Not Applicable
ED Attending Note
-
Portions of this chart may have been created with voice recognition software.� Occasional wrong word or��sound alike� substitutions may have occurred due to the inherent limitations of voice recognition software.
Discharge Plan
Departure
Patient Disposition: Admit
Date of Disposition: 03/04/24
Time of Disposition: 05:28
Presentation/result/management discussed w/ accepting MD/DO: Hospitalist
Discharge Problem:
Urinary tract infection
Prescriptions:
No Action
pantoprazole 40 MG tablet,delayed release (DR/EC)
40 mg PO HS
ramipril 5 MG capsule
5 mg PO BID
Rx Instructions:
give with 1.25mg to equal 6.25mg BID
rosuvastatin 10 MG tablet
10 mg PO HS
fluoxetine 10 MG capsule
10 mg PO DAILY
Rx Instructions:
take with 20 mg for a total of 30 mg.
fluoxetine 20 mg capsule
20 mg PO DAILY
Rx Instructions:
take with 10 mg for a total of 30 mg.
cholecalciferol (vitamin D3) [Vitamin D3] 125 mcg (5,000 unit) Tablet
125 mcg PO DAILY
acetaminophen 325 mg Tablet
650 mg PO Q4HPRN PRN (Reason: mild pain/fever>100.4)
ascorbic acid (vitamin C) 1,000 mg Tablet
1,000 mg PO DAILY
gabapentin 300 mg Capsule
300 mg PO TID
calcium carbonate 500 mg calcium (1,250 mg) Tablet,Chewable
500 mg PO DAILY
Eliquis 5 mg Tablet
5 mg PO BID Qty: 60 1RF
thiamine HCl (vitamin B1) 100 mg Tablet
100 mg PO DAILY Qty: 14 0RF
magnesium oxide 400 mg (241.3 mg magnesium) tablet
400 mg PO DAILY Qty: 30 0RF
ondansetron HCl 4 mg Tablet
4 mg PO Q6HPRN PRN (Reason: nausea/vomiting)
magnesium hydroxide [Milk of Magnesia] 400 mg/5 mL Suspension
30 ml PO HSPRN PRN (Reason: constipation)
bisacodyl [Dulcolax (bisacodyl)] 10 mg Suppository
10 mg OK DAILYPRN PRN (Reason: 3 days no bm, mom is ineffective)
metoprolol succinate 50 mg Tablet Extended Release 24 Hr
50 mg PO DAILY
sulfamethoxazole-trimethoprim [Bactrim] 400-80 mg Tablet
0.5 tab PO DAILY
therapeutic multivitamin Tablet
1 tab PO DAILY
ramipril 1.25 mg Capsule
1.25 mg PO BID
Rx Instructions:
give with 5mg to equal 6.25mg BID
Visbiome 112.5 billion cell Capsule
1 cap PO DAILY
cranberry 450 mg Tablet
450 mg PO QPM
docusate sodium 100 mg Capsule
100 mg PO BID Qty: 1 0RF
polyethylene glycol 3350 [HealthyLax] 17 gram Powder In Packet
17 g PO DAILY Qty: 14 0RF
ciprofloxacin HCl 500 mg tablet
500 mg PO BID Qty: 14 0RF
Rx Instructions:
for 7 days
Referrals:
Tereso Carranza DO [Family Provider] -
Interventions
Interventions:
*Risk Screen - Suicide Last Done: 03/04/24 01:47
*General Assessment Last Done: 03/04/24 01:47
*Neglect/Abuse Screening Last Done: 03/04/24 01:47
ED- Fall Risk Assessment Last Done: 03/04/24 02:34
*ED COVID-19 Vaccine History Last Done: 03/04/24 01:47
EY-Owfdsd-Qsbcjglsin Assessment Last Done: 03/04/24 02:34
Discharge Date and Time
Print Language: NIGERIEN
[2024-03-04] MEDS: TYLENOL/FEVERALL 650 MG RECTAL (03:46)
[2024-03-04] MEDS: NSS 500 IV (03:48)
[2024-03-04] MEDS: PHENERGAN 51 MG IV (03:58)
[2024-03-04 04:18] LABS: Lactic Acid 1.5 mmol/L (0.7-2.0)
[2024-03-04 04:20] LABS: Acetaminophen < 10 ug/ml (10-30)
--- NOTE | 2024-03-04 06:41 | HPS.HSE ---
Family Physician
-
Family Physician: Tereso Carranza,
Chief Complaint
-
Abdominal pain nausea and vomiting
History of Present Illness
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
who presents to the emergency department from detention after being found to have a urinary tract infection and developing alteration in mental status.
Patient has history of recurrent urinary tract infections. She had an infection in the outpatient setting on February 21 and was treated with 2 days of oral antibiotics. She had a rapid improvement and antibiotics discontinued. However on March
she had recurrence of urinary symptoms and urine culture was sent. Urine culture came back yesterday positive for Morganella morganii. At the same time the patient had started to develop behavioral changes associated with a urinary tract
infections. These include delusions, combativeness, confusion and lethargy. Based on the cultures she was given a dose of atropine and 1 g at 7:30 PM. She however continued to remain confused and then developed worsening nausea and vomiting. She
also complained of pelvic discomfort. She was therefore transferred to the emergency department.
In the emergency department the patient had a fever to 101.4. She was hypertensive at 190/72 with a pulse of 74. She had no leukocytosis and had normal hemoglobin and platelet count. Electrolytes BUN/creatinine were within the normal range. She
had a CT of the abdomen pelvis which showed no acute abnormalities, specifically no stones, urinary obstruction and no other findings for acute abdomen. After several rounds of antibiotics patient was referred for admission. Family concerned that
she is going to decline with worsening delirium and could not be cared for at the detention.
Medical History
Past Medical History
Past Medical History: Reports Arrhythmia (Paroxysmal atrial fibrillation), CAD, CVA, HTN and Hypercholesterolemia
Additional Past Medical History:
Macular degeneration, Garett Bonnet syndrome
Osteoporosis
Sleep apnea on CPAP at bedtime
Aguilar's esophagus
Past Surgical History: Reports Appendectomy and
Social History
Tobacco: Non-smoker
Alcohol: None
Drug: None
Personal: Single
Living: [facility]
Employment: Retired
Family History
Family History: Not pertinent
Allergies / Home Medications
Allergies reflects when Allergies were last updated in [facility].
Home Medications with original date entered in [facility]
Allergy/Medication List:
Allergies
Allergy/AdvReac Type Severity Reaction Status Date / Time
amlodipine besylate Allergy Rash/CONFUS Verified 03/04/24 01:46
[From Norvasc] ION
iodine Allergy Confusion,confusion/'like Verified 03/04/24 01:46
I had a
tia'
Home Medications
pantoprazole 40 mg tablet,delayed release 40 mg PO HS Gastrointestinal issue 12/03/11
ramipril 5 mg capsule 5 mg PO BID Blood pressure 12/03/11
rosuvastatin 10 mg tablet 10 mg PO HS High cholesterol 05/25/18
fluoxetine 10 mg capsule 10 mg PO DAILY Depression 11/24/20
cholecalciferol (vitamin D3) 125 mcg (5,000 unit) tablet (Vitamin D3) 125 mcg PO DAILY Supplement 12/16/21
fluoxetine 20 mg capsule 20 mg PO DAILY Depression 12/16/21
acetaminophen 325 mg tablet 650 mg PO Q4HPRN PRN mild pain/fever>100.4 02/10/22
ascorbic acid (vitamin C) 1,000 mg tablet 1,000 mg PO DAILY Supplement 06/25/23
gabapentin 300 mg capsule 300 mg PO TID NERVE PAIN 06/25/23
calcium carbonate 500 mg PO DAILY Supplement 07/18/23
apixaban 5 mg tablet (Eliquis) 5 mg PO BID #60 tabs 07/25/23
magnesium oxide 400 mg (241.3 mg magnesium) tablet 400 mg PO DAILY #30 tabs 07/25/23
thiamine HCl (vitamin B1) 100 mg tablet 100 mg PO DAILY #14 tabs 07/25/23
bisacodyl 10 mg rectal suppository (Dulcolax (bisacodyl)) 10 mg GA DAILYPRN PRN 3 days no bm, mom is ineffective 07/28/23
magnesium hydroxide 400 mg/5 mL oral suspension (Milk of Magnesia) 30 ml PO HSPRN PRN constipation 07/28/23
ondansetron HCl 4 mg tablet 4 mg PO Q6HPRN PRN nausea/vomiting 07/28/23
Lactobac no.2-Bifidobac no.1-S. thermo 112.5 billion cell capsule (Visbiome) 1 cap PO DAILY Gastrointestinal Issue 10/18/23
cranberry fruit 450 mg tablet (cranberry) 450 mg PO QPM Supplement 10/18/23
metoprolol succinate 50 mg tablet,extended release 24 hr 50 mg PO DAILY Heart Failure 10/18/23
ramipril 1.25 mg capsule 1.25 mg PO BID Blood Pressure 10/18/23
sulfamethoxazole 400 mg-trimethoprim 80 mg tablet (Bactrim) 0.5 tab PO DAILY Infection 10/18/23
therapeutic multivitamin 1 tab PO DAILY Supplement 10/18/23
ciprofloxacin HCl 500 mg tablet 500 mg PO BID #14 tabs 10/20/23
docusate sodium 100 mg capsule 100 mg PO BID #1 cap 10/20/23
polyethylene glycol 3350 17 gram oral powder packet (HealthyLax) 17 g PO DAILY #14 ea 10/20/23
Review of Systems
-
History Source: Family
Constitutional: Reports No Symptoms
EENT: Reports No Symptoms
Respiratory: Reports No Symptoms
Abdomen/GI: Reports Abdominal Pain, Nausea and Vomiting
: Reports Incontinence
Musculoskeletal: Reports No Symptoms
Skin: Reports No Symptoms
Neurological: Reports No Symptoms
Endocrine: Reports No Symptoms
Hematologic/Lymphatic: Reports No Symptoms
Psych: Reports No Symptoms
Physical Exam
Vital Signs
Vital Signs
Temp Pulse Resp BP Pulse Ox
101.4 F H 81 19 158/67 93
03/04/24 03:00 03/04/24 06:35 03/04/24 06:35 03/04/24 06:35 03/04/24 06:35
Physical Exam
General: No Apparent Distress
HEENT: NormoCephalic, Anicteric, Moist mucous membranes and Atraumatic
Respiratory: Clear
Cardiac: S1/S2 and Regular Rhythm
Breast: Deferred by me
GI: Soft, Non Distended and Normal Bowel Sounds
Rectal: Deferred by Provider
Genito-urinary: Deferred by me
Musculoskeletal: No Clubbing, No Cyanosis and No Edema
Skin: Warm
Neuro: Other (Sleepy but arousable,)
Hematologic/Lymphatic: No Lymphadenopathy
Psych: Calm
Laboratory Results
-
03/04/24 02:06
03/04/24 02:06
Laboratory Results
Lactic Acid Cancelled 03/04/24 07:30
Total Bilirubin 0.6 mg/dl (0.2-1.3) 03/04/24 02:06
AST 25 U/L (14-36) 03/04/24 02:06
ALT 13 U/L (0-35) 03/04/24 02:06
Alkaline Phosphatase 84 U/L (38-126) 03/04/24 02:06
Lipase 239 U/L (23-300) 03/04/24 02:06
Data Reviewed
-
Lab Data: Labs Reviewed by me
Old Records: Reviewed
Impression/Plan
-
IMPRESSION:
83 y.o with h/o pAFIB on eliquis, htn, sleep apnea, GERD, CAD and macular degeneration with blindness comes from detention with a UTI diagnosis. Had symptoms and positive cultures from 03/01/24 and started on Ertapenem 03/03/24 7:30pm. She is
febrile and has abdominal symptoms with nausea/vomiting and abdominal pain. CT scan negative. H/O recurrent UTI on bactrim ppx.
PLAN:
1. Acute cystitis - Patient with complicated UTI due to fever, encephalopathy and abdominal symptoms as well as history of resistant bacteria.
- admit to med/surg
- blood cultures sent while febrile
- Ertapenem started at [place], based on cultures will continue ertapenem but could be possible narrowed if improving
- ID consult due to resistant bacteria.
- gentle IV fluids with 1/2 NS for now
2. Delirium - patient with hallucinations thought secondary to Garett Abbott and is currently encephalopathic with UTI and fever
- IV abx as above
- continue fluoxetine
3. pAFIB
- continue eliquis
- rate control with metoprolol per home regimen
4. GERD
- PPI daily
5. JOSETTE
- cpap 8 hs w/ 2 L O2
DVT PPX - on apixaban
Code Status - DNR
--- NOTE | 2024-03-04 07:30 | W.PN.HOSP.TC ---
Addendum entered and electronically signed by Vicenta Ricardo MD 03/04/24 15:38:
I saw and evaluated the patient independently. I reviewed the resident�s note and agree with findings and plan as documented by Dr. Harden.
GENERAL: well developed, well nourished, female in no apparent distress
HEENT: BLIND--NC/AT--O2 in place 2L
HEART: regular rate and rhythm, +S1, +S2
LUNGS : clear to auscultation bilaterally
ABDOM: soft, nontender, nondistended, + bowel sounds
EXT: no cyanosis, clubbing, or edema
NEUROLOGIC: grossly intact
Acute cystitis - Patient with complicated UTI due to fever, encephalopathy and abdominal symptoms as well as history of resistant bacteria--apprec ID--now on rocephin, ertapenem d/c'd--blood cultures negative--Urine culture on 03/01/2024: Morganella
morganii--no need to repeat- Continue IV fluids
Delirium - patient with hallucinations thought secondary to Garett Abbott and is currently encephalopathic with UTI and fever- continue fluoxetine
paroxysmal AFIB - continue eliquis - rate control with metoprolol per home regimen
GERD- cont PPI
JOSETTE - cpap 8 hs w/ 2 L O2
DVT PPX - on apixaban
Code Status - DNR
Original Note:
Today's Communication/Plan
-
Continue IV ertapenem
Blood cultures pending
Assessment / Plan
Assessment / Plan
IMPRESSION: This is an 83 y.o with h/o pAFIB on eliquis, htn, sleep apnea, GERD, CAD and macular degeneration with blindness comes from snf with a UTI diagnosis. Had symptoms and positive cultures from 03/01/24 and started on Ertapenem
03/03/24 7:30pm. She is febrile and has abdominal symptoms with nausea/vomiting and abdominal pain. CT scan negative. H/O recurrent UTI on bactrim ppx.
PLAN:
#Acute cystitis - Patient with complicated UTI due to fever, encephalopathy and abdominal symptoms as well as history of resistant bacteria.
- blood cultures-pending
-Urine culture on 03/01/2024: Morganella morganii
- Ertapenem started at [place], based on cultures/sensitivities will continue ertapenem
- ID consult due to resistant bacteria
- Continue IV fluids
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
- IV abx as above
- continue fluoxetine
#pAFIB
- continue eliquis
- rate control with metoprolol per home regimen
#GERD
- PPI daily
#JOSETTE
- cpap 8 hs w/ 2 L O2
DVT PPX - on apixaban
Code Status - DNR
Anticipated Discharge: 24 - 48 hours
Subjective/Interval History
-
Date of Service: March 04, 2024
Patient seems to be mildly confused and in pain.
Objective Data
-
Labs:
Laboratory Results
03/04/24
02:06
WBC 8.1
Hgb 13.0
Hct 38.3
Plt Count 198
Sodium 137
Potassium 3.7
Chloride 100
Carbon Dioxide 27
BUN 12
Creatinine 0.8
Glucose 183 H
Calcium 8.9
Total Bilirubin 0.6
AST 25
ALT 13
Alkaline Phosphatase 84
Vital Signs:
Vital Signs
Temp Pulse Resp BP Pulse Ox
101.4 F H 81 19 158/67 93
03/04/24 03:00 03/04/24 06:35 03/04/24 06:35 03/04/24 06:35 03/04/24 06:35
Review of Systems
-
Constitutional: Reports Fever
Respiratory: Reports No Symptoms
Cardiac: Reports No Symptoms
Skin: Reports No Symptoms
Neuro: Reports No Symptoms
Physical Exam
-
General: No Apparent Distress
HEENT: Normocephalic
Respiratory: Clear to Auscultation
Cardiac: Regular Rhythm and S1/S2
GI: Soft, Nontender and Nondistended
Musculoskeletal: No Edema
Skin: Warm and Dry
Neuro: Awake, Alert and Oriented
[2024-03-04] MEDS: TYLENOL 650 MG PO ×2 (12:20→15:54)
[2024-03-04] MEDS: INVANZ 60 MG IV (12:21)
[2024-03-04] MEDS: ALTACE 1.25 MG PO ×2 (13:40→20:37)
[2024-03-04] MEDS: ALTACE 5 MG PO ×2 (13:40→20:35)
--- NOTE | 2024-03-04 14:00 | CON.ID ---
Consultation
-
Date/Time Consultation Requested: March 04, 2024 0929
Date/Time Consultation Performed: March 04, 2024 1400
Requesting Provider: CYRIL Boyce
Performing Provider: Dr. Flaquita Wilson
Reason for Consultation: Resistant UTI/Sepsis
Chief Complaint / Past History
Chief Complaint
Confusion
History of Present Illness
History obtained from her daughter at bedside and from the patient. She is an 83-year-old female from custodial with history of CVA, CAD, recurrent UTI on Bactrim prophylaxis, Garett Bonnet syndrome with intermittent hallucinations, blind who
presented to the hospital earlier this morning due to nausea and vomiting. Per daughter patient developed mental status change with confusion behavioral disturbance on March 01. Urine culture was sent. Patient continued to be combative and
confused. Per daughter she was complaining of pelvic discomfort, dysuria. The urine culture resulted yesterday with Morganella. Last night she received a dose of ertapenem. However she then developed nausea and vomiting. Complaining of
abdominal pain. No diarrhea. Patient therefore sent to the ER earlier this morning. She was febrile 101.4. CT of the abdomen and pelvis no acute change. She received another dose of ertapenem in the ER at noon. Per daughter patient's mental
status appears to have improved. She is now making more sense. Patient complains of headache. No neck stiffness. She did have chills.
Past History
Additional Past Medical History:
CVA
GERD
Dyslipidemia
CAD; Hx MD
paroxysmal Afib
Anxiety/depression
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
JOSETTE on CPAP
Garett Bonnet syndrome
Aguilar's esophagus
Blindness
Additional Past Surgical History:
Appendectomy
Hernia repair
Allergy History:
amlodipine besylate [From [facility]] Allergy (Verified 03/04/24 01:46)
Rash/CONFUSION
iodine Allergy (Verified 03/04/24 01:46)
Confusion,confusion/'like I had a tia'
Medications Reviewed: Yes
Current Antibiotics:
Ertapenem day 2
Social History
Tobacco: Non-Smoker
Alcohol: None
Drug: None
Personal:
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)
Employment: Retired
Family History
Family History: Not Pertinent
Review of Systems
Review of Systems
General: Fever, Chills and Change in Appetite
HEENT: Headache; Negative Stiff Neck, Sinus Problems or Pharyngitis
Cardiovascular: Negative Chest Pain or Dyspnea
Respiratory: Negative Dyspnea or Cough
Gasteroenterology: Nausea and Vomiting; Negative Diarrhea
Genital / Urological: Dysuria; Negative Flank Pain
Endocrine: Weakness
Neurological: Negative Dizziness
All systems: All other systems were reviewed and were negative
Vital Signs
Temp Pulse Resp BP Pulse Ox
100.8 F H 62 21 145/76 93
03/04/24 08:25 03/04/24 13:40 03/04/24 08:15 03/04/24 13:40 03/04/24 08:15
Selected Entries
03/04/24
03:00
Temp 101.4 F H
Physical Exam
Physical Exam
Constitutional: No Acute Distress, Comfortable and Obese
Head: Other (No frontal or max or sinus tenderness)
Eyes: No Conjunctival Hemorrhage and Sclera Anicteric
Cardiovascular: Regular Rate and S1/S2
Pulmonary: Clear
Gastrointestinal: Soft, Tender (Mild lower abd tenderness), Non Distended and Normal Bowel Sounds
Genito-Urinary: Negative CVA Tenderness
Extremities: Negative Edema
Neurological: Awake and Alert; Negative Meningeal Signs
Lab / Diagnostic Study Results
03/04/24 02:06
03/04/24 02:06
Abs Immat Gran (auto) 0.0 10^3/uL (0-0.05) 03/04/24 02:06
Absolute Neuts (auto) 7.1 10^3/uL (1.4-6.5) H 03/04/24 02:06
Absolute Lymphs (auto) 0.8 10^3/uL (1.2-3.4) L 03/04/24 02:06
Absolute Monos (auto) 0.2 10^3/uL (0.1-0.6) 03/04/24 02:06
Absolute Basos (auto) 0.0 10^3/uL (0-0.2) 03/04/24 02:06
Immature Gran % 0.5 % (0-0.5) 03/04/24 02:06
Neutrophils % 87.0 % (42.2-75.2) H 03/04/24 02:06
Lymphocytes % 10.1 % (20.5-51.1) L 03/04/24 02:06
Monocytes % 2.2 % (1.7-9.3) 03/04/24 02:06
Eosinophils % 0.0 % (0-6) 03/04/24 02:06
Basophils % 0.2 % (0-2) 03/04/24 02:06
Lactic Acid Cancelled 03/04/24 07:30
Microbiology Results
Micro:
03/04/24 03:35 Blood Culture - Pending
Blood/Venous
03/04/24 04:01 Blood Culture - Pending
Blood/Venous
03/04/24 CT A/P: No CT evidence of cystitis. Mild perinephric stranding is seen bilaterally, unchanged compared to prior study, most likely related to senescent change, although renal infection is difficult to exclude. No hydronephrosis on either
side.
2. No evidence of intestinal obstruction, bowel inflammatory process, cholecystitis, or abscess formation.
3. Left lower abdominal spigelian hernia, unchanged, without evidence of incarceration.
4. Large hiatal hernia without incarceration.
Assessment / Plan
# Fever
# Morganella UTI
# N/V - likely abx associated
# Acute mental status change
-Follow bcx's
- Replace Ertapenem (d2) with ceftriaxone 1g IV q24h.
- Follow temps.
# Conditions prior to admission
CVA
GERD
Dyslipidemia
CAD; Hx MD
paroxysmal Afib
Anxiety/depression
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
JOSETTE on CPAP
Garett Bonnet syndrome
Aguilar's esophagus
Blindness
Appendectomy
Hernia repair
[2024-03-04] MEDS: 0.45%NACL 1000 IV (15:28)
[2024-03-04] MEDS: ELIQUIS PO (15:37)
[2024-03-04] MEDS: ZOFRAN 4 MG IV (15:38)
[2024-03-04] MEDS: PROZAC 10 MG PO (15:54)
[2024-03-04] MEDS: PROZAC 20 MG PO (15:54)
[2024-03-04] MEDS: TOPROL XL 50 MG PO (15:55)
[2024-03-04] MEDS: NEURONTIN 200 MG PO ×2 (15:55→22:42)
[2024-03-04] MEDS: ELIQUIS 5 MG PO (20:15)
[2024-03-04] MEDS: CRESTOR 10 MG PO (22:42)
[2024-03-05] VITALS: PULSE 57
--- NOTE | 2024-03-05 00:03 | PTCARENOTE ---
Pt received from ED via stretcher, pulled over by staff x4 w/o incident. Oriented to surroundings and plan of care discussed. Pt is legally blind, forgetful, poor historian. Full physical assessment documented (refer to worklist) Mixed
continence, pericare completed. Reports hunger, yogurt and silvia crackers provided. Knee high SCDs placed. L midline w/IVF 1/2 NSS at 70 mL. Bed alarm placed for safety. Call tolentino within reach, verbalizes and demonstrates understanding.
[2024-03-05 06:26] LABS: % Basophils 0.7 % (0-2); % Eosinophils 2.8 % (0-6); % Immature Granulocytes 0.1 % (0-0.5); % Lymphocytes 23.1 % (20.5-51.1); % Monocytes 8.8 % (1.7-9.3); % Neutrophils 64.5 % (42.2-75.2); Absolute Basophils 0.1 10^3/uL (0-0.2); Absolute Eosinophils 0.2 10^3/uL (0-0.7); Absolute Lymphocytes 1.6 10^3/uL (1.2-3.4); Absolute Monocytes 0.6 10^3/uL (0.1-0.6); Absolute Neutrophils 4.4 10^3/uL (1.4-6.5); Hematocrit 33.9 % (37.0-47.0); Hemoglobin 11.3 g/dL (12.0-16.0); Mean Corp Hgb Conc. 33.3 g/dL (33.0-37.0); Mean Corpuscular Hgb 31.8 pg (27.0-31.0); Mean Corpuscular Volume 95.5 fL (81.0-99.0); Nucleated Red Blood Cells % 0 %; Platelet Count 147 10^3/uL (130-400); Red Blood Cell Count 3.55 10^6/uL (4.20-5.40); Red Cell Dist. Width 13.1 % (11.5-14.5); White Blood Cell Count 6.8 10^3/uL (4.8-10.8)
[2024-03-05 06:44] LABS: Blood Urea Nitrogen 12 mg/dl (7-17); Calcium 8.6 mg/dl (8.4-10.2); Carbon Dioxide 33 mmol/L (22-30); Chloride 102 mmol/L (98-107); Estimated Creatinine Clearance 54 ml/min; Glucose 96 mg/dl (70-99); Magnesium 1.8 mg/dl (1.6-2.3); Potassium 3.3 mmol/L (3.5-5.1); Sodium 137 mmol/L (135-145); eGFR > 60.00
[2024-03-05 07:00] VITALS: BP 153/76
--- NOTE | 2024-03-05 07:18 | W.PN.HOSP.TC ---
Addendum entered and electronically signed by Vicenta Ricardo MD 03/05/24 14:07:
I saw and evaluated the patient independently. I reviewed the resident�s note and agree with findings and plan as documented by Dr. Harden.
GENERAL: well developed, well nourished, female in no apparent distress
HEENT: BLIND--NC/AT
HEART: regular rate and rhythm, +S1, +S2
LUNGS : clear to auscultation bilaterally
ABDOM: soft, nontender, nondistended, + bowel sounds--full bladder on exam
EXT: no cyanosis, clubbing, or edema
NEUROLOGIC: grossly intact
complicated UTI from Morganella morganii--due to fever, encephalopathy and abdominal symptoms as well as history of resistant bacteria--apprec ID--cont rocephin, ertapenem d/c'd--blood cultures negative--Urine culture on 03/01/2024: Morganella
morganii--no need to repeat- stop IV fluids
urinary retention--pt c/o suprapubic pain--bladder distended--bladder scan with 941--st cath--add flomax--may need hernandez
Delirium - patient with hallucinations thought secondary to Garett Abbott-- no longer encephalopathic, mental status much improved-- continue fluoxetine
paroxysmal AFIB - continue eliquis - rate control with metoprolol per home regimen
GERD- cont PPI
JOSETTE - cpap 8 hs w/ 2 L O2
DVT PPX - on apixaban
Code Status - DNR
Original Note:
Today's Communication/Plan
-
Start tamsulosin
Continue ceftriaxone
Assessment / Plan
Assessment / Plan
IMPRESSION: This is an 83 y.o with h/o pAFIB on eliquis, htn, sleep apnea, GERD, CAD and macular degeneration with blindness comes from long-term with a UTI diagnosis. Had symptoms and positive cultures from 03/01/24 and started on Ertapenem
03/03/24 7:30pm. She is febrile and has abdominal symptoms with nausea/vomiting and abdominal pain. CT scan negative. H/O recurrent UTI on bactrim ppx.
PLAN:
#Acute cystitis - Patient with complicated UTI due to fever, encephalopathy and abdominal symptoms as well as history of resistant bacteria.
- blood cultures-negative
-Urine culture on 03/01/2024: Morganella morganii
- ID consult due to resistant bacteria, appreciated
-Started on ceftriaxone and discontinued ertapenem as per ID
- WBC within normal limits WBC within normal limits
- Continue IV fluids
-Potassium 3.4, repleted
-Due to continued lower abdominal pain thought to have distention, bladder scan showed 961ml and ordered straight cath
-Initiated tamsulosin due to chronicity of urinary issues and retention
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
- IV abx as above
- continue fluoxetine
-Resolving, patient seems much more oriented compared to admission
#pAFIB
- continue eliquis
- rate control with metoprolol per home regimen
#GERD
- PPI daily
#JOSETTE
- cpap 8 hs w/ 2 L O2
DVT PPX - on apixaban
Code Status - DNR
Anticipated Discharge: 24 - 48 hours
Subjective/Interval History
-
Date of Service: March 05, 2024
Patient complains of lower abdominal pain near her bladder area.
Objective Data
-
Labs:
Laboratory Results
03/05/24 03/05/24
06:03 06:04
WBC 6.8
Hgb 11.3 L
Hct 33.9 L
Plt Count 147 D
Sodium 137
Potassium 3.3 L
Chloride 102
Carbon Dioxide 33 H
BUN 12
Creatinine 0.8
Glucose 96
Calcium 8.6
Vital Signs:
Vital Signs
Temp Pulse Resp BP Pulse Ox
98.0 F 59 14 155/70 96
03/04/24 22:15 03/04/24 22:15 03/04/24 22:15 03/04/24 22:15 03/05/24 00:21
Review of Systems
-
Constitutional: Denies Fever
EENT: Reports No Symptoms Reported
Respiratory: Reports No Symptoms
Cardiac: Reports No Symptoms
Abdomen/GI: Reports Abdominal Pain
Genitourinary: Denies Dysuria
Skin: Reports No Symptoms
Neuro: Reports No Symptoms
Physical Exam
-
General: No Apparent Distress and Appears Chronically Ill
HEENT: Normocephalic
Respiratory: Clear to Auscultation
Cardiac: Regular Rhythm and S1/S2
GI: Soft, Nondistended and Tender (Lower abdominal area near her bladder)
Musculoskeletal: No Edema
Skin: Warm and Dry
Neuro: Awake, Alert and Oriented
Psych: Calm
--- NOTE | 2024-03-05 09:30 | CM ---
Patient known to CM from previous admissions; she is a LTC MA resident at [facility], however admitted with sepsis and currently on IV Ertepenem, so may need to return to the skilled unit.
PCP is Dr. Carranza.
Pharmacy is [facility] in [place].
Referral/update sent to [facility] in anticipation of return there when medically stable. .
Plan: Return to [facility] when stable
--- NOTE | 2024-03-05 10:33 | W.PN.ID1 ---
Date of Service
Date of Service: March 05, 2024
Today's Communication
Continue ceftriaxone.
Assessment / Plan
# Fever - resolving
# Morganella UTI
# N/V - likely abx associated, resolved
# Acute mental status change, improving
-bcx's neg to date
- Continue ceftriaxone 1g IV q24h (d3 abx)
- Follow temps.
# Conditions prior to admission
CVA
GERD
Dyslipidemia
CAD; Hx [place]
paroxysmal Afib
Anxiety/depression
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
JOSETTE on CPAP
Garett Bonnet syndrome
Aguilar's esophagus
Blindness
Appendectomy
Hernia repair
Chief Complaint
-: UTI
Subjective / Review of Systems
Still with dysuria.
Feeling better.
Waiting for breakfast.
Vital Signs / Physical Exam
Vital Signs
Vital Signs
Temp Pulse Resp BP Pulse Ox
98.2 F 63 18 153/76 94
03/05/24 07:00 03/05/24 07:00 03/05/24 07:00 03/05/24 07:00 03/05/24 07:00
Physical Exam
Constitutional: No Acute Distress and Comfortable
Cardiovascular: Regular Rate and S1/S2
Pulmonary: Clear
Gastrointestinal: Soft, Tender (mild lower abd), Non Distended and Normal Bowel Sounds
Genito-Urinary: Negative CVA Tenderness
Neurological: AO x 3
Objective Data
Lab Data
Lab Results
03/05/24 06:04
03/05/24 06:03
Estimated Creat Clear 54 ml/min 03/05/24 06:03
Lactic Acid Cancelled 03/04/24 07:30
Total Bilirubin 0.6 mg/dl (0.2-1.3) 03/04/24 02:06
AST 25 U/L (14-36) 03/04/24 02:06
ALT 13 U/L (0-35) 03/04/24 02:06
Alkaline Phosphatase 84 U/L (38-126) 03/04/24 02:06
Most recent labs reviewed.
Micro Results:
03/05/24 09:31 MRSA Screen - Pending
Nose
03/04/24 03:35 Blood Culture - Preliminary
Blood/Venous No Growth in 24 hours- Final report to follow
03/04/24 04:01 Blood Culture - Preliminary
Blood/Venous No Growth in 24 hours- Final report to follow
03/04/24 CT A/P: No CT evidence of cystitis. Mild perinephric stranding is seen bilaterally, unchanged compared to prior study, most likely related to senescent change, although renal infection is difficult to exclude. No hydronephrosis on either
side.
2. No evidence of intestinal obstruction, bowel inflammatory process, cholecystitis, or abscess formation.
3. Left lower abdominal spigelian hernia, unchanged, without evidence of incarceration.
4. Large hiatal hernia without incarceration.
[2024-03-05] MEDS: STERILE WATER FOR INJECTION 10 ML IV (11:03)
[2024-03-05] MEDS: ROCEPHIN 1000 MG IV (11:03)
[2024-03-05] MEDS: ALTACE 5 MG PO ×2 (11:05→21:36)
[2024-03-05] MEDS: KCL 40 MEQ PO (11:06)
[2024-03-05] MEDS: TOPROL XL 50 MG PO (11:06)
[2024-03-05] MEDS: ELIQUIS 5 MG PO ×2 (11:06→21:35)
[2024-03-05] MEDS: PROZAC 20 MG PO (11:06)
[2024-03-05] MEDS: ALTACE 1.25 MG PO ×2 (11:06→21:56)
[2024-03-05] MEDS: NEURONTIN 200 MG PO ×3 (11:06→21:35)
[2024-03-05] MEDS: PROZAC 10 MG PO (11:06)
[2024-03-05 12:58] VITALS: BP 155/72; PULSE 60; O2SAT 96
[2024-03-05 15:00] VITALS: BP 143/64
[2024-03-05] MEDS: CRESTOR 10 MG PO (21:35)
[2024-03-05 23:10] VITALS: PULSE 60
[2024-03-05 23:24] VITALS: BP 101/64
[2024-03-06 06:37] LABS: % Basophils 1.1 % (0-2); % Eosinophils 5.1 % (0-6); % Immature Granulocytes 0.2 % (0-0.5); % Lymphocytes 36.9 % (20.5-51.1); % Monocytes 10.2 % (1.7-9.3); % Neutrophils 46.5 % (42.2-75.2); Absolute Basophils 0.1 10^3/uL (0-0.2); Absolute Eosinophils 0.3 10^3/uL (0-0.7); Absolute Monocytes 0.6 10^3/uL (0.1-0.6); Absolute Neutrophils 2.6 10^3/uL (1.4-6.5); Hematocrit 33.9 % (37.0-47.0); Hemoglobin 11.2 g/dL (12.0-16.0); Mean Corpuscular Hgb 32.2 pg (27.0-31.0); Mean Corpuscular Volume 97.4 fL (81.0-99.0); Mean Platelet Volume 9.9 fL (7.4-10.4); Nucleated Red Blood Cells % 0 %; Platelet Count 145 10^3/uL (130-400); Red Blood Cell Count 3.48 10^6/uL (4.20-5.40); Red Cell Dist. Width 13.3 % (11.5-14.5); White Blood Cell Count 5.5 10^3/uL (4.8-10.8)
[2024-03-06 06:57] LABS: Blood Urea Nitrogen 18 mg/dl (7-17); Calcium 8.6 mg/dl (8.4-10.2); Carbon Dioxide 32 mmol/L (22-30); Chloride 104 mmol/L (98-107); Estimated Creatinine Clearance 43 ml/min; Glucose 99 mg/dl (70-99); Sodium 139 mmol/L (135-145); eGFR 55.55
--- NOTE | 2024-03-06 07:33 | W.PN.HOSP.TC ---
Addendum entered and electronically signed by Sonja Nunez MD 03/06/24 14:35:
I saw and evaluated the patient. I reviewed the resident�s note and agree with findings and plan as documented in the resident�s note.
A/P:
# UTI with MDR Morganella morganii
# Acute metabolic encephalopathy due to above, resolved
apprec ID
Status post ertapenem, cont rocephin til 03/07 per ID
# urinary retention, resolved
s/p straight cath
added flomax
# paroxysmal AFIB
continue eliquis
rate control with metoprolol per home regimen
# GERD- cont PPI
# JOSETTE
cpap 8 hs w/ 2 L O2
DVT PPX - on apixaban
Code Status - DNR
Original Note:
Today's Communication/Plan
-
Continue IV ceftriaxone
Assessment / Plan
Assessment / Plan
IMPRESSION: This is an 83 y.o with h/o pAFIB on eliquis, htn, sleep apnea, GERD, CAD and macular degeneration with blindness comes from [facility]way with a UTI diagnosis. Had symptoms and positive cultures from 03/01/24 and started on Ertapenem
03/03/24 7:30pm. She is febrile and has abdominal symptoms with nausea/vomiting and abdominal pain. CT scan negative. H/O recurrent UTI on bactrim ppx.
PLAN:
#Acute cystitis - Patient with complicated UTI due to fever, encephalopathy and abdominal symptoms as well as history of resistant bacteria.
- blood cultures-negative
-Urine culture on 03/01/2024: Morganella morganii
- ID consult due to resistant bacteria, appreciated
-Started on ceftriaxone as per ID
- WBC within normal limits WBC within normal limits
-Due to continued lower abdominal pain thought to have distention, bladder scan showed 961ml and ordered straight cath
-Continue tamsulosin due to chronicity of urinary issues and retention
-Dispo tomorrow after dose of ceftriaxone for 5-day total antibiotic course
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
- IV abx as above
- continue fluoxetine
-Resolving, patient seems much more oriented compared to admission
#pAFIB
- continue eliquis
- rate control with metoprolol per home regimen
#GERD
- PPI daily
#JOSETTE
- cpap 8 hs w/ 2 L O2
DVT PPX - on apixaban
Code Status - DNR
Anticipated Discharge: 24 - 48 hours
Subjective/Interval History
-
Date of Service: March 06, 2024
Patient has no new acute complaints such as nausea, vomiting or abdominal pain.
Objective Data
-
Labs:
Laboratory Results
03/06/24
06:26
WBC 5.5
Hgb 11.2 L
Hct 33.9 L
Plt Count 145
Sodium 139
Potassium 4.0
Chloride 104
Carbon Dioxide 32 H
BUN 18 H
Creatinine 1.0
Glucose 99
Calcium 8.6
Vital Signs:
Vital Signs
Temp Pulse Resp BP Pulse Ox
97.6 F 62 20 101/64 94
03/05/24 23:24 03/05/24 23:24 03/05/24 23:24 03/05/24 23:24 03/05/24 23:24
I&O
03/05/24 03/06/24 03/07/24
06:59 06:59 06:59
Intake Total 480 / 480
Output Total 900 / 900
Balance -420 / -420
Review of Systems
-
All other systems: Reviewed and negative
Physical Exam
-
General: No Apparent Distress
HEENT: Normocephalic
Respiratory: Clear to Auscultation
Cardiac: Regular Rhythm and S1/S2
GI: Soft, Nontender and Nondistended
Musculoskeletal: No Edema
Skin: Warm and Dry
Neuro: Awake, Alert and Oriented
Psych: Calm
[2024-03-06 07:42] VITALS: BP 139/66
[2024-03-06] MEDS: ALTACE 1.25 MG PO ×2 (09:52→21:17)
[2024-03-06] MEDS: ELIQUIS 5 MG PO ×2 (09:53→21:17)
[2024-03-06] MEDS: PROZAC 20 MG PO (09:53)
[2024-03-06] MEDS: FLOMAX 0.4 MG PO (09:53)
[2024-03-06] MEDS: PROZAC 10 MG PO (09:53)
[2024-03-06] MEDS: ALTACE 5 MG PO ×2 (09:53→21:17)
[2024-03-06] MEDS: TOPROL XL 50 MG PO (09:53)
[2024-03-06] MEDS: NEURONTIN 200 MG PO ×3 (09:54→21:17)
--- NOTE | 2024-03-06 10:54 | W.PN.ID1 ---
Date of Service
Date of Service: March 06, 2024
Today's Communication
Continue ceftriaxone 1g IV q24h (d4 abx)
Anticipate can dc back to SNF tomorrow after dose of ceftriaxone (5d total abx)
Assessment / Plan
# Fever - resolving
# Morganella UTI
# N/V - likely abx associated, resolved
# Acute mental status change, improving
-bcx's neg to date
- Continue ceftriaxone 1g IV q24h (d4 abx)
- Anticipate can dc back to SNF tomorrow after dose of ceftriaxone (5d total abx)
# Conditions prior to admission
CVA
GERD
Dyslipidemia
CAD; Hx [place]
paroxysmal Afib
Anxiety/depression
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
JOSETTE on CPAP
Garett Bonnet syndrome
Aguilar's esophagus
Blindness
Appendectomy
Hernia repair
Chief Complaint
-: UTI
Subjective / Review of Systems
Daughter at bedside.
Pt sleeping restfully.
Vital Signs / Physical Exam
Vital Signs
Vital Signs
Temp Pulse Resp BP Pulse Ox
98.0 F 57 10 139/66 91
03/06/24 07:42 03/06/24 09:53 03/06/24 07:42 03/06/24 09:53 03/06/24 07:42
Physical Exam
Constitutional: No Acute Distress and Comfortable
Cardiovascular: Regular Rate and S1/S2
Pulmonary: Clear
Gastrointestinal: Soft, Non Distended and Normal Bowel Sounds
Objective Data
Lab Data
Lab Results
03/06/24 06:26
03/06/24 06:26
Estimated Creat Clear 43 ml/min 03/06/24 06:26
Lactic Acid Cancelled 03/04/24 07:30
Total Bilirubin 0.6 mg/dl (0.2-1.3) 03/04/24 02:06
AST 25 U/L (14-36) 03/04/24 02:06
ALT 13 U/L (0-35) 03/04/24 02:06
Alkaline Phosphatase 84 U/L (38-126) 03/04/24 02:06
Most recent labs reviewed.
Micro Results:
03/04/24 03:35 Blood Culture - Preliminary
Blood/Venous No Growth in 48 hours- Final report to follow
03/04/24 04:01 Blood Culture - Preliminary
Blood/Venous No Growth in 48 hours- Final report to follow
03/05/24 09:31 MRSA Screen - Pending
Nose
03/04/24 CT A/P: No CT evidence of cystitis. Mild perinephric stranding is seen bilaterally, unchanged compared to prior study, most likely related to senescent change, although renal infection is difficult to exclude. No hydronephrosis on either
side.
2. No evidence of intestinal obstruction, bowel inflammatory process, cholecystitis, or abscess formation.
3. Left lower abdominal spigelian hernia, unchanged, without evidence of incarceration.
4. Large hiatal hernia without incarceration.
[2024-03-06] MEDS: ROCEPHIN 1000 MG IV (10:55)
[2024-03-06] MEDS: STERILE WATER FOR INJECTION 10 ML IV (10:55)
[2024-03-06] MEDS: TYLENOL 650 MG PO ×2 (11:40→21:18)
[2024-03-06 15:53] VITALS: BP 134/72
[2024-03-06] MEDS: CRESTOR 10 MG PO (21:17)
[2024-03-06 23:15] VITALS: BP 130/59
[2024-03-07 00:10] VITALS: PULSE 63
[2024-03-07 03:15] VITALS: PULSE 62
[2024-03-07 06:53] LABS: % Basophils 1.4 % (0-2); % Eosinophils 5.6 % (0-6); % Immature Granulocytes 0.2 % (0-0.5); % Lymphocytes 39.8 % (20.5-51.1); % Monocytes 10.2 % (1.7-9.3); % Neutrophils 42.8 % (42.2-75.2); Absolute Basophils 0.1 10^3/uL (0-0.2); Absolute Eosinophils 0.2 10^3/uL (0-0.7); Absolute Lymphocytes 1.7 10^3/uL (1.2-3.4); Absolute Monocytes 0.4 10^3/uL (0.1-0.6); Absolute Neutrophils 1.8 10^3/uL (1.4-6.5); Hematocrit 33.9 % (37.0-47.0); Mean Corp Hgb Conc. 32.4 g/dL (33.0-37.0); Mean Corpuscular Hgb 31.4 pg (27.0-31.0); Mean Corpuscular Volume 96.9 fL (81.0-99.0); Mean Platelet Volume 10.3 fL (7.4-10.4); Nucleated Red Blood Cells % 0 %; Platelet Count 152 10^3/uL (130-400); Red Cell Dist. Width 13.3 % (11.5-14.5); White Blood Cell Count 4.3 10^3/uL (4.8-10.8)
[2024-03-07 07:00] VITALS: BP 132/53
--- NOTE | 2024-03-07 07:14 | W.PN.HOSP.TC ---
Addendum entered and electronically signed by Sonja Nunez MD 03/08/24 12:56:
Total DC time 35 minutes
Addendum entered and electronically signed by Sonja Nunez MD 03/07/24 12:44:
I personally performed a history and physical exam of the patient and discussed management with the resident. I reviewed the resident's note and agree with the documented findings and plan of care HPI/CC.
A/P:
# UTI with MDR Morganella morganii
# Acute metabolic encephalopathy due to above, resolved
apprec ID
Status post ertapenem, cont rocephin til 03/07 per ID
# urinary retention, resolved
s/p straight cath
added flomax
# paroxysmal AFIB
continue eliquis
rate control with metoprolol per home regimen
# GERD- cont PPI
# OJSETTE
cpap 8 hs w/ 2 L O2
DVT PPX - on apixaban
Code Status - DNR
Discharge planning back to facility today
Original Note:
Today's Communication/Plan
-
Dispo to SNF today
Assessment / Plan
Assessment / Plan
IMPRESSION: This is an 83 y.o with h/o pAFIB on eliquis, htn, sleep apnea, GERD, CAD and macular degeneration with blindness comes from retirement with a UTI diagnosis. Had symptoms and positive cultures from 03/01/24 and started on Ertapenem
03/03/24 7:30pm. She is febrile and has abdominal symptoms with nausea/vomiting and abdominal pain. CT scan negative. H/O recurrent UTI on bactrim ppx.
PLAN:
#Acute cystitis - Patient with complicated UTI due to fever, encephalopathy and abdominal symptoms as well as history of resistant bacteria.
- blood cultures-negative
-Urine culture on 03/01/2024: Morganella morganii
- ID consult due to resistant bacteria, appreciated
-Continue on ceftriaxone as per ID
- WBC within normal limits WBC within normal limits
-Due to continued lower abdominal pain thought to have distention, bladder scan showed 961ml and ordered straight cath
-Continue tamsulosin due to chronicity of urinary issues and retention
-Dispo today after dose of ceftriaxone for 5-day total antibiotic course
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
- IV abx as above
- continue fluoxetine
-Resolving, patient seems much more oriented compared to admission
#pAFIB
- continue eliquis
- rate control with metoprolol per home regimen
#GERD
- PPI daily
#JOSETTE
- cpap 8 hs w/ 2 L O2
#Obesity
-BMI 40.7kg
DVT PPX - on apixaban
Code Status - DNR
Anticipated Discharge: Today
Subjective/Interval History
-
Date of Service: March 07, 2024
Patient has no acute complaints today.
Objective Data
-
Labs:
Laboratory Results
03/07/24
06:15
WBC 4.3 L
Hgb 11.0 L
Hct 33.9 L
Plt Count 152
Vital Signs:
Vital Signs
Temp Pulse Resp BP Pulse Ox
97.9 F 66 18 130/59 94
03/06/24 23:15 03/06/24 23:15 03/06/24 23:15 03/06/24 23:15 03/07/24 03:49
I&O
03/06/24 03/07/24 03/08/24
06:59 06:59 06:59
Intake Total 480 / 480
Output Total 900 / 900
Balance -420 / -420
Review of Systems
-
All other systems: Reviewed and negative
Physical Exam
-
General: No Apparent Distress
HEENT: Normocephalic
Respiratory: Clear to Auscultation
Cardiac: Regular Rhythm and S1/S2; Negative Murmur
GI: Soft, Nontender and Nondistended
Musculoskeletal: No Edema
Skin: Warm and Dry
Neuro: Awake, Alert and Oriented
Psych: Calm
[2024-03-07] MEDS: FLOMAX 0.4 MG PO (08:16)
[2024-03-07] MEDS: ELIQUIS 5 MG PO (08:16)
[2024-03-07] MEDS: NEURONTIN 200 MG PO (08:16)
[2024-03-07] MEDS: PROZAC 10 MG PO (08:24)
[2024-03-07] MEDS: ALTACE 5 MG PO (08:24)
[2024-03-07] MEDS: PROZAC 20 MG PO (08:24)
[2024-03-07] MEDS: TOPROL XL 50 MG PO (08:25)
[2024-03-07] MEDS: ALTACE 1.25 MG PO (08:25)
--- NOTE | 2024-03-07 10:03 | W.PN.ID1 ---
Date of Service
Date of Service: March 07, 2024
Today's Communication
- Can dc back to SNF after ceftriaxone dose.
Assessment / Plan
# Fever - resolved
# Morganella symptomatic UTI
# Acute mental status change resolved
-bcx's neg to date
- Last day of ceftriaxone 1g IV q24h (d5 abx)
- Can dc back to SNF after ceftriaxone dose.
# Conditions prior to admission
CVA
GERD
Dyslipidemia
CAD; Hx [place]
paroxysmal Afib
Anxiety/depression
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
JOSETTE on CPAP
Garett Bonnet syndrome
Aguilar's esophagus
Blindness
Appendectomy
Hernia repair
Chief Complaint
-: UTI
Subjective / Review of Systems
No further dysuria.
Vital Signs / Physical Exam
Vital Signs
Vital Signs
Temp Pulse Resp BP Pulse Ox
97.6 F 82 18 117/82 95
03/07/24 07:00 03/07/24 08:25 03/07/24 07:00 03/07/24 08:25 03/07/24 07:00
Physical Exam
Constitutional: No Acute Distress and Comfortable
Gastrointestinal: Soft, Non Tender, Non Distended and Normal Bowel Sounds
Genito-Urinary: Negative CVA Tenderness
Neurological: AO x 3
Objective Data
Lab Data
Lab Results
03/07/24 06:15
03/06/24 06:26
Estimated Creat Clear 43 ml/min 03/06/24 06:26
Lactic Acid Cancelled 03/04/24 07:30
Total Bilirubin 0.6 mg/dl (0.2-1.3) 03/04/24 02:06
AST 25 U/L (14-36) 03/04/24 02:06
ALT 13 U/L (0-35) 03/04/24 02:06
Alkaline Phosphatase 84 U/L (38-126) 03/04/24 02:06
Most recent labs reviewed.
Micro Results:
03/04/24 03:35 Blood Culture - Preliminary
Blood/Venous No Growth in 72 hours- Final report to follow
03/04/24 04:01 Blood Culture - Preliminary
Blood/Venous No Growth in 72 hours- Final report to follow
03/05/24 09:31 MRSA Screen - Final
Nose No Methicillin Resistant Staphylococcus aureus isolated.
03/04/24 CT A/P: No CT evidence of cystitis. Mild perinephric stranding is seen bilaterally, unchanged compared to prior study, most likely related to senescent change, although renal infection is difficult to exclude. No hydronephrosis on either
side.
2. No evidence of intestinal obstruction, bowel inflammatory process, cholecystitis, or abscess formation.
3. Left lower abdominal spigelian hernia, unchanged, without evidence of incarceration.
4. Large hiatal hernia without incarceration.
--- NOTE | 2024-03-07 10:36 | CM ---
CM reviewed pt with Dr. Harden- ready for dc
Confirmed SNF bed return at [facility]
Confirmed pt already has cpap at facility
Return SNF referral sent via [facility]
Call with dtr/Robyn
IMM verbally reviewed- copy left bedside
Family will transport, declined [place] van
Family will arrive around 1400 for pickup
Discharge Disposition- return [facility] via [facility]
Phone- [phone] Fax- [phone]
--- NOTE | 2024-03-07 10:47 | PN.CDI ---
CDI
- -
CDI:
Physician Documentation Request
Admit Date: 03/04/24 07:08
Dear Doctor,
Please review the following and provide your response in the progress notes.
Clinical Indicators:
Height: 5'
Weight: 208lbs
BMI: 40.7
Other Clinical Notes: per RN notes, staff x 4 to move from stretcher to bed
If possible, please provide an associated diagnosis related to the abnormal BMI, such as:
Obesity
Morbid obesity
Other (please specify)
Use of terms such
as suspected, likely, concern for, or probable (associated with a specific diagnosis that is being evaluated, monitored, or treated as if it exists) are acceptable and can be coded in the inpatient setting, when documented at the time of discharge.
Thank you,
Malathi Victoria RN
CDI Specialist
Please use your independent medical judgment in providing your response.
[2024-03-07] MEDS: STERILE WATER FOR INJECTION 10 ML IV (11:03)
[2024-03-07] MEDS: ROCEPHIN 1000 MG IV (11:03)
[2024-03-07 12:00] VITALS: BP 148/72
--- NOTE | 2024-03-07 12:15 | W.PN.HOSP.TC ---
Today's Communication/Plan
-
Discharge to SNF today
Assessment / Plan
Assessment / Plan
IMPRESSION: This is an 83 y.o with h/o pAFIB on eliquis, htn, sleep apnea, GERD, CAD and macular degeneration with blindness comes from snf with a UTI diagnosis. Had symptoms and positive cultures from 03/01/24 and started on Ertapenem
03/03/24 7:30pm. She is febrile and has abdominal symptoms with nausea/vomiting and abdominal pain. CT scan negative. H/O recurrent UTI on bactrim ppx.
PLAN:
#Acute cystitis - Patient with complicated UTI due to fever, encephalopathy and abdominal symptoms as well as history of resistant bacteria.
- blood cultures-negative
-Urine culture on 03/01/2024: Morganella morganii
- ID consult due to resistant bacteria, appreciated
-Continue on ceftriaxone as per ID
- WBC within normal limits WBC within normal limits
-Due to continued lower abdominal pain thought to have distention, bladder scan showed 961ml and ordered straight cath
-Continue tamsulosin due to chronicity of urinary issues and retention
-Dispo today after dose of ceftriaxone for 5-day total antibiotic course
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
- IV abx as above
- continue fluoxetine
-Resolving, patient seems much more oriented compared to admission
#pAFIB
- continue eliquis
- rate control with metoprolol per home regimen
#GERD
- PPI daily
#JOSETTE
- cpap 8 hs w/ 2 L O2
#Obesity
-BMI 40.7kg
DVT PPX - on apixaban
Code Status - DNR
Anticipated Discharge: Today
Subjective/Interval History
-
Date of Service: March 07, 2024
Patient has no acute acute complaints such as nausea, vomiting or abdominal pain.
Objective Data
-
Labs:
Laboratory Results
03/07/24
06:15
WBC 4.3 L
Hgb 11.0 L
Hct 33.9 L
Plt Count 152
Vital Signs:
Vital Signs
Temp Pulse Resp BP Pulse Ox
97.6 F 82 18 117/82 95
03/07/24 07:00 03/07/24 08:25 03/07/24 07:00 03/07/24 08:25 03/07/24 10:50
I&O
03/06/24 03/07/24 03/08/24
06:59 06:59 06:59
Intake Total 480 / 480
Output Total 900 / 900
Balance -420 / -420
Review of Systems
-
All other systems: Reviewed and negative
Physical Exam
-
General: No Apparent Distress
Respiratory: Clear to Auscultation
Cardiac: Regular Rhythm and S1/S2
GI: Soft, Nontender and Nondistended
Musculoskeletal: No Edema
Skin: Warm and Dry
Neuro: Awake, Alert and Oriented
Psych: Calm
--- NOTE | 2024-03-07 12:20 | W.DCSUMMARY ---
Documented by User: Jazz Harden MD, Resident 03/07/24 13:08
Discharge Summary
Discharge Data
Date of Admission: 03/04/24
Date of Discharge: 03/07/24
-
Pending Results: No
Hospital Course
Discharging Physician : ,
Disposition : SNF
Primary care physician : Tereso Carranza DO
Principal Discharge diagnosis : UTI with MDR Morganella morganii
Chronic Discharge diagnosis : Macular degeneration, Garett Bonnet syndrome
Osteoporosis
Sleep apnea on CPAP at bedtime
Aguilar's esophagus
Hospital Course : This is a 83-year-old female patient with who presented to the ED from the skilled nursing after being found to have a UTI with altered mental status. A urinalysis and urine culture was done which showed MDR Morganella morganii. CT
abdomen showed no hydronephrosis. Patient was started on ertapenem in the ED and she already received a dose prior from the skilled nursing. ID was consulted and antibiotic was changed to IV ceftriaxone. Patient continued to have some lower
abdominal pain and was found to have urinary retention after a bladder scan showed 941 mL. Patient was straight cath and then Flomax was added. Patient finished antibiotic course. Patient improved symptomatically and was stable for discharge.
Important imaging findings :
03/04/2024 CT abdomen:
1. No CT evidence of cystitis. Mild perinephric stranding is seen bilaterally, unchanged compared to prior study, most likely related to senescent change, although renal infection is difficult to exclude. No hydronephrosis on either side.
2. No evidence of intestinal obstruction, bowel inflammatory process, cholecystitis, or abscess formation.
3. Left lower abdominal spigelian hernia, unchanged, without evidence of incarceration.
4. Large hiatal hernia without incarceration.
Discharge Plan
-
Patient Disposition: [facility]NF
Discharge Diagnosis/Procedures: Urinary Tract Infection this admission
History of cardiovascular accident
Gastroesophageal reflux disease
Dyslipidemia
CAD; History of myocardial infarction
paroxysmal Atrial fibrillation
Anxiety/depression
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
JOSETTE on CPAP
Garett Bonnet syndrome
Aguilar's esophagus
Blindness
Condition: Fair
Diet: Low Cholesterol
Activity: As tolerated
Driving Restrictions: As prior to admission
Bathing Restrictions: OK to Shower
Referrals:
Tereso Carranza DO [Family Provider] - in less than 1 week
Prescriptions:
New
tamsulosin 0.4 mg Capsule
0.4 mg PO DAILY 30 Days Qty: 30 0RF
Continued
pantoprazole 40 MG tablet,delayed release (DR/EC)
40 mg PO HS
rosuvastatin 10 MG tablet
10 mg PO HS
fluoxetine 10 MG capsule
10 mg PO DAILY
Rx Instructions:
take with 20 mg for a total of 30 mg.
fluoxetine 20 mg capsule
20 mg PO DAILY
Rx Instructions:
take with 10 mg for a total of 30 mg.
acetaminophen 325 mg Tablet
650 mg PO Q4HPRN PRN (Reason: mild pain/fever>100.4)
ascorbic acid (vitamin C) 1,000 mg Tablet
1,000 mg PO DAILY
gabapentin 300 mg Capsule
200 mg PO TID
Eliquis 5 mg Tablet
5 mg PO BID Qty: 60 1RF
ondansetron HCl 4 mg Tablet
4 mg PO Q6HPRN PRN (Reason: nausea/vomiting)
magnesium hydroxide [Milk of Magnesia] 400 mg/5 mL Suspension
30 ml PO HSPRN PRN (Reason: constipation)
bisacodyl [Dulcolax (bisacodyl)] 10 mg Suppository
10 mg OK DAILYPRN PRN (Reason: 3 days no bm, mom is ineffective)
metoprolol succinate 50 mg Tablet Extended Release 24 Hr
50 mg PO DAILY
therapeutic multivitamin Tablet
1 tab PO QPM
ramipril 1.25 mg Capsule
6.25 mg PO BID
Rx Instructions:
give 1.25mg and 5mg to equal 6.25mg BID
cranberry 450 mg Tablet
425 mg PO QPM
sulfamethoxazole-trimethoprim [Bactrim] 400-80 mg Tablet
1 tab PO QPM
Culturelle 10 billion cell Capsule
1 cap PO QPM
ertapenem 1 gram Recon Soln
1 g IM HS
Rx Instructions:
for 7 days starting 03/03/24
Saccharomyces boulardii [Florastor] 250 mg Capsule
250 mg PO QPM
thiamine HCl (vitamin B1) 100 mg Tablet
100 mg PO QPM
polyethylene glycol 3350 [HealthyLax] 17 gram powder in packet
17 g PO DAILY
magnesium oxide 400 mg (241.3 mg magnesium) tablet
400 mg PO DAILY
docusate sodium 100 mg capsule
100 mg PO BID
Discharge Orders:
Discharge Patient (As Directed); Ordered 03/07/24
Ordered By: Jazz Harden
Discharge Date and Time
Discharge Date/Time: 03/07/24 16:40
Print Language: BERMUDIAN

Documented by User: Sonja Nunez MD 03/08/24 12:56
Discharge Summary
Discharge Data
Date of Admission: 03/04/24
Date of Discharge: 03/07/24
Hospital Course
Discharging Physician : ,
Disposition : SNF
Primary care physician : Tereso Carranza DO
Principal Discharge diagnosis : UTI with MDR Morganella morganii
Chronic Discharge diagnosis : Macular degeneration, Garett Bonnet syndrome
Osteoporosis
Sleep apnea on CPAP at bedtime
Aguilar's esophagus
Hospital Course : This is a 83-year-old female patient with who presented to the ED from the skilled nursing with altered mental status due to UTI. Her urine culture grew MDR Morganella morganii. Her CT abdomen showed no hydronephrosis. Patient was
started on ertapenem in the ED and she already received a dose prior from the skilled nursing. ID was consulted and antibiotic was changed to IV ceftriaxone. Patient continued to have some lower abdominal pain and was found to have urinary retention
after a bladder scan showed 941 mL. Patient was straight cathed and Flomax was added. Patient finished antibiotic course during hospital stay. Patient improved symptomatically and was discharged.
Important imaging findings :
03/04/2024 CT abdomen:
1. No CT evidence of cystitis. Mild perinephric stranding is seen bilaterally, unchanged compared to prior study, most likely related to senescent change, although renal infection is difficult to exclude. No hydronephrosis on either side.
2. No evidence of intestinal obstruction, bowel inflammatory process, cholecystitis, or abscess formation.
3. Left lower abdominal spigelian hernia, unchanged, without evidence of incarceration.
4. Large hiatal hernia without incarceration.
Discharge Plan
-
Patient Disposition: [facility]NF
Discharge Diagnosis/Procedures: Urinary Tract Infection this admission
History of cardiovascular accident
Gastroesophageal reflux disease
Dyslipidemia
CAD; History of myocardial infarction
paroxysmal Atrial fibrillation
Anxiety/depression
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
JOSETTE on CPAP
Garett Bonnet syndrome
Aguilar's esophagus
Blindness
Condition: Fair
Diet: Low Cholesterol
Activity: As tolerated
Driving Restrictions: As prior to admission
Bathing Restrictions: OK to Shower
Referrals:
Tereso Carranza DO [Family Provider] - in less than 1 week
Prescriptions:
New
tamsulosin 0.4 mg Capsule
0.4 mg PO DAILY 30 Days Qty: 30 0RF
Continued
pantoprazole 40 MG tablet,delayed release (DR/EC)
40 mg PO HS
rosuvastatin 10 MG tablet
10 mg PO HS
fluoxetine 10 MG capsule
10 mg PO DAILY
Rx Instructions:
take with 20 mg for a total of 30 mg.
fluoxetine 20 mg capsule
20 mg PO DAILY
Rx Instructions:
take with 10 mg for a total of 30 mg.
acetaminophen 325 mg Tablet
650 mg PO Q4HPRN PRN (Reason: mild pain/fever>100.4)
ascorbic acid (vitamin C) 1,000 mg Tablet
1,000 mg PO DAILY
gabapentin 300 mg Capsule
200 mg PO TID
Eliquis 5 mg Tablet
5 mg PO BID Qty: 60 1RF
ondansetron HCl 4 mg Tablet
4 mg PO Q6HPRN PRN (Reason: nausea/vomiting)
magnesium hydroxide [Milk of Magnesia] 400 mg/5 mL Suspension
30 ml PO HSPRN PRN (Reason: constipation)
bisacodyl [Dulcolax (bisacodyl)] 10 mg Suppository
10 mg OK DAILYPRN PRN (Reason: 3 days no bm, mom is ineffective)
metoprolol succinate 50 mg Tablet Extended Release 24 Hr
50 mg PO DAILY
therapeutic multivitamin Tablet
1 tab PO QPM
ramipril 1.25 mg Capsule
6.25 mg PO BID
Rx Instructions:
give 1.25mg and 5mg to equal 6.25mg BID
cranberry 450 mg Tablet
425 mg PO QPM
sulfamethoxazole-trimethoprim [Bactrim] 400-80 mg Tablet
1 tab PO QPM
Culturelle 10 billion cell Capsule
1 cap PO QPM
ertapenem 1 gram Recon Soln
1 g IM HS
Rx Instructions:
for 7 days starting 03/03/24
Saccharomyces boulardii [Florastor] 250 mg Capsule
250 mg PO QPM
thiamine HCl (vitamin B1) 100 mg Tablet
100 mg PO QPM
polyethylene glycol 3350 [HealthyLax] 17 gram powder in packet
17 g PO DAILY
magnesium oxide 400 mg (241.3 mg magnesium) tablet
400 mg PO DAILY
docusate sodium 100 mg capsule
100 mg PO BID
Discharge Orders:
Discharge Patient (As Directed); Ordered 03/07/24
Ordered By: Jazz Harden
Discharge Date and Time
Discharge Date/Time: 03/07/24 16:40
Print Language: BERMUDIAN
[2024-03-07 15:00] VITALS: BP 102/66
--- NOTE | 2024-03-07 15:59 | VATNOTE ---
left midline removed due to pt. being discharged on IM antibiotics per [facility] CASTRO. Midline placed elsewhere; noted 16.5cm retrieved of midline catheter. Removed per protocol. Pt. instructed to keep arm on pillow & motionless for 15 min. Pt. could
not see clock on wall.
== END 2024-03-07 16:40 | DRG 689 ==
LOC: 1 ACUTE 07:08
PROVIDERS: Nurse Practitioner Family; Student in an Organized Health Care Education/Training Program; ADMITTING PHYSICIAN Internal Medicine; ATTENDING PHYSICIAN Internal Medicine; CONSULT PHYSICIAN Internal Medicine Infectious Disease; EMERGENCY PHYSICIAN Emergency Medicine; FAMILY PHYSICIAN Student in an Organized Health Care Education/Training Program
PROC: 5A09357 Assistance with Respiratory Ventilation, Less than 24 Consecutive Hours, Continuous Positive Airway Pressure (ICD-10-PCS; 2024-03-05)
DX: N39.0 Urinary tract infection, site not specified (principal); G93.41 Metabolic encephalopathy; F05 Delirium due to known physiological condition; Z16.35 Resistance to multiple antimicrobial drugs; Z68.41 Body mass index [BMI] 40.0-44.9, adult; E78.00 Pure hypercholesterolemia, unspecified; K21.9 Gastro-esophageal reflux disease without esophagitis; I10 Essential (primary) hypertension; H53.16 Psychophysical visual disturbances; G47.33 Obstructive sleep apnea (adult) (pediatric); I48.0 Paroxysmal atrial fibrillation; M81.0 Age-related osteoporosis without current pathological fracture; K22.70 Barrett's esophagus without dysplasia; I25.10 Atherosclerotic heart disease of native coronary artery without angina pectoris; H54.3 Unqualified visual loss, both eyes; K43.9 Ventral hernia without obstruction or gangrene; K44.9 Diaphragmatic hernia without obstruction or gangrene; B96.89 Other specified bacterial agents as the cause of diseases classified elsewhere; H35.30 Unspecified macular degeneration; E66.9 Obesity, unspecified; F32.A Depression, unspecified; R33.9 Retention of urine, unspecified; F41.9 Anxiety disorder, unspecified; Z66 Do not resuscitate; Z86.73 Personal history of transient ischemic attack (TIA), and cerebral infarction without residual deficits; I25.2 Old myocardial infarction; Z87.01 Personal history of pneumonia (recurrent); Z87.440 Personal history of urinary (tract) infections; Z90.49 Acquired absence of other specified parts of digestive tract; Z88.8 Allergy status to other drugs, medicaments and biological substances; Z91.041 Radiographic dye allergy status; Z79.01 Long term (current) use of anticoagulants
CPT/HCPCS: 74176; 80048; 80053; 80143; 83605; 83690; 83735; 85025; 87040; 87070; 94660; 96361; 96374; 97162; 97166; 99285; J1335

== ENCOUNTER → 2024-03-09 08:55 | Outpatient (REF) | payer OTHER, MEDICARE, SELFPAY ==
[2024-03-09 10:23] LABS: Hematocrit 35.1 % (37.0-47.0); Hemoglobin 11.4 g/dL (12.0-16.0); Mean Corp Hgb Conc. 32.5 g/dL (33.0-37.0); Mean Corpuscular Hgb 31.8 pg (27.0-31.0); Mean Platelet Volume 10.7 fL (7.4-10.4); Platelet Count 166 10^3/uL (130-400); Red Blood Cell Count 3.58 10^6/uL (4.20-5.40); Red Cell Dist. Width 13.1 % (11.5-14.5); White Blood Cell Count 4.8 10^3/uL (4.8-10.8)
[2024-03-09 10:41] LABS: Blood Urea Nitrogen 15 mg/dl (7-17); Carbon Dioxide 30 mmol/L (22-30); Chloride 104 mmol/L (98-107); Glucose 95 mg/dl (70-99); Potassium 4.1 mmol/L (3.5-5.1); Sodium 137 mmol/L (135-145); eGFR > 60.00
== END ==
LOC: OLABN 08:55
PROVIDERS: ATTENDING PHYSICIAN Student in an Organized Health Care Education/Training Program
DX: N39.0 Urinary tract infection, site not specified (principal)
CPT/HCPCS: 36415; 80048; 85027

== ENCOUNTER → 2024-05-20 16:57 | Outpatient (REF) | payer OTHER, MEDICARE, SELFPAY ==
[2024-05-20 17:13] LABS: Urine Albumin 2+ (Neg - Trace); Urine Bilirubin Negative (Negative); Urine Glucose Negative (Negative); Urine Ketone Negative (Negative); Urine Leukocyte 1+ (Negative); Urine Nitrite Negative (Negative); Urine Occult Blood Negative (Negative); Urine Urobilinogen Negative (Neg - 1+)
[2024-05-20 17:15] LABS: Urine Character Slightly Cloudy (Clear); Urine Color Yellow
[2024-05-20 17:25] LABS: Urine Red Blood Cell 0-2 /HPF (0-2); Urine Squamous Cell 26-30 /LPF (Few)
[2024-05-20 17:26] LABS: Urine Bacteria Many (Negative)
== END ==
LOC: OLABN 16:57
PROVIDERS: ATTENDING PHYSICIAN Student in an Organized Health Care Education/Training Program
DX: R82.90 Unspecified abnormal findings in urine (principal)
CPT/HCPCS: 81003; 81015; 87077; 87086

== ENCOUNTER → 2024-06-26 14:00 | Outpatient (REF) | payer MEDICARE, OTHER, SELFPAY ==
[2024-06-26 16:43] LABS: Urine Albumin 3+ (Neg - Trace); Urine Bilirubin Negative (Negative); Urine Character Cloudy (Clear); Urine Color Yellow; Urine Glucose Negative (Negative); Urine Ketone Negative (Negative); Urine Leukocyte 3+ (Negative); Urine Nitrite Positive (Negative); Urine Occult Blood 3+ (Negative); Urine Specific Gravity 1.015 (<1.030); Urine Urobilinogen Negative (Neg - 1+)
[2024-06-26 17:09] LABS: Urine Red Blood Cell 0-2 /HPF (0-2); Urine Squamous Cell 0-2 /LPF (Few)
[2024-06-26 17:10] LABS: Urine Bacteria Many (Negative); Urine White Cell >100 /HPF (0-5)
== END ==
LOC: OLABN 14:00
PROVIDERS: ATTENDING PHYSICIAN Student in an Organized Health Care Education/Training Program
DX: R35.0 Frequency of micturition (principal)
CPT/HCPCS: 81003; 81015; 87077; 87086; 87186

== ENCOUNTER → 2024-07-17 08:42 | Outpatient (REF) | payer MEDICARE, OTHER, SELFPAY ==
[2024-07-18 11:25] LABS: Urine Albumin 2+ (Neg - Trace); Urine Bilirubin Negative (Negative); Urine Character Cloudy (Clear); Urine Color Yellow; Urine Glucose Negative (Negative); Urine Ketone Negative (Negative); Urine Leukocyte 3+ (Negative); Urine Nitrite Negative (Negative); Urine Occult Blood 2+ (Negative); Urine Urobilinogen Negative (Neg - 1+)
[2024-07-18 12:12] LABS: Urine Calcium Oxalate Crystals Seen; Urine Hyaline Cast SEEN /LPF (0-2); Urine Squamous Cell SEEN /LPF (Few)
[2024-07-18 12:13] LABS: Urine Red Blood Cell 0-2 /HPF (0-2); Urine White Cell >100 /HPF (0-5)
== END ==
LOC: OLABN 08:42
PROVIDERS: ATTENDING PHYSICIAN Student in an Organized Health Care Education/Training Program
DX: Z09 Encounter for follow-up examination after completed treatment for conditions other than malignant neoplasm (principal); R35.0 Frequency of micturition
CPT/HCPCS: 81003; 81015; 87077; 87086

== ENCOUNTER → 2024-08-07 05:30 | Outpatient (REF) | payer MEDICARE, OTHER, SELFPAY ==
[2024-08-07 16:02] LABS: Urine Albumin 1+ (Neg - Trace); Urine Bilirubin Negative (Negative); Urine Character Clear (Clear); Urine Color Yellow; Urine Glucose 4+ (Negative); Urine Ketone Negative (Negative); Urine Leukocyte 2+ (Negative); Urine Nitrite Negative (Negative); Urine Occult Blood Negative (Negative); Urine Specific Gravity 1.015 (<1.030); Urine Urobilinogen Negative (Neg - 1+)
[2024-08-07 16:35] LABS: Urine Bacteria Few (Negative); Urine Red Blood Cell 0-2 /HPF (0-2); Urine Squamous Cell >30 /LPF (Few)
== END ==
LOC: OLABN 05:30
PROVIDERS: ATTENDING PHYSICIAN Student in an Organized Health Care Education/Training Program
DX: R30.9 Painful micturition, unspecified (principal)
CPT/HCPCS: 81003; 81015; 87086

== ENCOUNTER 2024-11-23 14:08 | Inpatient (IN) | payer MEDICARE, OTHER, SELFPAY ==
[2024-11-23] VITALS (11 sets, daily range): BP systolic 118–189; BP diastolic 61–89; BMI 39.2; BMI 40.2
[2024-11-23 10:09] LABS: Hematocrit 36.6 % (37.0-47.0); Hemoglobin 12.3 g/dL (12.0-16.0); Mean Corp Hgb Conc. 33.6 g/dL (33.0-37.0); Mean Corpuscular Volume 95.3 fL (81.0-99.0); Nucleated Red Blood Cells % 0 %; Platelet Count 159 10^3/uL (130-400); Red Cell Dist. Width 12.7 % (11.5-14.5)
--- NOTE | 2024-11-23 10:15 | ED.GENMED ---
History of Present Illness
General
Chief Complaint: Abdominal Symptoms
Time Seen by Provider: 11/23/24 09:45
Nursing documentation reviewed up to this point in time: agreed with
History of Present Illness
History of Present Illness:
84-year-old female brought to the ER from her long-term care facility via EMS for evaluation of abdominal pain and vomiting which started yesterday. Patient is pleasantly confused. She is also blind. Her daughter is present at the bedside and
provides additional history stating that patient does experience frequent urinary tract infections that cause abdominal pain and vomiting, however she is not typically confused. Patient has not been on antibiotics recently. No reported recent
trauma. Patient has difficulty ambulating independently as she is blind. Daughter reports that she had a normal bowel movement yesterday.
Past History
Past History
ED Past Medical History: CVA, GERD, HTN, Hypercholesterolemia, [place], Psychiatric (Anxiety, Depression) and Other (Recurrent UTI, PNA, possible hemiplegia Migraines, Garett Bonnet Syndrome, TGA, Sleep apnea, Barrets esophagus, GI bleeding, BLind);
Negative Asthma or NIDDM
ED Past Surgical History: Appendectomy, and Other (Hernia repair)
Social History
Tobacco: Non-smoker
Alcohol: None
Drug: None
Personal:
Living: assisted living ([facility])
Employment: Not employed
Family History
Family History: Other and Unable to obtain
Review of Systems
Review of Systems
Allergies reviewed?: Yes
Phy Exam
Physical Exam
Physical Exam:
Patient is awake, alert, obese, elderly appears upset, frequently singing out in an almost bird like manner, head is NCAT, keeping eyes closed during exam, mucous membranes dry, conjunctiva pink, heart regular rate and rhythm without murmurs or
ectopy, lungs are clear to auscultation without wheezes rales or rhonchi, no JVD, abdomen is soft, obese, diffuse pain on palpation right lower quadrant and suprapubic region, extremities without edema, GCS is 14 due to confusion but moving all
extremities symmetrically without focal deficit
Course
Orders/Labs/Results
Orders:
Orders
11/23/24 09:38
IV Insert/Care/Rem.- Treatment PRN
11/23/24 09:50
Complete Blood Count/With Diff Urgent
Comprehensive Metabolic Panel Urgent
Lipase Urgent
11/23/24 10:05
Straight cath- Treatment ONCE
Acetaminophen [Tylenol/Feverall] 650 mg RECTAL NOW STA
11/23/24 10:06
CT Head W/o Iv Contrast Urgent
Comment:
Reason For Exam: altered mental status
11/23/24 10:07
0.9% Sodium Chloride 1000 ml [Nss] 1,000 ml IV BOLUS
Ondansetron Injectable [Zofran] 4 mg IV NOW STA
11/23/24 10:25
CT Abd/pel Without Iv Or Oral Urgent
Comment:
Reason For Exam: RLQ pain
11/23/24 10:39
Urinalysis Reflex To Culture Urgent
Date Specimen was Collected: 11/23/24
Time Specimen was Collected: 09:38
Urine Microscopic Reflex Cult Urgent
Urine Culture Urgent
LEIGH ANN Source: U
Specimen Description:
Date Specimen was Collected: 11/23/24
Time Specimen was Collected: 09:38
11/23/24 12:11
CefTRIAXone [Rocephin] 1,000 mg IV NOW STA
11/23/24 12:26
Sterile Water [Sterile Water For Injection] 10 ml .ROUTE .STK-MED ONE
Abnormal Lab Results
11/23/24 11/23/24
09:50 10:39
RBC 3.84 L 10^6/uL
(4.20-5.40)
Hct 36.6 L %
(37.0-47.0)
MCH 32.0 H pg
(27.0-31.0)
Abs Immat Gran (auto) 0.1 H 10^3/uL
(0-0.05)
Absolute Lymphs (auto) 0.6 L 10^3/uL
(1.2-3.4)
Immature Gran % 1.4 H %
(0-0.5)
Neutrophils % 84.6 H %
(42.2-75.2)
Lymphocytes % 9.9 L %
(20.5-51.1)
Glucose 164 H mg/dl
(70-99)
Ur Occult Blood Reflex 3+ A
(Negative)
Leukocyte Esterase Rfl 2+ A
(Negative)
Urine RBC 3-6 A /HPF
(0-2)
Urine WBC (Reflex) >100 A /HPF
(0-5)
Urine Bacteria (Reflex) Many A
(Negative)
Urine Albumin (Reflex) 3+ A
(Neg - Trace)
11/23/24 09:50
11/23/24 09:50
CBC reassuring. Urinalysis is concerning for acute infection.
Vital Signs
Initial and Last Documented VS:
Initial Vital Signs
Pulse Resp BP Pulse Ox
72 14 183/65 94
11/23/24 09:37 11/23/24 09:37 11/23/24 09:37 11/23/24 09:37
Last Documented Vital Signs
Temp Pulse Resp BP Pulse Ox
99.5 F 77 17 119/89 93
11/23/24 11:00 11/23/24 11:00 11/23/24 11:00 11/23/24 10:39 11/23/24 11:00
MDM/Problems Addressed
Differential Diagnosis Includes:
Differential diagnosis to consider but not limited to urinary tract infection, urosepsis, intracranial hemorrhage, diverticulitis, along with other etiologies considered
Chronic conditions affecting care:
Blindness, advanced age, poor mobility, hypertension, high cholesterol,Prior CVA, GI bleeding, ACS, PAT
*Radiology
Radiology exam reviewed: preliminary read by ED provider (I independently viewed and interpreted CT head showing no gross hemorrhage, no midline shift. I reviewed radiology interpretation of same) and radiology read reviewed (No acute process seen
on CT head, diffuse atrophy)
*Pulse Oximetry
SaO2: 93
Oxygen Mode of Delivery: Room air
Patient hypoxic: no
*Critical Care Note
Total Time (30-74mins, 75-104mins- exclusive of procedures): Not Applicable
Data Reviewed
Review of Other/Old Records Reveals: Labs (I reviewed urine culture from 07/17/2024-Enterococcus faecalis susceptible to every tested antibiotic but tetracycline)
Update Note
Update Note:
Will give rectal Tylenol for discomfort along with IV fluids and Zofran. Will obtain CT abdomen and pelvis along with CT head and screening labs. Daughter present at bedside agrees with plan at current.
1220: After reviewing sensitivities, IV Rocephin is ordered for urinary tract infection with delirium. No evidence for acute process on CT head. Awaiting formal reading of CT abdomen and pelvis, however given vomiting will need to admit patient
for hydration and treatment. Daughter present bedside agrees with plan at current
1229: I reviewed CT abdomen pelvis result, no evidence for obstructing stones, no acute infectious or inflammatory process other than inflammation related to bladder wall thickening/cystitis. I reviewed full patient presentation with hospitalist
who accepts patient for admission.
ED Attending Note
-
Portions of this chart may have been created with voice recognition software.� Occasional wrong word or��sound alike� substitutions may have occurred due to the inherent limitations of voice recognition software.
Discharge Plan
Departure
Patient Disposition: Admit
Date of Disposition: 11/23/24
Time of Disposition: 12:30
Presentation/result/management discussed w/ accepting MD/DO: Hospitalist
Discharge Problem:
Acute UTI, Acute delirium, Vomiting
Prescriptions:
No Action
pantoprazole 40 MG tablet,delayed release (DR/EC)
40 mg PO DAILY
rosuvastatin 10 MG tablet
10 mg PO HS
fluoxetine 10 MG capsule
30 mg PO DAILY
Rx Instructions:
take with 20 mg for a total of 30 mg.
acetaminophen 325 mg Tablet
650 mg PO Q4HPRN PRN (Reason: mild pain/fever>100.4)
ascorbic acid (vitamin C) 1,000 mg Tablet
1,000 mg PO DAILY
Eliquis 5 mg Tablet
5 mg PO BID Qty: 60 1RF
ondansetron HCl 4 mg Tablet
4 mg PO Q6HPRN PRN (Reason: nausea/vomiting)
magnesium hydroxide [Milk of Magnesia] 400 mg/5 mL Suspension
30 ml PO HSPRN PRN (Reason: constipation)
bisacodyl [Dulcolax (bisacodyl)] 10 mg Suppository
10 mg IL [id number] PRN (Reason: if no bm aftr mom)
metoprolol succinate 50 mg Tablet Extended Release 24 Hr
50 mg PO DAILY
therapeutic multivitamin Tablet
1 tab PO QPM
ramipril 1.25 mg Capsule
6.25 mg PO BID
Rx Instructions:
give 1.25mg and 5mg to equal 6.25mg BID
cranberry 450 mg Tablet
425 mg PO QPM
Culturelle 10 billion cell Capsule
1 cap PO QPM
thiamine HCl (vitamin B1) 100 mg Tablet
100 mg PO QPM
magnesium oxide 400 mg (241.3 mg magnesium) tablet
400 mg PO DAILY
docusate sodium 100 mg capsule
100 mg PO BID
tamsulosin 0.4 mg Capsule
0.4 mg PO DAILY 30 Days Qty: 30 0RF
quetiapine [Seroquel] 25 mg Tablet
25 mg PO DAILY
fosfomycin tromethamine 3 gram Packet
3 g PO Q10D
miconazole nitrate 2 % Powder
1 applic TOPICAL BIDPRN PRN (Reason: fungal rash)
gabapentin 100 mg Capsule
200 mg PO BID
estradiol 0.01 % (0.1 mg/gram) Cream
1 g VAGINAL TUFR
quetiapine [Seroquel] 50 mg Tablet
50 mg PO HS
Referrals:
Tereso Carranza DO [Family Provider, Family Practice]
Interventions
Interventions:
*Risk Screen - Suicide Last Done: 11/23/24 09:39
*General Assessment Last Done: 11/23/24 09:39
*Neglect/Abuse Screening Last Done: 11/23/24 09:39
*ED COVID-19 Vaccine History Last Done: 11/23/24 09:39
JR-Hfftbc-Cqvsqoggdc Assessment Last Done: 11/23/24 09:55
Discharge Date and Time
Print Language: SUDANESE
[2024-11-23] MEDS: NSS 1000 IV ×2 (10:19→18:59)
[2024-11-23] MEDS: TYLENOL/FEVERALL 650 MG RECTAL (10:20)
[2024-11-23] MEDS: ZOFRAN 4 MG IV ×3 (10:20→19:39)
[2024-11-23 10:21] LABS: ALT (SGPT) 14 U/L (0-35); AST (SGOT) 28 U/L (14-36); Albumin 4.0 g/dl (3.5-5.0); Alkaline Phosphatase 72 U/L (38-126); Blood Urea Nitrogen 10 mg/dl (7-17); Calcium 9.4 mg/dl (8.4-10.2); Carbon Dioxide 28 mmol/L (22-30); Chloride 103 mmol/L (98-107); Estimated Creatinine Clearance 59 ml/min; Glucose 164 mg/dl (70-99); Lipase 101 U/L (23-300); Potassium 3.5 mmol/L (3.5-5.1); Sodium 137 mmol/L (135-145); Total Protein 6.8 g/dl (6.3-8.2); eGFR > 60.00
[2024-11-23 10:54] LABS: Urine Character Clear (Clear)
[2024-11-23 11:24] LABS: Urine White Cell >100 /HPF (0-5)
[2024-11-23 11:25] LABS: Urine Urothelial Cell 0-2 /LPF (FEW)
--- NOTE | 2024-11-23 11:42 | EDRN ---
patient back from CT and hooked back up to the monitor, patient asking for a drink, informed her we are waiting on CT results, provided with a mouth swab, call tolentino in reach and family is at bedside
[2024-11-23] MEDS: ROCEPHIN 1000 MG IV (12:26)
--- NOTE | 2024-11-23 13:06 | EDRN ---
Patient is sleeping with family at bedside.
--- NOTE | 2024-11-23 13:08 | HPS.HSE ---
Family Physician
-
Family Physician: Tereso Carranza,
Chief Complaint
-
Confusion, abdominal pain, vomiting, headache, dysuria
History of Present Illness
84-year-old female from [facility] for evaluation of abdominal pain and vomiting which started yesterday 11/22/2024. The patient is currently complaining of headache and dysuria. Her daughter stated to the ER she is not
typically confused however is pleasantly confused today. Patient is oriented to name, daughter's Erica at bedside is unsure of place and year. Daughter states she normally is oriented x 3 she does have history of recurrent UTIs that she is
concerned about. There is no reported fever, chills, chest pain, palpitations, cough, shortness of breath, diarrhea, rash.
She has past medical history recurrent UTIs Enterococcus faecalis April 2024, Morganella morganii May 2024, E. coli 10/18/2023, HTN, CVA, GERD, Aguilar's, large hiatal hernia, dyslipidemia, CAD/AZ, paroxysmal A-fib on Eliquis, anxiety,
depression, migraines, JOSETTE on CPAP, Garett Boni syndrome/blindness, L1 compression fracture, large hiatal hernia, diverticulosis, gallstones, chronic ambulatory dysfunction uses walker at baseline, class II obesity.
Medical History
Past Medical History
Past Medical History: Reports Other
Additional Past Medical History:
Chronic ambulatory dysfunction uses walker at baseline
recurrent UTIs Enterococcus faecalis April 2024, Morganella morganii May 2024, E. coli 10/18/2023,
HTN
CVA
GERD
Aguilar's
large hiatal hernia
dyslipidemia
CAD/AZ
paroxysmal A-fib on Eliquis
anxiety
depression
migraines
JOSETTE on CPAP
Garett Boni syndrome/blindness
L1 compression fracture,
large hiatal hernia
diverticulosis
gallstones
Class II obesity�BMI 39
Past Surgical History: Reports Other
Additional Past Surgical History:
Appendectomy
Hernia repair
Social History
Tobacco: Non-smoker
Alcohol: None
Drug: None
Personal: Single
Living: Assisted Living ([facility] [place])
Employment: Retired
Family History
Family History: Not pertinent
Allergies / Home Medications
Allergies reflects when Allergies were last updated in [facility].
Home Medications with original date entered in [facility]
Allergy/Medication List:
Allergies
Allergy/AdvReac Type Severity Reaction Status Date / Time
amlodipine besylate (From Allergy Rash/CONFUS Verified 11/23/24 09:43
Norvasc) ION
iodine Allergy Confusion,confusion/'like Verified 11/23/24 09:43
I had a
tia'
Home Medications
pantoprazole 40 mg tablet,delayed release 40 mg PO DAILY Gastrointestinal issue 12/03/11
rosuvastatin 10 mg tablet 10 mg PO HS High cholesterol 05/25/18
fluoxetine 10 mg capsule 30 mg PO DAILY Depression 11/24/20
acetaminophen 325 mg tablet 650 mg PO Q4HPRN PRN mild pain/fever>100.4 02/10/22
ascorbic acid (vitamin C) 1,000 mg tablet 1,000 mg PO DAILY Supplement 06/25/23
apixaban 5 mg tablet (Eliquis) 5 mg PO BID #60 tabs 07/25/23
bisacodyl 10 mg rectal suppository (Dulcolax (bisacodyl)) 10 mg IL [id number] PRN if no bm aftr mom 07/28/23
magnesium hydroxide 400 mg/5 mL oral suspension (Milk of Magnesia) 30 ml PO HSPRN PRN constipation 07/28/23
ondansetron HCl 4 mg tablet 4 mg PO Q6HPRN PRN nausea/vomiting 07/28/23
cranberry fruit 450 mg tablet (cranberry) 425 mg PO QPM Supplement 10/18/23
metoprolol succinate 50 mg tablet,extended release 24 hr 50 mg PO DAILY Heart Failure 10/18/23
ramipril 1.25 mg capsule 6.25 mg PO BID Blood Pressure 10/18/23
therapeutic multivitamin 1 tab PO QPM Supplement 10/18/23
Lactobacillus rhamnosus GG 10 billion cell capsule (Culturelle) 1 cap PO QPM Supplement 03/04/24
thiamine HCl (vitamin B1) 100 mg tablet 100 mg PO QPM Supplement 03/04/24
docusate sodium 100 mg capsule 100 mg PO BID Constipation 03/05/24
magnesium oxide 400 mg (241.3 mg magnesium) tablet 400 mg PO DAILY Supplement 03/05/24
tamsulosin 0.4 mg capsule 0.4 mg PO DAILY Urinary retention 30 days #30 caps 03/07/24
estradiol 0.01% (0.1 mg/gram) vaginal cream 1 g vaginal TUFR 11/23/24
fosfomycin tromethamine 3 gram oral packet 3 g PO Q10D 11/23/24
gabapentin 100 mg capsule 200 mg PO BID 11/23/24
miconazole nitrate 2 % topical powder 1 applic topical BIDPRN PRN fungal rash 11/23/24
quetiapine 25 mg tablet (Seroquel) 25 mg PO DAILY 11/23/24
quetiapine 50 mg tablet (Seroquel) 50 mg PO HS 11/23/24
Review of Systems
-
History Source: Patient and Family (Daughter Nikole at bedside)
A 12 point ROS was completed and negative except as noted: Yes
Constitutional: Denies Fever or Chills
EENT: Denies Sore Throat
Respiratory: Denies Cough or Trouble Breathing
Cardiac: Denies Chest Pain, Palpitations or Syncope
Abdomen/GI: Reports Abdominal Pain (Suprapubic) and Vomiting (Yesterday); Denies Diarrhea or Constipated
: Reports Dysuria; Denies Frequency, Flank Pain, Incontinence or Difficulty Voiding
Musculoskeletal: Denies Joint Pain or Edema
Skin: Denies Itching or Rash
Neurological: Reports Headache; Denies Dizzy, Weakness or Numbness
Endocrine: Reports No Symptoms
Hematologic/Lymphatic: Reports No Symptoms
Psych: Reports Anxiety (Due to current headache and dysuria)
Physical Exam
Vital Signs
Vital Signs
Temp Pulse Resp BP Pulse Ox
99.5 F 75 17 135/64 94
11/23/24 11:00 11/23/24 13:00 11/23/24 13:00 11/23/24 13:00 11/23/24 12:45
Physical Exam
General: Pain and Morbidly Obese; No Fever or Chills
HEENT: NormoCephalic, Anicteric, Vermilion Conjunctivae and No Ptosis
Respiratory: Clear; No Wheezes, Rales or Rhonchi
Cardiac: S1/S2 and Regular Rhythm; No Murmur, Rub, Gallop or Peripheral Edema
Breast: Deferred by me
GI: Soft, Non Distended, Normal Bowel Sounds, Tender (Suprapubic) and No Hepatosplenomegaly
Rectal: Deferred by Provider
Genito-urinary: No costovertebral tender
Musculoskeletal: No Clubbing, No Cyanosis and No Edema
Skin: Warm and Dry; No Rash
Neuro: Awake, Alert, Oriented (To name and daughter's-at bedside but not place or year), Cranial Nerves Intact and No Sensory Deficits; No Slurred Speech, Facial Droop or Tremors
Psych: Anxious (Due to headache and dysuria)
Laboratory Results
-
11/23/24 09:50
11/23/24 09:50
Laboratory Results
Total Bilirubin 0.9 mg/dl (0.2-1.3) 11/23/24 09:50
AST 28 U/L (14-36) 11/23/24 09:50
ALT 14 U/L (0-35) 11/23/24 09:50
Alkaline Phosphatase 72 U/L (38-126) 11/23/24 09:50
Lipase 101 U/L (23-300) 11/23/24 09:50
Impression/Plan
-
Impression/plan:
Observation MedSurg
#Encephalopathy secondary to UTI
#History of Enterococcus faecalis April 2024, Morganella morganii I May 2024, E. coli 10/18/2023
#Patient appears to be on chronic suppressive fosfomycin 3 g q. 10 days unknown last dose
99.5 F, HR 75, 135/64
+2 leukocyte esterase WBC greater than 100+3 occult blood many bacteria
- Follow urine culture
- IV Rocephin
-will start zosyn
- IV NSS
-Tylenol as needed headache
-Pyridium for dysuria
- Follow CBC, CMP, mg
ekg for qtc
CT abdomen pelvis without IV or oral contrast:
1. Mild diffuse bladder wall thickening. This can be seen with cystitis or bladder outlet obstruction. New.
2. Mild L1 compression fracture. Stable.
3. Fat-containing ventral hernias. No evidence of incarceration or strangulation. All are stable except for the left lateral pelvic
hernia which previously contained a loop of bowel and currently does not.
4. Large hiatal hernia. Stable.
5. Gallstones.
6. Simple right renal cyst. Stable.
7. Diverticulosis. No evidence of acute diverticulitis.
#History migraines
Current headache at present time
-Will give Tylenol
#HTN
BP 135/64
-Continue ramipril 6.25 mg twice daily, metoprolol succinate 50 mg with hold parameters
#CVA history
-Continue statin
#GERD
#Aguilar's esophagus
#Large hiatal hernia
Continue Protonix 40 mg daily
#Dyslipidemia
-Continue rosuvastatin
#CAD/Hx AZ
-Continue rosuvastatin 10 mg at bedtime, metoprolol succinate with hold parameters
#Paroxysmal Afib
-Continue Eliquis 5 mg twice daily, metoprolol succinate 50 mg daily
#Anxiety/depression
Continue Seroquel 25 mg daily, 50 mg at bedtime, fluoxetine 30 mg daily
#JOSETTE on CPAP
#Garett Bonnet syndrome/Blindness
Other PMH:
L1 compression fracture stable
Large hiatal hernia
Diverticulosis
Gallstones
DVT prophylaxis
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
--- NOTE | 2024-11-23 13:53 | W.PN.UPDATE ---
Addendum entered and electronically signed by Sara Ragsdale MD 11/23/24 14:14:
Fofomycin q 10 days listed on home med list for prophylaxis? Team to touch base with ID tomorrow for prophylaxis recommendations.
Original Note:
Update Note
Progress Note Update
This is an addendum to H&P written by ENGINE BUILDER Anabella Celeste
I saw and examined the patient.
The ENGINE BUILDER's note was reviewed and I agree with the note.
Comment:
Ms. Ting Zarate is a 84 yo woman with hx recurrent UTI's, HTN, CVA, GERD, Aguilar's, CAD/CO, paroxysmal Afib on Eliquis, anxiety/depression who presents to the ER complaining of headache and dysuria.
Triage VS: T 99.5, P 72, BP 183/65, Spo2 94%
On exam patient is awake/alert; she appears uncomfortable. CV: S1, S2, lungs clear, no LE swelling
LABS: WBC 5.6, Hg 12.3, PLT 159, Na 137, K+ 3.5, CO2 28, Cr 0.7
UA with WBC > [address]
IMPRESSION:
No acute intracranial abnormality noted.
Moderate atrophy. Mildly progressed
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 Stable
CT A/P
IMPRESSION: Mild diffuse bladder wall thickening. This can be seen with cystitis or bladder outlet obstruction. New.
Mild L1 compression fracture. Stable.
Fat-containing ventral hernias. No evidence of incarceration or strangulation. All are stable except for the left lateral pelvic hernia which previously contained a loop of bowel and currently does not.
Large hiatal hernia. Stable.
Gallstones.
Simple right renal cyst. Stable.
Diverticulosis. No evidence of acute diverticulitis.
UTI
Nausea/Vomiting
-most recent organisms Enterococcus (sens. to amp) and resistant Morganella (sensitive Zosyn)
-IV Zosyn
-gentle IVF
-follow up cultures
-IV Zofran PRN (check QTc)
-Pyridine to help with sx of dysuria
Paroxysmal Afib
-continue Eliquis
Remainder of plan per ENGINE BUILDER note
--- NOTE | 2024-11-23 13:58 | EDCM ---
CM reviewed chart and met with pt's daughter Robyn ferrell in ED. Pt resides in LTC at [place], [place] bed hold.
Needs assistance with all activities, pt is blind. Does use a rollator with assistance and guidance.
PCP: Tereso Carranza
Pharmacy: [facility] in [place]
Anticipate return to [facility], CM will continue to follow for any case management needs.
--- NOTE | 2024-11-23 14:16 | EDRN ---
Went in to give patient meds and patient is dry heaving, nausea meds ordered for patient.
[2024-11-23] MEDS: ZOSYN 50 IV ×2 (14:19→21:59)
--- NOTE | 2024-11-23 14:46 | EDRN ---
Went in to give patient medications and she is currently sleeping, will re-evaluate
[2024-11-23] MEDS: TYLENOL 650 MG PO (15:24)
--- NOTE | 2024-11-23 19:15 | PTCARENOTE ---
Pt received from day shift RN at 1915. Pt confused, AAOx2, vomiting/spitting up, and complaining of pain, not able to explain where or give a rating. This RN let pt and daughter at bedside know that she will look into nausea and pain meds as they
were still at the time being verified by pharmacy. Pt bed in lowest position and call tolentino within reach. Pt educated on importance of call tolentino usage, pt does not relay understanding and cooperation. Bed alarm placed and plugged in. Will continue
with current plan of care.
--- NOTE | 2024-11-23 19:45 | RR ---
A Rapid Response was called on this patient, please see Rapid Response form.
At 1945, this RN entered pt's room to administer nausea medication as pt had been vomiting. During administration, RN noticed pt to have a slight right sided facial droop and slurring. RR was called. NIH stroke score of 13. Pt was put on 2L O2 as
pt's O2 was at 87%, O2 came up to 97%. Otherwise, VSS - T99, P77, R18, BP165/81. Pt was ordered IV Tylenol for pain and Compazine for nausea. Dr. Ragsdale at bedside. Per MD, no further orders.
[2024-11-23 19:58] LABS: Glucose - Point of Care 120 mg/dl (70-99)
--- NOTE | 2024-11-23 20:15 | W.PN.UPDATE ---
Update Note
Progress Note Update
Rapid response called, pt w/new symptoms, slurred speech, slight right facial droop, left hand/arm weakness, inattentive to left side. Patient is blind. NIH 13 by primary RN �(1-answers one correctly, 2-performs neither correctly, 3-b/l hemianopia
(pt is blind), 2-partial paralysis,1- left leg drift, 1-limb ataxia in one limb, 1-mild sensation loss, 1-mild slurring, 1-sensory inattention, NIH 13), repeat NIH 6 by rapid response team. Vital signs: BP 165/81, HR 120, Resp 18, 92% on 5L NC.
Blood glucose 120.
Dr. Ragsdale to bedside, evaluated patient. No need for further work up at this time, believes symptoms r/t current UTI. Patient w/previous hx of CVA 2010 and 2013 noting aphasia and left hand weakness. Continue to monitor.
[2024-11-23] MEDS: COMPAZINE 5 MG IV (21:52)
[2024-11-23] MEDS: VITAMIN B1 100 MG PO (22:00)
[2024-11-23] MEDS: NEURONTIN 200 MG PO (22:01)
[2024-11-23] MEDS: CRESTOR 10 MG PO (22:01)
[2024-11-23] MEDS: ELIQUIS 5 MG PO (22:01)
[2024-11-23] MEDS: ALTACE 6.25 MG PO (22:03)
[2024-11-23] MEDS: THERAGRAN 1 TABLET PO (22:03)
[2024-11-23] MEDS: COLACE 100 MG PO (22:03)
[2024-11-23] MEDS: SEROQUEL 50 MG PO (22:09)
[2024-11-23] MEDS: OFIRMEV 100 IV (22:12)
[2024-11-24] MEDS: ZOSYN 50 IV ×4 (01:05→21:34)
[2024-11-24 07:22] VITALS: BP 133/95
[2024-11-24] MEDS: NEURONTIN 200 MG PO ×2 (07:24→21:44)
[2024-11-24] MEDS: VITAMIN C 1000 MG PO (07:24)
[2024-11-24] MEDS: FLOMAX 0.4 MG PO (07:24)
[2024-11-24] MEDS: ELIQUIS 5 MG PO ×2 (07:24→21:42)
[2024-11-24] MEDS: ALTACE 6.25 MG PO ×2 (07:25→21:34)
[2024-11-24] MEDS: VITAMIN B1 100 MG PO (07:25)
[2024-11-24] MEDS: PROZAC 30 MG PO (07:25)
[2024-11-24] MEDS: TOPROL XL 50 MG PO (07:25)
[2024-11-24] MEDS: COLACE 100 MG PO (07:26)
[2024-11-24] MEDS: THERAGRAN 1 TABLET PO (07:26)
[2024-11-24] MEDS: SENOKOT-S 1 TABLET PO (07:26)
[2024-11-24] MEDS: PROTONIX 40 MG PO (07:26)
[2024-11-24] MEDS: SEROQUEL 25 MG PO (07:26)
[2024-11-24] MEDS: MAGNESIUM OXIDE 400 MG PO (07:26)
--- NOTE | 2024-11-24 08:00 | PTCARENOTE ---
11/24- Patient is AAOX1, confused but able to answer Yes or No questions. She is unable to perform the NIH assessments for dysarthria or aphagia. However when she speaks, she has clear pronunciation of words, though confused conversation. L-hand
has trace movement and inattention to sensation. LLE has weak movement and mild sensation loss. Unclear if this is a chronic issue or new. Visual finn scored for blindness. Overall NIH=16. Continue to monitor.
[2024-11-24 08:56] LABS: Hematocrit 34.7 % (37.0-47.0); Hemoglobin 11.9 g/dL (12.0-16.0); Mean Corp Hgb Conc. 34.3 g/dL (33.0-37.0); Mean Corpuscular Volume 95.1 fL (81.0-99.0); Nucleated Red Blood Cells % 0 %; Platelet Count 153 10^3/uL (130-400); Red Cell Dist. Width 13.0 % (11.5-14.5)
[2024-11-24 09:10] LABS: ALT (SGPT) 13 U/L (0-35); AST (SGOT) 31 U/L (14-36); Albumin 3.9 g/dl (3.5-5.0); Alkaline Phosphatase 62 U/L (38-126); Blood Urea Nitrogen 9 mg/dl (7-17); Calcium 8.8 mg/dl (8.4-10.2); Carbon Dioxide 27 mmol/L (22-30); Chloride 105 mmol/L (98-107); Estimated Creatinine Clearance 52 ml/min; Glucose 121 mg/dl (70-99); Potassium 3.4 mmol/L (3.5-5.1); Sodium 138 mmol/L (135-145); Total Protein 6.4 g/dl (6.3-8.2); eGFR > 60.00
--- NOTE | 2024-11-24 11:26 | CON.NEURO4 ---
Addendum entered and electronically signed by Waqar Jimenez MD 11/24/24 13:54:
Studies reviewed.
I have personally examined the patient. I reviewed and agree with the PRINT PROJECT MANAGER's Note.
My addenda:
Lethargic, minimally interactive. No acute distress.
Speech minimal output, clear.
Follows single step requests w/ repetition and difficulty. No tremor.
Extra-ocular movements grossly intact. Pupils unreactive, round, small sized
Facial movements full and symmetric. Hearing intact to normal conversational volume.
Normal UE movements bilaterally.
Neck: full ROM.
Chest: no dyspnea
Heart: no JVD
Ext: (-) Clubbing, (-) Cyanosis, (-) Edema
IMPRESSIONS/RECOMMENDATIONS:
Abrupt onset of change in mental status in a patient with recurrent episodes noted since 2007 of strokelike symptoms associated with headache and/or infection assessed by 27 CAT scans of the head and 11 MRIs of the brain. Patient has never been
found to have an acute abnormality by neuroimaging.
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
The future, patient may benefit from the use of rizatriptan as rescue agent
Patient would likely benefit from the use of Atogepant or routine headache preventative medication to prevent recurrent episodes of hand weakness/sensory changes/alterations in consciousness probably associated with migraine with aura which are in
part due to idiopathic reasons and partly due to urinary tract infections
We will follow MRI of brain results
D/W family
All questions answered.
Will continue to follow pending results.
Original Note:
Documented by User: Belle Swenson NP 11/24/24 13:31
Consultation - Neurology 4
-
CONSULTING PHYSICIAN: Waqar Jimenez MD
REFERRING PHYSICIAN: Hospitalists/Dr. Ricardo
DICTATED BY: CYRIL Barreto
DATE/TIME OF REQUEST: 11/24/24
DATE/TIME OF CONSULTATION: 11/24/24
Reason for Consultation: Left-sided weakness, dysarthria, headache
History of Present Illness:
This is an 84-year-old right-handed female who has presented to the hospital on 11/23/24 with report of abdominal pain, vomiting, headache, and dysuria. Patient has been evaluated by our Neurology service numerous times in the past dating back to
2007 for stroke-like symptoms in the setting of infection and headache.
From my previous evaluation on 06/24/24:
'This is an 83-year-old right-handed female who has presented to the hospital from [facility] with report of aphasia, delirium, headache, and being unwilling to walk. Patient has been evaluated by our Neurology service several times in the past for
similar symptoms.
From previous evaluation by Dr. Valenzuela on 11/24/20:
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 Her
daughter states that she has received alteplase in the past (x2) with imaging showing no evidence of stroke. She is also had EEGs without any evidence of seizure. She has seen Dr. Sun (who she saw only once in our office), Dr. Jimenez, [facility] and [facility] without a clear etiology found for her symptoms. She was seen previously by me in the hospital on 12/29/2018 when she presented with headache with aphasia and confusion. At that time her family refused any imaging,
alteplase and EEG, saying that they felt her symptoms were related to UTI. At that time they stated that she had 'several different (similar) events in the past at least half of which is been associated with UTIs.'
She presents today for evaluation for confusion that began on associated with visual and auditory hallucinations. She resides with her daughter. She is generally able to carry out her activities of daily living with the assistance of a
nurse that helps her each morning. She needs assistance at times with taking her pills and with preparing food. Her daughter states that since last she has needed much more assistance with her ADLs and she has both visual and auditory
hallucinations. She has had visual hallucinations in the past per eCW with use of Seroquel and her daughter reports that she had visual hallucinations with a trial of Vimpat started by [facility]. She believes that she has never had
hallucinations outside the context of medication side effect or possible UTI. She is having a well-formed visual hallucinations consisting of 'seeing colorful wallpaper like she had at home.' She is also seen 'moms, a road with a levi and thought
she was in a [facility].' Her auditory hallucinations have consisted of 'hearing someone sleeping in the room next to her and hearing someone screaming for her son-in-law.' In the past similar episodes have improved with antibiotics but
she was put on antibiotics by her primary care physician for this event with little improvement. She generally has these a few times a year. Her family has been attempt to manage these events at home during COVID to avoid bringing her to the
hospital She's had no clear focal neurological deficits are clear convulsive seizures with this current event.'
Patient is currently unable to provide answers to many questions so most of this information is obtained from her daughter at bedside. Her daughter reports that yesterday (06/24/23) she had breakfast with the patient and then the patient headed to
her exercise class in her usual state. This morning (06/25/23), [facility] staff noted that the patient seemed delirious with nonsensical speech, and was refusing to stand up to walk. They sent her to the ER for evaluation. CT head was obtained on arrival
and is negative for any acute abnormalities. Blood pressure was 162/98 on arrival but is now 199/84. Patient is reporting a 10/10 headache, she is unable to describe it or provide a location of the headache. She reports photophobia and nausea, she
has not vomited and denies phonophobia. 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 She denies any dizziness, swallowing difficulty, numbness, weakness, chest pain, palpitations, and shortness of breath. NIHSS is a 6 for incorrect orientation questions,
baseline bilateral hemianopia, and mild aphasia. She is not a candidate for TNK/IAT due to unclear diagnosis, no evidence of LVO, and unclear onset of symptoms. She is taking aspirin 81mg daily and has not missed any doses. Her daughter reports that
two years ago she moved to [facility] for increased assistance due to her blindness, but cognitively she is intact at baseline. Her last episode similar to this was 1-2 years ago.'
Patient has had 27 CT head and 11 MRI brain images since 2007 for stroke-like symptoms in the setting of infection and headache, with no evidence of stroke. Patient presented to [facility] on 11/23/24 with report of abdominal pain, vomiting, headache, and
dysuria. Overnight a rapid response was activated for dysarthria, right facial drooping, left arm weakness, and inattention to the left side. CT head was obtained and is negative for any acute abnormalities. Today, patient is obtunded and minimally
able to answer questions or participate in examination.
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
(apixaban), HTN, HLD, [place], pneumonia, recurrent UTI, UTI associated encephalopathy, anxiety, depression, GERD, left ICA stenosis, JOSETTE, hypothyroidism, iron deficiency anemia, osteoporosis, pulmonary nodule, hallucinations in the past on Seroquel and
lacosamide, insomnia, Tracy-Agrawal tear, L1 compression fracture, JOSETTE (cpap)
Surgical History: Appendectomy, hernia repair, tonsillectomy, x3, right cataract removal
Family History: Father- dementia.
Social History: Denies tobacco, alcohol, and illicit drug use. . Moved to [facility] in 2021. 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
Allergies: Iodine, amlodipine.
Home Medications: See below.
Review of Symptoms:
Patient denies any fever, chest pain, shortness of breath, GI or symptoms.
�Per the HPI.�All systems are reviewed negative except above.
Physical Exam:
The patient is afebrile, abdomen is nondistended, breathing is unlabored, skin is warm and dry, trace edema.
NIH Stroke Scale:
I performed the NIH stroke scale on the patient on 11/24/24 at 1130. The patient scored 14 points on the NIH stroke scale assessment, which were assigned as follows: See below.
Neurologic Examination:
The patient is obtunded. Responds to loud voice/firm touch. Rapid eye closure after stimulation. She is able to follow some commands and answer some questions appropriately. There is mild aphasia and dysarthria. On cranial nerve assessment, pupils
are 3 mm bilateral, round and non-reactive to light and accommodation. Visual stern are absent bilaterally at baseline. JJ EOMs. There is no apparent facial asymmetry. Hearing is diminished bilaterally to normal conversation volume. JJ tongue.
Motor strengths are 5/5 right upper, 3/5 left upper, 4/5 bilateral lower extremities on medical research [place] scale. There is drift in bilateral lower extremities and LUE. No involuntary movement noted. Deep tendon reflexes are 2+ bilateral
upper and lower extremities and Babinski is absent bilaterally. JJ sensation, double simultaneous, and coordination.
Lab Results: See below.
Neuro Imaging:
1. CT Head 11/23/24: No acute intracranial abnormality noted. Moderate atrophy. Mildly progressed. 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 Stable.
Differentials for the patient's presentation include:
1. Left-sided weakness, dysarthria, left kyree inattention in the setting of urinary tract infection and headache; etiology of symptoms is likely migraine aura, low concern for stroke but cannot entirely exclude this diagnosis. This cannot be TIA
due to numerous events of stroke-like symptoms in the setting of headache and infection with negative brain imaging.
Patient has the following risk factors for their symptoms: hx similar symptoms in the setting of headache, infection
IV Tenecteplase/IAT candidacy: not a candidate due to apixaban usage, recurrence of similar events in the setting of headache supportive of migraine aura
Recommendations:
-MRI brain noncontrast pending.
-Continue home apixaban.
-PRN prochlorperazine and acetaminophen for headache.
-Neurological checks per unit guidelines.
-PT/OT/ST evaluations.
Discussed patient care with: Dr. Jimenez, the patient's daughter
Vital Signs and Labs
-
Vital Signs and Labs:
Vital Signs
Temp Pulse Resp BP Pulse Ox
98.0 F 89 18 133/95 96
11/24/24 07:22 11/24/24 07:22 11/24/24 07:22 11/24/24 07:22 11/24/24 07:25
Lab Results
11/24/24 08:17
11/24/24 08:17
Sodium 138 mmol/L (135-145) 11/24/24 08:17
Potassium 3.4 mmol/L (3.5-5.1) L 11/24/24 08:17
BUN 9 mg/dl (7-17) 11/24/24 08:17
Glucose 121 mg/dl (70-99) H 11/24/24 08:17
Calcium 8.8 mg/dl (8.4-10.2) 11/24/24 08:17
Medications
-
Active Medications
Generic Name Dose Route Start Last Admin
Trade Name Freq PRN Reason Stop Dose Admin
Acetaminophen 650 mg 11/23/24 18:27
Acetaminophen 325 Mg Tablet PO 12/21/24 18:26
Q4HPRN PRN
mild pain/COHEN/temp> 100.4F
Apixaban 5 mg 11/23/24 20:00 11/24/24 07:24
Apixaban (Eliquis) 5 Mg Tablet PO 12/21/24 19:59 5 mg
BID MARCIA Administration
Ascorbic Acid 1,000 mg 11/24/24 08:00 11/24/24 07:24
Ascorbic Acid 500 Mg Tablet PO 12/22/24 07:59 1,000 mg
DAILY MARCIA Administration
Bisacodyl 10 mg 11/23/24 18:27
Bisacodyl 10 Mg Rectal Suppository RECTAL 12/21/24 18:26
[id number] PRN
constipation
Docusate Sodium 100 mg 11/23/24 20:00 11/24/24 07:26
Docusate Sodium 100 Mg Capsule PO 12/21/24 19:59 100 mg
BID MARCIA Administration
Fluoxetine HCl 30 mg 11/24/24 08:00 11/24/24 07:25
Fluoxetine 10 Mg Capsule PO 12/22/24 07:59 30 mg
DAILY MARCIA Administration
Gabapentin 200 mg 11/23/24 20:00 11/24/24 07:24
Gabapentin 100 Mg Capsule PO 12/21/24 19:59 200 mg
BID MARCIA Administration
Piperacillin Sod/Tazobactam Sod 3.375 gram in 50 mls @ 100 mls/hr 11/23/24 20:00 11/24/24 07:25
Zosyn IV 50 mls
Q6H MARCIA Administration
Magnesium Oxide 400 mg 11/24/24 08:00 11/24/24 07:26
Magnesium Oxide 400 Mg Tablet PO 12/22/24 07:59 400 mg
DAILY MARCIA Administration
Metoprolol Succinate 50 mg 11/24/24 08:00 11/24/24 07:25
Metoprolol 50 Mg Extended Release Tablet PO 12/22/24 07:59 50 mg
DAILY MARCIA Administration
Multivitamins Therapeutic 1 tablet 11/23/24 18:27 11/24/24 07:26
Multivitamin Tablet PO 12/21/24 18:26 1 tablet
QPM MARCIA Administration
Ondansetron HCl 4 mg 11/23/24 18:27 11/23/24 19:39
Ondansetron 4 Mg/2 Ml Vial IV 12/21/24 18:26 4 mg
Q6HPRN PRN Administration
nausea and vomiting
Pantoprazole Sodium 40 mg 11/24/24 08:00 11/24/24 07:26
Pantoprazole 40 Mg Delayed Release Tablet PO 12/22/24 07:59 40 mg
DAILY MARCIA Administration
Phenazopyridine HCl 100 mg 11/23/24 18:27
Phenazopyridine 100 Mg Tablet PO 12/21/24 18:26
TIDPRN PRN
Dysuria
Polyethylene Glycol 17 grams 11/23/24 18:27
Polyethylene Glycol Powder 17 Grams Packet PO 12/21/24 18:26
DAILYPRN PRN
constipation
Prochlorperazine Edisylate 5 mg 11/23/24 20:11 11/23/24 21:52
Prochlorperazine 10 Mg/2 Ml Vial IV 12/21/24 20:10 5 mg
Q6HPRN PRN Administration
nausea/vomiting 2nd line
Quetiapine Fumarate 25 mg 11/24/24 08:00 11/24/24 07:26
Quetiapine 25 Mg Tablet PO 12/22/24 07:59 25 mg
DAILY MARCIA Administration
Quetiapine Fumarate 50 mg 11/23/24 22:00 11/23/24 22:09
Quetiapine 25 Mg Tablet PO 12/21/24 21:59 50 mg
HS MARCIA Administration
Ramipril 1.25 mg/ Ramipril 5 6.25 mg 11/23/24 20:00 11/24/24 07:25
mg PO 12/21/24 19:59 6.25 mg
BID MARCIA Administration
Rosuvastatin Calcium 10 mg 11/23/24 22:00 11/23/24 22:01
Rosuvastatin (Crestor) 10 Mg Tablet PO 12/21/24 21:59 10 mg
HS MARCIA Administration
Senna/Docusate Sodium 1 tablet 11/23/24 18:27 11/24/24 07:26
Docusate W/Senna (Kat-Colace) Tablet PO 12/21/24 18:26 1 tablet
BIDPRN PRN Administration
constipation
Sodium Chloride 0 flush 11/23/24 20:00
Sodium Chloride 0.9% (Flush) Syringe IV 12/21/24 19:59
PER PROTOCOL MARCIA
Tamsulosin HCl 0.4 mg 11/24/24 08:00 11/24/24 07:24
Tamsulosin 0.4 Mg Capsule PO 12/22/24 07:59 0.4 mg
DAILY MARCIA Administration
Thiamine HCl 100 mg 11/23/24 20:00 11/24/24 07:25
Thiamine 100 Mg Tablet PO 12/21/24 19:59 100 mg
QPM MARCIA Administration
Home Medications
�Medication �Instructions �Recorded
pantoprazole 40 mg tablet,delayed 40 mg PO DAILY Gastrointestinal 12/03/11
release issue
rosuvastatin 10 mg tablet 10 mg PO HS High cholesterol 05/25/18
fluoxetine 10 mg capsule 30 mg PO DAILY Depression 11/24/20
acetaminophen 325 mg tablet 650 mg PO Q4HPRN PRN mild 02/10/22
pain/fever>100.4
ascorbic acid (vitamin C) 1,000 mg 1,000 mg PO DAILY Supplement 06/25/23
tablet
apixaban 5 mg tablet (Eliquis) 5 mg PO BID #60 tabs 07/25/23
bisacodyl 10 mg rectal suppository 10 mg MD [id number] PRN if no bm aftr 07/28/23
(Dulcolax (bisacodyl)) mom
magnesium hydroxide 400 mg/5 mL 30 ml PO HSPRN PRN constipation 07/28/23
oral suspension (Milk of Magnesia)
ondansetron HCl 4 mg tablet 4 mg PO Q6HPRN PRN nausea/vomiting 07/28/23
cranberry fruit 450 mg tablet 425 mg PO QPM Supplement 10/18/23
(cranberry)
metoprolol succinate 50 mg 50 mg PO DAILY Heart Failure 10/18/23
tablet,extended release 24 hr
ramipril 1.25 mg capsule 6.25 mg PO BID Blood Pressure 10/18/23
therapeutic multivitamin 1 tab PO QPM Supplement 10/18/23
Lactobacillus rhamnosus GG 10 1 cap PO QPM Supplement 03/04/24
billion cell capsule (Culturelle)
thiamine HCl (vitamin B1) 100 mg 100 mg PO QPM Supplement 03/04/24
tablet
docusate sodium 100 mg capsule 100 mg PO BID Constipation 03/05/24
magnesium oxide 400 mg (241.3 mg 400 mg PO DAILY Supplement 03/05/24
magnesium) tablet
tamsulosin 0.4 mg capsule 0.4 mg PO DAILY Urinary retention 03/07/24
30 days #30 caps
estradiol 0.01% (0.1 mg/gram) 1 g vaginal TUFR Hormonal Agent 11/23/24
vaginal cream
fosfomycin tromethamine 3 gram 3 g PO Q10D Infection 11/23/24
oral packet
gabapentin 100 mg capsule 200 mg PO BID Neurological 11/23/24
Condition
miconazole nitrate 2 % topical 1 applic topical BIDPRN PRN fungal 11/23/24
powder rash
quetiapine 25 mg tablet (Seroquel) 25 mg PO DAILY Mental 11/23/24
Health/Anxiety
quetiapine 50 mg tablet (Seroquel) 50 mg PO HS Mental Health/Anxiety 11/23/24
NIH Stroke Score
Subsequent NIH Scale
Date of Subsequent NIH Scale: 11/24/24
Time of Subsequent NIH Scale: 11:30
NIH Stroke Score
Level of Consciousness: 2 - Obtunded
LOC Questions: 2-Neither correct
LOC Commands: 0-Performs both correctly
Best Horizontal Gaze: 0-Normal
Visual Stern: 3=Bilateral hemianopia
Facial Palsy: 0=Normal, symmetrical
Motor - Right Arm: 0=No drift 10 seconds
Motor - Left Arm: 2=Partial vs. gravity
Motor - Right Le-Drift < 5 seconds
Motor - Left Le-Drift < 5 seconds
Limb Ataxia: UN-Amputation/jointfusion
Sensation: 0-Normal
Best Language: 1-Mild aphasia
Dysarthria: 1-Mild slurring
Extinction and Inattention: 1-Sensory inattention
NIH Total Score:: 14
Modified Laurence (mRS) Score
Modified Guin Scale (mRS): Severe disability. Requires constant nursing care.
Score: 5
Alteplase Contraindication
Inclusion and Exclusion criteria reviewed: Yes
Reasons for NON-Tx with Thrombolytics ABSOLUTE Exclusions: Patient taking oral anticoagulant and last dose within 48 hours

Documented by User: Waqar Jimenez MD 11/24/24 13:47
NIH Stroke Score
NIH Stroke Score
NIH Total Score:: 14
Modified Guin (mRS) Score
Score: 5
--- NOTE | 2024-11-24 11:46 | W.PN.HOSP.TC ---
Addendum entered and electronically signed by Vicenta Ricardo MD 11/24/24 16:16:
metabolic encephalopathy
Original Note:
Today's Communication/Plan
-
MRI brain
neuro consult
zosyn
follow cultures
Assessment / Plan
Assessment / Plan
pt is an 84 year old female
possible CVA--new symptoms, slurred speech, slight left facial droop, left hand/arm weakness, inattentive to left side--Patient is blind at baseline with Garett Bonnet syndrome--rapid response was called at 8:[address] Ragsdale to bedside,
evaluated patient-- no further work up at that time, believes symptoms r/t current UTI--There is documentation on previous H&P admissions that Patient w/previous hx of CVA 2010 and 2013 noting aphasia and left hand weakness.(Daughter adamantly
denies previous stroke history AND review of [facility] transfer note does not indicate stroke on diagnosis list)--pt no better this AM--will check MRI brain and consult neuro
Encephalopathy likely secondary to UTI--usually happens with infection and resolves by 2nd day per daughter (History of Enterococcus faecalis April 2024, Morganella morganii I May 2024, E. coli 10/18/2023--Patient appears to be on chronic
suppressive fosfomycin 3 g q. 10 days unknown last dose)--UA positive--await urine culture--cont zosyn (watch diarrhea)--cont NSS--pyridium
History migraines--Current headache at present time--Will give Tylenol
Essential HTN--Continue ramipril 6.25 mg twice daily, metoprolol succinate 50 mg with hold parameters
CVA history (none per daughter and NH records)--Continue statin
GERD/Aguilar's esophagus/Large hiatal hernia--Continue Protonix 40 mg daily
HLD--Continue rosuvastatin
CAD/Hx RI--Continue rosuvastatin 10 mg at bedtime, metoprolol succinate with hold parameters
Paroxysmal Afib--Continue Eliquis 5 mg twice daily, metoprolol succinate 50 mg daily
Anxiety/depression--Continue Seroquel 25 mg daily, 50 mg at bedtime, fluoxetine 30 mg daily
JOSETTE on CPAP
Garett Bonnet syndrome/Blindness
L1 compression fracture stable
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
Anticipated Discharge: > 48 hours
Subjective/Interval History
-
Date of Service: November 24, 2024
pt not speaking--has left facial droop, left sided weakness
Objective Data
-
Labs:
Laboratory Results
11/24/24
08:17
WBC 6.9
Hgb 11.9 L
Hct 34.7 L
Plt Count 153
Sodium 138
Potassium 3.4 L
Chloride 105
Carbon Dioxide 27
BUN 9
Creatinine 0.8
Glucose 121 H
Calcium 8.8
Total Bilirubin 1.0
AST 31
ALT 13
Alkaline Phosphatase 62
Vital Signs:
max temp for 24 hours
11/23/24
18:40
Temp 99.8 F
Vital Signs
Temp Pulse Resp BP Pulse Ox
98.0 F 89 18 133/95 96
11/24/24 07:22 11/24/24 07:22 11/24/24 07:22 11/24/24 07:22 11/24/24 07:25
I&O
11/23/24 11/24/24 11/25/24
06:59 06:59 06:59
Intake Total 1060 / 1060
Balance 1060 / 1060
Review of Systems
-
Unable to obtain full review of systems at this time due to: Acuity
Physical Exam
-
General: Well Developed, Well Nourished and Morbidly Obese; Negative Comfortable
HEENT: Normocephalic, Atraumatic and Oxygen
Respiratory: Clear to Auscultation; Negative Wheezes or Rhonchi
Cardiac: Regular Rhythm and S1/S2; Negative Murmur
GI: Soft, Nontender, Nondistended and Normal Bowel Sounds
Musculoskeletal: No Clubbing, No Cyanosis and No Edema
Neuro: Slurred Speech (garbled with left facial droop); Negative Alert, No Motor Deficits (left hand/arm weakness--lying on right side), Nonfocal/Grossly Intact or No Sensory Deficits (blind)
--- NOTE | 2024-11-24 12:25 | PTCARENOTE ---
11/24- Patient is still AAOX1, confused conversation but able to answer very basic yes or no questions including name. Poor following of commands. L-hand and LUE has mildly improved movement in NIH vs earlier assessment. Facial droop present. Current
NIH=16 still.
[2024-11-24] MEDS: NSS 1000 IV (14:05)
[2024-11-24 15:14] VITALS: BP 133/95
--- NOTE | 2024-11-24 15:44 | CM ---
Patient seen at bedside with physician. Patient for return to [facility] when patient medically appropriate. CM spoke with liaison and patient can return when medically appropriate. CM will continue to follow for discharge planning needs.
Plan; return to SNF
--- NOTE | 2024-11-24 15:48 | PN.CDI ---
CDI
- -
CDI:
Physician Documentation Request
Admit Date: 11/23/24 14:08
Dear Doctor Davion,
Please review the following and provide your response in the progress notes.
Clinical Indicators:
Pt admitted with Encephalopathy secondary to UTI.
11/24 Progress Note: ' Encephalopathy likely secondary to UTI--usually happens with infection and resolves by 2nd day per daughter'
Please specify the known or suspected type of the documented encephalopathy.
Metabolic
Toxic
Toxic metabolic
Other
Use of terms such as suspected, likely, concern for, or probable (associated with a specific diagnosis that is being evaluated, monitored, or treated as if it exists) are acceptable and can be coded in the inpatient setting, when documented at the
time of discharge.
Thank you,
Lashonda Trinh RN, BSN
CDI Specialist
[facility]
Please use your independent medical judgment in providing your response.
[2024-11-24] MEDS: TYLENOL 650 MG PO (17:51)
[2024-11-24] MEDS: CRESTOR 10 MG PO (21:43)
[2024-11-24] MEDS: SEROQUEL 50 MG PO (21:43)
[2024-11-24] MEDS: COLACE PO (21:44)
[2024-11-24 23:47] VITALS: BP 166/84
[2024-11-25 01:00] VITALS: PULSE 62
[2024-11-25] MEDS: ZOSYN 50 IV ×3 (02:55→13:07)
[2024-11-25] MEDS: NSS 1000 IV (06:46)
[2024-11-25 07:02] VITALS: BP 161/78
[2024-11-25 08:44] LABS: Hematocrit 34.9 % (37.0-47.0); Hemoglobin 11.9 g/dL (12.0-16.0); Mean Corp Hgb Conc. 34.1 g/dL (33.0-37.0); Mean Corpuscular Volume 95.4 fL (81.0-99.0); Nucleated Red Blood Cells % 0 %; Platelet Count 129 10^3/uL (130-400); Red Cell Dist. Width 12.8 % (11.5-14.5)
[2024-11-25] MEDS: FLOMAX 0.4 MG PO (08:56)
[2024-11-25] MEDS: ALTACE 6.25 MG PO (08:56)
[2024-11-25] MEDS: ELIQUIS 5 MG PO (08:56)
[2024-11-25] MEDS: COLACE 100 MG PO (08:56)
[2024-11-25] MEDS: TOPROL XL 50 MG PO (08:57)
[2024-11-25] MEDS: PROTONIX 40 MG PO (08:57)
[2024-11-25] MEDS: NEURONTIN 200 MG PO (08:57)
[2024-11-25] MEDS: VITAMIN C 1000 MG PO (08:57)
[2024-11-25] MEDS: PROZAC 30 MG PO (08:57)
[2024-11-25] MEDS: SEROQUEL 25 MG PO (08:57)
[2024-11-25 09:06] LABS: ALT (SGPT) 14 U/L (0-35); AST (SGOT) 31 U/L (14-36); Albumin 3.6 g/dl (3.5-5.0); Alkaline Phosphatase 56 U/L (38-126); Blood Urea Nitrogen 9 mg/dl (7-17); Calcium 8.7 mg/dl (8.4-10.2); Carbon Dioxide 32 mmol/L (22-30); Chloride 104 mmol/L (98-107); Estimated Creatinine Clearance 47 ml/min; Glucose 95 mg/dl (70-99); Magnesium 1.8 mg/dl (1.6-2.3); Potassium 3.1 mmol/L (3.5-5.1); Sodium 139 mmol/L (135-145); Total Protein 6.1 g/dl (6.3-8.2); eGFR > 60.00
--- NOTE | 2024-11-25 12:54 | W.PN.HOSP.TC ---
Today's Communication/Plan
-
d/c
Assessment / Plan
Assessment / Plan
Gen: NAD, Awake and alert
Neck: supple.
CV: RRR, +S1/S2, no m/r/g.
Resp: CTAB, no rales, wheezes, or rhonchi.
Abd: +BS, soft, NT, ND
Skin: No rashes.
Psych: Normal mood and affect.
11/23/24 10:39 Urine Urine Culture - Final
Klebsiella pneumoniae
11/23/24 20:26 Nose MRSA Screen - Final
No Methicillin Resistant Staphylococcus aureus isolated.
Acute metabolic encephalopathy:
-due to UTI as well as related to likely migraine with aura
-prior COUNT TEAM CLERK reviewed as well as neuro c/s. As per Dr. Jimenez (quoted from 11/24/24 note), 'Abrupt onset of change in mental status in a patient with recurrent episodes noted since 2007 of strokelike symptoms associated with headache and/or infection
assessed by 27 CT scans of the head and 11 MRIs of the brain. Patient has never been found to have an acute abnormality by neuroimaging.'
-MRI brain 11/24/24: No evidence of acute intracranial abnormality. Moderate diffuse atrophy. 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
-can use rizatriptan PRN
-prophylactic migraine medication recommended for the future
-on chronic suppressive fosfomycin 3 g q. 10 days unknown last dose
-UCx with Klebsiella
-currently on Zosyn, narrow to Keflex PO
Other problems:
Essential HTN: cont BB/ACEi
GERD/Aguilar's esophagus/Large hiatal hernia: Cont PPI
HLD: cont rosuvastatin
CAD h/o [place]: cont statin/BB
PAF: cont Eliquis/BB
Anxiety/depression: cont Seroquel/Prozac
Morbid obesity due excess calories
JOSETTE: cont CPAP
Garett Bonnet syndrome/Blindness
L1 compression fracture
DNR/Eliquis
Medically cleared for d/c. Case management aware.
Anticipated Discharge: Today
Subjective/Interval History
-
Date of Service: November 25, 2024
No new complaints.
Objective Data
-
Labs:
Laboratory Results
11/25/24
08:20
WBC 5.0
Hgb 11.9 L
Hct 34.9 L
Plt Count 129 L
Sodium 139
Potassium 3.1 L
Chloride 104
Carbon Dioxide 32 H
BUN 9
Creatinine 0.9
Glucose 95
Calcium 8.7
Total Bilirubin 1.1
AST 31
ALT 14
Alkaline Phosphatase 56
Vital Signs:
Vital Signs
Temp Pulse Resp BP Pulse Ox
97.5 F 70 18 161/78 98
11/25/24 07:02 11/25/24 07:02 11/25/24 07:02 11/25/24 07:02 11/25/24 08:40
I&O
11/24/24 11/25/24 11/26/24
06:59 06:59 06:59
Intake Total 1060 / 1060 0 / 0 1580 / 1580
Balance 1060 / 1060 0 / 0 1580 / 1580
[2024-11-25] MEDS: KCL 40 MEQ PO (13:18)
--- NOTE | 2024-11-25 14:01 | CM ---
Addendum entered by Talia Grande 11/25/24 15:23:
IMM benefit explained to daughter, Judy, via phone; form dated and timed @ 1521
Addendum entered by Talia Grande 11/25/24 14:13:
ambulance scheduled for 1800; facility maintenance technician notified
Original Note:
Per Attending, patient is stable to return to [facility] today; facility notified and can accept after 1500 today. Daughter, Judy, also notified of plan via phone. She is at the patient's bedside
Plan: Discharge to [facility] today via ambulance after 1500
Report # [phone]
[2024-11-25 15:32] VITALS: BP 177/78
[2024-11-25] MEDS: THERAGRAN 1 TABLET PO (17:14)
[2024-11-25] MEDS: KEFLEX 500 MG PO (17:14)
[2024-11-25] MEDS: VITAMIN B1 100 MG PO (17:14)
== END 2024-11-25 18:03 | DRG 689 ==
LOC: 4 WEST ACU 14:08
PROVIDERS: Clinical Nurse Specialist Family Health; Emergency Medicine; ADMITTING PHYSICIAN Student in an Organized Health Care Education/Training Program; ATTENDING PHYSICIAN Internal Medicine; CONSULT PHYSICIAN Psychiatry & Neurology Neurology; EMERGENCY PHYSICIAN Emergency Medicine; FAMILY PHYSICIAN Student in an Organized Health Care Education/Training Program
DX: N39.0 Urinary tract infection, site not specified (principal); G93.41 Metabolic encephalopathy; I63.9 Cerebral infarction, unspecified; Z68.41 Body mass index [BMI] 40.0-44.9, adult; R47.01 Aphasia; H54.8 Legal blindness, as defined in USA; R26.2 Difficulty in walking, not elsewhere classified; E78.00 Pure hypercholesterolemia, unspecified; F32.A Depression, unspecified; F41.9 Anxiety disorder, unspecified; I10 Essential (primary) hypertension; K22.70 Barrett's esophagus without dysplasia; K44.9 Diaphragmatic hernia without obstruction or gangrene; I25.10 Atherosclerotic heart disease of native coronary artery without angina pectoris; I48.0 Paroxysmal atrial fibrillation; G47.33 Obstructive sleep apnea (adult) (pediatric); K43.9 Ventral hernia without obstruction or gangrene; K80.20 Calculus of gallbladder without cholecystitis without obstruction; N28.1 Cyst of kidney, acquired; E66.812 Obesity, class 2; R29.810 Facial weakness; R47.81 Slurred speech; M81.0 Age-related osteoporosis without current pathological fracture; G43.109 Migraine with aura, not intractable, without status migrainosus; E03.9 Hypothyroidism, unspecified; K21.9 Gastro-esophageal reflux disease without esophagitis; Z60.2 Problems related to living alone; Z87.440 Personal history of urinary (tract) infections; Z87.01 Personal history of pneumonia (recurrent); Z86.73 Personal history of transient ischemic attack (TIA), and cerebral infarction without residual deficits; I25.2 Old myocardial infarction; Z87.19 Personal history of other diseases of the digestive system; Z88.8 Allergy status to other drugs, medicaments and biological substances; Z91.041 Radiographic dye allergy status; Z79.899 Other long term (current) drug therapy; Z79.82 Long term (current) use of aspirin; Z79.01 Long term (current) use of anticoagulants; Z98.41 Cataract extraction status, right eye
CPT/HCPCS: 36415; 51701; 70450; 70551; 74176; 80048; 80053; 81003; 81015; 82962; 83690; 83735; 85025; 87070; 87077; 87086; 87186; 93005; 94660; 96361; 96365; 96375; 99285

== ENCOUNTER → 2024-12-11 19:30 | Outpatient (REF) | payer MEDICARE, OTHER, SELFPAY ==
[2024-12-12 10:43] LABS: Urine Character Cloudy (Clear)
[2024-12-12 11:23] LABS: Urine White Cell >100 /HPF (0-5)
== END ==
LOC: OLABN 19:30
PROVIDERS: ATTENDING PHYSICIAN Student in an Organized Health Care Education/Training Program
DX: Z87.440 Personal history of urinary (tract) infections (principal); R35.0 Frequency of micturition
CPT/HCPCS: 81003; 81015; 87077; 87086; 87186

== ENCOUNTER → 2024-12-12 10:12 | Outpatient (REF) | payer MEDICARE, OTHER, SELFPAY ==
[2024-12-12 10:49] LABS: Hematocrit 30.2 % (37.0-47.0); Hemoglobin 9.8 g/dL (12.0-16.0); Mean Corp Hgb Conc. 32.5 g/dL (33.0-37.0); Mean Corpuscular Volume 96.5 fL (81.0-99.0); Nucleated Red Blood Cells % 0 %; Platelet Count 169 10^3/uL (130-400); Red Cell Dist. Width 13.2 % (11.5-14.5)
[2024-12-12 10:56] LABS: Blood Urea Nitrogen 10 mg/dl (7-17); Calcium 8.8 mg/dl (8.4-10.2); Carbon Dioxide 32 mmol/L (22-30); Chloride 108 mmol/L (98-107); Glucose 86 mg/dl (70-99); Magnesium 1.9 mg/dl (1.6-2.3); Potassium 4.0 mmol/L (3.5-5.1); Sodium 141 mmol/L (135-145); eGFR > 60.00
== END ==
LOC: OLABN 10:12
PROVIDERS: ATTENDING PHYSICIAN Student in an Organized Health Care Education/Training Program
DX: R35.0 Frequency of micturition (principal); Z87.440 Personal history of urinary (tract) infections
CPT/HCPCS: 36415; 80048; 83735; 85025

== ENCOUNTER → 2024-12-15 09:49 | Outpatient (REF) | payer MEDICARE, OTHER, SELFPAY ==
[2024-12-15 11:50] LABS: Hematocrit 34.4 % (37.0-47.0); Hemoglobin 10.9 g/dL (12.0-16.0); Mean Corp Hgb Conc. 31.7 g/dL (33.0-37.0); Mean Corpuscular Volume 101.2 fL (81.0-99.0); Nucleated Red Blood Cells % 0 %; Platelet Count 159 10^3/uL (130-400); Red Cell Dist. Width 13.1 % (11.5-14.5)
[2024-12-15 13:23] LABS: Blood Urea Nitrogen 11 mg/dl (7-17); Calcium 8.8 mg/dl (8.4-10.2); Carbon Dioxide 25 mmol/L (22-30); Chloride 108 mmol/L (98-107); Glucose 119 mg/dl (70-99); Potassium 4.0 mmol/L (3.5-5.1); Sodium 139 mmol/L (135-145); eGFR > 60.00
== END ==
LOC: OLABN 09:49
PROVIDERS: ATTENDING PHYSICIAN Student in an Organized Health Care Education/Training Program
DX: R35.0 Frequency of micturition (principal); Z87.440 Personal history of urinary (tract) infections
CPT/HCPCS: 36415; 80048; 85025

== ENCOUNTER 2024-12-15 15:00 | Inpatient (IN) | payer MEDICARE, OTHER, SELFPAY ==
[2024-12-15] VITALS (12 sets, daily range): BP systolic 86–176; BP diastolic 39–98; PULSE 75; BMI 39.6; BMI 40.8
--- NOTE | 2024-12-15 11:47 | ED.GENMED ---
History of Present Illness
<Gabriel Arnold MD, Resident - Last Filed: 12/15/24 14:35>
General
Chief Complaint: Urinary Symptoms
Source: patient
Exam Limitations: none
Time Seen by Provider: 12/15/24 11:31
History of Present Illness
History of Present Illness:
84-year-old female who presents with sudden onset in mental status, increased confusion, fever, weakness from [facility] via EMS. She was diagnosed with a UTI on 12/14/2024 and then placed on Macrobid. On the second day of taking the
antibiotic. EMS says that her fever was 100.9 when measured in the detention. Her normal baseline mental status is alert and oriented x 3 and walks with a walker. There is also associated back pain bilaterally at the costovertebral angles.
Unable to obtain an accurate review of systems as she is fluctuating in consciousness.
Past History
<Gabriel Arnold MD, Resident - Last Filed: 12/15/24 14:35>
Past History
ED Past Medical History: CVA, GERD, HTN, Hypercholesterolemia, [place], Psychiatric (Anxiety, Depression) and Other (Recurrent UTI, PNA, possible hemiplegia Migraines, Garett Bonnet Syndrome, TGA, Sleep apnea, Barrets esophagus, GI bleeding, BLind);
Negative Asthma or NIDDM
ED Past Surgical History: Appendectomy, and Other (Hernia repair)
Social History
Tobacco: Non-smoker
Alcohol: None
Drug: None
Personal:
Living: assisted living ([facility])
Employment: Not employed
Family History
Family History: Other and Unable to obtain
Phy Exam
<Gabriel Arnold MD, Resident - Last Filed: 12/15/24 14:35>
General Physical Exam
General Presentation: moderate distress
General Skin: warm
General Habitus: obese
Cardiovascular Exam
Cardiovascular Exam: regular rate/rhythm
Gastrointestinal Exam
Gastrointestinal Exam: normal bowel sounds, soft, non distended and cva tenderness
Neurological Exam
Neurological Exam: alert and confused
Skin Exam
Skin Exam: normal color, warm/dry and no rash
Sepsis
<Gabriel Arnold MD, Resident - Last Filed: 12/15/24 14:35>
Sepsis Screen
Sepsis Screen: Severe Sepsis
Date: 12/15/24
Time: 14:30
<Ramy Mohr, DO - Last Filed: 12/15/24 13:02>
Sepsis Screening
Sepsis Assessment: Severe Sepsis
Sepsis Screening: Hypotension and Worsening O2 Saturation
Sepsis Screen
Sepsis Screen: Severe Sepsis
Date: 12/15/24
Time: 13:02
Course
<Gabriel Arnold MD, Resident - Last Filed: 12/15/24 14:35>
Orders/Labs/Results
Orders:
Orders
12/15/24 11:36
CBC/With Diff [Complete Blood Count/With Diff] Urgent
CMP [Comprehensive Metabolic Panel] Routine
Lactate Level [Lactic Acid] Urgent
12/15/24 11:37
Troponin I Urgent
12/15/24 11:39
EKG [Electrocardiogram (*1)] Urgent
Reason for Study: Fatigue / Weakness
EKG- Treatment ONCE
12/15/24 11:45
Blood Culture Q30M
LEIGH ANN Source: Blood/Venous
Specimen Description:
12/15/24 11:46
Chest [CR Chest - 2 Views ] Urgent
Comment:
Reason For Exam: sob, septic px
12/15/24 11:48
Acetaminophen [Tylenol] 650 mg PO NOW STA
12/15/24 11:50
Cefepime HCl [Maxipime] 1,000 mg IV NOW STA
12/15/24 11:51
0.9% Sodium Chloride 1000 ml [Nss] 1,400 ml IV NOW STA
Cefepime HCl [Maxipime] 2,000 mg IV NOW STA
12/15/24 12:15
Blood Culture Q30M
LEIG HANN Source: Blood/Venous
Specimen Description:
12/15/24 12:52
Urinalysis Reflex To Culture Urgent
Date Specimen was Collected: 12/15/24
Time Specimen was Collected: 12:51
Urine Microscopic Reflex Cult Urgent
Urine Culture Urgent
LEIGH ANN Source: U
Specimen Description:
Date Specimen was Collected: 12/15/24
Time Specimen was Collected: 12:51
12/15/24 13:54
COVID-19 Antigen Stat
Source: Nasal Swab
Influenza A+B Rapid Molecular Stat
LEIGH ANN Source: Nasal Swab
Specimen Description:
Abnormal Lab Results
12/15/24 12/15/24
11:36 12:52
RBC 3.32 L 10^6/uL
(4.20-5.40)
Hgb 10.4 L g/dL
(12.0-16.0)
Hct 32.4 L %
(37.0-47.0)
MCH 31.3 H pg
(27.0-31.0)
MCHC 32.1 L g/dL
(33.0-37.0)
Absolute Neuts (auto) 8.0 H 10^3/uL
(1.4-6.5)
Absolute Lymphs (auto) 0.3 L 10^3/uL
(1.2-3.4)
Neutrophils % 92.6 H %
(42.2-75.2)
Lymphocytes % 3.1 L %
(20.5-51.1)
Glucose 144 H mg/dl
(70-99)
Total Protein 5.9 L g/dl
(6.3-8.2)
Albumin 3.3 L g/dl
(3.5-5.0)
Leukocyte Esterase Rfl 1+ A
(Negative)
Urine WBC (Reflex) 30-40 A /HPF
(0-5)
Urine Bacteria (Reflex) Few A
(Negative)
Urine Albumin (Reflex) 3+ A
(Neg - Trace)
12/15/24 11:36
12/15/24 11:36
Vital Signs
Initial and Last Documented VS:
Initial Vital Signs
Temp Pulse Resp BP Pulse Ox
100.3 F 65 17 86/39 92
12/15/24 11:34 12/15/24 11:34 12/15/24 11:34 12/15/24 11:34 12/15/24 11:34
Last Documented Vital Signs
Temp Pulse Resp BP Pulse Ox
100.3 F 56 16 133/63 99
12/15/24 11:34 12/15/24 13:00 12/15/24 13:00 12/15/24 13:00 12/15/24 13:00
Catlt;Ramy Mohr, DO - Last Filed: 12/15/24 13:02>
Orders/Labs/Results
Orders:
Orders
12/15/24 11:36
CBC/With Diff [Complete Blood Count/With Diff] Urgent
CMP [Comprehensive Metabolic Panel] Routine
Lactate Level [Lactic Acid] Urgent
12/15/24 11:37
Troponin I Urgent
12/15/24 11:39
EKG [Electrocardiogram (*1)] Urgent
Reason for Study: Fatigue / Weakness
EKG- Treatment ONCE
12/15/24 11:45
Blood Culture Q30M
LEIGH ANN Source: Blood/Venous
Specimen Description:
12/15/24 11:46
Chest [CR Chest - 2 Views ] Urgent
Comment:
Reason For Exam: sob, septic px
12/15/24 11:48
Acetaminophen [Tylenol] 650 mg PO NOW STA
12/15/24 11:50
Cefepime HCl [Maxipime] 1,000 mg IV NOW STA
12/15/24 11:51
0.9% Sodium Chloride 1000 ml [Nss] 1,400 ml IV NOW STA
Cefepime HCl [Maxipime] 2,000 mg IV NOW STA
12/15/24 12:15
Blood Culture Q30M
LEIGH ANN Source: Blood/Venous
Specimen Description:
12/15/24 12:52
Urinalysis Reflex To Culture Urgent
Date Specimen was Collected: 12/15/24
Time Specimen was Collected: 12:51
Urine Microscopic Reflex Cult Urgent
Urine Culture Urgent
LEIGH ANN Source: U
Specimen Description:
Date Specimen was Collected: 12/15/24
Time Specimen was Collected: 12:51
12/15/24 13:54
COVID-19 Antigen Stat
Source: Nasal Swab
Influenza A+B Rapid Molecular Stat
LEIGH ANN Source: Nasal Swab
Specimen Description:
Abnormal Lab Results
12/15/24 12/15/24
11:36 12:52
RBC 3.32 L 10^6/uL
(4.20-5.40)
Hgb 10.4 L g/dL
(12.0-16.0)
Hct 32.4 L %
(37.0-47.0)
MCH 31.3 H pg
(27.0-31.0)
MCHC 32.1 L g/dL
(33.0-37.0)
Absolute Neuts (auto) 8.0 H 10^3/uL
(1.4-6.5)
Absolute Lymphs (auto) 0.3 L 10^3/uL
(1.2-3.4)
Neutrophils % 92.6 H %
(42.2-75.2)
Lymphocytes % 3.1 L %
(20.5-51.1)
Glucose 144 H mg/dl
(70-99)
Total Protein 5.9 L g/dl
(6.3-8.2)
Albumin 3.3 L g/dl
(3.5-5.0)
Leukocyte Esterase Rfl 1+ A
(Negative)
Urine WBC (Reflex) 30-40 A /HPF
(0-5)
Urine Bacteria (Reflex) Few A
(Negative)
Urine Albumin (Reflex) 3+ A
(Neg - Trace)
12/15/24 11:36
12/15/24 11:36
Vital Signs
Initial and Last Documented VS:
Initial Vital Signs
Temp Pulse Resp BP Pulse Ox
100.3 F 65 17 86/39 92
12/15/24 11:34 12/15/24 11:34 12/15/24 11:34 12/15/24 11:34 12/15/24 11:34
Last Documented Vital Signs
Temp Pulse Resp BP Pulse Ox
100.3 F 56 16 133/63 99
12/15/24 11:34 12/15/24 13:00 12/15/24 13:00 12/15/24 13:00 12/15/24 13:00
<Gabriel Arnold MD, Resident - Last Filed: 12/15/24 14:35>
MDM/Problems Addressed
Differential Diagnosis Includes:
pneumonia, pyelonephritis, urinary tract infection , COVID/ FLU,
MDM/Problems Addressed:
- CBC: wbc 8.9, hgb 10.4,
- CMP: unremarkable
- lactate: 1.3 normal
- Blood cultures: pending
- Xray: unremarkable
- UA: urine WBC 30-40, few bacteria in urine
- EKG: sinus bradycardia with a HR of 55
Iv fluids as per sepsis protocol ordered for hypotension
Empiric cefepime started
patient admitted to hospitalist team for acute UTI and sepsis due to previous clinical history.
<Gabriel Arnold MD, Resident - Last Filed: 12/15/24 14:35>
*Pulse Oximetry
SaO2: 92
Nasal Cannula flow liters per minute: 2
Patient hypoxic: no
*Critical Care Note
Total Time (30-74mins, 75-104mins- exclusive of procedures): Not Applicable
ED Attending Note
<Gabriel Arnold MD, Resident - Last Filed: 12/15/24 14:35>
-
Portions of this chart may have been created with voice recognition software.� Occasional wrong word or��sound alike� substitutions may have occurred due to the inherent limitations of voice recognition software.
<Ramy Mohr, DO - Last Filed: 12/15/24 13:02>
ED Attending Note
Patient seen and examined by attending physician: Yes
I performed a history and physical exam of patient and discussed management with resident, I reviewed resident's note and agree with documented findings and plan of care.: Yes
ED Attending Note:
I have seen and evaluated the patient with a [id number] encounter. I have spoken to the resident and involved in the medical history, the physical exam, medical decision making.
Evaluation and management service: agree unless noted differently below.
Results interpretation: agree unless noted differently below.
Focused HPI: 84-year-old female presenting with weakness, fatigue, altered mental status and fever. Of note, patient was recently started on Macrobid for UTI
Physical exam: Weak and fatigued. Lying in bed with eyes closed but answering questions appropriately. Abdomen soft and nontender. Lungs clear. No meningismus
Medical Decision Making: Given the fever and the recent UTI, will treat as possible pyelonephritis. Prior records indicate recent urine culture that was positive and tyler susceptible to cefepime. Patient started on cefepime. The hypoxia is likely
related to poor air exchange from weakness and fatigue from being septic. Patient started IV fluids. Will ultimately
Discharge Plan
Departure
Patient Disposition: Admit
Date of Disposition: 12/15/24
Time of Disposition: 13:29
Presentation/result/management discussed w/ accepting MD/DO: Hospitalist
Condition: Fair
Discharge Problem:
Acute UTI (urinary tract infection)
Prescriptions:
No Action
pantoprazole 40 MG tablet,delayed release (DR/EC)
40 mg PO DAILY
rosuvastatin 10 MG tablet
10 mg PO HS
fluoxetine 10 MG capsule
30 mg PO DAILY
Rx Instructions:
take with 20 mg for a total of 30 mg.
acetaminophen 325 mg Tablet
650 mg PO Q4HPRN PRN (Reason: mild pain/fever>100.4)
ascorbic acid (vitamin C) 1,000 mg Tablet
1,000 mg PO DAILY
Eliquis 5 mg Tablet
5 mg PO BID Qty: 60 1RF
ondansetron HCl 4 mg Tablet
4 mg PO Q6HPRN PRN (Reason: nausea/vomiting)
magnesium hydroxide [Milk of Magnesia] 400 mg/5 mL Suspension
30 ml PO HSPRN PRN (Reason: constipation)
bisacodyl [Dulcolax (bisacodyl)] 10 mg Suppository
10 mg NH [id number] PRN (Reason: if no bm aftr mom)
metoprolol succinate 50 mg Tablet Extended Release 24 Hr
50 mg PO DAILY
therapeutic multivitamin Tablet
1 tab PO QPM
ramipril 1.25 mg Capsule
6.25 mg PO BID
Rx Instructions:
give 1.25mg and 5mg to equal 6.25mg BID
cranberry 450 mg Tablet
425 mg PO QPM
Culturelle 10 billion cell Capsule
1 cap PO QPM
thiamine HCl (vitamin B1) 100 mg Tablet
100 mg PO QPM
magnesium oxide 400 mg (241.3 mg magnesium) tablet
400 mg PO DAILY
docusate sodium 100 mg capsule
100 mg PO BID
tamsulosin 0.4 mg Capsule
0.4 mg PO DAILY 30 Days Qty: 30 0RF
quetiapine [Seroquel] 25 mg Tablet
25 mg PO DAILY
miconazole nitrate 2 % Powder
1 applic TOPICAL BIDPRN PRN (Reason: fungal rash)
gabapentin 100 mg Capsule
200 mg PO BID
estradiol 0.01 % (0.1 mg/gram) Cream
1 g VAGINAL TUFR
quetiapine [Seroquel] 50 mg Tablet
50 mg PO HS
phenazopyridine 100 mg Tablet
100 mg PO TIDPRN PRN (Reason: Dysuria) Qty: 0 0RF
fosfomycin tromethamine 3 gram Packet
3 g PO Q10D Qty: 1 0RF
Rx Instructions:
first dose 12/01/24
Referrals:
Tereso Carranza DO [Family Provider, Family Practice]
Interventions
Interventions:
*Risk Screen - Suicide Last Done: 12/15/24 11:41
*General Assessment Last Done: 12/15/24 11:41
*Neglect/Abuse Screening Last Done: 12/15/24 11:41
*ED- Fall Risk Assessment Last Done: 12/15/24 11:41
*ED COVID-19 Vaccine History Last Done: 12/15/24 11:41
*ED Influenza Vaccine History Last Done: 12/15/24 11:41
ED-Female Genitourinary Assessment Last Done: 12/15/24 13:15
Discharge Date and Time
Print Language: MAORI
[2024-12-15] MEDS: NSS 1400 ML IV (11:56)
[2024-12-15] MEDS: MAXIPIME 1000 MG IV ×2 (12:03→20:22)
[2024-12-15] MEDS: MAXIPIME 2000 MG IV (12:04)
[2024-12-15 12:18] LABS: Hematocrit 32.4 % (37.0-47.0); Hemoglobin 10.4 g/dL (12.0-16.0); Mean Corp Hgb Conc. 32.1 g/dL (33.0-37.0); Mean Corpuscular Volume 97.6 fL (81.0-99.0); Nucleated Red Blood Cells % 0 %; Platelet Count 152 10^3/uL (130-400); Red Cell Dist. Width 13.2 % (11.5-14.5)
[2024-12-15] MEDS: TYLENOL 650 MG PO (12:34)
[2024-12-15 12:40] LABS: ALT (SGPT) 13 U/L (0-35); AST (SGOT) 23 U/L (14-36); Albumin 3.3 g/dl (3.5-5.0); Alkaline Phosphatase 56 U/L (38-126); Blood Urea Nitrogen 14 mg/dl (7-17); Calcium 8.8 mg/dl (8.4-10.2); Carbon Dioxide 29 mmol/L (22-30); Chloride 106 mmol/L (98-107); Estimated Creatinine Clearance 46 ml/min; Glucose 144 mg/dl (70-99); Potassium 4.0 mmol/L (3.5-5.1); Sodium 139 mmol/L (135-145); Total Protein 5.9 g/dl (6.3-8.2); eGFR > 60.00
[2024-12-15 12:59] LABS: Troponin I 0.016 ng/ml
[2024-12-15 13:04] LABS: Urine Character Clear (Clear)
[2024-12-15 13:16] LABS: Urine Red Blood Cell 0-2 /HPF (0-2); Urine White Cell 30-40 /HPF (0-5)
--- NOTE | 2024-12-15 13:33 | HPS.HSE ---
Addendum entered and electronically signed by Ar Castellanos MD 12/15/24 14:53:
This is an addendum to H&P written by Kaci Jonas on 12/15/2024. �Patient seen and examined independently with MACADAM RAKER.
84-year-old female past medical history of recurrent UTI, hypertension, GERD, Aguilar's esophagus, large hiatal hernia, hyperlipidemia, CAD, paroxysmal atrial fibrillation on Eliquis, anxiety/depression, morbid obesity, obstructive sleep apnea,
Garett Bonnet syndrome/blindness, L1 compression fracture presenting with change in mental status today. �She was started on Macrobid yesterday for diagnosed UTI on 12/14. �She had fever 100.9 today.
Coughing today.
Initially hypotensive 86/39. �Fever 100.3. �Hypoxic requiring 2 L of oxygen.
Labs show stable anemia 10.4. �Urinalysis shows 30-40 WBC.
Chest x-ray shows low inspiratory volumes, mild interstitial prominence may be related to mild pulmonary vascular congestion Or low inspiratory volumes.
Patient with UTI with acute metabolic encephalopathy with fever. �Patient given IV fluids. �Urine culture, blood cultures pending. �Cefepime. Hold sedating meds.�
Patient also with cough and hypoxemia. �No evidence of heart failure. �COVID and flu pending.
Original Note:
Family Physician
-
Family Physician: Tereso Carranza DO
Chief Complaint
-
confusion
History of Present Illness
84-year-old female With past medical history for CVA, GERD, hypertension, hyperlipidemia, [place], anxiety, depression, recurrent UTI, pneumonia sleep apnea, GI bleed who presents with sudden onset in mental status, increased confusion, fever, weakness
from [facility] via EMS. She was diagnosed with a UTI on 12/14/2024 and then placed on Macrobid. this morning, she was noted to have low grade temp associated with confusion.upon my assessment she is confused. she was coughing in the ER today.
she is not able to provide meaningful story. at present she denied any fever, chills, chest pain, sob. denied COHEN, dizzy or syncope. denied abdominal pain,n,v,d.denied dysuria or hematuria.
conern for [place]. admitting for further managment.
Medical History
Past Medical History
Past Medical History: Reports Other
Additional Past Medical History:
Recurrent UTI, GERD, hiatal hernia, hypertension, hyperlipidemia, obstructive sleep apnea, insomnia, anxiety and depression, goiter, hypothyroidism, iron deficiency anemia, B12 deficiency, osteoporosis, pneumonia, Tracy-Agrawal tear,
Past Surgical History: Reports Other
Additional Past Surgical History:
Right cataract surgery, left inguinal hernia repair, , tonsillectomy, appendectomy
Social History
Unable to obtain full social history at this time due to: Acuity
Family History
Family History: Not pertinent
Allergies / Home Medications
Allergies reflects when Allergies were last updated in [employer].
Home Medications with original date entered in [employer]
Allergy/Medication List:
Allergies
Allergy/AdvReac Type Severity Reaction Status Date / Time
amlodipine besylate (From Allergy Rash/CONFUS Verified 11/23/24 09:43
Norvasc) ION
iodine Allergy Confusion,confusion/'like Verified 11/23/24 09:43
I had a
tia'
Home Medications
pantoprazole 40 mg tablet,delayed release 40 mg PO DAILY Gastrointestinal issue 12/03/11
rosuvastatin 10 mg tablet 10 mg PO HS High cholesterol 05/25/18
fluoxetine 10 mg capsule 30 mg PO DAILY Depression 11/24/20
acetaminophen 325 mg tablet 650 mg PO Q4HPRN PRN mild pain/fever>100.4 02/10/22
ascorbic acid (vitamin C) 1,000 mg tablet 1,000 mg PO DAILY Supplement 06/25/23
apixaban 5 mg tablet (Eliquis) 5 mg PO BID #60 tabs 07/25/23
bisacodyl 10 mg rectal suppository (Dulcolax (bisacodyl)) 10 mg NH [id number] PRN if no bm aftr mom 07/28/23
magnesium hydroxide 400 mg/5 mL oral suspension (Milk of Magnesia) 30 ml PO HSPRN PRN constipation 07/28/23
ondansetron HCl 4 mg tablet 4 mg PO Q6HPRN PRN nausea/vomiting 07/28/23
cranberry fruit 450 mg tablet (cranberry) 425 mg PO QPM Supplement 10/18/23
metoprolol succinate 50 mg tablet,extended release 24 hr 50 mg PO DAILY Heart Failure 10/18/23
ramipril 1.25 mg capsule 6.25 mg PO BID Blood Pressure 10/18/23
therapeutic multivitamin 1 tab PO QPM Supplement 10/18/23
Lactobacillus rhamnosus GG 10 billion cell capsule (Culturelle) 1 cap PO QPM Supplement 03/04/24
thiamine HCl (vitamin B1) 100 mg tablet 100 mg PO QPM Supplement 03/04/24
docusate sodium 100 mg capsule 100 mg PO BID Constipation 03/05/24
magnesium oxide 400 mg (241.3 mg magnesium) tablet 400 mg PO DAILY Supplement 03/05/24
tamsulosin 0.4 mg capsule 0.4 mg PO DAILY Urinary retention 30 days #30 caps 03/07/24
estradiol 0.01% (0.1 mg/gram) vaginal cream 1 g vaginal TUFR Hormonal Agent 11/23/24
gabapentin 100 mg capsule 200 mg PO BID Neurological Condition 11/23/24
miconazole nitrate 2 % topical powder 1 applic topical BIDPRN PRN fungal rash 11/23/24
quetiapine 25 mg tablet (Seroquel) 25 mg PO DAILY Mental Health/Anxiety 11/23/24
quetiapine 50 mg tablet (Seroquel) 50 mg PO HS Mental Health/Anxiety 11/23/24
fosfomycin tromethamine 3 gram oral packet 3 g PO Q10D Infection #1 ea 11/25/24
phenazopyridine 100 mg tablet 100 mg PO TIDPRN PRN Dysuria #0 tabs 11/25/24
Review of Systems
-
Unable to obtain full review of systems at this time due to: Acuity
Physical Exam
Vital Signs
Vital Signs
Temp Pulse Resp BP Pulse Ox
100.3 F 56 16 133/63 99
12/15/24 11:34 12/15/24 13:00 12/15/24 13:00 12/15/24 13:00 12/15/24 13:00
Physical Exam
General: Well Developed, Well Nourished and No Apparent Distress
HEENT: NormoCephalic, Moist mucous membranes and Atraumatic
Respiratory: Clear
Cardiac: S1/S2 and Regular Rhythm; No Murmur or Rub
GI: Soft, Non Tender, Non Distended and Normal Bowel Sounds; No Organomegaly
Rectal: Deferred by Provider
Musculoskeletal: No Clubbing, No Cyanosis and No Edema
Skin: No Rash
Neuro: AO x 3 and Nonfocal/grossly intact
Psych: Calm
Laboratory Results
-
12/15/24 11:36
12/15/24 11:36
Laboratory Results
Lactic Acid 1.3 mmol/L (0.7-2.0) 12/15/24 11:36
Total Bilirubin 0.8 mg/dl (0.2-1.3) 12/15/24 11:36
AST 23 U/L (14-36) 12/15/24 11:36
ALT 13 U/L (0-35) 12/15/24 11:36
Alkaline Phosphatase 56 U/L (38-126) 12/15/24 11:36
Troponin I 0.016 ng/ml 12/15/24 11:37
Data Reviewed
-
Diagnostic Radiology: Report Reviewed by me
Lab Data: Labs Reviewed by me
Impression/Plan
-
#Metabolic encephalopathy/fever/back pain Concern for UTI
#History of Klebsiella pneumonia UTI, Kluyvera ascorbate, klebsiella oxytoca, Enterococcus facialis, Morganella morganii, E. coli
- chest x-ray negative
- WBC, lactate normal
-Patient received Tylenol, cefepime in ER
- Blood culture sent from ER
-IV cefepime continued
#Acute hypoxic respiratory failure unclear cause
- Chest x-ray with impression of low inspiratory volumes. Mild interstitial prominence, which may be related to low inspiratory volumes or mild pulmonary vascular congestion.. Otherwise clear lungs.
-Obtain COVID and flu
- Continue supplemental oxygen to keep second in the 95, wean as tolerated
#Anemia of chronic disease
- Hemoglobin stable at 10.4, no active bleeding
- Continue to monitor
#Essential HTN: cont Ramipril
#GERD/Aguilar's esophagus/Large hiatal hernia: Cont PPI
#HLD: cont rosuvastatin
#CAD h/o [place]: cont statin/BB
#PAF: cont Eliquis/BB
#Anxiety/depression: cont Seroquel/Prozac
#Morbid obesity due excess calories
#JOSETTE: cont CPAP
#Garett Bonnet syndrome/Blindness
#L1 compression fracture
#Neuropathy
- Gabapentin held due to confusion
DNR/Eliquis
[2024-12-15 14:38] LABS: COVID-19 Antigen Negative (Negative)
--- NOTE | 2024-12-15 16:22 | EDCM ---
Chart reviewed and met with pt and 2 dtrs at ED bedside. Judy and Robyn
Pt is sleeping and dtrs report that she lives in [facility] as LTC resident
Blind, needs assistance with all ADLs. Ambulating with RW and 1 person assistance
DME RW CPAP ( belongs to [facility])
Dtr to talk with floor RN about needing CPAP tonight
PCP Tereso Carranza
RX plan yes
Pharmacy : [facility] in [facility]
CM will follow up for any dcp needs
--- NOTE | 2024-12-15 17:45 | PTCARENOTE ---
Received pt from ER via stretcher, accompanied by ER staff. Pt awake and alert, oriented to self/'hospital'; forgetful/anxious; blind. GIPSON; able to stand to transfer to bed with assist x2; unsteady w/OOB activity. Fall prec initiated. VSS.
Placed on telemetry/sinus rere. Pt currently on 2 lpm- pulseox 96%, no SOB noted. Abd ibese, soft, non-tender, to start chol lowering diet. Pt wearing depends-? incont. Afebrile; skin W/D/I. Oriented to [place]; daughter at bedside. Will
continue to monitor.
[2024-12-15] MEDS: VITAMIN B1 100 MG PO (18:23)
[2024-12-15] MEDS: THERAGRAN 1 TABLET PO (18:23)
[2024-12-15] MEDS: ELIQUIS 5 MG PO (20:20)
[2024-12-15] MEDS: COLACE 100 MG PO (20:20)
[2024-12-15] MEDS: ALTACE 1.25 MG PO (20:21)
[2024-12-15] MEDS: ALTACE 5 MG PO (20:21)
[2024-12-15] MEDS: STERILE WATER FOR INJECTION 10 ML IV (20:22)
[2024-12-15] MEDS: CRESTOR 10 MG PO (21:30)
[2024-12-16] VITALS (7 sets, daily range): BP systolic 140–199; BP diastolic 81–108; PULSE 79
[2024-12-16] MEDS: ZOFRAN 4 MG IV ×2 (04:01→17:15)
[2024-12-16] MEDS: STERILE WATER FOR INJECTION 10 ML IV ×3 (04:02→20:21)
[2024-12-16] MEDS: MAXIPIME 1000 MG IV ×3 (04:02→20:21)
--- NOTE | 2024-12-16 04:53 | PTCARENOTE ---
Shortly after the CPAP was placed on the pt, she asked that it must be removed. Pt states that she couldn't breath with the machine on. Pt placed on 1L NC, SpO2=95-96%. Pt also had 3 episodes of bile color emesis. Zofran IV given, pt states that she
feels better. Pt had no sleep the whole night, she is hallucinating, talking to people about people in the room, but no one is in the room. Pt is legally blind.
[2024-12-16] MEDS: ELIQUIS PO (08:02)
[2024-12-16] MEDS: ALTACE PO ×2 (08:02→08:03)
[2024-12-16] MEDS: COLACE PO ×2 (08:03→20:22)
[2024-12-16] MEDS: MAGNESIUM OXIDE 400 MG PO (08:03)
[2024-12-16] MEDS: TOPROL XL PO (08:03)
[2024-12-16] MEDS: PROTONIX 40 MG PO (08:03)
[2024-12-16] MEDS: FLOMAX 0.4 MG PO (08:03)
[2024-12-16] MEDS: PROZAC 30 MG PO (08:03)
[2024-12-16 08:59] LABS: Hematocrit 33.2 % (37.0-47.0); Hemoglobin 11.0 g/dL (12.0-16.0); Mean Corp Hgb Conc. 33.1 g/dL (33.0-37.0); Mean Corpuscular Volume 97.1 fL (81.0-99.0); Platelet Count 160 10^3/uL (130-400); Red Cell Dist. Width 13.0 % (11.5-14.5)
[2024-12-16 09:18] LABS: Blood Urea Nitrogen 11 mg/dl (7-17); Calcium 8.7 mg/dl (8.4-10.2); Carbon Dioxide 29 mmol/L (22-30); Chloride 104 mmol/L (98-107); Estimated Creatinine Clearance 58 ml/min; Glucose 122 mg/dl (70-99); Potassium 3.8 mmol/L (3.5-5.1); Sodium 137 mmol/L (135-145); eGFR > 60.00
[2024-12-16] MEDS: COMPAZINE 10 MG IM (09:39)
[2024-12-16] MEDS: ALTACE 1.25 MG PO ×2 (10:12→20:22)
[2024-12-16] MEDS: ELIQUIS 5 MG PO ×2 (10:12→20:22)
[2024-12-16] MEDS: ALTACE 5 MG PO ×2 (10:12→20:22)
[2024-12-16] MEDS: TOPROL XL 50 MG PO (10:13)
--- NOTE | 2024-12-16 14:21 | W.PN.HOSP.TC ---
Addendum entered and electronically signed by Michael Carrera MD 12/16/24 14:59:
Attending�addendum: Patient was seen on 12/15/2024.
I saw and evaluated the patient. I reviewed the resident�s note and agree with findings and plan as documented in the resident�s note. Patient admitted with encephalopathy secondary to UTI, patient still confused
daughter at bedside.
Physical�exam:
GENERAL : confused
HEENT: Blind. Oropharynx clear. Moist mucous membranes. Conjunctivae appear well perfused.
CHEST: Chest wall is nontender.
HEART: Regular rate and rhythm without murmurs.
LUNGS: Clear to auscultation bilaterally.
ABDOMEN: Soft, positive bowel sounds, nontender, no organomegaly.
RECTAL: Deferred.
MUSCLES/EXTREMITIES: No abnormal range of motion, no swelling.SKIN: No rash, no excessive bruising, petechiae, or purpura.
NEUROLOGIC: Cranial nerves II-XII intact without motor/sensory deficit.
�
Assessment/plan:
Acute Metabolic encephalopathy 2/2r UTI:
cefepime.
-Acute hypoxic respiratory failure
now on room air
Nausea: trial of Compazine/Zofran given for nausea
-Anemia of chronic disease:
Hemoglobin stable.
Continue to monitor
-Neuropathy:
Gabapentin held due to confusion
DNR
Original Note:
Today's Communication/Plan
-
Prochlorperazine and Zofran given for nausea
Continue cefepime
Patient back at room air
Assessment / Plan
Assessment / Plan
Assessment/Plan:
-Metabolic encephalopathy/fever/back pain Concern for UTI:
History of Klebsiella pneumonia UTI, Kluyvera ascorbate, klebsiella oxytoca, Enterococcus facialis, Morganella morganii, E. coli
chest x-ray negative
WBC, lactate normal
Urine analysis with 1+ leukocyte esterase, 30-40 urine white blood cell count, few bacteria, and 3+ albumin -possible UTI -urine culture from 12/11/2024 grew Kleb and Kluyvera - UC from 12/15 had no growth
Patient received Tylenol, cefepime in ER
Blood culture sent from ER
IV cefepime continued
-Acute hypoxic respiratory failure unclear cause:
Chest x-ray with impression of low inspiratory volumes. Mild interstitial prominence, which may be related to low inspiratory volumes or mild pulmonary vascular congestion.. Otherwise clear lungs.
Patient is COVID and flu negative
Continue supplemental oxygen to keep second in the 95, wean as tolerated -patient currently on room air on 12/16/2024
-Nausea/GI Upset: Unresolved
Prochlorperazine and Zofran given for nausea
-Anemia of chronic disease: Stable/monitoring
Hemoglobin stable at 10.4, no active bleeding
Continue to monitor
-Essential HTN: Stable/monitoring
continue Ramipril
-GERD/Aguilar's esophagus/Large hiatal hernia: Stable/monitoring
Cont PPI
-Hyperlipidemia: Stable/monitoring
Continue rosuvastatin
-Coronary artery disease with history of [place]: Stable/monitoring
cont statin/BB
-Paroxysmal atrial fibrillation: Stable/monitoring
cont Eliquis/BB
-Anxiety/depression: Stable/monitoring
cont Seroquel/Prozac
- Obstructive sleep apnea: Stable/monitoring
cont CPAP
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
-L1 compression fracture: Stable/monitoring
-Morbid obesity due excess calories: Stable/monitoring
-Neuropathy: Stable/monitoring
Gabapentin held due to confusion
CODE STATUS: DO NOT RESUSCITATE
Stress Ulcer Prophylaxis: Pantoprazole
DVT Prophylaxis: Eliquis
Anticipated Discharge: > 48 hours
Subjective/Interval History
-
Date of Service: December 16, 2024
Met with patient at the bedside. She was kind and pleasant in discussion. She was hallucinating and having discussions with people who are not present in the room. Patient is clearly nauseous and spitting into a bucket. Daughter who is at the
bedside provided much of the patient's past medical history.
Objective Data
-
Labs:
Laboratory Results
12/16/24
08:04
WBC 5.2
Hgb 11.0 L
Hct 33.2 L
Plt Count 160
Sodium 137
Potassium 3.8
Chloride 104
Carbon Dioxide 29
BUN 11
Creatinine 0.7
Glucose 122 H
Calcium 8.7
Vital Signs:
Vital Signs
Temp Pulse Resp BP Pulse Ox
99.1 F 78 18 177/94 99
12/16/24 11:30 12/16/24 11:30 12/16/24 11:30 12/16/24 11:30 12/16/24 11:30
I&O
12/15/24 12/16/24 12/17/24
06:59 06:59 06:59
Intake Total 360 / 360
Output Total 0 / 0
Balance 360 / 360
Review of Systems
-
History Source: Patient
Constitutional: Reports Other (Nausea)
EENT: Reports No Symptoms Reported
Respiratory: Reports No Symptoms
Cardiac: Reports No Symptoms
Abdomen/GI: Reports Nausea and Vomiting
Breast: Reports No Symptoms
Genitourinary: Reports No Symptoms
Musculoskeletal: Reports No Symptoms
Skin: Reports No Symptoms
Neuro: Reports No Symptoms
Psych: Reports Other (Visual hallucinations)
Physical Exam
-
General: Well Developed, Well Nourished and Morbidly Obese; Negative Comfortable
HEENT: Normocephalic, Atraumatic and Oxygen
Respiratory: Clear to Auscultation; Negative Wheezes or Rhonchi
Cardiac: Regular Rhythm and S1/S2; Negative Murmur
GI: Soft, Nontender, Nondistended and Normal Bowel Sounds
Musculoskeletal: No Clubbing, No Cyanosis and No Edema
Skin: Warm, Dry and Normal Turgor; Negative Rash, Ulcers or Lesions
Neuro: Other (Visual hallucinations)
Psych: Calm
[2024-12-16] MEDS: VITAMIN B1 100 MG PO (17:13)
[2024-12-16] MEDS: THERAGRAN 1 TABLET PO (17:13)
[2024-12-16] MEDS: CRESTOR 10 MG PO (20:21)
[2024-12-16] MEDS: TYLENOL 650 MG PO (20:25)
[2024-12-17] VITALS (8 sets, daily range): BP systolic 136–171; BP diastolic 83–112; PULSE 78
[2024-12-17] MEDS: STERILE WATER FOR INJECTION 10 ML IV ×3 (03:50→21:39)
[2024-12-17] MEDS: MAXIPIME 1000 MG IV ×3 (03:50→21:39)
[2024-12-17 08:06] LABS: Blood Urea Nitrogen 9 mg/dl (7-17); Calcium 9.0 mg/dl (8.4-10.2); Carbon Dioxide 29 mmol/L (22-30); Chloride 103 mmol/L (98-107); Estimated Creatinine Clearance 58 ml/min; Glucose 109 mg/dl (70-99); Potassium 3.6 mmol/L (3.5-5.1); Sodium 136 mmol/L (135-145); eGFR > 60.00
[2024-12-17] MEDS: PROTONIX 40 MG PO (08:59)
[2024-12-17] MEDS: MAGNESIUM OXIDE 400 MG PO (08:59)
[2024-12-17] MEDS: PROZAC 30 MG PO (08:59)
[2024-12-17] MEDS: COLACE 100 MG PO ×2 (09:00→21:38)
[2024-12-17] MEDS: FLOMAX 0.4 MG PO (09:00)
[2024-12-17] MEDS: ALTACE 5 MG PO ×2 (09:00→21:38)
[2024-12-17] MEDS: ELIQUIS 5 MG PO ×2 (09:00→21:38)
[2024-12-17] MEDS: TOPROL XL 50 MG PO (09:00)
[2024-12-17] MEDS: ALTACE 1.25 MG PO ×2 (09:00→21:38)
--- NOTE | 2024-12-17 12:26 | PTCARENOTE ---
13 beat run of SVT noted on telemetry. Pt sitting in a chair, asymptomatic. Dr Carrera notified. No new orders.
--- NOTE | 2024-12-17 12:27 | W.PN.HOSP.TC ---
Today's Communication/Plan
-
Still pending final urine culture
Plan to return to [facility].
Assessment / Plan
Assessment / Plan
Impression:
84-year-old female past medical history of recurrent UTI, hypertension, GERD, Aguilar's esophagus, large hiatal hernia, hyperlipidemia, CAD, paroxysmal atrial fibrillation on Eliquis, anxiety/depression, morbid obesity, obstructive sleep apnea,
Garett Bonnet syndrome/blindness, L1 compression fracture presenting with change in mental status today. �She was started on Macrobid yesterday for diagnosed UTI on 12/14. �She had fever 100.9 today.
In the ER patient was hypotensive 86/39. �Fever 100.3. �Hypoxic requiring 2 L of oxygen.
Labs show stable anemia 10.4. �Urinalysis shows 30-40 WBC.
Chest x-ray shows low inspiratory volumes, mild interstitial prominence may be related to mild pulmonary vascular congestion Or low inspiratory volumes.
Patient with UTI with acute metabolic encephalopathy with fever. �Patient given IV fluids. �Urine culture, blood cultures pending. �Cefepime. Hold sedating meds.�
Patient also with cough and hypoxemia. �No evidence of heart failure. �COVID and flu pending.
Assessment/Plan:
Metabolic encephalopathy/fever/back pain Concern for UTI:
History of Klebsiella pneumonia UTI, Kluyvera ascorbate, klebsiella oxytoca, Enterococcus facialis, Morganella morganii, E. coli
chest x-ray negative
WBC, lactate normal
Urine analysis with 1+ leukocyte esterase, 30-40 urine white blood cell count, few bacteria, and 3+ albumin -possible UTI -urine culture from 12/11/2024 grew Kleb and Kluyvera - UC from 12/15 had no growth
Patient received Tylenol, started on cefepime, will continue for now
Acute hypoxic respiratory failure.
Chest x-ray with impression of low inspiratory volumes. Mild interstitial prominence, which may be related to low inspiratory volumes or mild pulmonary vascular congestion.. Otherwise clear lungs.
Patient is COVID and flu negative
patient currently on room air.
Anemia of chronic disease:
Hemoglobin stable
Continue to monitor
Essential HTN
continue Ramipril/metoprolol
GERD/Aguilar's esophagus/Large hiatal hernia
Cont PPI
Hyperlipidemia
Continue rosuvastatin
Coronary artery disease with history of [place]
cont statin/BB
Paroxysmal atrial fibrillation
cont Eliquis/BB
Anxiety/depression
cont Seroquel/Prozac
Obstructive sleep apnea
cont CPAP
Morbid obesity due excess calories
-Neuropathy
Gabapentin held due to confusion
CODE STATUS: DO NOT RESUSCITATE
DVT Prophylaxis: Eliquis
Diet: cardiac diet
Family communication: Discussed with daughter at bedside
Disposition: Still pending final urine culture
Plan to return to [facility].
Total time spent on today's encounter was 55 minutes which included time spent in counseling the patient/family regarding diagnosis and treatment plan as listed above, goals of care, and symptom management. Case was discussed with nursing staff,
specialists, and care coordinators/case management. All labs and imaging personally reviewed by me. Remainder the time spent in detailed review of previous records, lab data, imaging, and other medical provider documentation.
Anticipated Discharge: Within 24 hours
Subjective/Interval History
-
Date of Service: December 17, 2024
Patient seen and examined at bedside, still confused and delusional.
Denies chest pain or shortness of breath.
Objective Data
-
Labs:
Laboratory Results
12/17/24
07:09
WBC Pending
Hgb Pending
Hct Pending
Plt Count Pending
Sodium 136
Potassium 3.6
Chloride 103
Carbon Dioxide 29
BUN 9
Creatinine 0.7
Glucose 109 H
Calcium 9.0
Vital Signs:
Vital Signs
Temp Pulse Resp BP Pulse Ox
99.0 F 78 20 136/105 95
12/17/24 11:32 12/17/24 11:51 12/17/24 11:32 12/17/24 11:51 12/17/24 11:32
I&O
12/16/24 12/17/24 12/18/24
06:59 06:59 06:59
Intake Total 360 / 360
Output Total 0 / 0
Balance 360 / 360
Physical Exam
-
General: Appears in Distress
HEENT: Normocephalic, Atraumatic and Other (blind)
Respiratory: Rales
Cardiac: Regular Rhythm and S1/S2
Breast: Deferred by me
GI: Soft, Nontender, Nondistended and Normal Bowel Sounds
Genito-urinary: No Costovertebral Tender
Musculoskeletal: No Clubbing, No Cyanosis and No Edema
Skin: Warm
Neuro: Awake and Alert
Psych: Confused and Other (Visual hallucinations)
[2024-12-17 13:41] LABS: Hematocrit 35.7 % (37.0-47.0); Hemoglobin 11.5 g/dL (12.0-16.0); Mean Corp Hgb Conc. 32.2 g/dL (33.0-37.0); Mean Corpuscular Volume 97.5 fL (81.0-99.0); Platelet Count 176 10^3/uL (130-400); Red Cell Dist. Width 13.0 % (11.5-14.5)
[2024-12-17] MEDS: VITAMIN B1 100 MG PO (17:09)
[2024-12-17] MEDS: THERAGRAN 1 TABLET PO (17:09)
[2024-12-17] MEDS: CRESTOR 10 MG PO (21:38)
[2024-12-17] MEDS: MAXIPIME IV (21:39)
[2024-12-18] VITALS (8 sets, daily range): BP systolic 128–190; BP diastolic 75–102
--- NOTE | 2024-12-18 04:46 | PTCARENOTE ---
Notified PLAN EXAMINER of pt's blood pressure manual is 164/92. She received her Ramipril night time dose around 21:38. She gets it BID. Patient denies any pain, and is sleeping- Cpap on. Per PLAN EXAMINER- recheck blood pressure in an hour and if still high we can give
morning dose of metoprolol.
[2024-12-18] MEDS: STERILE WATER FOR INJECTION 10 ML IV ×3 (04:49→21:53)
[2024-12-18] MEDS: MAXIPIME 1000 MG IV ×3 (04:50→21:54)
[2024-12-18] MEDS: TOPROL XL 50 MG PO (05:40)
--- NOTE | 2024-12-18 05:54 | PTCARENOTE ---
Pt's blood pressure remained high 170/102, given morning medication Toprol per RESOURCE PROTECTION SPECIALIST.
[2024-12-18 09:18] LABS: Hematocrit 35.8 % (37.0-47.0); Hemoglobin 12.0 g/dL (12.0-16.0); Mean Corp Hgb Conc. 33.5 g/dL (33.0-37.0); Mean Corpuscular Volume 93.0 fL (81.0-99.0); Platelet Count 192 10^3/uL (130-400); Red Cell Dist. Width 12.8 % (11.5-14.5)
[2024-12-18] MEDS: ALTACE 5 MG PO ×2 (09:25→22:04)
[2024-12-18] MEDS: ALTACE 1.25 MG PO ×2 (09:25→22:05)
[2024-12-18] MEDS: MAGNESIUM OXIDE 400 MG PO (09:26)
[2024-12-18] MEDS: COLACE 100 MG PO ×2 (09:26→22:05)
[2024-12-18] MEDS: ELIQUIS 5 MG PO ×2 (09:26→22:05)
[2024-12-18] MEDS: PROTONIX 40 MG PO (09:26)
[2024-12-18] MEDS: PROZAC 30 MG PO (09:26)
[2024-12-18] MEDS: FLOMAX 0.4 MG PO (09:26)
[2024-12-18 10:05] LABS: Blood Urea Nitrogen 13 mg/dl (7-17); Calcium 9.3 mg/dl (8.4-10.2); Carbon Dioxide 30 mmol/L (22-30); Chloride 102 mmol/L (98-107); Estimated Creatinine Clearance 41 ml/min; Glucose 99 mg/dl (70-99); Potassium 3.9 mmol/L (3.5-5.1); Sodium 136 mmol/L (135-145); eGFR 55.21
--- NOTE | 2024-12-18 12:49 | W.PN.HOSP.TC ---
Today's Communication/Plan
-
Will monitor for additional 24-hour if no improvement consider hospice at [facility].
Assessment / Plan
Assessment / Plan
Impression:
84-year-old female past medical history of recurrent UTI, hypertension, GERD, Aguilar's esophagus, large hiatal hernia, hyperlipidemia, CAD, paroxysmal atrial fibrillation on Eliquis, anxiety/depression, morbid obesity, obstructive sleep apnea,
Garett Bonnet syndrome/blindness, L1 compression fracture presenting with change in mental status today. �She was started on Macrobid yesterday for diagnosed UTI on 12/14. �She had fever 100.9 today.
In the ER patient was hypotensive 86/39. �Fever 100.3. �Hypoxic requiring 2 L of oxygen.
Labs show stable anemia 10.4. �Urinalysis shows 30-40 WBC.
Chest x-ray shows low inspiratory volumes, mild interstitial prominence may be related to mild pulmonary vascular congestion Or low inspiratory volumes.
Patient with UTI with acute metabolic encephalopathy with fever. �Patient given IV fluids. �Urine culture, blood cultures pending. �Cefepime. Hold sedating meds.�
Patient also with cough and hypoxemia. �No evidence of heart failure. �COVID and flu pending.
Assessment/Plan:
Acute Metabolic encephalopathy/fever/back pain Concern for UTI:
History of Klebsiella pneumonia UTI, Kluyvera ascorbate, klebsiella oxytoca, Enterococcus facialis, Morganella morganii, E. coli
chest x-ray negative
WBC, lactate normal
Urine analysis with 1+ leukocyte esterase, 30-40 urine white blood cell count, few bacteria, and 3+ albumin -possible UTI -urine culture from 12/11/2024 grew Kleb and Kluyvera - UC from 12/15 had no growth
Patient received Tylenol, started on cefepime, will continue for now
12/18
So far all cultures are negative, but patient remains confused.
Discussed with daughter at bedside.
Will monitor for additional 24-hour if no improvement consider hospice at [facility].
Acute hypoxic respiratory failure.
Chest x-ray with impression of low inspiratory volumes. Mild interstitial prominence, which may be related to low inspiratory volumes or mild pulmonary vascular congestion.. Otherwise clear lungs.
Patient is COVID and flu negative
patient currently on room air.
Left Lower extremity pain.
Ultrasound pending
Anemia of chronic disease:
Hemoglobin stable
Continue to monitor
Essential HTN
continue Ramipril/metoprolol
GERD/Aguilar's esophagus/Large hiatal hernia
Cont PPI
Hyperlipidemia
Continue rosuvastatin
Coronary artery disease with history of [place]
cont statin/BB
Paroxysmal atrial fibrillation
cont Eliquis/BB
Anxiety/depression
cont Seroquel/Prozac
Obstructive sleep apnea
cont CPAP
Morbid obesity due excess calories
-Neuropathy
Gabapentin held due to confusion
CODE STATUS: DO NOT RESUSCITATE
DVT Prophylaxis: Eliquis
Diet: cardiac diet
Family communication: Discussed with daughter at bedside
Disposition: Will monitor for additional 24-hour if no improvement consider hospice at [facility].
Total time spent on today's encounter was 55 minutes which included time spent in counseling the patient/family regarding diagnosis and treatment plan as listed above, goals of care, and symptom management. Case was discussed with nursing staff,
specialists, and care coordinators/case management. All labs and imaging personally reviewed by me. Remainder the time spent in detailed review of previous records, lab data, imaging, and other medical provider documentation.
Anticipated Discharge: Within 24 hours
Subjective/Interval History
-
Date of Service: December 18, 2024
Patient seen and examined at bedside, daughter at bedside, patient still confused.
Objective Data
-
Labs:
Laboratory Results
12/18/24
08:31
WBC 5.5
Hgb 12.0
Hct 35.8 L
Plt Count 192
Sodium 136
Potassium 3.9
Chloride 102
Carbon Dioxide 30
BUN 13
Creatinine 1.0
Glucose 99
Calcium 9.3
Vital Signs:
Vital Signs
Temp Pulse Resp BP Pulse Ox
97.8 F 77 18 140/75 93
12/18/24 11:38 12/18/24 11:38 12/18/24 11:38 12/18/24 11:38 12/18/24 11:38
I&O
12/17/24 12/18/24 12/19/24
06:59 06:59 06:59
Intake Total 290 / 290
Balance 290 / 290
Physical Exam
-
General: Appears in Distress
HEENT: Normocephalic, Atraumatic and Other (blind)
Respiratory: Rales
Cardiac: Regular Rhythm and S1/S2
Breast: Deferred by me
GI: Soft, Nontender, Nondistended and Normal Bowel Sounds
Genito-urinary: No Costovertebral Tender
Musculoskeletal: No Clubbing, No Cyanosis and No Edema
Skin: Warm
Neuro: Awake and Alert
Psych: Confused and Other (Visual hallucinations)
--- NOTE | 2024-12-18 13:07 | CM ---
Chart reviewed. Care ongoing. Patient is a LTC resident at [facility]
Discussed w/ hospitalist, if patient not better tomorrow, family would like to discuss hospice upon patient's return to [facility]
Will discuss w/ hospitalist further tomorrow
Updates sent to [facility] in [facility]
Plan: Return to [facility] LT. Will confirm tomorrow if hospice services will be decided
[2024-12-18] MEDS: VITAMIN B1 100 MG PO (17:30)
[2024-12-18] MEDS: VISBIOME 1 CAP PO (17:30)
[2024-12-18] MEDS: THERAGRAN 1 TABLET PO (17:30)
[2024-12-18] MEDS: FLUSH (NSS) 2 FLUSH IV (21:55)
[2024-12-18] MEDS: NEURONTIN 200 MG PO (22:06)
[2024-12-18] MEDS: CRESTOR 10 MG PO (22:06)
[2024-12-18] MEDS: SEROQUEL 50 MG PO (22:07)
[2024-12-18] MEDS: TYLENOL 650 MG PO (22:45)
[2024-12-19] VITALS (7 sets, daily range): BP systolic 119–148; BP diastolic 56–84; PULSE 76
[2024-12-19] MEDS: STERILE WATER FOR INJECTION 10 ML IV ×3 (04:56→17:26)
[2024-12-19] MEDS: MAXIPIME 1000 MG IV ×2 (04:58→13:26)
[2024-12-19] MEDS: FLUSH (NSS) 1 FLUSH IV (04:59)
[2024-12-19] MEDS: PROTONIX 40 MG PO (08:12)
[2024-12-19] MEDS: PROZAC 30 MG PO (08:12)
[2024-12-19] MEDS: ELIQUIS 5 MG PO ×2 (08:12→19:41)
[2024-12-19] MEDS: FLOMAX 0.4 MG PO (08:12)
[2024-12-19] MEDS: ALTACE 1.25 MG PO ×2 (08:12→19:48)
[2024-12-19] MEDS: TOPROL XL 50 MG PO (08:12)
[2024-12-19] MEDS: NEURONTIN 200 MG PO ×2 (08:13→19:42)
[2024-12-19] MEDS: ALTACE 5 MG PO ×2 (08:13→19:48)
[2024-12-19] MEDS: MAGNESIUM OXIDE 400 MG PO (08:13)
[2024-12-19] MEDS: COLACE 100 MG PO ×2 (08:13→19:41)
[2024-12-19 08:36] LABS: Hematocrit 36.5 % (37.0-47.0); Hemoglobin 12.1 g/dL (12.0-16.0); Mean Corp Hgb Conc. 33.2 g/dL (33.0-37.0); Mean Corpuscular Volume 97.6 fL (81.0-99.0); Platelet Count 160 10^3/uL (130-400); Red Cell Dist. Width 13.0 % (11.5-14.5)
[2024-12-19 08:57] LABS: Blood Urea Nitrogen 16 mg/dl (7-17); Calcium 9.3 mg/dl (8.4-10.2); Carbon Dioxide 31 mmol/L (22-30); Chloride 103 mmol/L (98-107); Estimated Creatinine Clearance 41 ml/min; Glucose 96 mg/dl (70-99); Potassium 3.2 mmol/L (3.5-5.1); Sodium 136 mmol/L (135-145); eGFR 55.21
[2024-12-19] MEDS: SEROQUEL 25 MG PO (13:27)
--- NOTE | 2024-12-19 13:32 | CM ---
Chart reviewed. Per hospitalist, daughter would like to discuss hospice.
Met w/ daughter and granddaughter bedside. Daughter, Robyn, stated she has not fully decided on hospice, and does not have a preferred provider at this time, but would like information as she has questions regarding patient's medications. CM
informed Pavan uses [facility] as their preferred provider and their philosophy may be different from [facility]'s. Robyn understood this, asking if an in person discussion can occur once her sister visits. CM stated Nicolle will reach out
and discuss via phone if unable to be in person.
Confirmed w/ Nicolle/ hospice that daughter is undecided on hospice and requesting information initially. Nicolle confirmed she'll make outreach and for CM to hold placing referral
Plan: hospice follow up
--- NOTE | 2024-12-19 14:15 | W.PN.HOSP.TC ---
Addendum entered and electronically signed by Michael Carrera MD 12/19/24 14:21:
Hypokalemia, repleted
Original Note:
Today's Communication/Plan
-
Will be discharged on Ceftin, pending family decision for hospice at [facility].
Assessment / Plan
Assessment / Plan
Impression:
84-year-old female past medical history of recurrent UTI, hypertension, GERD, Aguilar's esophagus, large hiatal hernia, hyperlipidemia, CAD, paroxysmal atrial fibrillation on Eliquis, anxiety/depression, morbid obesity, obstructive sleep apnea,
Garett Bonnet syndrome/blindness, L1 compression fracture presenting with change in mental status today. �She was started on Macrobid yesterday for diagnosed UTI on 12/14. �She had fever 100.9 today.
In the ER patient was hypotensive 86/39. �Fever 100.3. �Hypoxic requiring 2 L of oxygen.
Labs show stable anemia 10.4. �Urinalysis shows 30-40 WBC.
Chest x-ray shows low inspiratory volumes, mild interstitial prominence may be related to mild pulmonary vascular congestion Or low inspiratory volumes.
Patient admit with UTI with acute metabolic encephalopathy with fever. �Patient given IV fluids. �Urine culture, blood cultures negative. �Cefepime.
Patient also with cough and hypoxemia. �No evidence of heart failure. �COVID and flu negative, hypoxemia
Assessment/Plan:
Acute Metabolic encephalopathy/fever/back pain Concern for UTI:
History of Klebsiella pneumonia UTI, Kluyvera ascorbate, klebsiella oxytoca, Enterococcus facialis, Morganella morganii, E. coli
chest x-ray negative
WBC, lactate normal
Urine analysis with 1+ leukocyte esterase, 30-40 urine white blood cell count, few bacteria, and 3+ albumin -possible UTI -urine culture from 12/11/2024 grew Kleb and Kluyvera - UC from 12/15 had no growth
Patient received Tylenol, started on cefepime, will continue for now
12/19
Urine and blood culture are negative but reviewing outpatient blood culture from December 11 shows Kluyvera ascorbata / Klebsiella oxytoca
Continue cefepime, will be discharged on Ceftin
Discussed with daughter at bedside, family considering hospice at [facility] but still not deciding.
Acute hypoxic respiratory failure.
Chest x-ray with impression of low inspiratory volumes. Mild interstitial prominence, which may be related to low inspiratory volumes or mild pulmonary vascular congestion.. Otherwise clear lungs.
Patient is COVID and flu negative
patient currently on room air.
Left Lower extremity pain.
Ultrasound pending
Anemia of chronic disease:
Hemoglobin stable
Continue to monitor
Essential HTN
continue Ramipril/metoprolol
GERD/Aguilar's esophagus/Large hiatal hernia
Cont PPI
Hyperlipidemia
Continue rosuvastatin
Coronary artery disease with history of [place]
cont statin/BB
Paroxysmal atrial fibrillation
cont Eliquis/BB
Anxiety/depression
cont Seroquel/Prozac
Obstructive sleep apnea
cont CPAP
Morbid obesity due excess calories
-Neuropathy
Gabapentin resumed
CODE STATUS: DO NOT RESUSCITATE
DVT Prophylaxis: Eliquis
Diet: cardiac diet
Family communication: Discussed with daughter at bedside
Disposition: Will be discharged on Ceftin, pending family decision for hospice at [facility].
Total time spent on today's encounter was 55 minutes which included time spent in counseling the patient/family regarding diagnosis and treatment plan as listed above, goals of care, and symptom management. Case was discussed with nursing staff,
specialists, and care coordinators/case management. All labs and imaging personally reviewed by me. Remainder the time spent in detailed review of previous records, lab data, imaging, and other medical provider documentation.
Anticipated Discharge: Within 24 hours
Subjective/Interval History
-
Date of Service: December 19, 2024
More oriented compared to study, denies chest pain or shortness of breath. Family at bedside.
Objective Data
-
Labs:
Laboratory Results
12/19/24
08:07
WBC 4.4 L
Hgb 12.1
Hct 36.5 L
Plt Count 160
Sodium 136
Potassium 3.2 L
Chloride 103
Carbon Dioxide 31 H
BUN 16
Creatinine 1.0
Glucose 96
Calcium 9.3
Vital Signs:
Vital Signs
Temp Pulse Resp BP Pulse Ox
97.9 F 61 18 119/56 96
12/19/24 11:48 12/19/24 11:48 12/19/24 11:48 12/19/24 11:48 12/19/24 11:48
I&O
12/18/24 12/19/24 12/20/24
06:59 06:59 06:59
Intake Total 290 / 290
Balance 290 / 290
Physical Exam
-
General: Well Developed
HEENT: Normocephalic, Atraumatic and Other (blind)
Respiratory: Rales
Cardiac: Regular Rhythm and S1/S2
Breast: Deferred by me
GI: Soft, Nontender, Nondistended and Normal Bowel Sounds
Genito-urinary: No Costovertebral Tender
Musculoskeletal: No Clubbing, No Cyanosis and No Edema
Skin: Warm
Neuro: Awake and Alert
Psych: Calm, Confused and Other (Visual hallucinations improved)
[2024-12-19] MEDS: KCL ELIXIR 40 MEQ PO (14:35)
--- NOTE | 2024-12-19 14:42 | HOSPNOTE ---
Notified by CM that family wanted information on hospice services. Reviewed records and there is no terminal diagnosis to support patient signing onto hospice services. Ana Lilia NAM confirmed this. Notified CM and Attending. Will sign off at this
time as there is no terminal diagnosis to support patient being admitted to hospice.
[2024-12-19] MEDS: ROCEPHIN 1000 MG IV (17:26)
[2024-12-19] MEDS: THERAGRAN 1 TABLET PO (17:26)
[2024-12-19] MEDS: VISBIOME 1 CAP PO (17:26)
[2024-12-19] MEDS: VITAMIN B1 100 MG PO (17:26)
--- NOTE | 2024-12-19 19:38 | PTCARENOTE ---
Patient's family present at bedside, requesting all four side rails up overnight for patient's safety.
[2024-12-19] MEDS: SEROQUEL 50 MG PO (19:43)
[2024-12-19] MEDS: CRESTOR 10 MG PO (19:43)
[2024-12-20] VITALS (8 sets, daily range): BP systolic 113–165; BP diastolic 64–98; PULSE 62–80; O2SAT 96
--- NOTE | 2024-12-20 02:24 | DOWNTIME ---
There was a [employer] Client Conciliation Court Judge Downtime on 12/20/2024 from 0100 to 12/20/2024 at 0215. Downtime documentation of patient's care, including medication administrations, has been reconciled in the electronic record per guidelines. Refer to the
patient's paper chart under the miscellaneous tab to see printed paper medication records and downtime forms.
--- NOTE | 2024-12-20 07:46 | W.PN.HOSP.TC ---
Today's Communication/Plan
-
Appreciate Neurology
Plan for discharge to [facility] tomorrow
Assessment / Plan
Assessment / Plan
Physical Exam
General: Well Developed
HEENT: Normocephalic, Atraumatic and Other (blind)
Respiratory: Rales
Cardiac: Regular Rhythm and S1/S2
GI: Soft, Nontender, Nondistended and Normal Bowel Sounds
Musculoskeletal: No Cyanosis and No Edema
Skin: Warm. Dry.
Neuro: Awake and Alert
Psych: Calm, Confused and Other (Visual hallucinations improved)
Impression:
84-year-old female with past medical history of recurrent UTI, hypertension, GERD, Aguilar's esophagus, large hiatal hernia, hyperlipidemia, CAD, paroxysmal atrial fibrillation on Eliquis, anxiety/depression, morbid obesity, obstructive sleep apnea,
Garett Bonnet syndrome/blindness and L1 compression fracture presented with change in mental status. �She was started on Macrobid outpatient for diagnosed UTI on 12/14/24. She later had fever 100.9 F. In the ER, patient was hypotensive 86/39 had
fever 100.3 F, and she was�hypoxic, requiring 2 L of oxygen.
Labs showed stable anemia 10.4, and�urinalysis showed 30-40 WBC.
Chest x-ray showed low inspiratory volumes, mild interstitial prominence may be related to mild pulmonary vascular congestion or low inspiratory volumes.
Patient admit with UTI with acute metabolic encephalopathy with fever. �Patient given IV fluids. �Urine culture, blood cultures negative. �Cefepime.
Patient also with cough and hypoxemia. �No evidence of heart failure. �COVID and flu negative, hypoxemia
Assessment/Plan:
Acute Metabolic encephalopathy/fever/back pain Concern for UTI
History of Klebsiella pneumonia UTI, Kluyvera ascorbate, klebsiella oxytoca, Enterococcus facialis, Morganella morganii, E. coli
chest x-ray negative
WBC, lactate normal
Urine analysis with 1+ leukocyte esterase, 30-40 urine white blood cell count, few bacteria, and 3+ albumin -possible UTI -urine culture from 12/11/2024 grew Kleb and Kluyvera - UC from 12/15 had no growth
Patient received Tylenol, started on cefepime, will continue for now
12/19/24
Urine and blood culture are negative but reviewing outpatient blood culture from December 11 shows Kluyvera ascorbata / Klebsiella oxytoca
Continue cefepime, will be discharged on Ceftin
Patient received about 5 days worth of Cefepime starting 12/15/24 to 12/19/24, later transitioned to Rocephin on 12/19/[address] Rodriguez discussed with daughter at bedside, family considering hospice at [facility] but still not deciding.
12/20/24
Neurology consult as per family request: reduce Gabapentin
Plan is for discharge to [facility]
Acute hypoxic respiratory failure - RESOLVED
Chest x-ray with impression of low inspiratory volumes. Mild interstitial prominence, which may be related to low inspiratory volumes or mild pulmonary vascular congestion.. Otherwise clear lungs.
Patient is COVID and flu negative
patient currently on room air.
Left Lower extremity pain
Ultrasound with no DVT
Anemia of chronic disease:
Hemoglobin stable
Continue to monitor
Essential HTN
Continue Ramipril/metoprolol
GERD/Aguilar's esophagus/Large hiatal hernia
Continue PPI
Hyperlipidemia
Continue Rosuvastatin
Coronary artery disease with history of TN
cont statin/BB
Paroxysmal atrial fibrillation
cont Eliquis/BB
Anxiety/depression
cont Seroquel/Prozac
Obstructive sleep apnea
cont CPAP
Morbid obesity due excess calories
-Neuropathy
Gabapentin resumed
CODE STATUS: DO NOT RESUSCITATE
DVT Prophylaxis: Eliquis
Diet: cardiac diet
Family communication: Discussed with daughter at bedside
Disposition: Will be discharged on Ceftin, pending discharge to [facility].
Total time spent on today's encounter was 60 minutes which included time spent in counseling the patient/family regarding diagnosis and treatment plan as listed above, goals of care, and symptom management. Case was discussed with nursing staff,
specialists, and care coordinators/case management. All labs and imaging personally reviewed by me. Remainder the time spent in detailed review of previous records, lab data, imaging, and other medical provider documentation.
Anticipated Discharge: Within 24 hours
Subjective/Interval History
-
Date of Service: December 20, 2024
Patient was seen and examined. She demonstrated confusion and some tremors.
Objective Data
-
Vital Signs:
Vital Signs
Temp Pulse Resp BP Pulse Ox
97.6 F 68 20 144/78 96
12/20/24 03:40 12/20/24 03:40 12/20/24 03:40 12/20/24 03:40 12/20/24 03:40
I&O
12/19/24 12/20/24 12/21/24
06:59 06:59 06:59
Intake Total 840 / 840
Output Total 600 / 600
Balance 240 / 240
[2024-12-20] MEDS: ALTACE 5 MG PO ×2 (09:27→20:14)
[2024-12-20] MEDS: PROTONIX 40 MG PO (09:27)
[2024-12-20] MEDS: PROZAC 30 MG PO (09:27)
[2024-12-20] MEDS: ALTACE 1.25 MG PO ×2 (09:27→20:15)
[2024-12-20] MEDS: COLACE 100 MG PO ×2 (09:28→20:17)
[2024-12-20] MEDS: NEURONTIN 200 MG PO (09:28)
[2024-12-20] MEDS: ELIQUIS 5 MG PO ×2 (09:28→20:18)
[2024-12-20] MEDS: FLOMAX 0.4 MG PO (09:28)
[2024-12-20] MEDS: SEROQUEL 25 MG PO (09:28)
[2024-12-20] MEDS: MAGNESIUM OXIDE 400 MG PO (09:28)
[2024-12-20] MEDS: TOPROL XL 50 MG PO (09:28)
--- NOTE | 2024-12-20 13:23 | CM ---
Chart reviewed. Per [facility]// hospice, reviewed patient yesterday, has determined that patient does not have a terminal dx to support patient signing onto hospice. Reviewed w/ hospitalist, hospice signed off.
Spoke w/ patient's daughter, Robyn, updated hospice's determination, Robyn understood this. Continued to state to CM that something is not right w/ patient and has continuing medical follow up questions as patient's current presentation is not
her normal. Robyn stated her sister requested a neuro consult. Robyn is aware that if hospice is to be explored again that [facility] can coordinate that, so hospice is no longer being explored or decided on at this time. CM also made Robyn aware
since patient is a resident at [facility], they'll continue to be updated and they'll evaluate her care needs upon her return once she is medically stable.
Plan: Return to [facility]
--- NOTE | 2024-12-20 14:50 | CON.NEURO4 ---
Addendum entered and electronically signed by Waqar Jimenez MD 12/20/24 16:39:
Studies reviewed.
I have personally examined the patient. I reviewed and agree with the HOT KNIFE CUTTER's Note.
My addenda:
Awake, alert, interactive. No acute distress.
Speech intact.
Follows 2-step requests w/o difficulty. No tremor.
Extra-ocular movements grossly intact.
Facial movements full and symmetric. Hearing intact to normal conversational volume.
Normal UE movements bilaterally.
Neck: full ROM.
Chest: no dyspnea
Heart: no JVD
Ext: (-) Clubbing, (-) Cyanosis, (-) Edema
IMPRESSIONS/RECOMMENDATIONS:
Abrupt onset of myoclonus in patient with evaluation on numerous occasions by this service including a total of 27 CTs of the head and 11 MRIs of the brain since 2007
Most likely myoclonus is secondary to the use of gabapentin
Diminished gabapentin dosing from 200 mg twice a day to 100 mg twice a day as is possible that this medication is reducing neuropathic pain
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
The future, patient may benefit from the use of rizatriptan as rescue agent
Patient would likely benefit from the use of Atogepant or routine headache preventative medication to prevent recurrent episodes of hand weakness/sensory changes/alterations in consciousness probably associated with migraine with aura which are in
part due to idiopathic reasons and partly due to urinary tract infections
D/W patient / family
All questions answered.
Will continue to follow as needed.
Original Note:
Consultation - Neurology 4
-
CONSULTING PHYSICIAN: Waqar Jimenez MD
REFERRING PHYSICIAN: Hospitalists/Dr. Zepeda
DICTATED BY: CYRIL Barreto
DATE/TIME OF REQUEST: 12/20/24
DATE/TIME OF CONSULTATION: 12/20/24
Reason for Consultation: Abnormal body movements
History of Present Illness:
This is an 84-year-old right-handed female who has presented to the hospital on 12/15/24 with report of confusion, fever, and weakness in the setting of UTI on Macrobid. Patient has been evaluated by our Neurology service numerous times in the past
dating back to 2007 for stroke-like symptoms in the setting of infection and headache.
From my previous evaluation on 11/24/24:
''From previous evaluation by Dr. Valenzuela on 11/24/20:
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 Her
daughter states that she has received alteplase in the past (x2) with imaging showing no evidence of stroke. She is also had EEGs without any evidence of seizure. She has seen Dr. Sun (who she saw only once in our office), Dr. Jimenez, [facility] and [facility] without a clear etiology found for her symptoms. She was seen previously by me in the hospital on 12/29/2018 when she presented with headache with aphasia and confusion. At that time her family refused any imaging,
alteplase and EEG, saying that they felt her symptoms were related to UTI. At that time they stated that she had 'several different (similar) events in the past at least half of which is been associated with UTIs.'
She presents today for evaluation for confusion that began on associated with visual and auditory hallucinations. She resides with her daughter. She is generally able to carry out her activities of daily living with the assistance of a
nurse that helps her each morning. She needs assistance at times with taking her pills and with preparing food. Her daughter states that since last she has needed much more assistance with her ADLs and she has both visual and auditory
hallucinations. She has had visual hallucinations in the past per eCW with use of Seroquel and her daughter reports that she had visual hallucinations with a trial of Vimpat started by [facility]. She believes that she has never had
hallucinations outside the context of medication side effect or possible UTI. She is having a well-formed visual hallucinations consisting of 'seeing colorful wallpaper like she had at home.' She is also seen 'moms, a road with a levi and thought
she was in a [facility].' Her auditory hallucinations have consisted of 'hearing someone sleeping in the room next to her and hearing someone screaming for her son-in-law.' In the past similar episodes have improved with antibiotics but
she was put on antibiotics by her primary care physician for this event with little improvement. She generally has these a few times a year. Her family has been attempt to manage these events at home during COVID to avoid bringing her to the
hospital She's had no clear focal neurological deficits are clear convulsive seizures with this current event.'
Patient is currently unable to provide answers to many questions so most of this information is obtained from her daughter at bedside. Her daughter reports that yesterday (06/24/23) she had breakfast with the patient and then the patient headed to
her exercise class in her usual state. This morning (06/25/23), [facility] noted that the patient seemed delirious with nonsensical speech, and was refusing to stand up to walk. They sent her to the ER for evaluation. CT head was obtained on arrival
and is negative for any acute abnormalities. Blood pressure was 162/98 on arrival but is now 199/84. Patient is reporting a 10/10 headache, she is unable to describe it or provide a location of the headache. She reports photophobia and nausea, she
has not vomited and denies phonophobia. 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 She denies any dizziness, swallowing difficulty, numbness, weakness, chest pain, palpitations, and shortness of breath. NIHSS is a 6 for incorrect orientation questions,
baseline bilateral hemianopia, and mild aphasia. She is not a candidate for TNK/IAT due to unclear diagnosis, no evidence of LVO, and unclear onset of symptoms. She is taking aspirin 81mg daily and has not missed any doses. Her daughter reports that
two years ago she moved to [facility] for increased assistance due to her blindness, but cognitively she is intact at baseline. Her last episode similar to this was 1-2 years ago.'
Patient has had 27 CT head and 11 MRI brain images since 2007 for stroke-like symptoms in the setting of infection and headache, with no evidence of stroke. Patient presented to [facility] on 11/23/24 with report of abdominal pain, vomiting, headache, and
dysuria. Overnight a rapid response was activated for dysarthria, right facial drooping, left arm weakness, and inattention to the left side. CT head was obtained and is negative for any acute abnormalities. Today, patient is obtunded and minimally
able to answer questions or participate in examination.''
Patient has been having abnormal extremity movements for the past couple of days, prompting Neurology evaluation. Her home gabapentin was held on admission on 12/15/24 and was resumed on 12/18/24. GFR
is mildly low at 55. Patient denies any headache, dizziness, speech/swallow difficulty, numbness, or focal weakness. She is blind at baseline.
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
(apixaban), HTN, HLD, PR, pneumonia, recurrent UTI, UTI associated encephalopathy, anxiety, depression, GERD, left ICA stenosis, JOSETTE, hypothyroidism, iron deficiency anemia, osteoporosis, pulmonary nodule, hallucinations in the past on Seroquel and
lacosamide, insomnia, Tracy-Agrawal tear, L1 compression fracture, JOSETTE (cpap)
Surgical History: Appendectomy, hernia repair, tonsillectomy, x3, right cataract removal
Family History: Father- dementia.
Social History: Denies tobacco, alcohol, and illicit drug use. . Moved to [facility] in 2021. 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
Allergies: Amlodipine and iodine.
Home Medications: See below.
Review of Symptoms:
Patient denies any fever, headache, chest pain, shortness of breath, GI or symptoms.
�Per the HPI.�All systems are reviewed negative except above.
Physical Exam:
The patient is afebrile, abdomen is nondistended, breathing is unlabored, skin is warm and dry, no edema.
Neurologic Examination:
The patient is awake, alert and oriented x 3. She is able to follow commands and answer questions appropriately. There is no aphasia or dysarthria. On cranial nerve assessment, pupils are 3 mm bilateral, round and nonreactive to light and
accommodation. Visual finn are absent bilaterally chronically. Extraocular movements are intact. Facial sensations are intact and bilaterally symmetrical, there is no facial asymmetry. Hearing is intact bilaterally to normal conversation volume.
Tongue palate and uvula are midline. Sternocleidomastoid strengths are full bilaterally. Motor strengths are 4/5 bilateral upper and lower extremities on medical research [place] scale. There is drift in all extremities due to myoclonus. There is
myoclonus noted in all 4 extremities. Deep tendon reflexes are 2+ bilateral upper and lower extremities and Babinski is absent bilaterally. There was no extinction noted on double simultaneous stimulation. Coordination is intact by finger to nose
bilaterally.
Lab Results: See below.
Neuro Imaging: None this admission.
Differentials for the patient's presentation include:
1. Abnormal body movements are consistent with myoclonus; etiology is likely toxic metabolic disturbance in the setting of UTI, resumption of gabapentin, and mildly low GFR.
Patient has the following risk factors for their symptoms: UTI, resumption of gabapentin, mildly low GFR
Recommendations:
-Would reduce gabapentin dose from 200mg to 100mg twice a day to see if symptoms improve.
-Limit use of ondansetron.
-Continue home apixaban.
-Supportive care.
Discussed patient care with: Dr. Jimenez, the patient, patient's granddaughter at bedside
Vital Signs and Labs
-
Vital Signs and Labs:
Vital Signs
Temp Pulse Resp BP Pulse Ox
98.0 F 62 18 124/78 96
12/20/24 15:47 12/20/24 15:47 12/20/24 15:47 12/20/24 15:47 12/20/24 15:47
Lab Results
12/19/24 08:07
12/19/24 08:07
Sodium 136 mmol/L (135-145) 12/19/24 08:07
Potassium 3.2 mmol/L (3.5-5.1) L 12/19/24 08:07
BUN 16 mg/dl (7-17) 12/19/24 08:07
Glucose 96 mg/dl (70-99) 12/19/24 08:07
Calcium 9.3 mg/dl (8.4-10.2) 12/19/24 08:07
Medications
-
Active Medications
Generic Name Dose Route Start Last Admin
Trade Name Freq PRN Reason Stop Dose Admin
Acetaminophen 650 mg 12/15/24 17:17 12/18/24 22:45
Acetaminophen 325 Mg Tablet PO 01/12/25 17:16 650 mg
Q4HPRN PRN Administration
mild pain/COHEN/temp> 100.4F
Apixaban 5 mg 12/15/24 20:00 12/20/24 09:28
Apixaban (Eliquis) 5 Mg Tablet PO 01/12/25 19:59 5 mg
BID MARCIA Administration
Bisacodyl 10 mg 12/15/24 17:17
Bisacodyl 10 Mg Rectal Suppository RECTAL 01/12/25 17:16
[id number] PRN
constipation
Ceftriaxone Sodium 1,000 mg 12/19/24 18:00 12/19/24 17:26
Ceftriaxone 1000 Mg / 10 Ml Vial IV 1,000 mg
Q24H MARCIA Administration
Diphenhydramine HCl 12.5 mg 12/17/24 18:48
Diphenhydramine 25 Mg Capsule PO 01/14/25 18:47
HSPRN PRN
sleep
Docusate Sodium 100 mg 12/15/24 20:00 12/20/24 09:28
Docusate Sodium 100 Mg Capsule PO 01/12/25 19:59 100 mg
BID MARCIA Administration
Fluoxetine HCl 30 mg 12/16/24 08:00 12/20/24 09:27
Fluoxetine 10 Mg Capsule PO 01/13/25 07:59 30 mg
DAILY MARCIA Administration
Gabapentin 100 mg 12/20/24 14:53
Gabapentin 100 Mg Capsule PO 01/15/25 19:59
BID MARCIA
Lactobacillus/Bifidobacterium 1 cap 12/18/24 18:00 12/19/24 17:26
Lactobac/Bifidobac (Visbiome) PO 01/15/25 17:59 1 cap
QPM MARCIA Administration
Magnesium Oxide 400 mg 12/16/24 08:00 12/20/24 09:28
Magnesium Oxide 400 Mg Tablet PO 01/13/25 07:59 400 mg
DAILY MARCIA Administration
Metoprolol Succinate 50 mg 12/16/24 08:00 12/20/24 09:28
Metoprolol 50 Mg Extended Release Tablet PO 01/13/25 07:59 50 mg
DAILY MARCIA Administration
Ondansetron HCl 4 mg 12/16/24 03:51 12/16/24 17:15
Ondansetron 4 Mg/2 Ml Vial IV 01/13/25 03:50 4 mg
Q6HPRN PRN Administration
nausea/vomiting
Pantoprazole Sodium 40 mg 12/16/24 08:00 12/20/24 09:27
Pantoprazole 40 Mg Delayed Release Tablet PO 01/13/25 07:59 40 mg
DAILY MARCIA Administration
Polyethylene Glycol 17 grams 12/15/24 17:17
Polyethylene Glycol Powder 17 Grams Packet PO 01/12/25 17:16
DAILYPRN PRN
constipation
Quetiapine Fumarate 25 mg 12/19/24 12:54 12/20/24 09:28
Quetiapine 25 Mg Tablet PO 01/16/25 12:53 25 mg
DAILY MARCIA Administration
Quetiapine Fumarate 50 mg 12/18/24 22:00 12/19/24 19:43
Quetiapine 25 Mg Tablet PO 01/15/25 21:59 50 mg
HS MARCIA Administration
Ramipril 5 mg 12/15/24 20:00 12/20/24 09:27
Ramipril (Altace) 5 Mg Capsule PO 01/12/25 19:59 5 mg
BID MARCIA Administration
Ramipril 1.25 mg 12/15/24 20:00 12/20/24 09:27
Ramipril (Altace) 1.25 Mg Capsule PO 01/12/25 19:59 1.25 mg
BID MARCIA Administration
Rosuvastatin Calcium 10 mg 12/15/24 22:00 12/19/24 19:43
Rosuvastatin (Crestor) 10 Mg Tablet PO 01/12/25 21:59 10 mg
HS MARCIA Administration
Senna/Docusate Sodium 1 tablet 12/15/24 17:17
Docusate W/Senna (Kat-Colace) Tablet PO 01/12/25 17:16
BIDPRN PRN
constipation
Sodium Chloride 0 flush 12/15/24 18:00 12/19/24 04:59
Sodium Chloride 0.9% (Flush) Syringe IV 01/12/25 17:59 1 flush
PER PROTOCOL MARCIA Administration
Sterile Water 10 ml 12/19/24 18:00 12/19/24 17:26
Sterile Water For Injection 10 Ml Vial IV 01/16/25 17:59 10 ml
Q24H MARCIA Administration
Tamsulosin HCl 0.4 mg 12/16/24 08:00 12/20/24 09:28
Tamsulosin 0.4 Mg Capsule PO 01/13/25 07:59 0.4 mg
DAILY MARCIA Administration
Thiamine HCl 100 mg 12/15/24 18:00 12/19/24 17:26
Thiamine 100 Mg Tablet PO 01/12/25 17:59 100 mg
QPM MARCIA Administration
Home Medications
�Medication �Instructions �Recorded
pantoprazole 40 mg tablet,delayed 40 mg PO DAILY Gastrointestinal 12/03/11
release issue
rosuvastatin 10 mg tablet 10 mg PO HS High cholesterol 05/25/18
fluoxetine 10 mg capsule 30 mg PO DAILY Depression 11/24/20
acetaminophen 325 mg tablet 650 mg PO Q4HPRN PRN mild 02/10/22
pain/fever>100.4
ascorbic acid (vitamin C) 1,000 mg 1,000 mg PO DAILY Supplement 06/25/23
tablet
apixaban 5 mg tablet (Eliquis) 5 mg PO BID #60 tabs 07/25/23
bisacodyl 10 mg rectal suppository 10 mg FL [id number] PRN if no bm aftr 07/28/23
(Dulcolax (bisacodyl)) mom
magnesium hydroxide 400 mg/5 mL 30 ml PO HSPRN PRN constipation 07/28/23
oral suspension (Milk of Magnesia)
ondansetron HCl 4 mg tablet 4 mg PO Q6HPRN PRN nausea/vomiting 07/28/23
cranberry fruit 450 mg tablet 425 mg PO QPM Supplement 10/18/23
(cranberry)
metoprolol succinate 50 mg 50 mg PO DAILY Heart Failure 10/18/23
tablet,extended release 24 hr
ramipril 1.25 mg capsule 6.25 mg PO BID Blood Pressure 10/18/23
therapeutic multivitamin 1 tab PO QPM Supplement 10/18/23
Lactobacillus rhamnosus GG 10 1 cap PO QPM Supplement 03/04/24
billion cell capsule (Culturelle)
thiamine HCl (vitamin B1) 100 mg 100 mg PO QPM Supplement 03/04/24
tablet
docusate sodium 100 mg capsule 100 mg PO BID Constipation 03/05/24
magnesium oxide 400 mg (241.3 mg 400 mg PO DAILY Supplement 03/05/24
magnesium) tablet
tamsulosin 0.4 mg capsule 0.4 mg PO DAILY Urinary retention 03/07/24
30 days #30 caps
estradiol 0.01% (0.1 mg/gram) 1 g vaginal TUFR Hormonal Agent 11/23/24
vaginal cream
gabapentin 100 mg capsule 200 mg PO BID Neurological 11/23/24
Condition
miconazole nitrate 2 % topical 1 applic topical BIDPRN PRN fungal 11/23/24
powder rash
quetiapine 25 mg tablet (Seroquel) 25 mg PO DAILY Mental 11/23/24
Health/Anxiety
quetiapine 50 mg tablet (Seroquel) 50 mg PO HS Mental Health/Anxiety 11/23/24
fosfomycin tromethamine 3 gram 3 g PO Q10D Infection #1 ea 11/25/24
oral packet
phenazopyridine 100 mg tablet 100 mg PO TIDPRN PRN Dysuria #0 11/25/24
tabs
[2024-12-20] MEDS: VISBIOME 1 CAP PO (17:00)
[2024-12-20] MEDS: VITAMIN B1 100 MG PO (17:00)
[2024-12-20] MEDS: ROCEPHIN 1000 MG IV (17:01)
[2024-12-20] MEDS: STERILE WATER FOR INJECTION 10 ML IV (17:01)
[2024-12-20 19:55] LABS: Blood Urea Nitrogen 26 mg/dl (7-17); Calcium 9.3 mg/dl (8.4-10.2); Carbon Dioxide 29 mmol/L (22-30); Chloride 104 mmol/L (98-107); Estimated Creatinine Clearance 37 ml/min; Glucose 97 mg/dl (70-99); Magnesium 2.0 mg/dl (1.6-2.3); Potassium 3.9 mmol/L (3.5-5.1); Sodium 134 mmol/L (135-145); eGFR 49.24
[2024-12-20] MEDS: CRESTOR 10 MG PO (20:19)
[2024-12-20] MEDS: SEROQUEL 50 MG PO (20:19)
[2024-12-20] MEDS: NEURONTIN 100 MG PO (20:29)
[2024-12-21 03:45] VITALS: BP 127/72
[2024-12-21 07:00] VITALS: BP 163/77
[2024-12-21] MEDS: ALTACE 5 MG PO ×2 (09:20→20:34)
[2024-12-21] MEDS: PROTONIX 40 MG PO (09:22)
[2024-12-21] MEDS: MAGNESIUM OXIDE 400 MG PO (09:22)
[2024-12-21] MEDS: TOPROL XL 50 MG PO (09:22)
[2024-12-21] MEDS: NEURONTIN 100 MG PO ×2 (09:22→20:34)
[2024-12-21] MEDS: PROZAC 30 MG PO (09:22)
[2024-12-21] MEDS: ELIQUIS 5 MG PO ×2 (09:23→20:34)
[2024-12-21] MEDS: SEROQUEL 25 MG PO (09:23)
[2024-12-21] MEDS: COLACE 100 MG PO ×2 (09:23→20:34)
[2024-12-21] MEDS: FLOMAX 0.4 MG PO (09:23)
[2024-12-21] MEDS: ALTACE 1.25 MG PO ×2 (09:25→20:30)
--- NOTE | 2024-12-21 09:30 | W.PN.HOSP.TC ---
Today's Communication/Plan
-
Stop Gaytan and monitor for urinary retention, and straight cath as needed per protocol
Spoke to patient's daughter Judy extensively who requested IV antibiotics be continued while patient is here until course is completed
Daughter Judy will speak with staff at [facility] about arrangements there after discharge
Assessment / Plan
Assessment / Plan
Physical Exam
General: Well Developed
HEENT: Normocephalic, Atraumatic and Other (blind)
Respiratory: Rales
Cardiac: Regular Rhythm and S1/S2
GI: Soft, Nontender, Nondistended and Normal Bowel Sounds
Musculoskeletal: No Cyanosis and No Edema
Skin: Warm. Dry.
Neuro: Awake and Alert
Psych: Calm, Confused and Other (Visual hallucinations improved)
Impression:
84-year-old female with past medical history of recurrent UTI, hypertension, GERD, Aguilar's esophagus, large hiatal hernia, hyperlipidemia, CAD, paroxysmal atrial fibrillation on Eliquis, anxiety/depression, morbid obesity, obstructive sleep apnea,
Garett Bonnet syndrome/blindness and L1 compression fracture presented with change in mental status. �She was started on Macrobid outpatient for diagnosed UTI on 12/14/24. She later had fever 100.9 F. In the ER, patient was hypotensive 86/39 had
fever 100.3 F, and she was�hypoxic, requiring 2 L of oxygen.
Labs showed stable anemia 10.4, and�urinalysis showed 30-40 WBC.
Chest x-ray showed low inspiratory volumes, mild interstitial prominence may be related to mild pulmonary vascular congestion or low inspiratory volumes.
Patient admit with UTI with acute metabolic encephalopathy with fever. �Patient given IV fluids. �Urine culture, blood cultures negative. �Cefepime.
Patient also with cough and hypoxemia. �No evidence of heart failure. �COVID and flu negative, hypoxemia
Assessment/Plan:
Acute Metabolic encephalopathy/fever/back pain Concern for UTI
History of Klebsiella pneumonia UTI, Kluyvera ascorbate, klebsiella oxytoca, Enterococcus facialis, Morganella morganii, E. coli
chest x-ray negative
WBC, lactate normal
Urine analysis with 1+ leukocyte esterase, 30-40 urine white blood cell count, few bacteria, and 3+ albumin -possible UTI -urine culture from 12/11/2024 grew Kleb and Kluyvera - UC from 12/15 had no growth
Patient received Tylenol, started on cefepime, will continue for now
12/19/24
Urine and blood culture are negative but reviewing outpatient blood culture from December 11 shows Kluyvera ascorbata / Klebsiella oxytoca
Continue cefepime, will be discharged on Ceftin
Patient received about 5 days worth of Cefepime starting 12/15/24 to 12/19/24, later transitioned to Rocephin on 12/19/24
Dr[address] Rodriguez discussed with daughter at bedside, family considering hospice at [facility] but still not deciding.
12/20/24
Neurology consult as per family request: reduce Gabapentin from 200 mg BID to 100 mg BID
Plan is for discharge to [facility]
Acute hypoxic respiratory failure - RESOLVED
Chest x-ray with impression of low inspiratory volumes. Mild interstitial prominence, which may be related to low inspiratory volumes or mild pulmonary vascular congestion.. Otherwise clear lungs.
Patient is COVID and flu negative
patient currently on room air.
Left Lower extremity pain
Ultrasound with no DVT
Anemia of chronic disease:
Hemoglobin stable
Continue to monitor
Essential HTN
Continue Ramipril/metoprolol
GERD/Aguilar's esophagus/Large hiatal hernia
Continue PPI
Hyperlipidemia
Continue Rosuvastatin
Coronary artery disease with history of [place]
cont statin/BB
Paroxysmal atrial fibrillation
cont Eliquis/BB
Anxiety/depression
cont Seroquel/Prozac
Obstructive sleep apnea
cont CPAP
Morbid obesity due excess calories
-Neuropathy
Gabapentin resumed
CODE STATUS: DO NOT RESUSCITATE
DVT Prophylaxis: Eliquis
Diet: cardiac diet
Family communication: On 12/21/24, I spoke with patient's daughter Judy in-person, and over the phone -- she recommended to continue straight caths, avoid Gaytan Catheter, continue IV antibiotics, daughter Judy will have meeting with staff at
[facility]
Total time spent on today's encounter was 75 minutes which included time spent in counseling the patient/family regarding diagnosis and treatment plan as listed above, goals of care, and symptom management. Case was discussed with nursing staff,
specialists, and care coordinators/case management. All labs and imaging personally reviewed by me. Remainder the time spent in detailed review of previous records, lab data, imaging, and other medical provider documentation.
Anticipated Discharge: Within 24 hours
Subjective/Interval History
-
Date of Service: December 21, 2024
Patient was seen and examined. She appeared to be doing well relatively well today, eating breakfast and everything.
Objective Data
-
Vital Signs:
Vital Signs
Temp Pulse Resp BP Pulse Ox
97.4 F 72 16 150/77 98
12/21/24 07:00 12/21/24 09:20 12/21/24 07:00 12/21/24 09:20 12/21/24 07:00
I&O
12/20/24 12/21/24 12/22/24
06:59 06:59 06:59
Intake Total 840 / 840 360 / 360
Output Total 600 / 600 850 / 850
Balance 240 / 240 -490 / -490
[2024-12-21 11:00] VITALS: BP 130/73
[2024-12-21 16:00] VITALS: BP 134/73
[2024-12-21] MEDS: VITAMIN B1 100 MG PO (17:09)
[2024-12-21] MEDS: VISBIOME 1 CAP PO (17:09)
[2024-12-21] MEDS: STERILE WATER FOR INJECTION 10 ML IV (17:10)
[2024-12-21] MEDS: ROCEPHIN 1000 MG IV (17:10)
[2024-12-21] MEDS: NSS 1000 IV (17:42)
[2024-12-21] MEDS: CRESTOR 10 MG PO (20:35)
[2024-12-21] MEDS: SEROQUEL 50 MG PO (20:35)
[2024-12-21 21:34] VITALS: PULSE 76
[2024-12-21 23:40] VITALS: BP 168/81
[2024-12-22 07:35] VITALS: BP 187/68
[2024-12-22 08:37] LABS: Blood Urea Nitrogen 17 mg/dl (7-17); Calcium 8.9 mg/dl (8.4-10.2); Carbon Dioxide 29 mmol/L (22-30); Chloride 109 mmol/L (98-107); Estimated Creatinine Clearance 41 ml/min; Glucose 101 mg/dl (70-99); Potassium 3.8 mmol/L (3.5-5.1); Sodium 139 mmol/L (135-145); eGFR 55.21
[2024-12-22] MEDS: PROTONIX 40 MG PO (08:50)
[2024-12-22] MEDS: ALTACE 5 MG PO ×2 (08:50→20:43)
[2024-12-22] MEDS: PROZAC 30 MG PO (08:51)
[2024-12-22] MEDS: TOPROL XL 50 MG PO (08:51)
[2024-12-22] MEDS: FLOMAX 0.4 MG PO (08:51)
[2024-12-22] MEDS: COLACE 100 MG PO ×2 (08:51→20:44)
[2024-12-22] MEDS: ALTACE 1.25 MG PO ×2 (08:51→20:44)
[2024-12-22] MEDS: NEURONTIN 100 MG PO ×2 (08:51→20:45)
[2024-12-22] MEDS: SEROQUEL 25 MG PO (08:52)
[2024-12-22] MEDS: ELIQUIS 5 MG PO ×2 (08:52→20:44)
[2024-12-22] MEDS: MAGNESIUM OXIDE 400 MG PO (08:52)
--- NOTE | 2024-12-22 09:04 | W.PN.HOSP.TC ---
Today's Communication/Plan
-
More drowsy today
Labs and tests ordered as below
OHS with elevated pCO2 contributing -- consulted pulmonary to see if patient could benefit from BiPAP
Hold tonight's Seroquel
Assessment / Plan
Assessment / Plan
Physical Exam
General: Well Developed
HEENT: Normocephalic, Atraumatic and Other (blind)
Respiratory: Rales -- faint
Cardiac: Regular Rhythm and S1/S2
GI: Soft, Nontender, Nondistended and Normal Bowel Sounds
Musculoskeletal: No Cyanosis and No Edema
Skin: Warm. Dry.
Neuro: Drowsy
Psych: Calm, Confused
Impression:
84-year-old female with past medical history of recurrent UTI, hypertension, GERD, Aguilar's esophagus, large hiatal hernia, hyperlipidemia, CAD, paroxysmal atrial fibrillation on Eliquis, anxiety/depression, morbid obesity, obstructive sleep apnea,
Garett Bonnet syndrome/blindness and L1 compression fracture presented with change in mental status. �She was started on Macrobid outpatient for diagnosed UTI on 12/14/24. She later had fever 100.9 F. In the ER, patient was hypotensive 86/39 had
fever 100.3 F, and she was�hypoxic, requiring 2 L of oxygen.
Labs showed stable anemia 10.4, and�urinalysis showed 30-40 WBC.
Chest x-ray showed low inspiratory volumes, mild interstitial prominence may be related to mild pulmonary vascular congestion or low inspiratory volumes.
Patient admit with UTI with acute metabolic encephalopathy with fever. �Patient given IV fluids. �Urine culture, blood cultures negative. �Cefepime.
Patient also with cough and hypoxemia. �No evidence of heart failure. �COVID and flu negative, hypoxemia
Assessment/Plan:
Acute Metabolic encephalopathy/fever/back pain Concern for UTI
History of Klebsiella pneumonia UTI, Kluyvera ascorbate, klebsiella oxytoca, Enterococcus facialis, Morganella morganii, E. coli
chest x-ray negative
WBC, lactate normal
Urine analysis with 1+ leukocyte esterase, 30-40 urine white blood cell count, few bacteria, and 3+ albumin -possible UTI -urine culture from 12/11/2024 grew Kleb and Kluyvera - UC from 12/15 had no growth
Patient received Tylenol
Urine and blood culture are negative but reviewing outpatient blood culture from December 11 shows Kluyvera ascorbata / Klebsiella oxytoca
Continue cefepime, will be discharged on Ceftin
Patient received about 5 days worth of Cefepime starting 12/15/24 to 12/19/24, later transitioned to Rocephin on 12/19/24 and received Rocephin through 12/21/24 -- total of 7 days of antibiotics, which is sufficient
No need for further antibiotics after discharge
Monitor for urinary retention
I discussed with patient's daughters, and also had discussion with patient's daughter Lillie on 12/22/24 in person, classification case manager confirmed that [facility] can do tapering of Seroquel and Gabapentin outpatient. Neurology consult as per family
request: reduce Gabapentin from 200 mg BID to 100 mg BID
12/22/24
-Patient was very lethargic and therefore ordered: ABG, CT Head, CBC, CMP, Magnesium, Phosphorus, Ammonia, B12 Vitamin, proBNP, troponins, TSH with reflex to Free T4, Repeat Urinalysis, CXR, Abdominal X-Ray (to check for constipation)
-For now, since patient has received 7 day course of antibiotics, although UA is coming back positive, await urine culture to see whether patient needs further antibiotics
-Hold nighttime 50 mg HS Seroquel, but continue daytime 25 mg daily Seroquel
-Gabapentin was recently reduced already
Acute hypoxic respiratory failure - RESOLVED
Chest x-ray with impression of low inspiratory volumes. Mild interstitial prominence, which may be related to low inspiratory volumes or mild pulmonary vascular congestion.. Otherwise clear lungs.
Patient is COVID and flu negative
patient currently on room air.
Hypercapnia on ABG -- consulted pulmonary with concerns for OHS contributing to patient's symptoms -- appreciate pulmonary
Left Lower extremity pain
Ultrasound with no DVT
Anemia of chronic disease:
Hemoglobin stable
Continue to monitor
Recheck Labs outpatient
Essential HTN
Continue Ramipril/metoprolol
GERD/Aguilar's esophagus/Large hiatal hernia
Continue PPI
Hyperlipidemia
Continue Rosuvastatin
Coronary artery disease with history of [place]
cont statin/BB
Paroxysmal atrial fibrillation
cont Eliquis/BB
Anxiety/depression
cont Seroquel/Prozac
Obstructive sleep apnea
cont CPAP
Morbid obesity due excess calories
-Neuropathy
Gabapentin resumed
CODE STATUS: DO NOT RESUSCITATE
DVT Prophylaxis: Eliquis
Diet: cardiac diet
Family communication:
-On 12/21/24, I spoke with patient's daughter Judy in-person, and over the phone -- she recommended to continue straight caths, avoid Gaytan Catheter, continue IV antibiotics, daughter Judy will have meeting with staff at [facility]
-On 12/22/24, I spoke with patient's daughter Lillie in-person, and I answered all questions and concerns to satisfaction. I also spoke to daughter Judy who was concerned about patient's increased lethargy today, and I answered all of her
questions and concerns to satisfaction.
Total time spent on today's encounter was 85 minutes which included time spent in counseling the patient/family regarding diagnosis and treatment plan as listed above, goals of care, and symptom management. Case was discussed with nursing staff,
specialists, and care coordinators/case management. All labs and imaging personally reviewed by me. Remainder the time spent in detailed review of previous records, lab data, imaging, and other medical provider documentation.
Anticipated Discharge: 24 - 48 hours
Subjective/Interval History
-
Date of Service: December 22, 2024
Patient was seen and examined. In the morning she appeared to be doing okay, but later in the morning, patient's daughter's reported she was very lethargic.
Objective Data
-
Labs:
Laboratory Results
12/22/24
07:47
Sodium 139
Potassium 3.8
Chloride 109 H
Carbon Dioxide 29
BUN 17
Creatinine 1.0
Glucose 101 H
Calcium 8.9
Vital Signs:
Vital Signs
Temp Pulse Resp BP Pulse Ox
97.4 F 60 18 187/82 99
12/22/24 07:35 12/22/24 08:50 12/22/24 07:35 12/22/24 08:50 12/22/24 07:35
I&O
12/21/24 12/22/24 12/23/24
06:59 06:59 06:59
Intake Total 360 / 360 600 / 600
Output Total 850 / 850 825 / 825
Balance -490 / -490 -225 / -225
[2024-12-22 10:00] VITALS: BP 154/77
[2024-12-22 11:50] VITALS: BP 108/79
--- NOTE | 2024-12-22 12:28 | CM ---
Per hospitalist, patient stable to return to [facility]. [facility] will taper Seroquel and Gabapentin, confirmed this w/ Kim as patient's daughter was told from their charge nurse that patient couldn't return until taper/wean. Spoke w/
patient's daughter, Judy, confirmed that hospitalist plans to d/c patient. Judy firmly disagreed w/ patient discharging today as she stated something is different w/ patient than yesterday and would like to speak w/ hospitalist. TT hospitalist
to give Judy a call.
Per hospitalist, spoke w/ daughter and will keep patient today
Plan: Return to [facility] when stable
[2024-12-22] MEDS: TYLENOL 650 MG PO ×2 (12:45→21:13)
[2024-12-22 12:52] LABS: Hematocrit 34.6 % (37.0-47.0); Hemoglobin 11.4 g/dL (12.0-16.0); Mean Corp Hgb Conc. 32.9 g/dL (33.0-37.0); Mean Corpuscular Volume 95.8 fL (81.0-99.0); Platelet Count 175 10^3/uL (130-400); Red Cell Dist. Width 13.2 % (11.5-14.5)
[2024-12-22 13:20] LABS: ALT (SGPT) 11 U/L (0-35); AST (SGOT) 23 U/L (14-36); Albumin 3.4 g/dl (3.5-5.0); Alkaline Phosphatase 65 U/L (38-126); Blood Urea Nitrogen 16 mg/dl (7-17); Calcium 9.0 mg/dl (8.4-10.2); Carbon Dioxide 29 mmol/L (22-30); Chloride 108 mmol/L (98-107); Estimated Creatinine Clearance 45 ml/min; Glucose 98 mg/dl (70-99); Magnesium 1.9 mg/dl (1.6-2.3); Potassium 4.3 mmol/L (3.5-5.1); Sodium 137 mmol/L (135-145); Total Protein 6.2 g/dl (6.3-8.2); eGFR > 60.00
[2024-12-22 13:20] LABS: Troponin I 0.019 ng/ml
[2024-12-22 13:27] LABS: Ammonia < 9 umol/L (9-30)
[2024-12-22 14:09] LABS: Vitamin B12 553 pg/ml (239-931)
[2024-12-22 15:35] VITALS: BP 161/72
[2024-12-22 15:49] LABS: Urine Character Clear (Clear)
[2024-12-22 16:07] LABS: B.E. 1.3 mmol/L; HCO3 26.6 mmol/L (21-28); O2 Saturation % 99.1 % (94-98); PCO2 44 mmHg (32-35); PO2 89 mmHg (83-108)
[2024-12-22 16:22] LABS: Urine Squamous Cell 16-20 /LPF (Few)
[2024-12-22 16:23] LABS: Urine White Cell 16-20 /HPF (0-5)
[2024-12-22] MEDS: VISBIOME 1 CAP PO (17:21)
[2024-12-22] MEDS: VITAMIN B1 100 MG PO (17:21)
[2024-12-22] MEDS: CRESTOR 10 MG PO (21:13)
[2024-12-22 23:13] VITALS: BP 159/73
[2024-12-22 23:30] VITALS: PULSE 86
[2024-12-23 07:00] VITALS: BP 164/88
[2024-12-23 07:15] LABS: Hematocrit 36.1 % (37.0-47.0); Hemoglobin 11.6 g/dL (12.0-16.0); Mean Corp Hgb Conc. 32.1 g/dL (33.0-37.0); Mean Corpuscular Volume 99.4 fL (81.0-99.0); Platelet Count 174 10^3/uL (130-400); Red Cell Dist. Width 12.9 % (11.5-14.5)
[2024-12-23 07:33] LABS: Blood Urea Nitrogen 15 mg/dl (7-17); Calcium 9.1 mg/dl (8.4-10.2); Carbon Dioxide 31 mmol/L (22-30); Chloride 108 mmol/L (98-107); Estimated Creatinine Clearance 41 ml/min; Glucose 99 mg/dl (70-99); Potassium 4.4 mmol/L (3.5-5.1); Sodium 141 mmol/L (135-145); eGFR 55.21
--- NOTE | 2024-12-23 08:19 | W.PN.HOSP.TC ---
Today's Communication/Plan
-
See plan
Assessment / Plan
Assessment / Plan
Physical Exam
General: Well Developed
HEENT: Normocephalic, Atraumatic and Other (blind)
Respiratory: Rales -- faint
Cardiac: Regular Rhythm and S1/S2
GI: Soft, Nontender, Nondistended and Normal Bowel Sounds
Musculoskeletal: No Cyanosis and No Edema
Skin: Warm. Dry.
Neuro: Drowsy
Psych: Calm, Confused
Impression:
84-year-old female with past medical history of recurrent UTI, hypertension, GERD, Aguilar's esophagus, large hiatal hernia, hyperlipidemia, CAD, paroxysmal atrial fibrillation on Eliquis, anxiety/depression, morbid obesity, obstructive sleep apnea,
Garett Bonnet syndrome/blindness and L1 compression fracture presented with change in mental status. �She was started on Macrobid outpatient for diagnosed UTI on 12/14/24. She later had fever 100.9 F. In the ER, patient was hypotensive 86/39 had
fever 100.3 F, and she was�hypoxic, requiring 2 L of oxygen.
Labs showed stable anemia 10.4, and�urinalysis showed 30-40 WBC.
Chest x-ray showed low inspiratory volumes, mild interstitial prominence may be related to mild pulmonary vascular congestion or low inspiratory volumes.
Patient admit with UTI with acute metabolic encephalopathy with fever. �Patient given IV fluids. �Urine culture, blood cultures negative. �Cefepime.
Patient also with cough and hypoxemia. �No evidence of heart failure. �COVID and flu negative, hypoxemia
Assessment/Plan:
Acute Metabolic encephalopathy/fever/back pain Concern for UTI
History of Klebsiella pneumonia UTI, Kluyvera ascorbate, klebsiella oxytoca, Enterococcus facialis, Morganella morganii, E. coli
chest x-ray negative
WBC, lactate normal
Urine analysis with 1+ leukocyte esterase, 30-40 urine white blood cell count, few bacteria, and 3+ albumin -possible UTI -urine culture from 12/11/2024 grew Kleb and Kluyvera - UC from 12/15 had no growth
Patient received Tylenol
Urine and blood culture are negative but reviewing outpatient blood culture from December 11 shows Kluyvera ascorbata / Klebsiella oxytoca
Continue cefepime, will be discharged on Ceftin
Patient received about 5 days worth of Cefepime starting 12/15/24 to 12/19/24, later transitioned to Rocephin on 12/19/24 and received Rocephin through 12/21/24 -- total of 7 days of antibiotics, which is sufficient
No need for further antibiotics after discharge
Monitor for urinary retention
I discussed with patient's daughters, and also had discussion with patient's daughter Lillie on 12/22/24 in person, pillowcase folder confirmed that [facility] can do tapering of Seroquel and Gabapentin outpatient. Neurology consult as per family
request: reduce Gabapentin from 200 mg BID to 100 mg BID
12/22/24
-Patient was very lethargic and therefore ordered: ABG, CT Head, CBC, CMP, Magnesium, Phosphorus, Ammonia, B12 Vitamin, proBNP, troponins, TSH with reflex to Free T4, Repeat Urinalysis, CXR, Abdominal X-Ray (to check for constipation)
-For now, since patient has received 7 day course of antibiotics, although UA is coming back positive, await urine culture to see whether patient needs further antibiotics
-Hold nighttime 50 mg HS Seroquel, but continue daytime 25 mg daily Seroquel
-Gabapentin was recently reduced already
12/23/24
-Patient with improvement in mental status after the above measures on 12/22/24
Acute hypoxic respiratory failure - RESOLVED
Chest x-ray with impression of low inspiratory volumes. Mild interstitial prominence, which may be related to low inspiratory volumes or mild pulmonary vascular congestion.. Otherwise clear lungs.
Patient is COVID and flu negative
patient currently on room air.
Hypercapnia on ABG -- consulted pulmonary with concerns for OHS contributing to patient's symptoms -- appreciate pulmonary
Left Lower extremity pain
Ultrasound with no DVT
Anemia of chronic disease:
Hemoglobin stable
Continue to monitor
Recheck Labs outpatient
Essential HTN
Continue Ramipril/metoprolol
GERD/Aguilar's esophagus/Large hiatal hernia
Continue PPI
Hyperlipidemia
Continue Rosuvastatin
Coronary artery disease with history of [place]
cont statin/BB
Paroxysmal atrial fibrillation
cont Eliquis/BB
Anxiety/depression
cont Seroquel/Prozac
Obstructive sleep apnea
cont CPAP
Morbid obesity due excess calories
-Neuropathy
Gabapentin resumed
CODE STATUS: DO NOT RESUSCITATE
DVT Prophylaxis: Eliquis
Diet: cardiac diet
Family communication:
-On 12/21/24, I spoke with patient's daughter Judy in-person, and over the phone -- she recommended to continue straight caths, avoid Gaytan Catheter, continue IV antibiotics, daughter Judy will have meeting with staff at [facility]
-On 12/22/24, I spoke with patient's daughter Lillie in-person, and I answered all questions and concerns to satisfaction. I also spoke to daughter Judy who was concerned about patient's increased lethargy today, and I answered all of her
questions and concerns to satisfaction.
Anticipated Discharge: Within 24 hours
Subjective/Interval History
-
Date of Service: December 23, 2024
Patient was seen and examined. She was more alert and interactive today.
Objective Data
-
Labs:
Laboratory Results
12/23/24
06:36
WBC 4.7 L
Hgb 11.6 L
Hct 36.1 L
Plt Count 174
Sodium 141
Potassium 4.4
Chloride 108 H
Carbon Dioxide 31 H
BUN 15
Creatinine 1.0
Glucose 99
Calcium 9.1
Vital Signs:
Vital Signs
Temp Pulse Resp BP Pulse Ox
98.2 F 66 16 159/73 98
12/22/24 23:13 12/22/24 23:13 12/22/24 23:13 12/22/24 23:13 12/22/24 23:13
I&O
12/22/24 12/23/24 12/24/24
06:59 06:59 06:59
Intake Total 600 / 600 1140 / 1140
Output Total 825 / 825 890 / 890
Balance -225 / -225 250 / 250
[2024-12-23] MEDS: ALTACE 1.25 MG PO ×2 (09:24→21:00)
[2024-12-23] MEDS: ELIQUIS 5 MG PO ×2 (09:25→21:00)
[2024-12-23] MEDS: PROTONIX 40 MG PO (09:25)
[2024-12-23] MEDS: ALTACE 5 MG PO ×2 (09:25→21:00)
[2024-12-23] MEDS: PROZAC 30 MG PO (09:25)
[2024-12-23] MEDS: TOPROL XL 50 MG PO (09:26)
[2024-12-23] MEDS: NEURONTIN 100 MG PO ×2 (09:26→21:00)
[2024-12-23] MEDS: FLOMAX 0.4 MG PO (09:26)
[2024-12-23] MEDS: MAGNESIUM OXIDE 400 MG PO (09:26)
[2024-12-23] MEDS: SEROQUEL 25 MG PO (09:26)
[2024-12-23] MEDS: COLACE 100 MG PO ×2 (09:26→21:00)
[2024-12-23] MEDS: FLUSH (NSS) 1 FLUSH IV (09:27)
[2024-12-23 10:45] VITALS: BP 135/71
[2024-12-23 14:35] VITALS: BP 137/65
--- NOTE | 2024-12-23 15:02 | CON.PUL ---
Consultation
Consultation Request
Date/Time Consultation Requested: 12/22/2024 - 1701
Date/Time Consultation Performed: 12/23/2024 - 1153
Requesting Provider: Dr. Zepeda
Performing Provider: Dr. Quiroga
Reason for Consultation: Hypercapnia
Medical History
-
Chief Complaint: Change in mental status
History of Present Illness:
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
Garett Bonnet syndrome, macular degeneration (legally blind), history of suspected TIA/CVA s/p tPA administration (August 2013), history of pneumonia, history of confusion s/p vaccine (November 2021) and osteoporosis who presents with altered mental
status. [facility] and had recently been started on antibiotics (reportedly Macrobid) for UTI on 12/14/2024. During the evening hours he became febrile, and more lethargic/tired than her usual self and was then
brought in to ER for further evaluation. patient also had a cough and was hypoxic requiring 3 L/min nasal cannula with resultant SpO2 92%. Initial BP low at 86/39, respiratory rate 17, pulse rate 65 and her initial temperature was 100.3 �F.
Initial labs pertinent for normal WBC at 8.7, Hb 10.4, initial serum bicarbonate level 29, lactate 1.3, troponin negative at 0.016, urinalysis abnormal with +1 leukocyte esterase, 30�40 urine WBC (LB at 3�5 urine squamous epithelial cells), and she
was COVID-19 antigen negative. Urine culture collected, CT head showed unchanged severe chronic white matter disease with no acute intracranial abnormality; CXR showed no focal airspace disease with a moderate size hiatal hernia. In the ER she was
given total of 1.4 L NS 0.9%, cefepime, Tylenol, and admitted to the hospitalist service.
Since admission, she has been using CPAP with sleep and tolerating well. Currently using CPAP at 5 cmH2O. In the past, she was on auto-CPAP [id number], although she does have a history of CPAP intolerance. Since admission, she usually will wear
the CPAP in the beginning of the night but then will take it off after several hours as the respiratory therapist will find the patient on room air with the mask off few hours after patient falls asleep. Of note, on recent hospitalization here, she
was on CPAP at 8 cmH2O as recent as 11/25/2024. Blood gas obtained on 12/22/2024 shows chronic hypercapnia with pH 7.39, pCO2 44. Pulmonary service now consulted to assess for any changes to her CPAP settings.
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
(legally blind), history of suspected TIA with previous tPA administration, LVH, insomnia, multinodular Gorder, history of iron deficiency, history of vitamin B12 deficiency, osteoporosis previously on Fosamax (stopped due to Aguilar's esophagus),
actinic keratosis, history of pneumonia (April 2017), history of Tracy-Agrawal tear (during tPA for stroke (August 2013), history of post polypectomy syndrome (2008), confusion s/p vaccine (November 2021), vivid dreams
PSHx: right cataract surgery, left inguinal hernia repair, excision of nonhealing wound on abdomen, x 3, tonsillectomy, appendectomy
Past Medical History
Past Medical History: Other (Above as per HPI)
Past Surgical History: Other (Above as per HPI)
Social History
Tobacco: Non-smoker
Alcohol: None
Drug: None
Living: [facility] ([facility])
Family History
Family History: CAD (Father), Cancer (Father: Prostate cancer; Sisters x 2: breast cancer) and Other ( Father: Dementia + tobacco use; Mother: tobacco use with emphysema; Daughter: ulcerative proctitis)
Allergies / Home Medications
Allergies
Allergy/AdvReac Type Severity Reaction Status Date / Time
amlodipine besylate (From Allergy Rash/CONFUS Verified 11/23/24 09:43
Norvasc) ION
iodine Allergy Confusion,confusion/'like Verified 11/23/24 09:43
I had a
tia'
Home Medications
�Medication �Instructions �Recorded �Confirmed �Last Taken �Type
pantoprazole 40 mg tablet,delayed 40 mg PO DAILY Gastrointestinal 12/03/11 12/15/24 03/03/24 History
release issue
rosuvastatin 10 mg tablet 10 mg PO HS High cholesterol 05/25/18 12/15/24 03/03/24 History
fluoxetine 10 mg capsule 30 mg PO DAILY Depression 11/24/20 12/15/24 03/03/24 History
acetaminophen 325 mg tablet 650 mg PO Q4HPRN PRN mild 02/10/22 12/15/24 10/13/23 History
pain/fever>100.4
ascorbic acid (vitamin C) 1,000 mg 1,000 mg PO DAILY Supplement 06/25/23 12/15/24 03/03/24 History
tablet
apixaban 5 mg tablet (Eliquis) 5 mg PO BID #60 tabs 07/25/23 12/15/24 03/03/24 Rx
bisacodyl 10 mg rectal suppository 10 mg AL [id number] PRN if no bm aftr 07/28/23 12/15/24 Unknown History
(Dulcolax (bisacodyl)) mom
magnesium hydroxide 400 mg/5 mL 30 ml PO HSPRN PRN constipation 07/28/23 12/15/24 Unknown History
oral suspension (Milk of Magnesia)
ondansetron HCl 4 mg tablet 4 mg PO Q6HPRN PRN nausea/vomiting 07/28/23 12/15/24 10/18/23 History
cranberry fruit 450 mg tablet 425 mg PO QPM Supplement 10/18/23 12/15/24 03/03/24 History
(cranberry)
metoprolol succinate 50 mg 50 mg PO DAILY Heart Failure 10/18/23 12/15/24 03/03/24 History
tablet,extended release 24 hr
ramipril 1.25 mg capsule 6.25 mg PO BID Blood Pressure 10/18/23 12/15/24 03/03/24 History
therapeutic multivitamin 1 tab PO QPM Supplement 10/18/23 12/15/24 03/03/24 History
Lactobacillus rhamnosus GG 10 1 cap PO QPM Supplement 03/04/24 12/15/24 03/03/24 History
billion cell capsule (Culturelle)
thiamine HCl (vitamin B1) 100 mg 100 mg PO QPM Supplement 03/04/24 12/15/24 03/03/24 History
tablet
docusate sodium 100 mg capsule 100 mg PO BID Constipation 03/05/24 12/15/24 03/03/24 History
magnesium oxide 400 mg (241.3 mg 400 mg PO DAILY Supplement 03/05/24 12/15/24 03/03/24 History
magnesium) tablet
tamsulosin 0.4 mg capsule 0.4 mg PO DAILY Urinary retention 03/07/24 12/15/24 Unknown Rx
30 days #30 caps
estradiol 0.01% (0.1 mg/gram) 1 g vaginal TUFR Hormonal Agent 11/23/24 12/15/24 Unknown History
vaginal cream
gabapentin 100 mg capsule 200 mg PO BID Neurological 11/23/24 12/15/24 Unknown History
Condition
miconazole nitrate 2 % topical 1 applic topical BIDPRN PRN fungal 11/23/24 12/15/24 Unknown History
powder rash
quetiapine 25 mg tablet (Seroquel) 25 mg PO DAILY Mental 11/23/24 12/15/24 Unknown History
Health/Anxiety
quetiapine 50 mg tablet (Seroquel) 50 mg PO HS Mental Health/Anxiety 11/23/24 12/15/24 Unknown History
fosfomycin tromethamine 3 gram 3 g PO Q10D Infection #1 ea 11/25/24 12/15/24 Unknown Rx
oral packet
phenazopyridine 100 mg tablet 100 mg PO TIDPRN PRN Dysuria #0 11/25/24 Unknown Rx
tabs
Review of Systems
-
Unable to Obtain full review of systems at this time due to: Acuity (confusion)
Vitals / Labs / Diagnostic Testing
Vital Signs
Temp Pulse Resp BP Pulse Ox
97.4 F 55 14 164/88 94
12/23/24 07:00 12/23/24 09:26 12/23/24 07:00 12/23/24 09:26 12/23/24 09:21
Lab Data
12/23/24 06:36
12/23/24 06:36
Laboratory Results
12/22/24
15:55
pH 7.39
pCO2 44 H
pO2 89
HCO3 26.6
O2 Delivery Level
Microbiology
12/16/24 08:04 Blood/Venous Blood Culture - Final
No Growth - Final Report
12/15/24 11:45 Blood/Venous Blood Culture - Final
No Growth - Final Report
Diagnostic Testing:
Physical Exam
-
HEENT: Normocephalic and Anicteric
Cardiovascular: S1/S2 and Peripheral Edema (negative)
Respiratory: Wheeze (negative), Rales (negative), Rhonchi (negative) and Non-Labored Respirations
GI: Soft, Distended (abdominal obesity), Non Tender and Normal Bowel Sounds
Neurology: Awake, Alert, Tremors (negative) and Other (confused)
Skin: Warm and Dry
General: Respiratory Distress (negative), Comfortable, Fever (negative) and Chills (negative)
Assessment
-
Assessment: 84-year-old female with a past medical history of recurrent UTI, hypertension, GERD/Aguilar's esophagus, large hiatal hernia, hyperlipidemia, CAD, paroxysmal A-fib on Eliquis, anxiety/depression, episodic confusion/hallucinations with
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
altered mental status. [facility] and had recently been started on antibiotics (reportedly Macrobid) for UTI on 12/14/2024. During the evening hours he became febrile, and more lethargic/tired than her usual self and
was then brought in to ER for further evaluation. Patient also had a cough and was hypoxic requiring 3 L/min nasal cannula with resultant SpO2 92%. No obvious signs of pneumonia on CXR, with chronic moderate size hiatal hernia. Urinalysis
positive with Enterococcus species seen on urine culture. She has been using CPAP throughout this hospitalization although she removes it several hours after falling asleep. Blood gas obtained on 12/22/2024 shows chronic hypercapnia with pH 7.39,
pCO2 44. Pulmonary service now consulted to assess for any changes to her CPAP settings.
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
macular degeneration (legally blind), history of suspected TIA with previous tPA administration, LVH, insomnia, multinodular Gorder, history of iron deficiency, history of vitamin B12 deficiency, osteoporosis previously on Fosamax (stopped due to
Aguilar's esophagus), actinic keratosis, history of pneumonia (April 2017), history of Tracy-Agrawal tear (during tPA for stroke (August 2013), history of post polypectomy syndrome (2008), confusion s/p vaccine (November 2021), vivid dreams
Impression:
#Chronic hypercapnic respiratory failure
#JOSETTE on CPAP- moderate severity with respiratory event index: 20.8 events/hour with jannet SpO2: 80% per portable home sleep test on 10/25/2017, prev on APAP 5-20
#Morbid obesity
#Chronic anemia with history of iron deficiency + B12 deficiency
#Abnormal urinalysis with suspicion for UTI
#Essential hypertension
#Mixed hyperlipidemia
#GERD with history of Aguilar's esophagus
#Legal blindness
#History of subclinical hypothyroidism
#Vitamin D deficiency
#Recurrent UTI
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
#History of TIA/suspected CVA s/p tPA (August 2013)
Plan:
- Patient does appear to have chronic hypercapnia, however based on recent blood gas from 12/22/2024, her pCO2 is <45, and her pH is fully compensated. This does not fit criteria for obesity hypoventilation syndrome, in which case her pCO2 needs to
be 45 or greater.
- For now, continue with CPAP at 5 cmH2O with sleep
- Of note, she has a history of CPAP intolerance, and she continues to consistently remove her CPAP several hours after falling sleep; she has never followed with us in the [facility] office
- Recommend outpatient sleep/pulmonary office follow-up
- For now, will repeat a daytime blood gas tomorrow (12/24) to assure that pH and pCO2 remain stable
- Defer Tx of her abnormal UA + UCx to primary team
- UCx grew Enterococcus spp, albeit only 20,000 CFU/mL (at this point, this may represent either colonization as she has had Enterococcus faecalis species in her urine as recent as this past April + June; she did have a recent UTI diagnosed and
treated with Macrobid and this may just be residual infection that is still clearing up)
- Follow up urine Cx species and sensitivities
- Currently on ceftriaxone
- Maintain SpO2 >90-94% with supplemental O2 as needed
- Aspiration precautions
- prn nebulized bronchodilators - not currently bronchospastic
- Incentive spirometer encouraged q1hr while awake
- Replete electrolytes with K>4, Mg>2
- Trend H/H and transfuse if needed to keep Hb>7g/dL; keep plt>20k, unless there is concern for bleeding then keep plt>50k
- Maintain euglycemia with goal BG >100 and <180
- PT/OT
- DVT ppx
Code status: DNR/DNI
Pulmonary service will continue to briefly follow along.
(Patient was seen and evaluated by me on 12/23/2024) Total time spent today was 57 minutes for this encounter. Time includes reviewing laboratory test/imaging results, reviewing pertinent medical records, obtaining and reviewing medical history,
performing an appropriate exam, ordering medications, tests and procedures. Time also includes documentation of this encounter, coordinating patient care and communicating with other healthcare professionals. Total time does not include separately
billed tests performed on this date of service.
--- NOTE | 2024-12-23 16:38 | PTCARENOTE ---
Pt awake and alert, oriented to slef/place/birthdate; occ to date. Forgetful; anxious at [facility]. GIPSON; able to transfer to BSC/chair with assist x2. VSS. On room air- pulse ox 96%, no SOB noted. Abd large, soft, marian PO well. Voids on BSC without
difficulty. Resting in bed at present; family at bedside. Will continue to monitor.
[2024-12-23] MEDS: VISBIOME 1 CAP PO (18:11)
[2024-12-23] MEDS: VITAMIN B1 100 MG PO (18:11)
[2024-12-23] MEDS: CRESTOR 10 MG PO (21:12)
[2024-12-23 22:20] VITALS: PULSE 77
[2024-12-23 23:45] VITALS: BP 171/77
[2024-12-24 07:00] VITALS: BP 125/82
--- NOTE | 2024-12-24 09:11 | CM ---
Addendum entered by Talia Grande 12/24/24 16:31:
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
Addendum entered by Talia Grande 12/24/24 10:58:
[facility] benefit explained to daughter at bedside; form signed
Addendum entered by Talia Grande 12/24/24 10:49:
Ambulance machining and assembly supervisor [phone]; facility notified
Addendum entered by Talia Grande 12/24/24 09:52:
Spoke with Nursing Kindergarten Classroom Teacher, facility can accept any time today
Spoke with Daughter, Judy, via phone; she is agreeable w/ discharge plan
Plan: Discharge to [facility] today via Ambulance
Report# [phone]

Addendum entered by Talia Grande 12/24/24 09:22:
Per Attending patient is stable to return to [facility] today
Updated clinical sent via [facility]
Spoke w/ Kim at the facility; reported that patient will return to a SNF bed
Left a VM for Weekend Kindergarten Classroom Teacher to call with time they can accept patient today
Original Note:
Plan: Return to [facility] when medically stable
Report #: [phone]
[2024-12-24] MEDS: PROTONIX 40 MG PO (09:19)
[2024-12-24] MEDS: TOPROL XL PO (09:19)
[2024-12-24] MEDS: ALTACE 5 MG PO (09:19)
[2024-12-24] MEDS: COLACE 100 MG PO (09:20)
[2024-12-24] MEDS: PROZAC 30 MG PO (09:20)
[2024-12-24] MEDS: ALTACE 1.25 MG PO (09:20)
[2024-12-24] MEDS: NEURONTIN 100 MG PO (09:20)
[2024-12-24] MEDS: MAGNESIUM OXIDE 400 MG PO (09:21)
[2024-12-24] MEDS: SEROQUEL 25 MG PO (09:21)
[2024-12-24] MEDS: ELIQUIS 5 MG PO (09:21)
[2024-12-24] MEDS: FLOMAX 0.4 MG PO (09:21)
--- NOTE | 2024-12-24 10:00 | W.PN.HOSP.TC ---
Today's Communication/Plan
-
Discharge today
Assessment / Plan
Assessment / Plan
Physical Exam
General: Well Developed
HEENT: Normocephalic, Atraumatic and Other (blind)
Respiratory: Rales -- faint
Cardiac: Regular Rhythm and S1/S2
GI: Soft, Nontender, Nondistended and Normal Bowel Sounds
Musculoskeletal: No Cyanosis and No Edema
Skin: Warm. Dry.
Neuro: Awake, Alert, Interactive
Psych: Calm
Impression:
84-year-old female with past medical history of recurrent UTI, hypertension, GERD, Aguilar's esophagus, large hiatal hernia, hyperlipidemia, CAD, paroxysmal atrial fibrillation on Eliquis, anxiety/depression, morbid obesity, obstructive sleep apnea,
Garett Bonnet syndrome/blindness and L1 compression fracture presented with change in mental status. �She was started on Macrobid outpatient for diagnosed UTI on 12/14/24. She later had fever 100.9 F. In the ER, patient was hypotensive 86/39 had
fever 100.3 F, and she was�hypoxic, requiring 2 L of oxygen.
Labs showed stable anemia 10.4, and�urinalysis showed 30-40 WBC.
Chest x-ray showed low inspiratory volumes, mild interstitial prominence may be related to mild pulmonary vascular congestion or low inspiratory volumes.
Patient admit with UTI with acute metabolic encephalopathy with fever. �Patient given IV fluids. �Urine culture, blood cultures negative. �Cefepime.
Patient also with cough and hypoxemia. �No evidence of heart failure. �COVID and flu negative, hypoxemia
Assessment/Plan:
Acute Metabolic encephalopathy/fever/back pain Concern for UTI
History of Klebsiella pneumonia UTI, Kluyvera ascorbate, klebsiella oxytoca, Enterococcus facialis, Morganella morganii, E. coli
chest x-ray negative
WBC, lactate normal
Urine analysis with 1+ leukocyte esterase, 30-40 urine white blood cell count, few bacteria, and 3+ albumin -possible UTI -urine culture from 12/11/2024 grew Kleb and Kluyvera - UC from 12/15 had no growth
Patient received Tylenol
Urine and blood culture are negative but reviewing outpatient blood culture from December 11 shows Kluyvera ascorbata / Klebsiella oxytoca
Continue cefepime, will be discharged on Ceftin
Patient received about 5 days worth of Cefepime starting 12/15/24 to 12/19/24, later transitioned to Rocephin on 12/19/24 and received Rocephin through 12/21/24 -- total of 7 days of antibiotics, which is sufficient
No need for further antibiotics after discharge -- repeat urine culture was done this hospitalization, grew [id number] Enterococcus, but patient is doing well as of 12/24/24 without significant leukocytosis and with only mild leukopenia, so no need for
antibiotics right now -- I discussed this on 12/24/24 with patient's daughter Judy and she is in agreement with the plan
Monitor for urinary retention
I discussed with patient's daughters, and also had discussion with patient's daughter Lillie on 12/22/24 in person, community case manager confirmed that [facility] can do tapering of Seroquel and Gabapentin outpatient. Neurology consult as per family
request: reduce Gabapentin from 200 mg BID to 100 mg BID
12/22/24
-Patient was very lethargic and therefore ordered: ABG, CT Head, CBC, CMP, Magnesium, Phosphorus, Ammonia, B12 Vitamin, proBNP, troponins, TSH with reflex to Free T4, Repeat Urinalysis, CXR without acute findings, Abdominal X-Ray without significant
constipation
-For now, since patient has received 7 day course of antibiotics, although UA is coming back positive, urine culture with less than [id number] enterococcus --> no need to for antibiotics given this and also patient's clinical picture which is good
-Stopped nighttime 50 mg HS Seroquel, but continue daytime 25 mg daily Seroquel --> this has resulted in great improvement in mental status
-Gabapentin was recently reduced already
12/23/24
-Patient with improvement in mental status after the above measures on 12/22/24
Cardiomegaly on Chest X-Ray
-Outpatient work-up is reasonable, patient is stable, no chest pain or SOB -- patient said on 12/24/24 she is feeling 'quite well'
-ProBNP is unremarkable, and troponin also unremarkable
Acute hypoxic respiratory failure - RESOLVED
Chest x-ray with impression of low inspiratory volumes. Mild interstitial prominence, which may be related to low inspiratory volumes or mild pulmonary vascular congestion.. Otherwise clear lungs.
Patient is COVID and flu negative
patient currently on room air.
Appreciate pulmonary, continue CPAP
Left Lower extremity pain
Ultrasound with no DVT
Anemia of chronic disease:
Hemoglobin stable
Continue to monitor
Recheck Labs outpatient
Essential HTN
Continue Ramipril/metoprolol
GERD/Aguilar's esophagus/Large hiatal hernia
Continue PPI
Hyperlipidemia
Continue Rosuvastatin
Coronary artery disease with history of PR
cont statin/BB
Paroxysmal atrial fibrillation
cont Eliquis/BB
Anxiety/depression
cont Seroquel/Prozac
Obstructive sleep apnea
cont CPAP
Morbid obesity due excess calories
-Neuropathy
Gabapentin resumed
CODE STATUS: DO NOT RESUSCITATE
DVT Prophylaxis: Eliquis
Diet: cardiac diet
Family communication:
-On 12/21/24, I spoke with patient's daughter Judy in-person, and over the phone -- she recommended to continue straight caths, avoid Gaytan Catheter, continue IV antibiotics, daughter Judy will have meeting with staff at [facility]
-On 12/22/24, I spoke with patient's daughter Lillie in-person, and I answered all questions and concerns to satisfaction. I also spoke to daughter Judy who was concerned about patient's increased lethargy today, and I answered all of her
questions and concerns to satisfaction.
-On 12/24/24, I spoke with patient's daughter Judy over the phone, and I answered all questions and concerns to satisfaction. Both Judy and myself agree that patient has significantly improved, and is much more alert and interactive, and she can
be discharged today.
More than 30 minutes spent in discharge including
Final examination of the patient
Summarizing hospital stay
Instructions for continuing care to all relevant caregivers
Preparation of discharge records, prescriptions, and referral forms
Total time spent (in minutes): 41
Anticipated Discharge: Today
Subjective/Interval History
-
Date of Service: December 24, 2024
Patient was seen and examined. She reported that she was 'feeling quite well,' and was asking about being discharged today.
Objective Data
-
Vital Signs:
Vital Signs
Temp Pulse Resp BP Pulse Ox
97.9 F 56 14 125/82 99
12/24/24 07:00 12/24/24 09:19 12/24/24 07:00 12/24/24 09:19 12/24/24 07:00
I&O
12/23/24 12/24/24 12/25/24
06:59 06:59 06:59
Intake Total 1140 / 1140 1620 / 1620
Output Total 890 / 890
Balance 250 / 250 1620 / 1620
--- NOTE | 2024-12-24 10:05 | W.PN.PUL3 ---
Today's Communication / Plan
-
Continue CPAP with sleep
Outpatient sleep office visit follow-up
Defer antibiotics to primary team given abnormal urine culture
Up OOB as tolerated
No additional recommendations at this time. Pulmonary service will now sign off. Please reconsult if there are any additional questions/concerns, or if patient's respiratory status deteriorates.
Assessment
-
Assessment: 84-year-old female with a past medical history of recurrent UTI, hypertension, GERD/Aguilar's esophagus, large hiatal hernia, hyperlipidemia, CAD, paroxysmal A-fib on Eliquis, anxiety/depression, episodic confusion/hallucinations with
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
altered mental status. Patient currently living at shelter and had recently been started on antibiotics (reportedly Macrobid) for UTI on 12/14/2024. During the evening hours he became febrile, and more lethargic/tired than her usual self and
was then brought in to ER for further evaluation. Patient also had a cough and was hypoxic requiring 3 L/min nasal cannula with resultant SpO2 92%. No obvious signs of pneumonia on CXR, with chronic moderate size hiatal hernia. Urinalysis
positive with Enterococcus species seen on urine culture. She has been using CPAP throughout this hospitalization although she removes it several hours after falling asleep. Blood gas obtained on 12/22/2024 shows chronic hypercapnia with pH 7.39,
pCO2 44. Pulmonary service now consulted to assess for any changes to her CPAP settings.
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
macular degeneration (legally blind), history of suspected TIA with previous tPA administration, LVH, insomnia, multinodular Gorder, history of iron deficiency, history of vitamin B12 deficiency, osteoporosis previously on Fosamax (stopped due to
Aguilar's esophagus), actinic keratosis, history of pneumonia (April 2017), history of Tracy-Agrawal tear (during tPA for stroke (August 2013), history of post polypectomy syndrome (2008), confusion s/p vaccine (November 2021), vivid dreams
Impression:
#Chronic hypercapnic respiratory failure
#JOSETTE on CPAP- moderate severity with respiratory event index: 20.8 events/hour with jannet SpO2: 80% per portable home sleep test on 10/25/2017, prev on APAP 5-20
#Morbid obesity
#Chronic anemia with history of iron deficiency + B12 deficiency
#Abnormal urinalysis with suspicion for UTI
#Essential hypertension
#Mixed hyperlipidemia
#GERD with history of Aguilar's esophagus
#Legal blindness
#History of subclinical hypothyroidism
#Vitamin D deficiency
#Recurrent UTI
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
#History of TIA/suspected CVA s/p tPA (August 2013)
Plan:
- Patient does appear to have chronic hypercapnia, however based on recent blood gas from 12/22/2024, her pCO2 is <45, and her pH is fully compensated. This does not fit criteria for obesity hypoventilation syndrome, in which case her pCO2 needs to
be 45 or greater.
- For now, continue with CPAP at 5 cmH2O with sleep
- Of note, she has a history of CPAP intolerance, and she continues to consistently remove her CPAP several hours after falling sleep; she has never followed with us in the [facility] office
- Recommend outpatient sleep/pulmonary office follow-up
- For now, will repeat a daytime blood gas tomorrow (12/24) to assure that pH and pCO2 remain stable
- Defer Tx of her abnormal UA + UCx to primary team
- UCx grew Enterococcus spp, albeit only 20,000 CFU/mL (at this point, this may represent either colonization as she has had Enterococcus faecalis species in her urine as recent as this past April + June; she did have a recent UTI diagnosed and
treated with Macrobid and this may just be residual infection that is still clearing up)
- Urine culture grew Enterococcus species and yeast, although only 20,000 CFU per mL of the Enterococcus and only 10,000 CFU per mL of yeast
- Currently on ceftriaxone
- Maintain SpO2 >90-94% with supplemental O2 as needed
- Aspiration precautions
- prn nebulized bronchodilators - not currently bronchospastic
- Incentive spirometer encouraged q1hr while awake
- Replete electrolytes with K>4, Mg>2
- Trend H/H and transfuse if needed to keep Hb>7g/dL; keep plt>20k, unless there is concern for bleeding then keep plt>50k
- Maintain euglycemia with goal BG >100 and <180
- PT/OT
- DVT ppx
Code status: DNR/DNI
No additional recommendations at this time. Pulmonary service will now sign off. Thank you for allowing us to be involved in the care of this patient. Please reconsult if there are any additional questions/concerns, or if patient's respiratory
status deteriorates.
Total time spent today was 27 minutes for this encounter. Time includes reviewing laboratory test/imaging results, reviewing pertinent medical records, obtaining and reviewing medical history, performing an appropriate exam, ordering medications,
tests and procedures. Time also includes documentation of this encounter, coordinating patient care and communicating with other healthcare professionals. Total time does not include separately billed tests performed on this date of service.
Subjective Data
-
Date of Service:
Date of Service: December 24, 2024
Chief Complaint: Pulmonary Follow Up
Subjective:
Patient was seen earlier this morning (late note entry). Patient wore her CPAP last night at 5 cmH2O. Afebrile overnight. Remains confused at times.
Review of Systems
General: Other (Unobtainable due to acute clinical status/confusion)
Objective Data
Data Reviewed
Vital Signs / I&O / Oxygen:
Vital Signs
Temp Pulse Resp BP Pulse Ox
98.1 F 61 15 171/77 97
12/23/24 23:45 12/23/24 23:45 12/23/24 23:45 12/23/24 23:45 12/23/24 23:45
Intake and Output
12/23/24 12/24/24 12/25/24
06:59 06:59 06:59
Intake Total 1140 / 1140 1620 / 1620
Output Total 890 / 890
Balance 250 / 250 1620 / 1620
SaO2 97
Nasal Cannula flow liters per 2
minute
Physical Exam
General: Respiratory Distress (n), Comfortable and Chills (negative)
HEENT: Normocephalic and Anicteric
Cardiovascular: S1-S2, Rub (negative) and Peripheral Edema (n)
Respiratory: Wheeze (n), Crackles (n), Rhonchi (n) and Non-Labored Respirations
GI: Soft, Distended (Abdominal obesity), Non Tender and Normal Bowel Sounds
Neurology: Awake and Other (Confused)
Skin: Warm, Dry, Cyanosis (negative) and Jaundice (negative)
Labs/Micro/Reports
Lab Data
12/23/24 06:36
12/23/24 06:36
Microbiology
12/22/24 15:37 Urine Urine Culture - Preliminary
Enterococcus species
12/16/24 08:04 Blood/Venous Blood Culture - Final
No Growth - Final Report
[2024-12-24 15:00] VITALS: BP 143/64
== END 2024-12-24 17:54 | DRG 689 ==
LOC: 4 EAST ACU 15:00
PROVIDERS: Registered Nurse; ADMITTING PHYSICIAN Hospitalist; ATTENDING PHYSICIAN Hospitalist; CONSULT PHYSICIAN Internal Medicine Critical Care Medicine; CONSULT PHYSICIAN Psychiatry & Neurology Neurology; EMERGENCY PHYSICIAN Student in an Organized Health Care Education/Training Program; FAMILY PHYSICIAN Student in an Organized Health Care Education/Training Program
PROC: 5A09357 Assistance with Respiratory Ventilation, Less than 24 Consecutive Hours, Continuous Positive Airway Pressure (ICD-10-PCS; 2024-12-15)
DX: N39.0 Urinary tract infection, site not specified (principal); G93.41 Metabolic encephalopathy; J96.01 Acute respiratory failure with hypoxia; K22.6 Gastro-esophageal laceration-hemorrhage syndrome; J96.12 Chronic respiratory failure with hypercapnia; R47.01 Aphasia; Z68.41 Body mass index [BMI] 40.0-44.9, adult; Z87.440 Personal history of urinary (tract) infections; K21.9 Gastro-esophageal reflux disease without esophagitis; K22.70 Barrett's esophagus without dysplasia; I25.10 Atherosclerotic heart disease of native coronary artery without angina pectoris; E78.2 Mixed hyperlipidemia; Z79.01 Long term (current) use of anticoagulants; I48.0 Paroxysmal atrial fibrillation; F32.A Depression, unspecified; F41.9 Anxiety disorder, unspecified; E66.01 Morbid (severe) obesity due to excess calories; G47.33 Obstructive sleep apnea (adult) (pediatric); I10 Essential (primary) hypertension; D63.8 Anemia in other chronic diseases classified elsewhere; G62.9 Polyneuropathy, unspecified; Z66 Do not resuscitate; Z86.73 Personal history of transient ischemic attack (TIA), and cerebral infarction without residual deficits; I25.2 Old myocardial infarction; Z98.41 Cataract extraction status, right eye; Z80.42 Family history of malignant neoplasm of prostate; B95.2 Enterococcus as the cause of diseases classified elsewhere; D50.9 Iron deficiency anemia, unspecified; E03.9 Hypothyroidism, unspecified; E53.8 Deficiency of other specified B group vitamins; E55.9 Vitamin D deficiency, unspecified; H54.8 Legal blindness, as defined in USA; Z11.52 Encounter for screening for COVID-19; M81.0 Age-related osteoporosis without current pathological fracture; Z79.899 Other long term (current) drug therapy; Z80.3 Family history of malignant neoplasm of breast; Z82.49 Family history of ischemic heart disease and other diseases of the circulatory system; Z82.5 Family history of asthma and other chronic lower respiratory diseases; Z87.01 Personal history of pneumonia (recurrent); Z87.19 Personal history of other diseases of the digestive system
CPT/HCPCS: 36415; 36600; 70450; 71046; 74018; 80048; 80053; 81003; 81015; 82140; 82607; 82805; 83605; 83735; 83880; 84100; 84443; 84484; 85025; 85027; 87040; 87070; 87077; 87086; 87186; 87502; 87811; 93005; 93970; 94660; 96361; 96374; 97112; 97163; 97167; 97530; 99285

== ENCOUNTER → 2025-01-10 09:51 | Outpatient (REF) | payer OTHER, MEDICARE, SELFPAY ==
[2025-01-10 10:45] LABS: Urine Character Clear (Clear)
[2025-01-10 11:29] LABS: Urine Red Blood Cell 0-2 /HPF (0-2); Urine White Cell 0-2 /HPF (0-5)
[2025-01-10 11:30] LABS: Urine Squamous Cell 0-2 /LPF (Few)
== END ==
LOC: OLABN 09:51
PROVIDERS: ATTENDING PHYSICIAN Student in an Organized Health Care Education/Training Program
DX: R30.9 Painful micturition, unspecified (principal)
CPT/HCPCS: 81003; 81015; 87086; 87147

== ENCOUNTER 2025-01-12 17:53 | Inpatient (IN) | payer MEDICARE, OTHER, SELFPAY ==
[2025-01-12] VITALS (38 sets, daily range): BP systolic 122–222; BP diastolic 56–134; BMI 39.0; BMI 37.3
--- NOTE | 2025-01-12 13:08 | ED.GENMED ---
History of Present Illness
General
Chief Complaint: Abdominal Symptoms
Time Seen by Provider: 01/12/25 12:45
History of Present Illness
History of Present Illness:
84-year-old female with history of CVA, history of UTI, A-fib on Eliquis, hypertension, macular degeneration with legal blindness presenting to the emergency department for abdominal pain and vomiting. Patient notes that symptoms started this
morning. Daughter is at bedside, notes that patient seemed in her usual state of health when she talked to her yesterday. Daughter reports that the pain is diffuse to the abdomen. Daughter notes strong history of UTI with subsequent confusion,
recently treated for UTI from 12/15-12/24. Patient denies any fever. Daughter reports that patient seems to be in her typical mental status. Patient denies any chest pain or difficulty breathing. She denies any constipation or diarrhea. Known
surgical history of . Denies additional acute medical complaints
Past History
Past History
ED Past Medical History: CVA, GERD, HTN, Hypercholesterolemia, [place], Psychiatric (Anxiety, Depression) and Other (Recurrent UTI, PNA, possible hemiplegia Migraines, Garett Bonnet Syndrome, TGA, Sleep apnea, Barrets esophagus, GI bleeding, BLind);
Negative Asthma or NIDDM
ED Past Surgical History: Appendectomy, and Other (Hernia repair)
Social History
Tobacco: Non-smoker
Alcohol: None
Drug: None
Personal:
Living: assisted living ([facility])
Employment: Not employed
Family History
Family History: Other and Unable to obtain
Phy Exam
Physical Exam
Physical Exam:
General: Well-appearing, no clinical signs of dehydration, nontoxic and in no acute distress
HEENT: protecting airway
Neck: appears supple
CV: Normal heart rate, regular rhythm
Resp: No accessory muscle use, no increased work of breathing
Abd: Soft and non-distended, generalized nonfocal tenderness. Mild tenderness to bilateral flank. No midline spinal tenderness
Extremities: No deformities, mild +1 pitting edema
Neuro: alert, no focal neurologic deficit
: deferred
Rectal: deferred
Psych: Normal affect
Skin: Intact
Course
Orders/Labs/Results
Orders:
Orders
01/12/25 13:06
CT Abd/pelvis W Iv Cont Urgent
Comment:
Reason For Exam: generalized abdominal pain, vomiting
Morphine Sulfate 4 mg IV NOW STA
Ondansetron Injectable [Zofran] 4 mg IV NOW STA
01/12/25 13:21
Complete Blood Count/With Diff Urgent
Comprehensive Metabolic Panel Urgent
Lipase Urgent
Urinalysis Reflex To Culture Urgent
Date Specimen was Collected: 01/12/25
Time Specimen was Collected: 13:16
Urine Microscopic Reflex Cult Urgent
01/12/25 14:16
Labetalol HCl [Trandate] 10 mg IV NOW STA
01/12/25 16:45
Nitroglycerin 100 mg/250 ml [Nitroglycerin Premix] 100 mg in 250 ml IV PER PROTOCOL
Currently infusing. Continue current dose and titrate:: Yes
Titrate to keep:: Other
Titrate to keep other:: MAP 105-110
Titrate by mcg/min:: 5 mcg/min, may increase by 10 mcg/min if dose > 20 mcg/min
Frequency of titrations (minutes):: every 3-5 minutes
Maximum dose in mcg/min:: 200
Begin to taper infusion when:: Remained at goal for 2hrs
Taper by mcg/min:: 5 mcg/min
Frequency of taper (minutes) if patient maintains goal:: 30
Taper to off?: Yes
If infusion off & no longer maintaining goal:: Contact Provider
Abnormal Lab Results
01/12/25
13:21
RBC 3.61 L 10^6/uL
(4.20-5.40)
Hgb 11.3 L g/dL
(12.0-16.0)
Hct 34.2 L %
(37.0-47.0)
MCH 31.3 H pg
(27.0-31.0)
Absolute Lymphs (auto) 1.0 L 10^3/uL
(1.2-3.4)
Lymphocytes % 18.9 L %
(20.5-51.1)
Carbon Dioxide 31 H mmol/L
(22-30)
Glucose 117 H mg/dl
(70-99)
Ur Occult Blood Reflex 1+ A
(Negative)
Urine Albumin (Reflex) 2+ A
(Neg - Trace)
01/12/25 13:21
01/12/25 13:21
Vital Signs
Initial and Last Documented VS:
Initial Vital Signs
Temp Pulse Resp BP Pulse Ox
98.9 F 70 14 199/109 95
01/12/25 12:43 01/12/25 12:43 01/12/25 12:43 01/12/25 12:43 01/12/25 12:43
Last Documented Vital Signs
Temp Pulse Resp BP Pulse Ox
98.9 F 73 22 212/95 99
01/12/25 12:43 01/12/25 16:00 01/12/25 16:00 01/12/25 16:00 01/12/25 16:00
MDM/Problems Addressed
MDM/Problems Addressed:
84-year-old female with history of CVA, history of UTI, A-fib on Eliquis, hypertension, macular degeneration with legal blindness presenting to the emergency department for abdominal pain and vomiting. Vital signs on arrival are significant for
high blood pressure. Daughter at bedside notes that she gets very hypertensive when she comes to the hospital.
On exam, patient is in no acute distress, slightly uncomfortable secondary to her symptoms. No active emesis. Generalized nonfocal tenderness. Complicated hospital admission as of recent in November for urinary tract infection with subsequent
sepsis. Recurrent urinary tract infection is a consideration. Enteritis is a consideration in the setting of vomiting. Bowel obstruction is a consideration, however lower suspicion in the absence of constipation or stool issues. Will obtain
lipase, however lower suspicion for pancreatitis. Plan for CT abdominal imaging. Morphine administered for patient's discomfort as well as Zofran. Will also obtain urinalysis. Patient markedly hypertensive. Will monitor after pain is better
controlled, however ultimately may require some antihypertensive medication
16:30 - CT without acute abnormality to explain patient's pain. There are incidental findings that were discussed with sisters at bedside. Patient seems to be more confused. Family does note some underlying dementia. Suspect component of
sundowning, as well as confusion from being in the emergency department for several hours. Blood pressure however also remains markedly elevated. Family notes that this does not usually occur. In recent admission, was hypotensive. Patient did
respond to 1 dose of IV labetalol, however back up. At this time in the setting of confusion and uncontrolled hypertension, hypertensive urgency versus emergency is also consideration. Will obtain EKG, troponin, chest x-ray. However ultimately we
will start patient on a drip. Patient has allergy to amlodipine, so cannot start nicardipine. Will start nitro drip, with ultimate plan for admission
*Pulse Oximetry
SaO2: 93
Oxygen Mode of Delivery: Room air
Patient hypoxic: no
*Critical Care Note
Total Time (30-74mins, 75-104mins- exclusive of procedures): Not Applicable
ED Attending Note
-
Portions of this chart may have been created with voice recognition software.� Occasional wrong word or��sound alike� substitutions may have occurred due to the inherent limitations of voice recognition software.
Discharge Plan
Departure
Prescriptions:
No Action
pantoprazole 40 MG tablet,delayed release (DR/EC)
40 mg PO DAILY
rosuvastatin 10 MG tablet
10 mg PO HS
fluoxetine 10 MG capsule
30 mg PO DAILY
Rx Instructions:
take with 20 mg for a total of 30 mg.
acetaminophen 325 mg Tablet
650 mg PO Q4HPRN PRN (Reason: mild pain/fever>100.4)
ascorbic acid (vitamin C) 1,000 mg Tablet
1,000 mg PO DAILY
Eliquis 5 mg Tablet
5 mg PO BID Qty: 60 1RF
magnesium hydroxide [Milk of Magnesia] 400 mg/5 mL Suspension
30 ml PO HSPRN PRN (Reason: constipation)
bisacodyl [Dulcolax (bisacodyl)] 10 mg Suppository
10 mg [place] [id number] PRN (Reason: if no bm aftr mom)
metoprolol succinate 50 mg Tablet Extended Release 24 Hr
50 mg PO DAILY
therapeutic multivitamin Tablet
1 tab PO QPM
ramipril 1.25 mg Capsule
6.25 mg PO BID
Rx Instructions:
give 1.25mg and 5mg to equal 6.25mg BID
cranberry 450 mg Tablet
425 mg PO QPM
Culturelle 10 billion cell Capsule
1 cap PO QPM
thiamine HCl (vitamin B1) 100 mg Tablet
100 mg PO QPM
magnesium oxide 400 mg (241.3 mg magnesium) tablet
400 mg PO DAILY
docusate sodium 100 mg capsule
100 mg PO BID
tamsulosin 0.4 mg Capsule
0.4 mg PO DAILY 30 Days Qty: 30 0RF
quetiapine [Seroquel] 25 mg Tablet
25 mg PO DAILY
miconazole nitrate 2 % Powder
1 applic TOPICAL BIDPRN PRN (Reason: fungal rash)
estradiol 0.01 % (0.1 mg/gram) Cream
1 g VAGINAL TUFR
phenazopyridine 100 mg Tablet
100 mg PO TIDPRN PRN (Reason: Dysuria) Qty: 0 0RF
fosfomycin tromethamine 3 gram Packet
3 g PO Q10D Qty: 1 0RF
Rx Instructions:
first dose 12/01/24
gabapentin 100 mg Capsule
100 mg PO BID Qty: 20 0RF
Referrals:
UNKNOWN - PT NOT,INTERVIEWE [Family Provider]
Interventions
Interventions:
*Risk Screen - Suicide Last Done: 01/12/25 12:43
*General Assessment Last Done: 01/12/25 12:43
*Neglect/Abuse Screening Last Done: 01/12/25 12:43
*ED- Fall Risk Assessment Last Done: 01/12/25 12:43
GP-Fesgix-Fspkxvjjuq Assessment Last Done: 01/12/25 15:05
Discharge Date and Time
Print Language: COLOMBIAN
[2025-01-12] MEDS: ZOFRAN 4 MG IV ×2 (13:22→17:40)
[2025-01-12] MEDS: MORPHINE SULFATE 4 MG IV (13:22)
[2025-01-12 13:38] LABS: Hematocrit 34.2 % (37.0-47.0); Hemoglobin 11.3 g/dL (12.0-16.0); Mean Corp Hgb Conc. 33.0 g/dL (33.0-37.0); Mean Corpuscular Volume 94.7 fL (81.0-99.0); Nucleated Red Blood Cells % 0 %; Platelet Count 178 10^3/uL (130-400); Red Cell Dist. Width 13.2 % (11.5-14.5)
[2025-01-12 13:46] LABS: ALT (SGPT) 14 U/L (0-35); AST (SGOT) 25 U/L (14-36); Albumin 3.9 g/dl (3.5-5.0); Alkaline Phosphatase 76 U/L (38-126); Blood Urea Nitrogen 8 mg/dl (7-17); Calcium 9.2 mg/dl (8.4-10.2); Carbon Dioxide 31 mmol/L (22-30); Chloride 102 mmol/L (98-107); Estimated Creatinine Clearance 52 ml/min; Glucose 117 mg/dl (70-99); Lipase 271 U/L (23-300); Potassium 3.6 mmol/L (3.5-5.1); Sodium 136 mmol/L (135-145); Total Protein 6.6 g/dl (6.3-8.2); eGFR > 60.00
[2025-01-12 13:57] LABS: Urine Character Clear (Clear)
[2025-01-12 14:14] LABS: Urine Red Blood Cell 0-2 /HPF (0-2); Urine Urothelial Cell 0-2 /LPF (FEW); Urine White Cell 0-2 /HPF (0-5)
[2025-01-12] MEDS: TRANDATE 10 MG IV (14:29)
--- NOTE | 2025-01-12 16:45 | HPS.HSE ---
Family Physician
-
Family Physician: INTERVIEWE UNKNOWN - PT NOT
Chief Complaint
-
Nausea, vomiting, abdominal pain
History of Present Illness
84 y/o F with PMHx:
Essential hypertension
GERD
Aguilar's esophagus
Large hiatal hernia
HLD
CAD
PAF
Anxiety
Depression
Morbid obesity due to excess calories
JOSETTE on CPAP
Chronic hypercapnic respiratory failure
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
L1 compression fracture
h/o suspected TIA/CVA s/p tPA administration (August 2013)
Osteoporosis
who p/w CCs abdominal pain, nausea, and vomiting. The patient is a poor historian. Patient's daughter is at bedside but cannot give much additional information. The patient reports that her symptoms began this morning. She reports her abdominal
pain is diffuse. She does not note any modifying or alleviating factors. She denies any fevers. Denies any chest pain, shortness of breath, rash, dysuria, focal neurological deficit. She complains of fairly severe headache which is not uncommon
for her but is worse than usual.
Medical History
Past Medical History
Past Medical History: Reports Other (as per HPI)
Past Surgical History: Reports Other (N/A)
Social History
Tobacco: Non-smoker
Alcohol: None
Drug: None
Family History
Family History: Not pertinent
Allergies / Home Medications
Allergies reflects when Allergies were last updated in [employer].
Home Medications with original date entered in [employer]
Allergy/Medication List:
Allergies
Allergy/AdvReac Type Severity Reaction Status Date / Time
amlodipine besylate (From Allergy Rash/CONFUS Verified 01/12/25 12:50
Norvasc) ION
iodine Allergy Confusion,confusion/'like Verified 01/12/25 12:50
I had a
tia'
Home Medications
pantoprazole 40 mg tablet,delayed release 40 mg PO DAILY Gastrointestinal issue 12/03/11
rosuvastatin 10 mg tablet 10 mg PO HS High cholesterol 05/25/18
fluoxetine 10 mg capsule 30 mg PO DAILY Depression 11/24/20
acetaminophen 325 mg tablet 650 mg PO Q4HPRN PRN mild pain/fever>100.4 02/10/22
ascorbic acid (vitamin C) 1,000 mg tablet 1,000 mg PO DAILY Supplement 06/25/23
apixaban 5 mg tablet (Eliquis) 5 mg PO BID #60 tabs 07/25/23
bisacodyl 10 mg rectal suppository (Dulcolax (bisacodyl)) 10 mg [place] [id number] PRN if no bm aftr mom 07/28/23
magnesium hydroxide 400 mg/5 mL oral suspension (Milk of Magnesia) 30 ml PO HSPRN PRN constipation 07/28/23
cranberry fruit 450 mg tablet (cranberry) 425 mg PO QPM Supplement 10/18/23
metoprolol succinate 50 mg tablet,extended release 24 hr 50 mg PO DAILY Heart Failure 10/18/23
ramipril 1.25 mg capsule 6.25 mg PO BID Blood Pressure 10/18/23
therapeutic multivitamin 1 tab PO QPM Supplement 10/18/23
Lactobacillus rhamnosus GG 10 billion cell capsule (Culturelle) 1 cap PO QPM Supplement 03/04/24
thiamine HCl (vitamin B1) 100 mg tablet 100 mg PO QPM Supplement 03/04/24
docusate sodium 100 mg capsule 100 mg PO BID Constipation 03/05/24
magnesium oxide 400 mg (241.3 mg magnesium) tablet 400 mg PO DAILY Supplement 03/05/24
tamsulosin 0.4 mg capsule 0.4 mg PO DAILY Urinary retention 30 days #30 caps 03/07/24
estradiol 0.01% (0.1 mg/gram) vaginal cream 1 g vaginal TUFR Hormonal Agent 11/23/24
miconazole nitrate 2 % topical powder 1 applic topical BIDPRN PRN fungal rash 11/23/24
quetiapine 25 mg tablet (Seroquel) 25 mg PO DAILY Mental Health/Anxiety 11/23/24
fosfomycin tromethamine 3 gram oral packet 3 g PO Q10D Infection #1 ea 11/25/24
phenazopyridine 100 mg tablet 100 mg PO TIDPRN PRN Dysuria #0 tabs 11/25/24
gabapentin 100 mg capsule 100 mg PO BID #20 caps 12/24/24
Review of Systems
-
History Source: Patient
A 12 point ROS was completed and negative except as noted: Yes
Physical Exam
Vital Signs
Vital Signs
Temp Pulse Resp BP Pulse Ox
98.9 F 73 22 212/95 99
01/12/25 12:43 01/12/25 16:00 01/12/25 16:00 01/12/25 16:00 01/12/25 16:00
Physical Exam
General: Other (.)
Laboratory Results
-
01/12/25 13:21
01/12/25 13:21
Laboratory Results
Total Bilirubin 0.6 mg/dl (0.2-1.3) 01/12/25 13:21
AST 25 U/L (14-36) 01/12/25 13:21
ALT 14 U/L (0-35) 01/12/25 13:21
Alkaline Phosphatase 76 U/L (38-126) 01/12/25 13:21
Lipase 271 U/L (23-300) 01/12/25 13:21
Impression/Plan
-
Gen: appears in pain, Awake and alert
Eyes: EOMI, PERRLA, no scleral icterus.
Neck: supple.
CV: RRR, +S1/S2, no m/r/g.
Resp: CTAB, no rales, wheezes, or rhonchi.
Abd: +BS, soft, diffuse TTP, ND
Skin: No rashes.
Neuro: CN 2-12 intact, non-focal.
Psych: Normal mood and affect.
CT A/P w/IV: Sigmoid diverticulosis. Prior appendectomy. No intestinal obstruction or free air. Symmetric renal excretion. Small simple right renal cysts. Subcentimeter slightly high attenuation lower pole left renal lesion not compatible with a
simple cyst, CANNOT DIFFERENTIATE PROTEINACEOUS/HEMORRHAGIC CYST VERSUS SOLID MASS on the basis of this study. Large hiatal hernia. Stable mild L1 vertebral compression fracture. Small fat only containing umbilical hernia. Small to moderate size
predominantly fat only containing left lateral anterior pelvic wall hernia containing a loop of distal descending colon, nonobstructed and without significant accompanying inflammatory changes.
Hypertensive emergency:
-given 10mg IV labetalol in the ER without significant improvement in blood pressure
-start nicardipine drip with goal SBP 140-160, titratable. Note that I did ask the patient and the daughter about an allergy to Norvasc and neither could provide further information on what that allergy is. Considering the patient did not have any
adverse reaction to IV contrast will try nicardipine drip at this time.
-cont home ACEi/BB, will likely need to uptitrate
Abdominal pain:
-CT A/P above and without findings that provide an etiology for the patient's abdominal pain
-U/A unremarkable and not suggestive of infection
-afebrile, no leukocytosis
-LFTs/lipase unremarkable
-supportive care, pain control, antiemetics
Other problems:
Dementia
GERD: h/o Aguilar's esophagus and large hiatal hernia, cont PPI
HLD: cont statin
CAD: cont BB
PAF: cont Eliquis/BB
Anxiety: cont Seroquel/Prozac
Depression: cont Seroquel/Prozac
Morbid obesity due to excess calories
JOSETTE on CPAP
Chronic hypercapnic respiratory failure
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
L1 compression fracture
h/o suspected TIA/CVA s/p tPA administration (August 2013)
Osteoporosis
DNR: Confirmed with the patient and daughter at bedside
Eliquis
[2025-01-12] MEDS: CARDENE 200 IV (17:44)
[2025-01-12 18:09] LABS: Troponin I 0.027 ng/ml
[2025-01-12 19:39] LABS: Glucose - Point of Care 137 mg/dl (70-99)
[2025-01-12] MEDS: COMPAZINE 10 MG IV (20:20)
[2025-01-12 20:43] LABS: INR 1.11; PT 14.6 Sec (11.4-14.6)
[2025-01-12 20:44] LABS: APTT 26.8 Sec (23.4-35.0)
[2025-01-12 20:46] LABS: Magnesium 1.5 mg/dl (1.6-2.3)
--- NOTE | 2025-01-12 21:00 | PTCARENOTE ---
received pt @ change of shift from ED, pt Ox3, forgetful, blind in both eyes, weakness in extremities, follows commands, c/o 6/ abd pain, NSR on the monitor c first degree, + pulses, +1 LE, lungs diminished and coarse, Sats 93% on 2L, BSx4
hyperactive, vomiting clear emesis, [employer] notified and Compazine given per APR, PW c clear yellow output, MASB in groin Desenex ordered, 20G LAC, started 20G LFA, Cardene gtt per worklist, labs sent, CHG bath, daughter @ bedside and updated, call tolentino
within reach, bed alarm applied, otherwise refer to documentation.
[2025-01-12] MEDS: THERAGRAN PO (21:36)
[2025-01-12] MEDS: ALTACE PO (21:36)
[2025-01-12] MEDS: COLACE PO (21:37)
[2025-01-12] MEDS: NEURONTIN PO (21:37)
[2025-01-12] MEDS: MAGNESIUM SULFATE 50 IV (21:37)
[2025-01-12] MEDS: ELIQUIS PO (21:37)
[2025-01-12] MEDS: CRESTOR PO (21:38)
[2025-01-13] VITALS (28 sets, daily range): BP systolic 101–173; BP diastolic 62–99; PULSE 64–102; O2SAT 98; BMI 37.1
--- NOTE | 2025-01-13 00:29 | PTCARENOTE ---
systems reviewed, Cardene gtt stopped per worklist, pt denies nausea, RT asked if pt wanted to wear CPAP pt agreed, CPAP applied c 2L, otherwise refer to documentation
[2025-01-13] MEDS: DESENEX/MITRAZOL/ZEASORB 1 APPLIC TOPICAL ×2 (04:06→08:35)
--- NOTE | 2025-01-13 04:17 | PTCARENOTE ---
systems reviewed, labs sent, weight obtained, gtts per worklist, otherwise refer to documentation.
[2025-01-13 04:36] LABS: Hematocrit 36.1 % (37.0-47.0); Hemoglobin 11.9 g/dL (12.0-16.0); Mean Corp Hgb Conc. 33.0 g/dL (33.0-37.0); Mean Corpuscular Volume 98.4 fL (81.0-99.0); Platelet Count 190 10^3/uL (130-400); Red Cell Dist. Width 13.2 % (11.5-14.5)
[2025-01-13 04:43] LABS: ALT (SGPT) 14 U/L (0-35); AST (SGOT) 27 U/L (14-36); Albumin 3.9 g/dl (3.5-5.0); Alkaline Phosphatase 71 U/L (38-126); Blood Urea Nitrogen 7 mg/dl (7-17); Calcium 9.4 mg/dl (8.4-10.2); Carbon Dioxide 29 mmol/L (22-30); Chloride 102 mmol/L (98-107); Estimated Creatinine Clearance 57 ml/min; Glucose 136 mg/dl (70-99); Potassium 3.5 mmol/L (3.5-5.1); Sodium 135 mmol/L (135-145); Total Protein 6.8 g/dl (6.3-8.2); eGFR > 60.00
[2025-01-13 05:03] LABS: Magnesium 2.2 mg/dl (1.6-2.3)
[2025-01-13] MEDS: TYLENOL 650 MG PO (05:25)
--- NOTE | 2025-01-13 08:28 | CON.INTV ---
Consultation
Consultation Request
Date/Time Consultation Requested: 01/12/2025
Date/Time Consultation Performed: 01/13/2025
Requesting Provider: Dr. Milner
Performing Provider: Dr. Quiroga
Reason for Consultation: HTN crisis
Medical History
-
Chief Complaint: Abdominal pain + vomiting
History of Present Illness:
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
degeneration (legally blind), history of suspected TIA with previous tPA administration, insomnia, history of Tracy-Agrawal tear (during tPA for stroke in August 2013), and history of pneumonia ([id number]) who presents with nausea/vomiting and
abdominal pain. She also reported a headache. Per the daughter, Judy, the patient was not having diarrhea or vomiting prior to arrival. Patient was recently hospitalized here at from 12/15 - 12/24/2024, after presenting with a change in
mental status. In the ER she was hypertensive to 199/109, afebrile to 98.9 �F, pulse rate 70, respiratory rate 14 and she was saturating 95% on room air. Initial Hb 11.3, serum bicarbonate level 31, troponin negative at 0.027, proBNP elevated at
3150, urinalysis with no evidence of UTI, with urine culture today becoming positive for Staphylococcus haemolyticus, although at 50,[address] abdomen/pelvis showed no clear etiology for her abdominal pain + vomiting. In the ER she was
given labetalol, morphine, Zofran and then was started on Cardene drip given that the blood pressure remained elevated with SBP in the 210�220 range.
When I saw the patient this morning, she had been off the Cardene drip since approximately 3:30 AM. Patient's daughter, Judy, is present at bedside and all questions were answered. Current BP is 164/89 with heart rate 65. Currently on D5 half
NS at 60 cc an hour. She is saturating 97% on room air. Per the daughter, the right arm appears swollen. The patient was lethargic, sitting in chair in no acute distress, although arousable to voice but then would quickly fall back asleep.
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
(legally blind), history of suspected TIA with previous tPA administration, LVH, insomnia, multinodular goiter, history of iron deficiency, history of vitamin B12 deficiency, osteoporosis previously on Fosamax (stopped due to Aguilar's esophagus),
actinic keratosis, history of pneumonia (April 2017), history of Tracy-Agrawal tear (during tPA for stroke (August 2013), history of post polypectomy syndrome (2008), confusion s/p vaccine (November 2021), vivid dreams
PSHx: right cataract surgery, left inguinal hernia repair, excision of nonhealing wound on abdomen, x 3, tonsillectomy, appendectomy
Past Medical History
Past Medical History: Other (Above as per HPI)
Past Surgical History: Other (Above as per HPI)
Social History
Tobacco: Non-smoker
Alcohol: None
Drug: None
Living: Care Home ([facility])
Family History
Family History: CAD (Father), Cancer (Father: Prostate cancer; sisters x 2: Breast cancer) and Other (Father: Dementia + tobacco use; Mother: tobacco use with emphysema; Daughter: ulcerative proctitis)
Allergies / Home Medications
Allergies
Allergy/AdvReac Type Severity Reaction Status Date / Time
amlodipine besylate (From Allergy Rash/CONFUS Verified 01/12/25 12:50
Norvasc) ION
Home Medications
�Medication �Instructions �Recorded �Confirmed �Last Taken �Type
pantoprazole 40 mg tablet,delayed 40 mg PO DAILY Gastrointestinal 12/03/11 01/12/25 03/03/24 History
release issue
rosuvastatin 10 mg tablet 10 mg PO HS High cholesterol 0301/12/25 03/03/24 History
fluoxetine 10 mg capsule 30 mg PO DAILY Depression 11/24/20 01/12/25 03/03/24 History
acetaminophen 325 mg tablet 650 mg PO Q4HPRN PRN mild 02/10/22 01/12/25 10/13/23 History
pain/fever>100.4
ascorbic acid (vitamin C) 1,000 mg 1,000 mg PO DAILY Supplement 06/25/23 01/12/25 03/03/24 History
tablet
apixaban 5 mg tablet (Eliquis) 5 mg PO BID #60 tabs 07/25/23 01/12/25 03/03/24 Rx
bisacodyl 10 mg rectal suppository 10 mg NJ [id number] PRN if no bm aftr 07/28/23 01/12/25 Unknown History
(Dulcolax (bisacodyl)) mom
magnesium hydroxide 400 mg/5 mL 30 ml PO HSPRN PRN constipation 07/28/23 01/12/25 Unknown History
oral suspension (Milk of Magnesia)
cranberry fruit 450 mg tablet 425 mg PO QPM Supplement 10/18/23 01/12/25 03/03/24 History
(cranberry)
metoprolol succinate 50 mg 50 mg PO DAILY Heart Failure 10/18/23 01/12/25 03/03/24 History
tablet,extended release 24 hr
ramipril 1.25 mg capsule 6.25 mg PO BID Blood Pressure 10/18/23 01/12/25 03/03/24 History
therapeutic multivitamin 1 tab PO QPM Supplement 10/18/23 01/12/25 03/03/24 History
Lactobacillus rhamnosus GG 10 1 cap PO QPM Supplement 03/04/24 01/12/25 03/03/24 History
billion cell capsule (Culturelle)
thiamine HCl (vitamin B1) 100 mg 100 mg PO QPM Supplement 03/04/24 01/12/25 03/03/24 History
tablet
docusate sodium 100 mg capsule 100 mg PO BID Constipation 0101/12/25 03/03/24 History
magnesium oxide 400 mg (241.3 mg 400 mg PO DAILY Supplement 03/05/24 01/12/25 03/03/24 History
magnesium) tablet
tamsulosin 0.4 mg capsule 0.4 mg PO DAILY Urinary retention 03/07/24 01/12/25 Unknown Rx
30 days #30 caps
estradiol 0.01% (0.1 mg/gram) 1 g vaginal TUFR Hormonal Agent 11/23/24 01/12/25 Unknown History
vaginal cream
miconazole nitrate 2 % topical 1 applic topical BIDPRN PRN fungal 11/23/24 01/12/25 Unknown History
powder rash
quetiapine 25 mg tablet (Seroquel) 25 mg PO DAILY Mental 11/23/24 01/12/25 Unknown History
Health/Anxiety
fosfomycin tromethamine 3 gram 3 g PO Q10D Infection #1 ea 11/25/24 01/12/25 Unknown Rx
oral packet
phenazopyridine 100 mg tablet 100 mg PO TIDPRN PRN Dysuria #0 11/25/24 01/12/25 Unknown Rx
tabs
gabapentin 100 mg capsule 100 mg PO BID #20 caps 12/24/24 01/12/25 Unknown Rx
Review of Systems
-
Unable to Obtain full review of systems at this time due to: Acuity
Vitals / Labs / Diagnostic Testing
Vital Signs
Temp Pulse Resp BP Pulse Ox
98.1 F 77 16 101/71 98
01/13/25 15:36 01/13/25 17:00 01/13/25 17:00 01/13/25 16:00 01/13/25 16:00
Lab Data
01/13/25 04:05
01/13/25 04:05
Laboratory Results
01/12/25
20:15
PT 14.6
INR 1.11
APTT 26.8
Diagnostic Testing:
Physical Exam
-
HEENT: Normocephalic and Anicteric
Cardiovascular: S1/S2 and Peripheral Edema (Trace lower extremity edema bilaterally, with right upper extremity +1 non-pitting edema)
Respiratory: Wheeze (negative), Rales (Bibasilar), Rhonchi (negative) and Non-Labored Respirations
GI: Soft, Distended (Abdominal obesity), Non Tender and Normal Bowel Sounds
Neurology: Tremors (negative) and Other (Lethargic)
Skin: Warm and Dry
General: Respiratory Distress (negative), Comfortable, Fever (negative) and Chills (negative)
Assessment
-
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
macular degeneration (legally blind), history of suspected TIA with previous tPA administration, insomnia, history of Tracy-Agrawal tear (during tPA for stroke in August 2013), and history of pneumonia ([id number]) who presents with nausea/vomiting
and abdominal pain. She also reported a headache. Per the daughter, Judy, the patient was not having diarrhea or vomiting prior to arrival. Patient was recently hospitalized here at from 12/15 - 12/24/2024, after presenting with a change in
mental status. In the ER she was hypertensive to 199/109, afebrile to 98.9 �F, pulse rate 70, respiratory rate 14 and she was saturating 95% on room air. Initial Hb 11.3, serum bicarbonate level 31, troponin negative at 0.027, proBNP elevated at
3150, urinalysis with no evidence of UTI, with urine culture today becoming positive for Staphylococcus haemolyticus, although at 50,[address] abdomen/pelvis showed no clear etiology for her abdominal pain + vomiting. In the ER she was
given labetalol, morphine, Zofran and then was started on Cardene drip given that the blood pressure remained elevated with SBP in the 210�220 range.
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
macular degeneration (legally blind), history of suspected TIA with previous tPA administration, LVH, insomnia, multinodular Gorder, history of iron deficiency, history of vitamin B12 deficiency, osteoporosis previously on Fosamax (stopped due to
Aguilar's esophagus), actinic keratosis, history of pneumonia (April 2017), history of Tracy-Agrawal tear (during tPA for stroke (August 2013), history of post polypectomy syndrome (2008), confusion s/p vaccine (November 2021), vivid dreams
Impression:
#Hypertensive crisis requiring Cardene drip -crisis now resolved and off Cardene drip since overnight on 01/12 - 01/13/2025
#Chronic hypercapnic respiratory failure
#JOSETTE with intolerance to CPAP- moderate severity JOSETTE with respiratory event index: 20.8 events/hour with jannet SpO2: 80% per portable home sleep test on 10/25/2017, prev on APAP 5-20
#Morbid obesity with BMI: 37.1
#Chronic anemia with history of iron deficiency + B12 deficiency
#History of recurrent UTI
#Essential hypertension
#Mixed hyperlipidemia
#GERD with history of Aguilar's esophagus
#History of subclinical hypothyroidism
#Vitamin D deficiency
#Recurrent UTI
#Legal blindness
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
#History of TIA/suspected CVA s/p tPA (August 2013)
Plan:
- Patient was admitted with vomiting and abdominal pain. CT abdomen/pelvis showed no evidence of intestinal obstruction although there is a large hiatal hernia with a small�moderate-sized predominantly fat only containing left lateral anterior
pelvic wall hernia containing loop of distal descending colon without any significant accompanying inflammatory changes
- She was found to be hypertensive and then transferred to the ICU for Cardene infusion, which has now been off since overnight and she has been remaining hemodynamically stable with SBP in the 140�160s
- Would decrease SBP by 25% in the first 24 hours to avoid hypoperfusion; after the first 24 hours, then would lower BP further to a goal of <140/90
- Defer any secondary workup of her hypertension to primary team
- Maintain SpO2 >90-94%, using supplemental O2 as needed
- Given her altered mental status/lethargic state, continue aspiration precautions; would keep NPO unless she is awake and not an aspiration risk
- Recommend checking a blood gas to assure she is not hypercapnic; if she is hypercapnic, then will use BiPAP tonight instead of CPAP
- Maintain MAP>65
- Replete electrolytes with K>4, Mg>2
- Maintain euglycemia with goal BG 140-180
- Trend H/H and transfuse if needed to keep Hb>7g/dL; keep plt>20k, unless there is concern for bleeding then keep plt>50k
- prn nebulized bronchodilators - not currently bronchospastic
- If patient were to stay awake, then would encourage incentive spirometer encouraged 10x per hour for at least 4 hrs a day
- DVT ppx Eliquis
Code status: DNR/DNI
Patient is stable for downgrade out of ICU to telemetry. No additional recommendations at this time. Cloud Automation Tester/Pulmonary service will now sign off. Thank you for allowing us to be involved in the care of this patient. Please reconsult if there
are any additional questions/concerns, or if patient's respiratory status deteriorates.
Total time spent today was 63 minutes for this encounter. Time includes reviewing laboratory test/imaging results, reviewing pertinent medical records, obtaining and reviewing medical history, performing an appropriate exam, ordering medications,
tests and procedures. Time also includes documentation of this encounter, coordinating patient care and communicating with other healthcare professionals. Total time does not include separately billed tests performed on this date of service.
[2025-01-13] MEDS: SEROQUEL 25 MG PO (08:32)
[2025-01-13] MEDS: ALTACE 6.25 MG PO ×2 (08:32→19:51)
[2025-01-13] MEDS: TOPROL XL 50 MG PO (08:32)
[2025-01-13] MEDS: NEURONTIN 100 MG PO ×2 (08:32→19:53)
[2025-01-13] MEDS: ELIQUIS 5 MG PO ×2 (08:33→19:51)
[2025-01-13] MEDS: PROZAC 30 MG PO (08:33)
[2025-01-13] MEDS: PROTONIX 40 MG PO (08:33)
[2025-01-13] MEDS: FLOMAX 0.4 MG PO (08:33)
[2025-01-13] MEDS: COLACE 100 MG PO ×2 (08:34→19:51)
[2025-01-13] MEDS: MAGNESIUM OXIDE 400 MG PO (08:34)
[2025-01-13] MEDS: VITAMIN C 1000 MG PO (08:34)
--- NOTE | 2025-01-13 08:34 | W.PN.HOSP.TC ---
Today's Communication/Plan
-
See plan
Assessment / Plan
Assessment / Plan
Gen: NAD, Awake and alert
Neck: supple.
CV: RRR, +S1/S2, no m/r/g.
Resp: CTAB, no rales, wheezes, or rhonchi.
Abd: +BS, soft, NT to onight palpation, ND
Skin: No rashes.
Neuro: excluding eye exam (eyes closed, pt blind), CN 2-12 intact, non-focal.
Psych: Normal mood and affect.
CT A/P w/IV: Sigmoid diverticulosis. Prior appendectomy. No intestinal obstruction or free air. Symmetric renal excretion. Small simple right renal cysts. Subcentimeter slightly high attenuation lower pole left renal lesion not compatible with a
simple cyst, CANNOT DIFFERENTIATE PROTEINACEOUS/HEMORRHAGIC CYST VERSUS SOLID MASS on the basis of this study. Large hiatal hernia. Stable mild L1 vertebral compression fracture. Small fat only containing umbilical hernia. Small to moderate size
predominantly fat only containing left lateral anterior pelvic wall hernia containing a loop of distal descending colon, nonobstructed and without significant accompanying inflammatory changes.
Hypertensive emergency:
-given 10mg IV labetalol in the ER without significant improvement in blood pressure
-was on nicardipine drip, stopped 01/13 around 0300
-cont home ACEi/BB, may need to uptitrate pending today's BP trend
-suspect that patient's hypertensive emergency was due to missing her antihypertensives on the day of admission due to vomiting
Abdominal pain:
-CT A/P above and without findings that provide an etiology for the patient's abdominal pain
-U/A unremarkable and not suggestive of infection
-afebrile, no leukocytosis
-LFTs/lipase unremarkable
-supportive care, pain control, antiemetics
Other problems:
Dementia
GERD: h/o Aguilar's esophagus and large hiatal hernia, cont PPI
HLD: cont statin
CAD: cont BB
PAF: cont Eliquis/BB
Anxiety: cont Seroquel/Prozac
Depression: cont Seroquel/Prozac
Morbid obesity due to excess calories
JOSETTE on CPAP
Chronic hypercapnic respiratory failure
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
L1 compression fracture
h/o suspected TIA/CVA s/p tPA administration (August 2013)
Osteoporosis
DNR/Eliquis
I had a very lengthy discussion with 2 of the patient's daughters today at bedside. I did go over in detail the patient's presentation, hospital course, laboratory and diagnostic data, and my medical conclusions. I did explain that I do not have
an etiology for the patient's nausea and vomiting at this time. I also discussed the patient's frequent hospitalizations and overall quality of life. The patient's daughter states that they are interested in learning about hospice. In the past
the barrier to hospice has been that the patient does not have a hospice qualifying diagnosis. I did discuss the concept of do not hospitalize as well as quality over quantity regarding the number of years the patient has to live. The patient's
daughters were very receptive to this conversation.
Total time spent on today's encounter was 53 minutes which included time spent in counseling the patient/family regarding diagnosis and treatment plan as listed above, goals of care, and symptom management. Case was discussed with nursing staff,
specialists, and care coordinators/case management. All labs and imaging personally reviewed by me. Remainder the time spent in detailed review of previous records, lab data, imaging, and other medical provider documentation.
Anticipated Discharge: 24 - 48 hours
Subjective/Interval History
-
Date of Service: January 13, 2025
Pt states she feels much better than yesterday. No vomiting today as per RN, family states pt has had some dry heaving.
Objective Data
-
Labs:
Laboratory Results
01/12/25 01/13/25
20:15 04:05
WBC 6.5
Hgb 11.9 L
Hct 36.1 L
Plt Count 190
PT 14.6
INR 1.11
APTT 26.8
Sodium 135
Potassium 3.5
Chloride 102
Carbon Dioxide 29
BUN 7
Creatinine 0.7
Glucose 136 H
Calcium 9.4
Total Bilirubin 0.6
AST 27
ALT 14
Alkaline Phosphatase 71
Vital Signs:
Vital Signs
Temp Pulse Resp BP Pulse Ox
97.9 F 99 21 154/94 93
01/13/25 07:36 01/13/25 06:30 01/13/25 06:30 01/13/25 06:30 01/13/25 06:30
I&O
01/12/25 01/13/25 01/14/25
06:59 06:59 06:59
Intake Total 125 / 125
Balance 125 / 125
--- NOTE | 2025-01-13 10:06 | PTCARENOTE ---
Rec'd pt at 0700. Pt AAOx3, follows commands, GIPSON. Pt blind, forgetful at times. OOB to BSC and then to recliner with rolling walker with PT/OT. Monitor Afib, SBP 130-150's. Pox 98% 2LNC. Pt with mild nausea, no vomiting. Pt refusing breakfast at
this time. Family at bedside.
--- NOTE | 2025-01-13 11:23 | PTCARENOTE ---
Rec'd pt at 0700. Pt AAOx3, follows commands, GIPSON. Pt blind, forgetful at times. OOB to BSC and then to recliner with rolling walker with PT/OT. Monitor SR/1st degree AVB, SBP 130-150's. Pox 98% 2LNC. Pt with mild nausea, no vomiting. Pt refusing
breakfast at this time. Family at bedside. Pt downgraded to tele LOC.
[2025-01-13] MEDS: D5/0.45%NACL 1000 IV (11:38)
--- NOTE | 2025-01-13 16:25 | CM ---
retirement village manager reviewed patient's chart and met with patient and patient reports she lives at [facility] patient has dementia and is blind, patient is currently requiring oxygen. patient's daughter's significant other is at bedside
and confirms discharge plan.
Plan; Patient to return to [facility] when stable.
[2025-01-13] MEDS: THERAGRAN 1 TABLET PO (17:03)
[2025-01-13] MEDS: VISBIOME 1 CAP PO (19:51)
[2025-01-13] MEDS: VITAMIN B1 100 MG PO (19:54)
--- NOTE | 2025-01-13 20:00 | PTCARENOTE ---
assumed care, pt sleeping in chair, aroused verbally, GIPSON and follows commands, Ox3 c forgetfulness, NSR c first degree, + pulses, Lungs diminished, sats 99% on 2L, BSx4, x2 c RW to BSC c yellow output, skin per worklist, CHG bath, denture and oral
care, 20G RAC, 20G RFA, D5 0.45 NS 60ml, denies nausea, c/o abdominal pain but minimal and tolerable, call tolentino within reach bed alarm applied, otherwise refer to documentation.
[2025-01-13] MEDS: CRESTOR 10 MG PO (23:09)
--- NOTE | 2025-01-13 23:30 | PTCARENOTE ---
RT applied CPAP c 2L
[2025-01-14] VITALS (10 sets, daily range): BP systolic 90–119; BP diastolic 46–71; PULSE 52–53; BMI 37.0
[2025-01-14] MEDS: D5/0.45%NACL 1000 IV (04:48)
--- NOTE | 2025-01-14 07:46 | W.PN.HOSP.TC ---
Today's Communication/Plan
-
Halved home metoprolol to 25 mg p.o. daily, due to bradycardia in the 50s and soft blood pressures in the 90s to 110s
Downgraded to telemetry
Wean O2 as tolerated
Discontinued IV D5 normal saline after hemodilution noted.
Patient asymptomatic, other than minimal right hand swelling that was reportedly increased yesterday.
Assessment / Plan
Assessment / Plan
Impression
Ms. Ting Zarate is a 84-year-old woman with a PMH notable for obesity, paroxysmal A-fib, coronary disease, hyperlipidemia, urinary retention, history of CVA, who presented with abdominal pain, nausea, vomiting and was found to have hypertensive
emergency with blood pressure up to the 220s.
CT A/P w/IV 01/12/2025:
Sigmoid diverticulosis. Prior appendectomy. No intestinal obstruction or free air. Symmetric renal excretion. Small simple right renal cysts. Subcentimeter slightly high attenuation lower pole left renal lesion not compatible with a simple cyst,
CANNOT DIFFERENTIATE PROTEINACEOUS/HEMORRHAGIC CYST VERSUS SOLID MASS on the basis of this study. Large hiatal hernia. Stable mild L1 vertebral compression fracture. Small fat only containing umbilical hernia. Small to moderate size predominantly
fat only containing left lateral anterior pelvic wall hernia containing a loop of distal descending colon, nonobstructed and without significant accompanying inflammatory changes.
Chest x-ray 01/12/25
Low lung volumes.
At least mild cardiomegaly, unchanged.
Pulmonary vascularity within the limits of normal.
Hiatal hernia again noted.
Plan
Hypertensive emergency (on presentation: SBP up to 220s, abdominal pain, N/V):
-given 10mg IV labetalol in the ER without significant improvement in blood pressure
-was on nicardipine drip, stopped 01/13 around 0300
-cont home ramipril 6.25 mg p.o. twice daily.
�Halved home metoprolol to 25 mg p.o. daily, due to bradycardia in the 50s and soft blood pressures in the 90s to 110s
-suspect that patient's hypertensive emergency was due to missing her antihypertensives on the day of admission due to vomiting
� Downgraded to telemetry
Expeller Operator consulted:
She was found to be hypertensive and then transferred to the ICU for Cardene infusion, which has now been off since overnight and she has been remaining hemodynamically stable with SBP in the 140�160s
- Would decrease SBP by 25% in the first 24 hours to avoid hypoperfusion; after the first 24 hours, then would lower BP further to a goal of <140/90
- Defer any secondary workup of her hypertension to primary team
Maintain SpO2 >90-94%, using supplemental O2 as needed
- Recommend checking a blood gas to assure she is not hypercapnic; if she is hypercapnic, then will use BiPAP tonight instead of CPAP
�Wean O2 as tolerated. Not on O2 at home
Abdominal pain:
-CT A/P above and without findings that provide an etiology for the patient's abdominal pain
-U/A unremarkable and not suggestive of infection
-afebrile, no leukocytosis
-LFTs/lipase unremarkable
-supportive care, pain control, antiemetics
�IV D5 normal saline fluids discontinued after hemodilution 01/14/2025
Other problems:
Urinary retention: Continue tamsulosin 0.4 mg p.o. daily
Dementia
GERD: h/o Aguilar's esophagus and large hiatal hernia, cont PPI
HLD: cont statin
CAD: cont BB
PAF: cont Eliquis/BB
Anxiety: cont Seroquel/Prozac
Depression: cont Seroquel/Prozac
Morbid obesity due to excess calories
JOSETTE on CPAP
Chronic hypercapnic respiratory failure
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
L1 compression fracture
h/o suspected TIA/CVA s/p tPA administration (August 2013)
Osteoporosis
DNR/Eliquis
Cholesterol-lowering diet
Dr. Milner discussed hospice 01/13/25: I also discussed the patient's frequent hospitalizations and overall quality of life. The patient's daughter states that they are interested in learning about hospice. In the past the barrier to hospice has
been that the patient does not have a hospice qualifying diagnosis. I did discuss the concept of do not hospitalize as well as quality over quantity regarding the number of years the patient has to live. The patient's daughters were very receptive
to this conversation.
Anticipated Discharge: Within 24 hours
Subjective/Interval History
-
Date of Service: January 14, 2025
No acute events overnight. Patient reported her right hand is more swollen than her left hand for 1 day. On exam, the right hand is minimally more swollen. Daughter stated that yesterday her right hand was more swollen.
The patient denies headache, vision changes, nausea, vomiting, abdominal pain, decreased urine output.
Daughter said that her PCP is in process of weaning her Seroquel and gabapentin, and asked for me to check that her doses for them are in line with the wean. Informed the daughter that we will continue their current doses of those 2 medications, as
those are weaned very gradually, such as a week at a time, and the patient was admitted less than a week ago.
Objective Data
-
Labs:
Hematology and Coagulation - Last 24 hours
01/14/25 Range/Units
08:18
WBC 4.0 L (4.8-10.8) 10^3/uL
RBC 3.13 L (4.20-5.40) 10^6/uL
Hgb 9.9 L (12.0-16.0) g/dL
Hct 31.0 L (37.0-47.0) %
MCV 99.0 (81.0-99.0) fL
MCH 31.6 H (27.0-31.0) pg
MCHC 31.9 L (33.0-37.0) g/dL
RDW 13.7 (11.5-14.5) %
Plt Count 150 D (130-400) 10^3/uL
MPV 9.6 (7.4-10.4) fL
Blood Gas and Chemistry - Last 24 hours
01/14/25 Range/Units
08:18
Sodium 136 (135-145) mmol/L
Potassium 3.5 (3.5-5.1) mmol/L
Chloride 102 (98-107) mmol/L
Carbon Dioxide 34 H (22-30) mmol/L
BUN 14 (7-17) mg/dl
Creatinine 1.0 (0.6-1.0) mg/dL
Estimated Creat Clear 40 ml/min
eGFR 55.21
Glucose 101 H (70-99) mg/dl
Calcium 8.6 (8.4-10.2) mg/dl
Vital Signs:
Vital Signs
Temp Pulse Resp BP Pulse Ox
98.9 F 53 18 111/71 93
01/14/25 03:45 01/14/25 07:00 01/14/25 07:00 01/14/25 04:00 01/13/25 22:45
I&O
01/13/25 01/14/25 01/15/25
06:59 06:59 06:59
Intake Total 125 / 125 1620 / 1620
Output Total 1000 / 1000
Balance 125 / 125 620 / 620
Review of Systems
-
History Source: Patient
All other systems: Reviewed and negative
Physical Exam
-
General: Well Developed, Well Nourished, No Apparent Distress, Comfortable and Conversant
HEENT: Normocephalic, Atraumatic, Anicteric, No Ptosis, Nose Appears Normal, Ears Appear Normal and Other (Blind)
Respiratory: Clear to Auscultation
Cardiac: Regular Rhythm and S1/S2
GI: Soft, Nontender, Nondistended and Normal Bowel Sounds
Musculoskeletal: No Clubbing, No Cyanosis and Edema, Right Upper Extrem (Right hand minimally more swollen than left)
Skin: Warm and Dry
Neuro: Awake and Alert
Psych: Calm
[2025-01-14] MEDS: ALTACE 6.25 MG PO ×2 (07:49→19:35)
[2025-01-14] MEDS: VITAMIN C 1000 MG PO (07:49)
[2025-01-14] MEDS: PROZAC 30 MG PO (07:50)
[2025-01-14] MEDS: ELIQUIS 5 MG PO ×2 (07:50→19:36)
[2025-01-14] MEDS: PROTONIX 40 MG PO (07:50)
[2025-01-14] MEDS: DESENEX/MITRAZOL/ZEASORB 1 APPLIC TOPICAL ×2 (07:50→20:02)
[2025-01-14] MEDS: SEROQUEL 25 MG PO (07:50)
[2025-01-14] MEDS: COLACE 100 MG PO ×2 (07:50→19:36)
[2025-01-14] MEDS: TOPROL XL 50 MG PO (07:50)
[2025-01-14] MEDS: MAGNESIUM OXIDE 400 MG PO (07:50)
[2025-01-14] MEDS: FLOMAX 0.4 MG PO (07:50)
[2025-01-14] MEDS: NEURONTIN 100 MG PO ×2 (07:52→19:36)
[2025-01-14 08:35] LABS: Blood Urea Nitrogen 14 mg/dl (7-17); Calcium 8.6 mg/dl (8.4-10.2); Carbon Dioxide 34 mmol/L (22-30); Chloride 102 mmol/L (98-107); Estimated Creatinine Clearance 40 ml/min; Glucose 101 mg/dl (70-99); Potassium 3.5 mmol/L (3.5-5.1); Sodium 136 mmol/L (135-145); eGFR 55.21
[2025-01-14 09:05] LABS: Hematocrit 31.0 % (37.0-47.0); Hemoglobin 9.9 g/dL (12.0-16.0); Mean Corp Hgb Conc. 31.9 g/dL (33.0-37.0); Mean Corpuscular Volume 99.0 fL (81.0-99.0); Platelet Count 150 10^3/uL (130-400); Red Cell Dist. Width 13.7 % (11.5-14.5)
--- NOTE | 2025-01-14 10:10 | W.PN.UPDATE ---
Update Note
Progress Note Update
I saw and evaluated the patient. I reviewed the resident�s note and agree with findings and plan as documented in the resident�s note.
Gen: NAD
CV: rere, RR, +S1/S2, no m/r/g.
Resp: CTAB anterrioly, no rales, wheezes, or rhonchi.
Abd: +BS, soft, NT to light palpation, ND
Skin: No rashes.
Psych: calm
CT A/P w/IV: Sigmoid diverticulosis. Prior appendectomy. No intestinal obstruction or free air. Symmetric renal excretion. Small simple right renal cysts. Subcentimeter slightly high attenuation lower pole left renal lesion not compatible with a
simple cyst, CANNOT DIFFERENTIATE PROTEINACEOUS/HEMORRHAGIC CYST VERSUS SOLID MASS on the basis of this study. Large hiatal hernia. Stable mild L1 vertebral compression fracture. Small fat only containing umbilical hernia. Small to moderate size
predominantly fat only containing left lateral anterior pelvic wall hernia containing a loop of distal descending colon, nonobstructed and without significant accompanying inflammatory changes.
Hypertensive emergency:
-given 10mg IV labetalol in the ER without significant improvement in blood pressure
-was on nicardipine drip, stopped 01/13 around 0300
-cont home ACEi/BB. Based on BP trend no need to adjust antihypertensives at this time.
-suspect that patient's hypertensive emergency was due to missing her antihypertensives on the day of admission due to vomiting
Abdominal pain:
-CT A/P above and without findings that provide an etiology for the patient's abdominal pain
-U/A unremarkable and not suggestive of infection
-afebrile, no leukocytosis
-LFTs/lipase unremarkable
-supportive care, pain control, antiemetics
Other problems:
Dementia
GERD: h/o Aguilar's esophagus and large hiatal hernia, cont PPI
HLD: cont statin
CAD: cont BB
PAF: cont Eliquis/BB
Anxiety: cont Seroquel/Prozac
Depression: cont Seroquel/Prozac
Morbid obesity due to excess calories
JOSETTE on CPAP
Chronic hypercapnic respiratory failure
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
L1 compression fracture
h/o suspected TIA/CVA s/p tPA administration (August 2013)
Osteoporosis
DNR/Eliquis
01/13: I had a very lengthy discussion with 2 of the patient's daughters today at bedside. I did go over in detail the patient's presentation, hospital course, laboratory and diagnostic data, and my medical conclusions. I did explain that I do not
have an etiology for the patient's nausea and vomiting at this time. I also discussed the patient's frequent hospitalizations and overall quality of life. The patient's daughter states that they are interested in learning about hospice. In the
past the barrier to hospice has been that the patient does not have a hospice qualifying diagnosis. I did discuss the concept of do not hospitalize as well as quality over quantity regarding the number of years the patient has to live. The
patient's daughters were very receptive to this conversation.
Dispo: goal for d/c 01/15/25
--- NOTE | 2025-01-14 14:07 | PTCARENOTE ---
1200-pt placed on room air. Pox 92-96% while awake. Pt will drift into low-mid 80's briefly if she falls asleep d/t sleep apnea. Tele LOC. Daughter in to visit and updated. Pt OOB to recliner chair with min assist of 2 and rolling walker this am.
[2025-01-14] MEDS: VITAMIN B1 100 MG PO (17:00)
[2025-01-14] MEDS: THERAGRAN 1 TABLET PO (17:00)
[2025-01-14] MEDS: VISBIOME 1 CAP PO (17:00)
[2025-01-14] MEDS: TYLENOL 650 MG PO (19:35)
[2025-01-14] MEDS: CRESTOR 10 MG PO (21:50)
--- NOTE | 2025-01-14 22:16 | PTCARENOTE ---
Received pt from previous RN. Pt is AAOx3, forgetful, blind, [place]. Bed alarm in place. NSR/sinus rere w/ 1st degree on the monitor. Pt on RA O2 sat 93%, lungs diminished, CPAP HS. Pt incont of urine, pw in place. Mouth care and CHG bath provided.
Call tolentino in reach. Safe environment maintained.
[2025-01-15] VITALS (8 sets, daily range): BP systolic 109–180; BP diastolic 50–100; BMI 37.5
[2025-01-15 04:16] LABS: Hematocrit 31.8 % (37.0-47.0); Hemoglobin 10.2 g/dL (12.0-16.0); Mean Corp Hgb Conc. 32.1 g/dL (33.0-37.0); Mean Corpuscular Volume 100.6 fL (81.0-99.0); Platelet Count 152 10^3/uL (130-400); Red Cell Dist. Width 13.2 % (11.5-14.5)
[2025-01-15 04:29] LABS: Blood Urea Nitrogen 18 mg/dl (7-17); Calcium 8.5 mg/dl (8.4-10.2); Carbon Dioxide 30 mmol/L (22-30); Chloride 106 mmol/L (98-107); Estimated Creatinine Clearance 45 ml/min; Glucose 103 mg/dl (70-99); Potassium 3.6 mmol/L (3.5-5.1); Sodium 136 mmol/L (135-145); eGFR > 60.00
--- NOTE | 2025-01-15 07:55 | W.PN.HOSP.TC ---
Today's Communication/Plan
-
Discharge today
Assessment / Plan
Assessment / Plan
Physical Exam
General: Well Developed, Well Nourished, No Apparent Distress, Comfortable and Conversant
HEENT: Normocephalic, Atraumatic, No Ptosis, Nose Appears Normal, Ears Appear Normal and Other (Blind)
Respiratory: Clear to Auscultation
Cardiac: Regular Rhythm and S1/S2
GI: Soft, Nontender, Nondistended and Normal Bowel Sounds
Musculoskeletal: No Cyanosis and Edema, Right Upper Extrem (Right hand minimally more swollen than left)
Skin: Warm and Dry
Neuro: Awake and Alert
Psych: Calm
Impression
Ms. Ting Zarate is a 84-year-old female with a PMH notable for obesity, paroxysmal A-fib, coronary disease, hyperlipidemia, urinary retention and history of CVA, who presented with abdominal pain, nausea, vomiting and was found to have hypertensive
emergency with blood pressure up to the 220s mmHg.
CT A/P w/IV 01/12/2025:
Sigmoid diverticulosis. Prior appendectomy. No intestinal obstruction or free air. Symmetric renal excretion. Small simple right renal cysts. Subcentimeter slightly high attenuation lower pole left renal lesion not compatible with a simple cyst,
CANNOT DIFFERENTIATE PROTEINACEOUS/HEMORRHAGIC CYST VERSUS SOLID MASS on the basis of this study. Large hiatal hernia. Stable mild L1 vertebral compression fracture. Small fat only containing umbilical hernia. Small to moderate size predominantly
fat only containing left lateral anterior pelvic wall hernia containing a loop of distal descending colon, nonobstructed and without significant accompanying inflammatory changes.
Chest x-ray 01/12/25
Low lung volumes.
At least mild cardiomegaly, unchanged.
Pulmonary vascularity within the limits of normal.
Hiatal hernia again noted.
Plan
Hypertensive emergency (on presentation: SBP up to 220s, abdominal pain, N/V):
-given 10mg IV labetalol in the ER without significant improvement in blood pressure
-was on nicardipine drip, stopped 01/13 around 0300
-cont home ramipril
�Halved home metoprolol to 25 mg p.o. daily, due to bradycardia in the 50s and soft blood pressures in the 90s to 110s
-suspect that patient's hypertensive emergency was due to missing her antihypertensives on the day of admission due to vomiting
�Previously downgraded to telemetry
Supervisor Metal Fabricating consulted:
She was found to be hypertensive and then transferred to the ICU for Cardene infusion, which was then weaned off
Microscopic Hematuria
-Needs urology outpatient follow-up with Dr. Arteaga
SEE RITU ARTEAGA TEXT from 8:54 AM -- also blood in urine
SEE MAURO CABELLO CONSULT
Abdominal pain:
-CT A/P above and without findings that provide an etiology for the patient's abdominal pain
-U/A unremarkable and not suggestive of infection
-afebrile, no leukocytosis
-LFTs/lipase unremarkable
-supportive care, pain control, antiemetics
�IV D5 normal saline fluids discontinued after hemodilution 01/14/2025
-I communicated with Dr. Cabello (surgeon) who said that it�s OK for a Discharge and then patient can follow-up with Dr. Cabello outpatient
Other problems:
Urinary retention: Continue tamsulosin 0.4 mg p.o. daily
Dementia
GERD: h/o Aguilar's esophagus and large hiatal hernia, cont PPI
HLD: cont statin
CAD: cont BB
PAF: cont Eliquis/BB
Anxiety: cont Seroquel/Prozac
Depression: cont Seroquel/Prozac
Morbid obesity due to excess calories
JOSETTE on CPAP
Chronic hypercapnic respiratory failure
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
L1 compression fracture
h/o suspected TIA/CVA s/p tPA administration (August 2013)
Osteoporosis
DNR/Eliquis
Cholesterol-lowering diet
Dr. Milner discussed hospice 01/13/25: Dr. Milner had a very lengthy discussion with 2 of the patient's daughters at bedside. Dr. Milner did go over in detail the patient's presentation, hospital course, laboratory and diagnostic data, and my medical
conclusions. Dr. Milner did explain that he does not have an etiology for the patient's nausea and vomiting at the time. Dr. Milner also discussed the patient's frequent hospitalizations and overall quality of life. The patient's daughter stated that
they are interested in learning about hospice. In the past, the barrier to hospice has been that the patient does not have a hospice qualifying diagnosis. Dr. Milner did discuss the concept of do not hospitalize as well as quality over quantity
regarding the number of years the patient has to live. The patient's daughters were very receptive to this conversation.
I spoke with patient's daughters Lillie and Judy today, and I answered all of their questions and concerns to satisfaction.
More than 30 minutes spent in discharge including
Final examination of the patient
Summarizing hospital stay
Instructions for continuing care to all relevant caregivers
Preparation of discharge records, prescriptions, and referral forms
Total time spent (in minutes): 45
Anticipated Discharge: Today
Subjective/Interval History
-
Date of Service: January 15, 2025
Patient was seen and examined. She reported her pain is much much better compared to when she came in. She is overall doing better, no issues overnight.
Objective Data
-
Labs:
Laboratory Results
01/15/25
04:06
WBC 3.8 L
Hgb 10.2 L
Hct 31.8 L
Plt Count 152
Sodium 136
Potassium 3.6
Chloride 106
Carbon Dioxide 30
BUN 18 H
Creatinine 0.9
Glucose 103 H
Calcium 8.5
Vital Signs:
Vital Signs
Temp Pulse Resp BP Pulse Ox
97.8 F 56 12 137/100 93
01/15/25 04:01 01/15/25 06:00 01/14/25 09:00 01/15/25 05:01 01/14/25 21:30
I&O
01/14/25 01/15/25 01/16/25
06:59 06:59 06:59
Intake Total 1620 / 1680 1110 / 1110
Output Total 1000 / 1000 310 / 310
Balance 620 / 680 800 / 800
--- NOTE | 2025-01-15 08:00 | PTCARENOTE ---
Assumed care of patient. Assessment completed. Pt legally blind but able to let needs known. Pleasant. Cooperative w/ care. Forgetful. [place]. On R/A. Purewick removed...pt incontinent of urine. Pericare done. MASD in bilateral groins. Able
to take whole pills w/ water. VS completed. Bed alarm on. Call tolentino within reach.
[2025-01-15] MEDS: PROZAC 30 MG PO (08:37)
[2025-01-15] MEDS: NEURONTIN 100 MG PO (08:39)
[2025-01-15] MEDS: TOPROL XL 25 MG PO (08:39)
[2025-01-15] MEDS: ELIQUIS 5 MG PO (08:40)
[2025-01-15] MEDS: ALTACE 6.25 MG PO (08:40)
[2025-01-15] MEDS: COLACE 100 MG PO (08:41)
[2025-01-15] MEDS: VITAMIN C 1000 MG PO (08:41)
[2025-01-15] MEDS: SEROQUEL 25 MG PO (08:41)
[2025-01-15] MEDS: FLOMAX 0.4 MG PO (08:41)
[2025-01-15] MEDS: MAGNESIUM OXIDE 400 MG PO (08:41)
[2025-01-15] MEDS: PROTONIX 40 MG PO (08:41)
--- NOTE | 2025-01-15 12:55 | CON.GS ---
Consultation
-
Date/Time Consultation Performed: 01/15/25 1145
Medical History
-
Chief Complaint: abdominal discomfort at hernia site
History of Present Illness:
Ms Zarate is an 84 yo female who presented for hypertensive emergency with a h/o x3, appendectomy, ?left inguinal hernia repair, CAD, AF on Eliquis, CVA with tpa given, macular degeneration (legally blind), morbid obesity and known hiatal
hernia who is seen in evaluation today given discomfort at left abdominal wall hernia site. She notes discomfort was worse earlier in her admisssion but is now better. She denies nausea, vomiting or stool changes. Right inguinal, umbilcal and llq
hernias are soft and reducible.
Past Medical History
Past Medical History: Arrhythmias (paf), CAD, CVA, GERD (barretts, jared gill tear), HTN, Hypercholesterolemia and Other (morbid obesity, utis, macular degeneration with blindness, insomnia, goiter, iron and b12 deficiency, osteoporosis)
Social History
Tobacco: Non-Smoker
Alcohol: None
Living: Care Home
Family History
Family History: Reviewed & Not Pertinent
Allergies / Home Medications
Allergy/AdvReac Type Severity Reaction Status Date / Time
amlodipine besylate (From Allergy Rash/CONFUS Verified 01/12/25 12:50
Norvasc) ION
�Medication �Instructions �Recorded �Confirmed �Type
pantoprazole 40 mg tablet,delayed 40 mg PO DAILY Gastrointestinal 12/03/11 01/12/25 History
release issue
rosuvastatin 10 mg tablet 10 mg PO HS High cholesterol 05/25/18 01/12/25 History
fluoxetine 10 mg capsule 30 mg PO DAILY Depression 11/24/20 01/12/25 History
acetaminophen 325 mg tablet 650 mg PO Q4HPRN PRN mild 02/10/22 01/12/25 History
pain/fever>100.4
ascorbic acid (vitamin C) 1,000 mg 1,000 mg PO DAILY Supplement 06/25/23 01/12/25 History
tablet
apixaban 5 mg tablet (Eliquis) 5 mg PO BID #60 tabs 07/25/23 01/12/25 Rx
bisacodyl 10 mg rectal suppository 10 mg MN [id number] PRN if no bm aftr 07/28/23 01/12/25 History
(Dulcolax (bisacodyl)) mom
magnesium hydroxide 400 mg/5 mL 30 ml PO HSPRN PRN constipation 07/28/23 01/12/25 History
oral suspension (Milk of Magnesia)
cranberry fruit 450 mg tablet 425 mg PO QPM Supplement 10/18/23 01/12/25 History
(cranberry)
metoprolol succinate 50 mg 50 mg PO DAILY Heart Failure 10/18/23 01/12/25 History
tablet,extended release 24 hr
ramipril 1.25 mg capsule 6.25 mg PO BID Blood Pressure 10/18/23 01/12/25 History
therapeutic multivitamin 1 tab PO QPM Supplement 10/18/23 01/12/25 History
Lactobacillus rhamnosus GG 10 1 cap PO QPM Supplement 03/04/24 01/12/25 History
billion cell capsule (Culturelle)
thiamine HCl (vitamin B1) 100 mg 100 mg PO QPM Supplement 03/04/24 01/12/25 History
tablet
docusate sodium 100 mg capsule 100 mg PO BID Constipation 03/05/24 01/12/25 History
magnesium oxide 400 mg (241.3 mg 400 mg PO DAILY Supplement 03/05/24 01/12/25 History
magnesium) tablet
tamsulosin 0.4 mg capsule 0.4 mg PO DAILY Urinary retention 03/07/24 01/12/25 Rx
30 days #30 caps
estradiol 0.01% (0.1 mg/gram) 1 g vaginal TUFR Hormonal Agent 11/23/24 01/12/25 History
vaginal cream
miconazole nitrate 2 % topical 1 applic topical BIDPRN PRN fungal 11/23/24 01/12/25 History
powder rash
quetiapine 25 mg tablet (Seroquel) 25 mg PO DAILY Mental 11/23/24 01/12/25 History
Health/Anxiety
fosfomycin tromethamine 3 gram 3 g PO Q10D Infection #1 ea 11/25/24 01/12/25 Rx
oral packet
phenazopyridine 100 mg tablet 100 mg PO TIDPRN PRN Dysuria #0 11/25/24 01/12/25 Rx
tabs
gabapentin 100 mg capsule 100 mg PO BID #20 caps 12/24/24 01/12/25 Rx
Review of Systems
-
History Source: Patient and Family (daughter at bedside)
All other systems: Negative unless noted
A 10 point review of systems was completed, and was negative except as per HPI.
Physical Exam
Vital Signs
Temp Pulse Resp BP Pulse Ox
97.9 F 60 12 109/91 93
01/15/25 12:00 01/15/25 12:00 01/14/25 09:00 01/15/25 11:02 01/14/25 21:30
01/14/25 01/15/25 01/16/25
06:59 06:59 06:59
Actual Weight 86 kg 87.1 kg
Body Mass Index (BMI) 37.5
Lab Results
01/15/25 04:06
01/15/25 04:06
WBC 3.8 10^3/uL (4.8-10.8) L 01/15/25 04:06
Hgb 10.2 g/dL (12.0-16.0) L 01/15/25 04:06
Hct 31.8 % (37.0-47.0) L 01/15/25 04:06
Plt Count 152 10^3/uL (130-400) 01/15/25 04:06
Abs Immat Gran (auto) 0.0 10^3/uL (0-0.05) 01/12/25 13:21
Neutrophils % 74.4 % (42.2-75.2) 01/12/25 13:21
Physical Exam
General: Well Developed and Well Nourished
HEENT: Normocephalic and Moist Mucous Membranes
Respiratory: Non Labored Respirations
GI: Soft and Tender (mild to left abdominal wall hernia which is soft/reducible. Right inguinal hernia soft/reducible. Umbilical hernia soft/reducible)
Skin: Warm and Dry
Neuro: Awake and Alert
Psych: Calm
Data Reviewed
-
CT Scan: Image Personally Visualized and interpreted, Report Reviewed by me, Discussed with Nurse, Discussed with Patient and Discussed with Family
Labs: Labs Reviewed by me, Discussed with Physician, Discussed with Patient and Discussed with Family
Old Records: Reviewed
Assessment / Plan
-
Ms Zarate is an 84 yo female who presented for hypertensive emergency with a h/o x3, appendectomy, ?left inguinal hernia repair, CAD, AF on Eliquis, CVA with tpa given, macular degeneration (legally blind), morbid obesity and known hiatal
hernia who is seen in evaluation today given discomfort at left abdominal wall hernia site. CT imaging reviewed with multiple hernias present; hiatal, umbilical (fat containing), right inguinal (?femoral) and fat containing, and left lateral
abdominal wall. The left lateral wall hernia does contain some bowel but no evidence of incarceration/strangulation.
Would continue discussions regarding hernia repair as there is bowel within the hernia sac, but this can be done non-emergently on an outpatient basis. Discussed nonoperative management such as an abdominal binder for comfort and weight loss.
Ok for d/c from surgical standpoint. Provided pt's daughter who was at bedside with information for followup.
--- NOTE | 2025-01-15 14:57 | CM ---
Addendum entered by Mi Gray 01/15/25 15:00:
NURSE TO NURSE REPORT #: [phone]
FAX #: [phone]
Original Note:
Patient has been medically cleared for discharge back to [facility] for resumption of long term care pharmacist care services. Ambulance transport scheduled for 4:00 PM. Tyler, VALAR[facility] admissions and Team notified.
--- NOTE | 2025-01-15 15:14 | PTCARENOTE ---
Report called to Pavan Hua RN. Pt for discharge back to [facility]...pickup time 1600. Dtr at bedside and made aware.
== END 2025-01-15 16:16 | DRG 305 ==
LOC: ICU 17:53
PROVIDERS: Nurse Practitioner Primary Care; ADMITTING PHYSICIAN Internal Medicine; ATTENDING PHYSICIAN Hospitalist; CONSULT PHYSICIAN Surgery; EMERGENCY PHYSICIAN Student in an Organized Health Care Education/Training Program; OTHER PHYSICIAN Internal Medicine Critical Care Medicine
PROC: 5A09357 Assistance with Respiratory Ventilation, Less than 24 Consecutive Hours, Continuous Positive Airway Pressure (ICD-10-PCS; 2025-01-13)
DX: I16.1 Hypertensive emergency (principal); M48.56XA Collapsed vertebra, not elsewhere classified, lumbar region, initial encounter for fracture; F03.93 Unspecified dementia, unspecified severity, with mood disturbance; F03.918 Unspecified dementia, unspecified severity, with other behavioral disturbance; F03.94 Unspecified dementia, unspecified severity, with anxiety; J96.12 Chronic respiratory failure with hypercapnia; I48.0 Paroxysmal atrial fibrillation; Z86.73 Personal history of transient ischemic attack (TIA), and cerebral infarction without residual deficits; Z68.37 Body mass index [BMI] 37.0-37.9, adult; K57.30 Diverticulosis of large intestine without perforation or abscess without bleeding; N28.1 Cyst of kidney, acquired; K44.9 Diaphragmatic hernia without obstruction or gangrene; K42.9 Umbilical hernia without obstruction or gangrene; K43.9 Ventral hernia without obstruction or gangrene; R31.29 Other microscopic hematuria; K21.9 Gastro-esophageal reflux disease without esophagitis; I25.10 Atherosclerotic heart disease of native coronary artery without angina pectoris; F32.A Depression, unspecified; E66.01 Morbid (severe) obesity due to excess calories; G47.33 Obstructive sleep apnea (adult) (pediatric); H35.30 Unspecified macular degeneration; H54.8 Legal blindness, as defined in USA; M81.0 Age-related osteoporosis without current pathological fracture; Z66 Do not resuscitate; I10 Essential (primary) hypertension; Z87.440 Personal history of urinary (tract) infections; E78.2 Mixed hyperlipidemia; E53.8 Deficiency of other specified B group vitamins; D64.9 Anemia, unspecified; E55.9 Vitamin D deficiency, unspecified; G47.00 Insomnia, unspecified; Z79.01 Long term (current) use of anticoagulants; Z79.899 Other long term (current) drug therapy; Z80.3 Family history of malignant neoplasm of breast; Z80.42 Family history of malignant neoplasm of prostate; Z82.49 Family history of ischemic heart disease and other diseases of the circulatory system; Z82.5 Family history of asthma and other chronic lower respiratory diseases; Z87.01 Personal history of pneumonia (recurrent); Z87.19 Personal history of other diseases of the digestive system; Z90.49 Acquired absence of other specified parts of digestive tract; Z98.41 Cataract extraction status, right eye
CPT/HCPCS: 71046; 74177; 80048; 80053; 81003; 81015; 82962; 83690; 83735; 83880; 84100; 84484; 85025; 85027; 85610; 85730; 87070; 93005; 94660; 96365; 96375; 96376; 97163; 97167; 99285; Q9967

== ENCOUNTER → 2025-02-20 10:35 | Outpatient (REF) | payer MEDICARE, OTHER, SELFPAY ==
[2025-02-20 13:35] LABS: HDL Cholesterol 46 mg/dl; LDL Cholesterol, Calculated 60 mg/dl; Very Low Density Lipoprotein 20 mg/dl (0-30)
== END ==
LOC: OLABN 10:35
PROVIDERS: ATTENDING PHYSICIAN Student in an Organized Health Care Education/Training Program
DX: E78.5 Hyperlipidemia, unspecified (principal)
CPT/HCPCS: 36415; 80061